=== PATIENT | male | born 1950 | race Caucasian/White ===

== ENCOUNTER 2019-07-03 11:41 | Emergency (ER) | payer MEDICARE ==
[~2019-07-03] VITALS: Ht 182.9 cm; Wt 54.6 kg
[2019-07-03] MEDS ORDERED: VITAMIN B-625 MG PO (13:57)
[2019-07-03] MEDS ORDERED: AMANTADINE100 M1 PO (13:57)
[2019-07-03] MEDS ORDERED: COMTAN200 MG PO (13:58)
[2019-07-03] MEDS ORDERED: SINEMET 25-1001 EACH PO (13:58)
[2019-07-03] MEDS ORDERED: CIPRO500 MG PO (14:15)
--- OUTSIDE RECORDS SUMMARY | 2019-07-03 15:20 | XMS ---
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 Curt VISIT COUNT (12 MO.) 1 George Owens [address] [place] [address] TOTAL 2 NOTE: Visits indicate total known visits. ED/UCC VISIT TRACKING (12 MO.) 07/03/2019 11:42 [place] TYPE: Emergency COMPLAINT: - BLOOD IN URINE,CONFUSION 06/16/2019 14:53 [place] TYPE: Emergency DIAGNOSES: - Weakness - Hypermagnesemia - Acute cystitis with hematuria - Acute kidney failure, unspecified - can't walk - Weakness INPATIENT VISIT TRACKING (12 MO.) 06/16/2019 14:53 George [place] TYPE: Internal Medicine DIAGNOSES: - Acute kidney failure, unspecified - Weakness - Acute cystitis with hematuria - Hypermagnesemia [email or web address]
== END 2019-07-03 15:18 | disposition home or self-care (01) ==
LOC: ED 11:41
DX: N39.0 Urinary tract infection, site not specified (principal); Z88.2 Allergy status to sulfonamides; Z88.1 Allergy status to other antibiotic agents; Z79.899 Other long term (current) drug therapy
CPT/HCPCS: 71045; 80053; 81001; 85025; 87088; 96361; 96365; 99284-25; J0696; J7030

== ENCOUNTER 2019-08-18 13:16 | Observation (INO) | payer MEDICARE ==
[~2019-08-18] VITALS: Ht 182.9 cm; Wt 50.9 kg
--- OUTSIDE RECORDS SUMMARY | ~2019-08-18 | XMS | Encounter Summary ---
Demographics + + + | Address | [address] | | | [place] [address] | + + + | Home Phone | | + + + | Preferred Language | Unknown | + + + | Marital Status | | + + + | Christianity Affiliation | Unknown | + + + | Race | Unknown | + + + | Ethnic Group | Unknown | + + + Author + + + | Author | [facility] | | | and [place] | + + + | Organization | [facility] | | | and [place] | + + + | Address | Unknown | + + + | Phone | Unavailable | + + + Support + + +---------+ + | Name | Relationship | Address | Phone | + + +---------+ + | Blanquita Jose | ECON | Unknown | | + + +---------+ + Care Team Providers + +------+ + | Care Auto Haulaway Driver Name | Role | Phone | + +------+ + | Екатерина Christianson NP | PCP | | + +------+ + Reason for Visit + + + | Reason | Comments | + + + | Pain Management | | + + + Encounter Details +--------+ + + + + | Date | Type | Department | Care Team | Description | +--------+ + + + + | 01/06/ | Telephone | [facility] | Mac Bond MD | Pain Management | | 2019 | | [facility] | [address] | | | | | CLINIC [address] | [place] | | | | | [address] [place], | [address] | | | | | [place] [address] | | | | | | [phone] | | | +--------+ + + + + Social History + +-------+ +--------+ + | Tobacco Use | Types | Packs/Day | Years | Date | | | | | Used | | + +-------+ +--------+ + | Former Smoker | | | | Quit: 07/09/2015 | + +-------+ +--------+ + + +---+---+---+ | Smokeless Tobacco: | | | | | Never Used | | | | + +---+---+---+ + + +---------+ + | Alcohol Use | Drinks/Week | oz/Week | Comments | + + +---------+ + | Yes | 1 Cans of beer | 1.0 | ocassionally | + + +---------+ + + + + | Sex Assigned at | Date Recorded | | | | + + + | Not on file | | + + + + + + + | Job Start Date | Occupation | Industry | + + + + | Not on file | Not on file | Not on file | + + + + + + + + | Travel History | Travel Start | Travel End | + + + + + + | No recent travel history available. | + + documented as of this encounter Plan of Treatment +--------+---------+ + + + | Date | Type | Specialty | Care Team | Description | +--------+---------+ + + + | 01/20/ | Office | Neurology | Mary, | | | 2020 | Visit | | BRYCE [address] [place], | | | | | | [place] [address] | | | | | | [phone] | | | | | | | | +--------+---------+ + + + documented as of this encounter Visit Diagnoses Not on filedocumented in this encounter"
--- OUTSIDE RECORDS SUMMARY | ~2019-08-18 | XMS | Encounter Summary ---
Demographics + + + | Address | [address] | | | [place] [address] | + + + | Home Phone | | + + + | Preferred Language | Unknown | + + + | Marital Status | | + + + | Pentecostal Affiliation | Unknown | + + + | Race | Unknown | + + + | Ethnic Group | Unknown | + + + Author + + + | Author | [facility] | | | and [place] | + + + | Organization | [facility] | | | and [place] | + + + | Address | Unknown | + + + | Phone | Unavailable | + + + Support + + +---------+ + | Name | Relationship | Address | Phone | + + +---------+ + | Blanquita Patel ECON | Unknown | | + + +---------+ + Care Team Providers + +------+ + | Care Telephone Technician Name | Role | Phone | + +------+ + | Екатерина Christianson NP | PCP | | + +------+ + Encounter Details +--------+ + + + + | Date | Type | Department | Care Team | Description | +--------+ + + + + | 12/15/ | Orders Only | [facility] | Mac Bond MD | Chronic low back | | 2019 | | HOSPITAL [facility] | [address] | pain without | | | | CLINIC [address] | [place], [place] | sciatica, | | | | [address] [place], | [address] | unspecified back | | | | [place] [address] | | pain laterality | | | | [phone] | | (Primary Dx); | | | | | | Encounter for | | | | | | therapeutic | | | | | | procedure | +--------+ + + + + Social [...] | | | | | | [place] [address] | | | | | | [phone] | | | | | | | | +--------+---------+ + + + documented as of this encounter Results CBC with Differential (12/26/2018 10:32 AM PDT) + +---------+ + + + | Component | Value | Ref Range | Performed | Pathologist | | | | | At | Signature | + +---------+ + + + | WBC | 7.9 | 4.6 - 10.5 K/uL | [facility] | | [facility] | | + +---------+ + + + | RBC | 4.56 | 4.36 - 5.83 | [facility] | | | | | M/uL | [facility] | | + +---------+ + + + | Hemoglobin | 14.3 | 13.1 - 17.4 | [facility] | | | | | g/dL | [facility] | | + +---------+ + + + | Hematocrit | 43.2 | 39.0 - 51.9 % | [facility] | | + +---------+ + + + | MCV | 94.7 | 82.0 - 96.0 fL | [facility] | | + +---------+ + + + | MCH | 31.4 | 27.7 - 32.3 pg | [facility] | [facility] | | + +---------+ + + + | MCHC | 33.1 | 32.0 - 36.9 | [facility] | | | | | g/dL | [facility] | | + +---------+ + + + | RDW-CV | 13.2 | 0.0 - 17.0 % | [facility] | | | | [facility] | | + +---------+ + + + | Platelet | 312 | 150 - 450 K/uL | [facility] | | | Count | | | [facility] | [facility] | | + +---------+ + + + | MPV | 8.7 (L) | 9.4 - 12.4 fL | [facility] | | | [facility] | | + +---------+ + + + | % | 68.1 | 42.0 - 76.0 % | [facility] | | | Neutrophils | | | [facility] | | + +---------+ + + + | % | 20.1 | 20.0 - 40.0 % | [facility] | | | Lymphocytes | | | [facility] | | + +---------+ + + + | % Monocytes | 6.1 | 3.0 - 13.0 % | [facility] | | | | [facility] | | + +---------+ + + + | % | 4.4 | 0.0 - 7.0 % | [facility] | | | Eosinophils | | | [facility] | | + +---------+ + + + | % Basophils | 1.0 | 0.0 - 2.0 % | [facility] | | | | [facility] | | + +---------+ + + + | % Immature | 0.3 | 0.0 - 0.5 % | [facility] | | | Granulocyte | | | [facility] | | | | | | [facility] | | + +---------+ + + + | Absolute | 5.41 | 2.80 - 7.70 | [facility] | | | Neutrophils | | K/uL | [facility] | | + +---------+ + + + | Absolute | 1.59 | 1.20 - 3.30 | [facility] | | | Lymphocytes | | K/uL | [facility] | | + +---------+ + + + | Absolute | 0.48 | 0.00 - 0.80 | [facility] | | | Monocytes | | K/uL | [facility] | [facility] | | + +---------+ + + + | Absolute | 0.35 | 0.00 - 0.70 | [facility] | | | Eosinophils | | K/uL | [facility] | | + +---------+ + + + | Absolute | 0.08 | 0.00 - 0.20 | [facility] | | | Basophils | | K/uL | [facility] | | [facility] | | + +---------+ + + + | Absolute | 0.02 | 0.00 - 0.15 | [facility] | | | Immature | | K/uL | [facility] | | | Granulocyte | | | [facility] | | | s | | | [facility]AT[facility] | | + +---------+ + + + | % nRBC | 0 | <=0 per 100 | [facility] | | | | | WBCs | [facility] | [facility] | | + +---------+ + + + | Absolute | 0.00 | 0.00 - 0.01 | [facility] | | | nRBC | | K/uL | [facility] | | [facility] | | + +---------+ + + + + + | Specimen | + + | Blood | + + + + + + + | Performing | Address | City/State/Zipcode | Phone Number | | Organization | | | | + + + + + | [facility] | [address] | [place] [address] | [phone] | | [facility] | | | | + + + + + documented in this encounter Visit Diagnoses + + | Diagnosis | + + | Chronic low back pain without sciatica, unspecified back pain laterality - Primary | + + | Encounter for therapeutic procedure | + + documented in this encounter"
--- OUTSIDE RECORDS SUMMARY | ~2019-08-18 | XMS | Encounter Summary ---
Demographics + + + | Address | [address] | | | [place] [address] | + + + | Home Phone | | + + + | Preferred Language | Unknown | + + + | Marital Status | | + + + | Church Affiliation | Unknown | + + + | Race | Unknown | + + + | Ethnic Group | Unknown | + + + Author + + + | Author | [facility] | | | and [place] | + + + | Organization | [facility] | | | and [...] Team Providers + +------+ + | Care Structured Cabling Technician Name | Role | Phone | + +------+ + | Екатерина Christianson NP | PCP | | + +------+ + Reason for Visit +--------+ + | Reason | Comments | +--------+ + | Triage | frequent falls | +--------+ + Encounter Details +--------+ + + + + | Date | Type | Department | Care Team | Description | +--------+ + + + + | 06/16/ | Telephone | [facility] | Ally Douglass RN | Triage (frequent | | 2019 | | HOSPITAL [facility] | | falls) | | | | CLINIC [address] | | | | | | [address] [place], | | | | | | [place] [address] | | | | | | [phone] | | | +--------+ + + + + Social History + +-------+ +--------+ + | Tobacco Use | Types | Packs/Day | Years | Date | | | | | Used | | + +-------+ +--------+ + | Current Every Day | | 0.25 | | Quit: 07/09/2015 | | Smoker | | | | | + +-------+ +--------+ + + +---+---+---+ | Smokeless Tobacco: | | | | | Never Used | | | | + +---+---+---+ + + +---------+ + | Alcohol Use | Drinks/Week | oz/Week | Comments | + + +---------+ + | Not Currently | 1 Cans of beer | 1.0 | | + + +---------+ + + + [...] | | | | | | [address] [facility] [place], | | | | | | [place] [address] | | | | | | [phone] | | | | | | | | +--------+---------+ + + + documented as of this encounter Visit Diagnoses Not on filedocumented in this encounter"
--- OUTSIDE RECORDS SUMMARY | ~2019-08-18 | XMS | Encounter Summary ---
Demographics + + + | Address | [address] | | | [place] [address] | + + + | Home Phone | | + + + | Preferred Language | Unknown | + + + | Marital Status | | + + + | Baptism Affiliation | Unknown | + + + | Race | Unknown | + + + | Ethnic Group | Unknown | + + + Author + + + | Author | [facility] | | | and [place] | + + + | Organization | [facility] | | | [...] Team Providers + +------+ + | Care Skin Tanner Name | Role | Phone | + +------+ + | Екатерина Christianson NP | PCP | | + +------+ + Reason for Visit +--------+ + | Reason | Comments | +--------+ + | Other | | +--------+ + Encounter Details +--------+ + + + + | Date | Type | Department | Care Team | Description | +--------+ + + + + | 10/03/ | Telephone | [facility] | Mac Bond MD | Other | | 2019 | | HOSPITAL [facility] | [address] | | | | | CLINIC [address] | [place] | | | | | [address] [place], | [address] | | | | | [place] [address] | | | | | | [phone] | | | +--------+ + + + [...] | | | | | | [place] [address] | | | | | | [phone] | | | | | | | | +--------+---------+ + + + documented as of this encounter Visit Diagnoses Not on filedocumented in this encounter"
--- OUTSIDE RECORDS SUMMARY | ~2019-08-18 | XMS | Encounter Summary ---
Demographics + + + | Address | [address] | | | [place] [address] | + + + | Home Phone | | + + + | Preferred Language | Unknown | + + + | Marital Status | | + + + | Anabaptism Affiliation | Unknown | + + + | Race | Unknown | + + + | Ethnic Group | Unknown | + + + Author + + + | Author | [facility] | | | and [place] | + + + | Organization | [facility] | | | [...] Team Providers + +------+ + | Care It Architecture Analyst Name | Role | Phone | + +------+ + | Екатерина Christianson NP | PCP | | + +------+ + Reason for Visit + + + | Reason | Comments | + + + | Weakness | | + + + Encounter Details +--------+ + + + + | Date | Type | Department | Care Team | Description | +--------+ + + + + | 06/16/ | Hospital | [facility] | Yary Travis | Generalized weakness | | 2019 - | Encounter | [facility] | Oscar, DO [address] | (Primary Dx); Acute | | | | [address] [place] | [address] [place] | renal failure, | | 06/19/ | | [place], [place] | [place] [address] | unspecified acute | | 2018 | | [address] | [phone] | renal failure type | | | | [phone] | | ([facility]); | | | | | Fidel Muir, | Hypermagnesemia; | | | | | [address] | Acute cystitis with | | | | | [place] [address] | hematuria | | | | | [phone] | | | | | | | | | | | | Gina Main, | | | | | | [address] [place] | | | | | | [place] [address] | | | | | | [phone] | | | | | | | | +--------+ + + + [...] + + documented as of this encounter Last Filed Vital Signs + + + + + | Vital Sign | Reading | Time Taken | Comments | + + + + + | Blood Pressure | 101/50 | 06/19/2019 11:19 AM | | | | | PDT | | + + + + + | Pulse | 79 | 06/19/2019 11:19 AM | | | | | PDT | | + + + + + | Temperature | 36.4 C (97.5 F) | 06/19/2019 8:46 AM | | | | | PDT | | + + + + + | Respiratory Rate | 20 | 06/19/2019 11:19 AM | | | | | PDT | | + + + + + | Oxygen Saturation | 100% | 06/19/2019 11:19 AM | | | | | PDT | | + + + + + | Inhaled Oxygen | - | - | | | Concentration | | | | + + + + + | Weight | 59.9 kg (132 lb 0.9 | 06/19/2019 5:00 AM | | | | oz) | PDT | | + + + + + | Height | 182.9 cm (6') | 06/16/2019 7:53 PM | | | | | PDT | | + + + + + | Body Mass Index | 17.91 | 06/16/2019 7:53 PM | | | | | PDT | | + + + + + documented in this encounter Functional Status + + + + | Functional Status | Response | Date of Assessment | + + + + | Are you deaf or do you have serious | No | 06/19/2019 | | difficulty hearing? | | | + + + + | Are you blind or do you have serious | No | 06/19/2019 | | difficulty seeing, even when wearing | | | | glasses? | | | + + + + | Do you have serious difficulty walking or | Yes | 06/19/2019 | | climbing stairs? (5 years old or older) | | | + + + + | Do you have difficulty dressing or bathing? | Yes | 06/19/2019 | | (5 years old or older) | | | + + + + | Because of a physical, mental, or emotional | Yes | 06/19/2019 | | condition, do you have difficulty doing | | | | errands alone such as visiting a doctor's | | | | office or shopping? [15 years old or | | | | older)] | | | + + + + + + + + | Cognitive Status | Response | Date of Assessment | + + + + | Because of a physical, mental, or emotional | Yes | 06/19/2019 | | condition, do you have serious difficulty | | | | concentrating, remembering, or making | | | | decisions? (5 years old or older) | | | + + + + documented as of this encounter Discharge Summaries Fidel Muir MD - 06/19/2019 12:57 PM PDT MEDICAL HOSPITALIST DISCHARGE SUMMARY Pt. Name/Age/: Nitesh Haynes 68 y.o. 1950 Date of Admission: 06/16/2019 Date of Discharge: 06/19/2019 PCP: Екатерина Christianson Admitting Diagnosis: Acute renal failure UTI Discharge Diagnosis: Principal Problem: UTI (urinary tract infection) Active Problems: Parkinson disease Chronic bilateral low back pain without sciatica Heart murmur Resolved Problems: * No resolved hospital problems. 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 Indications: Sepsis of Unknown Etiology, UTI - Lower aka: OMNICEF Unchanged Medications Details amantadine 100 MG Tabs Take 1 tablet by mouth 4 times daily. aka: SYMMETREL carbidopa-levodopa 25-100 mg per tablet Take 1 tab PO at 0800, 1000, 1200, 1400, 1600, 1800, 2000 and 2300. Max of 8 tabs per day . aka: SINEMET entacapone 200 mg tablet Take 1 tablet by mouth 4 times daily. aka: COMTAN vitamin B-6 25 MG tablet Discontinued Medications sulfamethoxazole-trimethoprim 800-160 mg per tablet aka: BACTRIM DS Clinical Resume: This is a 68yo male with a hx of parkinsons who presented to the ER with incresing weakness . He had recently been treated for a UTI with bactrim. In the ER he was noted to be in acu te renal failure with a Cr of 3.61. There was no previous Cr found. His UA was consistent wi th a UTI. CX's grew mixed radha. He was switched to cefdinir. His Cr improved with hydrat ion. He was continue on his parkinsons meds and slowly improved. He has some baseline weakn ess requiring SNF. He is transferring in stable condition to [facility] this afternoon. Incidentally-an ECHO was performed however not resulted at the time of d/c attempts were ma de to get this read prior to d/c and were unsuccessful. This was order by the admitting souleymane melendrez for a murmur. This should be followed up by his PCP. He has no clinical evidence of heart failure or valvular abnl's requiring additional therapies. Physical Examination: General: A&ox3, nad HEENT: At/nc Cardiovascular: Rrr, -mrg Respiratory: Clear throughout Abdomen: s/abs Significant tests and procedures during admission: Xr Chest Ap Portable Result Date: 06/16/2019 EXAMINATION: XR CHEST AP PORTABLE HISTORY: WEAKNESS COMPARISON STUDY: None. FINDINGS: No lo bar consolidation or effusion identified. Heart size normal. An electronic device is prese nt with the body implanted at the upper left thorax precluding evaluation of underlying lung parenchyma. The leads extend cephalad toward head. No acute bone finding. Vague approxima te 8 mm opacity at the left lower lung zone. Skin folds are present at the right thorax.. 1. No acute finding. 2. Finding at the left lower lung zone which may relate to nipple shad ow, or nodule. Recommend repeat chest radiograph with nipple markers in place. Dictated by: Nato Turner Disposition: retirement facility Follow-Up Plans: [address] [place] [id number] Electronically signed by: Fidel Muir MD 06/19/2019 12:[address] [facility] Time spent discharging this patient: 30 minutes documented in this encounter Discharge Instructions AttachmentsThe following attachments cannot be sent through Care Everywhere.Kidney Injury, Acute, Discharge Instructions for (Czech)documented in this encounter Medications at Time of Discharge + + + +---------+ + + | Medication | Sig | Dispensed | Refills | Start | End Date | | | | | | Date | | + + + +---------+ + + | amantadine | Take 1 tablet by | 120 | 11 | 03/11/20 | | | (SYMMETREL) 100 MG | mouth 4 times daily. | tablet | | 19 | | | TABSIndications: | | | | | | | Parkinson disease | | | | | | | ([facility]) | | | | | | + + + +---------+ + + | carbidopa-levodopa | Take 1 tab PO at | 720 | 11 | 03/11/20 | | | (SINEMET) 25-100 mg | 0800, 1000, 1200, | tablet | | 19 | | | per | 1400, 1600, 1800, | | | | | | tabletIndications: | 2000 and 2300. Max | | | | | | Parkinson disease | of 8 tabs per day. | | | | | | (HCC) | | | | | | + + + +---------+ + + | entacapone | Take 1 tablet by | 120 | 11 | 03/11/20 | | | (COMTAN) 200 mg | mouth 4 times daily. | tablet | | 19 | | | tabletIndications: | | | | | | | Parkinson disease | | | | | | | (HCC) | | | | | | + + + +---------+ + + | Pyridoxine HCl | | | 0 | 03/26/20 | | | (VITAMIN B-6) 25 MG | | | | 18 | | | tablet | | | | | | + + + +---------+ + + | cefdinir (OMNICEF) | Take 1 capsule by | 10 | 0 | 06/19/20 | | | 300 mg | mouth 2 times daily | capsule | | 19 | 9 | | capsuleIndications: | for 5 days. | | | | | | SEPSIS OF UNKNOWN | Indications: Sepsis | | | | | | ETIOLOGY, UTI - | of Unknown Etiology, | | | | | | LOWER | UTI - Lower | | | | | + + + +---------+ + + documented as of this encounter Progress Notes Gumaro Hernández, PharmCullen - 06/19/2019 1:40 PM PDTFormatting of this note might be sameera t from the original. PHARMACY SERVICES: DISCHARGE MEDICATION TEACHING Nitesh Haynes is a 68 y.o. male admitted on 06/19/19 for ANEUDY and UTI and was discharge d on 06/19/19. Discharge Medications New Medications Details cefdinir 300 mg capsule Take 1 capsule by mouth 2 times daily for 5 days. Indications: Sepsis of Unknown Etiology, UTI - Lower aka: OMNICEF Unchanged Medications Details amantadine 100 MG Tabs Notes to patient: parkinsons Take 1 tablet by mouth 4 times daily. aka: SYMMETREL carbidopa-levodopa 25-100 mg per tablet Notes to patient: parkinsons Take 1 tab PO at 0800, 1000, 1200, 1400, 1600, 1800, 2000 and 2300. Max of 8 tabs per day . aka: SINEMET entacapone 200 mg tablet Notes to patient: parkinsons Take 1 tablet by mouth 4 times daily. aka: COMTAN vitamin B-6 25 MG tablet Notes to patient: supplement Discontinued Medications sulfamethoxazole-trimethoprim 800-160 mg per tablet aka: BACTRIM DS Discharge medications reviewed for renal function. Signed medication list provided for disc harge to half-way facility. Electronically signed by: Gumaro Hernández, Mary 06/19/2019 13:40 hilo, Adele Romero RN - 06/18/2019 1:08 PM PDTAmbulated with pt from chair to bed. 2 person assistance with walker. Pt is not able to take strong coordinated step. His left foot drags and is in the way of his right foot so his right foot steps on his left foot. He can not walk without assistance, and a walker. Electr onically signed by Adele Lao RN at 06/18/2019 1:10 PM Fidel Pugh MD - 05/27 12:07 PM PDT MEDICAL HOSPITALIST TEAM PROGRESS NOTE Name:Nitesh Haynes Hospital Day # 2 Reason for admission and continued stay: Nitesh Haynes is a 68 y.o. male hospitalized for UTI (urinary tract infection) Assessment and Plan: Active Hospital Problems Diagnosis UTI (urinary tract infection) Heart murmur Chronic bilateral low back pain without sciatica Parkinson disease Resolved Hospital Problems No resolved problems to display. UTI - cx's NGTD, consider sterile pyuria - ceftriaxone 1g daily until, if negative tomorrow d/c abx. Acute renal failure - bl Cr from 2018 was wnl - suspect bactrim affected his ability to secrete Cr. - IVF increased to 100cc/hr and monitor - currently down from 3.61>1.95 parkinsons - continue home meds and pharmacy to dose based on CrCl Anemia - check Fe levels, anemia of chronic disease - check B12 levels, wnl - guiac stool, - monitor, sample not sent yet Dispo - pt will need inpatient rehab Code - spoke with pt who said he wants DNR/limited, placed POLST in the chart Heparin for DVT prophylaxis Subjective/ROS: No concerns this morning Objective: Most recent vital signs: BP 95/48 | Pulse 68 | Temp 36.1 C (97 F) | Resp 24 | Ht 1.829 m (6') | Wt 58 kg (1 27 lb 13.9 oz) | SpO2 93% | BMI 17.34 kg/m Vital sign ranges for last 24hrs: Input and output for last 24hrs: Temp: [36.1 C (97 F)-37.3 C (99.2 F)] 36.1 C (97 F) Pulse: [68-84] 68 Resp: [13-24] 24 BP: (95-115)/(46-89) 95/48 SpO2 Av.7 % Min: 93 % Max: 100 % 06/16 1901 - 06/18 0700 In: 6914 [P.O.:3940; I.V.:2874] Out: 4125 [Urine:4125] Physical Examination: General: Nad, alert HEENT: At/nc Cardiovascular: Rrr, -mrg, s1s2 Respiratory: Without crackles rales or wheezes Abdomen: S/nt/nd/abs Extremities: -cce Neurological: Grossly intact Psychiatric: Bright affect Last 8 glucose values: Recent Labs Lab 06/18/1952206/17/19 0510 06/16/19 1520 GLU 104 103 119* Labs/Studies: Recent Labs Lab 06/18/1952206/17/19 0510 06/16/19 1520 WBC 10.0 10.7* 10.6* HGB 8.8* 8.7* 9.6* HCT 27.1* 27.1* 29.0* PLT 289 339 337 Recent Labs Lab 06/18/1952206/17/19 0510 06/16/19 1520 NA 148* 146* 147* K 4.6 4.8 4.8 CL 114* 117* 112* CO2 21* 19* 21* BUN 53* 65* 77* CREA 1.95* 2.92* 3.61* GLU 104 103 119* MG -- 2.4 2.7* CALCIUM 8.9 8.8 9.2 BILITOT -- -- 0.4 AST -- -- 74* ALT -- -- 23 ALKPHOS -- -- 158* ALBUMIN -- -- 3.2 Pertinent micro results: ua NGTD Xr Chest Ap Portable Result Date: 06/16/2019 EXAMINATION: XR CHEST AP PORTABLE HISTORY: WEAKNESS COMPARISON STUDY: None. FINDINGS: No lo bar consolidation or effusion identified. Heart size normal. An electronic device is prese nt with the body implanted at the upper left thorax precluding evaluation of underlying lung parenchyma. The leads extend cephalad toward head. No acute bone finding. Vague approxima te 8 mm opacity at the left lower lung zone. Skin folds are present at the right thorax.. 1. No acute finding. 2. Finding at the left lower lung zone which may relate to nipple shad ow, or nodule. Recommend repeat chest radiograph with nipple markers in place. Dictated by: Nato Turner I have personally reviewed the above laboratory results and/or imaging. Medications reviewed: Fidel Muir MD, MD 06/18/2019 Total time spent today: > 15 minutes Greater than 50% of total time spent on counseling and coordination of care. Portions of this chart may have been created with voice recognition software. Occasional wo rd or "sound-alike" substitutions may have occurred due to the inherent limitation of voice recognition software. Read the chart carefully and recognize, using context, where these sub stitutions have occurred. Carolann Valerio PharmD - 06/17/2019 11:50 AM PDTPHARMACY SERVICES: ADMISSION MEDICATION REVIEW Nitesh Haynes is a 68 y.o. male admitted on 06/16/19. Patient is not a reliable historian. Location of Patient when reviewed: [x] ICU Patient s prior to admit medication and over the counter (OTC) medications/herbal supplem ents list obtained from: [x] Verbal interview [x] Patient able to recall SOME Name, strength, and directions [x] Pharmacy list names: [facility] ([place] Spoke with patient that could recall some of his medications. Removed gabapentin from vickie ents medication list as patient has not received any since a 90 day fill was mailed in November 2018. Medication review performed and electronically signed by Carolann Diane PharmD 9 11:50 Fidel Pugh MD - 06/17/2019 11:07 AM PDT . MEDICAL HOSPITALIST TEAM PROGRESS NOTE Name:Nitesh Haynes Hospital Day # 1 Reason for admission and continued stay: Nitesh Haynes is a 68 y.o. male hospitalized for UTI (urinary tract infection) Assessment and Plan: Active Hospital Problems Diagnosis UTI (urinary tract infection) Heart murmur Chronic bilateral low back pain without sciatica Parkinson disease Resolved Hospital Problems No resolved problems to display. UTI - ceftriaxone 1g daily until cx's result Acute renal failure - bl Cr from 2018 was wnl - suspect bactrim affected his ability to secrete Cr. - IVF increased to 100cc/hr and monitor parkinsons - continue home meds and pharmacy to dose based on CrCl Anemia - check Fe levels - check B12 levels - guiac stool - monitor Code - spoke with pt who said he wants DNR/limited, placed POLST in the chart Heparin for DVT prophylaxis Subjective/ROS: Feels weak Reports dysuria Denies fevers or chills. Objective: Most recent vital signs: BP 96/54 | Pulse 83 | Temp 36.6 C (97.8 F) (Oral) | Resp 18 | Ht 1.829 m (6') | Wt 56.3 kg (124 lb 1.9 oz) | SpO2 99% | BMI 16.83 kg/m Vital sign ranges for last 24hrs: Input and output for last 24hrs: Temp: [36.6 C (97.8 F)-37.1 C (98.8 F)] 36.6 C (97.8 F) Pulse: [69-86] 83 Resp: [10-20] 18 BP: (96-132)/(54-90) 96/54 SpO2 Av.6 % Min: 93 % Max: 100 % 06/15 1901 - 06/17 0700 In: 2731 [P.O.:900; I.V.:731] Out: 725 [Urine:725] Physical Examination: General: Nad, alert HEENT: At/nc Cardiovascular: Rrr, -mrg, s1s2 Respiratory: Without crackles rales or wheezes Abdomen: S/nt/nd/abs Extremities: -cce Neurological: Grossly intact Psychiatric: Bright affect Last 8 glucose values: Recent Labs Lab 06/17/19 0510 06/16/19 1520 GLU 103 119* Labs/Studies: Recent Labs Lab 06/17/19 0510 06/16/19 1520 WBC 10.7* 10.6* HGB 8.7* 9.6* HCT 27.1* 29.0* PLT 339 337 Recent Labs Lab 06/17/19 0510 06/16/19 1520 NA 146* 147* K 4.8 4.8 CL 117* 112* CO2 19* 21* BUN 65* 77* CREA 2.92* 3.61* GLU 103 119* MG 2.4 2.7* CALCIUM 8.8 9.2 BILITOT -- 0.4 AST -- 74* ALT -- 23 ALKPHOS -- 158* ALBUMIN -- 3.2 Pertinent micro results: ua pending Xr Chest Ap Portable Result Date: 06/16/2019 EXAMINATION: XR CHEST AP PORTABLE HISTORY: WEAKNESS COMPARISON STUDY: None. FINDINGS: No lo bar consolidation or effusion identified. Heart size normal. An electronic device is prese nt with the body implanted at the upper left thorax precluding evaluation of underlying lung parenchyma. The leads extend cephalad toward head. No acute bone finding. Vague approxima te 8 mm opacity at the left lower lung zone. Skin folds are present at the right thorax.. 1. No acute finding. 2. Finding at the left lower lung zone which may relate to nipple shad ow, or nodule. Recommend repeat chest radiograph with nipple markers in place. Dictated by: Nato Turner I have personally reviewed the above laboratory results and/or imaging. Medications reviewed: Fidel Muir MD, MD 06/17/2019 Total time spent today: > 15 minutes Greater than 50% of total time spent on counseling and coordination of care. Portions of this chart may have been created with voice recognition software. Occasional wo rd or "sound-alike" substitutions may have occurred due to the inherent limitation of voice recognition software. Read the chart carefully and recognize, using context, where these sub stitutions have occurred. documented in this encounter Plan of Treatment +--------+---------+ + + + | Date | Type | Specialty | Care Team | Description | +--------+---------+ + + + | 01/20/ | Office | Neurology | Mary, | | | 2019 | Visit | | [facility] [address] | | | | | | [address] [facility], | | | | | | [place] [address] | | | | | | [phone] | | | | | | | | +--------+---------+ + + + + + +--------+ + + | Name | Type | Priori | Associated Diagnoses | Date/Time | | | | ty | | | + + +--------+ + + | ECHO Complete | Echocardiog | Routin | | 06/17/2019 9:51 AM | | | sebastián | e | | PDT | + + +--------+ + + + + +--------+ + + | Name | Type | Priori | Associated Diagnoses | Order Schedule | | | | ty | | | + + +--------+ + + | ECHO Complete | Echocardiog | Routin | | One time imaging One | | | sebastián | e | | time imaging for 1 | | | | | | Occurrences starting | | | | | | 06/16/2019 until | | | | | | 06/16/2019 | + + +--------+ + + documented as of this encounter Procedures + +--------+ + + + | Procedure Name | Priori | Date/Time | Associated Diagnosis | Comments | | | ty | | | | + +--------+ + + + | ECG - EXTERNAL SCAN | | 06/23/2019 | | Results for this | | | | 12:00 AM | | procedure are in the | | | | PDT | | results section. | + +--------+ + + + | CBC WITH | Routin | 06/19/2019 | | Results for this | | DIFFERENTIAL | e | 5:32 AM | | procedure are in the | | | | PDT | | results section. | + +--------+ + + + | BASIC METABOLIC | Routin | 06/19/2019 | | Results for this | | PANEL | e | 5:32 AM | | procedure are in the | | | | PDT | | results section. | + +--------+ + + + | CBC WITH | Routin | 06/18/2019 | | Results for this | | DIFFERENTIAL | e | 5:23 AM | | procedure are in the | | | | PDT | | results section. | + +--------+ + + + | BASIC METABOLIC | Routin | 06/18/2019 | | Results for this | | PANEL | e | 5:23 AM | | procedure are in the | | | | PDT | | results section. | + +--------+ + + + | IRON AND IRON | Routin | 06/17/2019 | | Results for this | | BINDING CAPACITY | e | 11:25 AM | | procedure are in the | | | | PDT | | results section. | + +--------+ + + + | VITAMIN B-12 | Routin | 06/17/2019 | | Results for this | | | e | 11:25 AM | | procedure are in the | | | | PDT | | results section. | + +--------+ + + + | CBC NO DIFFERENTIAL | Routin | 06/17/2019 | | Results for this | | | e | 5:10 AM | | procedure are in the | | | | PDT | | results section. | + +--------+ + + + | MAGNESIUM | Routin | 06/17/2019 | | Results for this | | | e | 5:10 AM | | procedure are in the | | | | PDT | | results section. | + +--------+ + + + | BASIC METABOLIC | Routin | 06/17/2019 | | Results for this | | PANEL | e | 5:10 AM | | procedure are in the | | | | PDT | | results section. | + +--------+ + + + | TROPONIN I | Routin | 06/17/2019 | | Results for this | | | e | 3:00 AM | | procedure are in the | | | | PDT | | results section. | + +--------+ + + + | ECG - EXTERNAL SCAN | | 06/17/2019 | | Results for this | | | | 12:00 AM | | procedure are in the | | | | PDT | | results section. | + +--------+ + + + | TROPONIN I | Routin | 06/16/2019 | | Results for this | | | e | 9:00 PM | | procedure are in the | | | | PDT | | results section. | + +--------+ + + + | SODIUM, URINE, | STAT | 06/16/2019 | | Results for this | | RANDOM | | 4:38 PM | | procedure are in the | | | | PDT | | results section. | + +--------+ + + + | CREATININE, URINE, | Routin | 06/16/2019 | | Results for this | | RANDOM | e | 4:38 PM | | procedure are in the | | | | PDT | | results section. | + +--------+ + + + | URINALYSIS WITH | STAT | 06/16/2019 | | Results for this | | MICROSCOPIC WITH | | 4:19 PM | | procedure are in the | | CULTURE IF INDICATED | | PDT | | results section. | + +--------+ + + + | CULTURE, URINE | Routin | 06/16/2019 | | Results for this | | | e | 4:19 PM | | procedure are in the | | | | PDT | | results section. | + +--------+ + + + | XR CHEST AP PORTABLE | STAT | 06/16/2019 | | Results for this | | | | 3:43 PM | | procedure are in the | | | | PDT | | results section. | + +--------+ + + + | ECG 12 LEAD | STAT | 06/16/2019 | | Results for this | | | | 3:22 PM | | procedure are in the | | | | PDT | | results section. | + +--------+ + + + | TSH, REFLEX FREE T4 | STAT | 06/16/2019 | | Results for this | | | | 3:20 PM | | procedure are in the | | | | PDT | | results section. | + +--------+ + + + | TROPONIN I | STAT | 06/16/2019 | | Results for this | | | | 3:20 PM | | procedure are in the | | | | PDT | | results section. | + +--------+ + + + | CBC WITH | STAT | 06/16/2019 | | Results for this | | DIFFERENTIAL | | 3:20 PM | | procedure are in the | | | | PDT | | results section. | + +--------+ + + + | T4, FREE | Routin | 06/16/2019 | | Results for this | | | e | 3:20 PM | | procedure are in the | | | | PDT | | results section. | + +--------+ + + + | B TYPE NATRIURETIC | STAT | 06/16/2019 | | Results for this | | PEPTIDE | | 3:20 PM | | procedure are in the | | | | PDT | | results section. | + +--------+ + + + | MAGNESIUM | STAT | 06/16/2019 | | Results for this | | | | 3:20 PM | | procedure are in the | | | | PDT | | results section. | + +--------+ + + + | LACTIC ACID | STAT | 06/16/2019 | | Results for this | | | | 3:20 PM | | procedure are in the | | | | PDT | | results section. | + +--------+ + + + | COMPREHENSIVE | STAT | 06/16/2019 | | Results for this | | METABOLIC PANEL | | 3:20 PM | | procedure are in the | | | | PDT | | results section. | + +--------+ + + + documented in this encounter Results ECG - EXTERNAL SCAN (06/23/2019 12:00 AM PDT) + + + | Narrative | Performed At | + + + | Ordered by an | | | unspecified provider. | | + + + CBC with Differential (06/19/2019 5:32 AM PDT) + + + + + + | Component | Value | Ref Range | Performed | Pathologist | | | | | At | Signature | + + + + + + | WBC | 9.4 | 4.6 - 10.5 K/uL | [facility] | | | | | [facility] | | + + + + + + | RBC | 2.62 (L) | 4.36 - 5.83 | [facility] | | | | | M/uL | [facility] | [facility] | | + + + + + + | Hemoglobin | 8.4 (L) | 13.1 - 17.4 | [facility] | | | | | g/dL | [facility] | | + + + + + + | Hematocrit | 26.0 (L) | 39.0 - 51.9 % | [facility] | | | | | | [facility] | | + + + + + + | MCV | 99.2 (H) | 82.0 - 96.0 fL | [facility] | | | | | [facility] | | + + + + + + | MCH | 32.1 | 27.7 - 32.3 pg | [facility] | | | | | | [facility] | | + + + + + + | MCHC | 32.3 | 32.0 - 36.9 | [facility] | | | | | g/dL | [facility] | | + + + + + + | RDW-CV | 13.7 | 0.0 - 17.0 % | [facility] | | | | | | [facility] | | + + + + + + | Platelet | 276 | 150 - 450 K/uL | [facility] | | | Count | | | [facility] | | + + + + + + | MPV | 9.4 | 9.4 - 12.4 fL | [facility] | | | | | | [facility] | | + + + + + + | % | 75.0 | 42.0 - 76.0 % | [facility] | | | Neutrophils | | | [facility] | | | [facility] | | + + + + + + | % | 13.0 (L) | 20.0 - 40.0 % | [facility] | | | Lymphocytes | | | [facility] | | [facility] | | + + + + + + | % Monocytes | 7.5 | 3.0 - 13.0 % | [facility] | | | | | | [facility] | | + + + + + + | % | 3.6 | 0.0 - 7.0 % | [facility] | | | Eosinophils | | | [facility] | | [facility] | | + + + + + + | % Basophils | 0.7 | 0.0 - 2.0 % | [facility] | | | | | | [facility] | | + + + + + + | % Immature | 0.2 | 0.0 - 0.5 % | [facility] | | | Granulocyte | | | [facility] | | | | | | [facility] | | + + + + + + | Absolute | 7.04 | 2.80 - 7.70 | [facility] | | | Neutrophils | | K/uL | [facility] | | | [facility] | | + + + + + + | Absolute | 1.22 | 1.20 - 3.30 | [facility] | | | Lymphocytes | | K/uL | [facility] | | | [facility] | | + + + + + + | Absolute | 0.70 | 0.00 - 0.80 | [facility] | | | Monocytes | | K/uL | [facility] | | | | [facility] | | + + + + + + | Absolute | 0.34 | 0.00 - 0.70 | [facility] | | | Eosinophils | | K/uL | [facility] | | | | [facility] | | + + + + + + | Absolute | 0.07 | 0.00 - 0.20 | [facility] | | | Basophils | | K/uL | [facility] | | | | | [facility] | | + + + + + + | Absolute | 0.02 | 0.00 - 0.15 | [facility] | | | Immature | | K/uL | [facility] | | | Granulocyte | | [facility] | | | s | | | [facility]AT[facility] | | + + + + + + | % nRBC | 0 | <=0 per 100 | [facility] | | | | | WBCs | [facility] | | | | | | [facility] | | + + + + + + | Absolute | 0.00 | 0.00 - 0.01 | [facility] | | | nRBC | | K/uL | [facility] | [facility] | | [facility] | | + + + + + + + + | Specimen | + + | Blood | + + + + + + + | Performing | Address | City/State/Zipcode | Phone Number | | Organization | | | | + + + + + | [facility] | [address] | [place] [address] | [phone] | | [facility] | | | | + + + + + Basic Metabolic Panel (06/19/2019 5:32 AM PDT) + + + + + + | Component | Value | Ref Range | Performed | Pathologist | | | | | At | Signature | + + + + + + | Na | 143 | 132 - 143 | [facility] | | | | | mmol/L | [facility] | | | [facility] | | + + + + + + | K | 4.4 | 3.3 - 4.9 | [facility] | | | | | mmol/L | [facility] | | [facility] | | + + + + + + | Cl | 111 (H) | 95 - 108 mmol/L | [facility] | | | | | | [facility] | | + + + + + + | CO2 | 22 (L) | 23 - 34 mmol/L | [facility] | | | | | | [facility] | | + + + + + + | Anion Gap | 10 | 7 - 16 mmol/L | [facility] | | | | | | [facility] | | + + + + + + | Glucose | 168 (H) | 70 - 110 mg/dL | [facility] | | | | | | [facility] | | + + + + + + | BUN | 43 (H) | 5 - 26 mg/dL | [facility] | | | | | | [facility] | | + + + + + + | Creatinine | 1.60 (H) | 0.70 - 1.40 | [facility] | | | | | mg/dL | [facility] | [facility] | | [facility] | | + + + + + + | eGFR if not | 43 (L) | >=60 | [facility] | | | | | mL/min/1.73m2 | [facility] | [facility] | | | | | | [facility] | | + + + + + + | Calcium | 8.6 | 8.3 - 10.0 | [facility] | | | | | mg/dL | [facility] | | | [facility] | | + + + + + + | BUN/Creatin | 26.9 (H) | 7.0 - 24.0 | [facility] | | | ine Ratio | | | [facility] | | | | [facility] | | + + + + + + + + | Specimen | + + | Blood | + + + + + + + | Performing | Address | City/State/Zipcode | Phone Number | | Organization | | | | + + + + + | [facility] | [address] | [place] [address] | [phone] | | [facility] | | | | + + + + + CBC with Differential (06/18/2019 5:23 AM PDT) + + + + + + | Component | Value | Ref Range | Performed | Pathologist | | | | | At | Signature | + + + + + + | WBC | 10.0 | 4.6 - 10.5 K/uL | [facility] | | | | | | [facility] | | + + + + + + | RBC | 2.75 (L) | 4.36 - 5.83 | [facility] | | | | | M/uL | [facility] | | [facility] | | + + + + + + | Hemoglobin | 8.8 (L) | 13.1 - 17.4 | [facility] | | | | | g/dL | [facility] | | [facility] | | + + + + + + | Hematocrit | 27.1 (L) | 39.0 - 51.9 % | [facility] | | | | | | [facility] | | + + + + + + | MCV | 98.5 (H) | 82.0 - 96.0 fL | [facility] | | | | | | [facility] | | + + + + + + | MCH | 32.0 | 27.7 - 32.3 pg | [facility] | | | | | [facility] | | + + + + + + | MCHC | 32.5 | 32.0 - 36.9 | [facility] | | | | | g/dL | [facility] | | + + + + + + | RDW-CV | 13.7 | 0.0 - 17.0 % | [facility] | | | | | | [facility] | [facility] | | + + + + + + | Platelet | 289 | 150 - 450 K/uL | [facility] | | | Count | | | [facility] | | + + + + + + | MPV | 9.0 (L) | 9.4 - 12.4 fL | [facility] | | | | | | [facility] | | | [facility] | | + + + + + + | % | 73.1 | 42.0 - 76.0 % | [facility] | | | Neutrophils | | | [facility] | | | | | [facility] | | + + + + + + | % | 15.3 (L) | 20.0 - 40.0 % | [facility] | | | Lymphocytes | | | [facility] | | | | | [facility] | | + + + + + + | % Monocytes | 8.0 | 3.0 - 13.0 % | [facility] | | | | | | [facility] | | | | | | [facility] | | + + + + + + | % | 2.5 | 0.0 - 7.0 % | [facility] | | | Eosinophils | | | [facility] | | | | | [facility] | | + + + + + + | % Basophils | 0.7 | 0.0 - 2.0 % | [facility] | | | | | | [facility] | | | | | | [facility] | | + + + + + + | % Immature | 0.4 | 0.0 - 0.5 % | [facility] | | | Granulocyte | | | [facility] | | | [facility] | | | [facility] | | | | | | [facility] | | + + + + + + | Absolute | 7.29 | 2.80 - 7.70 | [facility] | | | Neutrophils | | K/uL | [facility] | | | | | | [facility] | | + + + + + + | Absolute | 1.53 | 1.20 - 3.30 | [facility] | | | Lymphocytes | | K/uL | [facility] | | | | | [facility] | | + + + + + + | Absolute | 0.80 | 0.00 - 0.80 | [facility] | | | Monocytes | | K/uL | [facility] | | | | | [facility] | | + + + + + + | Absolute | 0.25 | 0.00 - 0.70 | [facility] | | | Eosinophils | | K/uL | [facility] | | | | | [facility] | | + + + + + + | Absolute | 0.07 | 0.00 - 0.20 | [facility] | | | Basophils | | K/uL | [facility] | | | | | | [facility] | | + + + + + + | Absolute | 0.04 | 0.00 - 0.15 | [facility] | | | Immature | | K/uL | [facility] | | | Granulocyte | | [facility] | | | s | | | LAB[facility]ATORY | | + + + + + + | % nRBC | 0 | <=0 per 100 | [facility] | | | | | WBCs | [facility] | | | | | | [facility] | | + + + + + + | Absolute | 0.00 | 0.00 - 0.01 | [facility] | | | nRBC | | K/uL | [facility] | | | | [facility] | | + + + + + + + + | Specimen | + + | Blood | + + + + + + + | Performing | Address | City/State/Zipcode | Phone Number | | Organization | | | | + + + + + | [facility] | [address] | [place] [address] | [phone] | | [facility] | | | | + + + + + Basic Metabolic Panel (06/18/2019 5:23 AM PDT) + + + + + + | Component | Value | Ref Range | Performed | Pathologist | | | | | At | Signature | + + + + + + | Na | 148 (H) | 132 - 143 | [facility] | | | | | mmol/L | [facility] | | | [facility] | | + + + + + + | K | 4.6 | 3.3 - 4.9 | [facility] | | | | | mmol/L | [facility] | | [facility] | | + + + + + + | Cl | 114 (H) | 95 - 108 mmol/L | [facility] | | | | | | [facility] | | [facility] | | + + + + + + | CO2 | 21 (L) | 23 - 34 mmol/L | [facility] | | | | | | [facility] | | [facility] | | + + + + + + | Anion Gap | 13 | 7 - 16 mmol/L | [facility] | | | | | [facility] | | [facility] | | + + + + + + | Glucose | 104 | 70 - 110 mg/dL | [facility] | | | | | | [facility] | [facility] | | [facility] | | + + + + + + | BUN | 53 (H) | 5 - 26 mg/dL | [facility] | | | | | [facility] | | [facility] | | + + + + + + | Creatinine | 1.95 (H) | 0.70 - 1.40 | [facility] | | | | | mg/dL | [facility] | [facility] | | | | [facility] | | + + + + + + | eGFR if not | 34 (L) | >=60 | [facility] | | | | | mL/min/1.73m2 | [facility] | | [facility] | | | | | | [facility] | | + + + + + + | Calcium | 8.9 | 8.3 - 10.0 | [facility] | | | | | mg/dL | [facility] | | | | | [facility] | | + + + + + + | BUN/Creatin | 27.2 (H) | 7.0 - 24.0 | [facility] | | | ine Ratio | | | [facility] | | | | | | [facility] | | + + + + + + + + | Specimen | + + | Blood | + + + + + | Narrative | Performed At | + + + | Candie chapman | [facility] | | | [facility] | | | [facility] | + + + + + + + + | Performing | Address | City/State/Zipcode | Phone Number | | Organization | | | | + + + + + | [facility] | [address] | [place] [address] | [phone] | | [facility] | | | | + + + + + Vitamin B-12 (06/17/2019 11:25 AM PDT) + +-------+ + + + | Component | Value | Ref Range | Performed | Pathologist | | | | | At | Signature | + +-------+ + + + | VITAMIN | 480 | 211 - 911 pg/mL | [facility] | | | B-12 | | | [facility] | | | | [facility] | | | | | | [facility] | | + +-------+ + + + + + | Specimen | + + | Blood | + + + + + + + | Performing | Address | City/State/Zipcode | Phone Number | | Organization | | | | + + + + + | [facility] | [address] | [place] [address] | [phone] | | [facility] | | | | + + + + + Iron and Iron Binding Capacity (06/17/2019 11:25 AM PDT) + +---------+ + + + | Component | Value | Ref Range | Performed | Pathologist | | | | | At | Signature | + +---------+ + + + | Iron | 46 (L) | 65 - 175 ug/dL | [facility] | | | | | | [facility] | | | | | | [facility] | | + +---------+ + + + | TIBC | 184 (L) | 250 - 450 ug/dL | [facility] | | | | | [facility] | | | | | | [facility] | | + +---------+ + + + | Iron | 25 | 20 - 50 % | [facility] | | | Saturation | | | [facility] | | | [...] + + + + + | [facility] | [address] | [place] [address] | [phone] | | [facility] | | | | + + + + + Magnesium (06/17/2019 5:10 AM PDT) + +-------+ + + + | Component | Value | Ref Range | Performed | Pathologist | | | | | At | Signature | + +-------+ + + + | Magnesium | 2.4 | 1.8 - 2.4 mg/dL | [facility] | | | | | | [facility] | [facility] | | | | | | [facility] | | + +-------+ + + + + + | Specimen | + + | Blood | + + + + + + + | Performing | Address | City/State/Zipcode | Phone Number | | Organization | | | | + + + + + | [facility] | [address] | [place] [address] | [phone] | | [facility] | | | | + + + + + CBC no Differential (06/17/2019 5:10 AM PDT) + + + + + + | Component | Value | Ref Range | Performed | Pathologist | | | | | At | Signature | + + + + + + | WBC | 10.7 (H) | 4.6 - 10.5 K/uL | [facility] | | | | | | [facility] | | | | | [facility] | | + + + + + + | RBC | 2.73 (L) | 4.36 - 5.83 | [facility] | | | | | M/uL | [facility] | | | | | | [facility] | | + + + + + + | Hemoglobin | 8.7 (L) | 13.1 - 17.4 | [facility] | | | | | g/dL | [facility] | | | | | [facility] | | + + + + + + | Hematocrit | 27.1 (L) | 39.0 - 51.9 % | [facility] | | | | | | [facility] | | | | | | [facility] | | + + + + + + | MCV | 99.3 (H) | 82.0 - 96.0 fL | [facility] | | | | | | [facility] | | | | | | [facility] | | + + + + + + | MCH | 31.9 | 27.7 - 32.3 pg | [facility] | | | | | | [facility] | | | | | | [facility] | | + + + + + + | MCHC | 32.1 | 32.0 - 36.9 | [facility] | | | | | g/dL | [facility] | | | | | | [facility] | | + + + + + + | RDW-CV | 14.0 | 0.0 - 17.0 % | [facility] | | | | | | [facility] | | | | | | [facility] | | + + + + + + | Platelet | 339 | 150 - 450 K/uL | [facility] | | | Count | | | [facility] | | | | | | [facility] | | + + + + + + | MPV | 9.5 | 9.4 - 12.4 fL | [facility] | | | | | | [facility] | | | | | | [facility] | | + + + + + + + + | Specimen | + + | Blood | + + + + + + + | Performing | Address | City/State/Zipcode | Phone Number | | Organization | | | | + + + + + | [facility] | [address] | [place] [address] | [phone] | | [facility] | | | | + + + + + Basic Metabolic Panel (06/17/2019 5:10 AM PDT) + + + + + + | Component | Value | Ref Range | Performed | Pathologist | | | | | At | Signature | + + + + + + | Na | 146 (H) | 132 - 143 | [facility] | | | | | mmol/L | [facility] | | | | | | [facility] | | + + + + + + | K | 4.8 | 3.3 - 4.9 | [facility] | | | | | mmol/L | [facility] | | | | | | [facility] | | + + + + + + | Cl | 117 (H) | 95 - 108 mmol/L | [facility] | | | | | [facility] | | | | | | [facility] | | + + + + + + | CO2 | 19 (L) | 23 - 34 mmol/L | [facility] | | | | | [facility] | | | | | | [facility] | | + + + + + + | Anion Gap | 10 | 7 - 16 mmol/L | [facility] | | | | | [facility] | | | | | | [facility] | | + + + + + + | Glucose | 103 | 70 - 110 mg/dL | [facility] | | | | | | [facility] | | | | | | [facility] | | + + + + + + | BUN | 65 (H) | 5 - 26 mg/dL | [facility] | | | | | | [facility] | | | | | | [facility] | | + + + + + + | Creatinine | 2.92 (H) | 0.70 - 1.40 | [facility] | | | | | mg/dL | [facility] | [facility] | | | | | | [facility] | | + + + + + + | eGFR if not | 22 (L) | >=60 | [facility] | | | | | mL/min/1.73m2 | [facility] | | [facility] | | | | | | [facility] | | + + + + + + | Calcium | 8.8 | 8.3 - 10.0 | [facility] | | | | | mg/dL | [facility] | | | | | | [facility] | | + + + + + + | BUN/Creatin | 22.3 | 7.0 - 24.0 | [facility] | | | ine Ratio | | | [facility] | [facility] | | | | | | [facility] | | + + + + + + + + | Specimen | + + | Blood | + + + + + + + | Performing | Address | City/State/Zipcode | Phone Number | | Organization | | | | + + + + + | [facility] | [address] | [place] [address] | [phone] | | [facility] | | | | + + + + + Troponin I (06/17/2019 3:00 AM PDT) + +-------+ + + + | Component | Value | Ref Range | Performed | Pathologist | | | | | At | Signature | + +-------+ + + + | Troponin I | <0.02 | 0.02 - 0.10 | [facility] | | | | | ng/mL ng/mL | [facility] | | | | | | [facility] | | + +-------+ + + + + + | Specimen | + + | Blood | + + + + + | Narrative | Performed At | + + + | In patients with acute coronary syndromes such as unstable angina or | [facility] | | non-Q wave myocardial infarction, cardiac troponin I levels provide | [facility] | | useful prognostic information and aid in early detection of such | [facility] | | patients with an increased risk of . The Risk Stratification | | | cutpoint for the Troponin I method is 0.1 ng/mL. The diagnostic | | | cutoff point for the diagnosis of CO is 0.8 ng/mL for the Troponin I | | | method. | | + + + + + + + + | Performing | Address | City/State/Zipcode | Phone Number | | Organization | | | | + + + + + | [facility] | [address] | [place] [address] | [phone] | | [facility] | | | | + + + + + ECG - EXTERNAL SCAN (06/17/2019 12:00 AM PDT) + + + | Narrative | Performed At | + + + | Ordered by an | | | unspecified provider. | | + + + Troponin I (06/16/2019 9:00 PM PDT) + +-------+ + + + | Component | Value | Ref Range | Performed | Pathologist | | | | | At | Signature | + +-------+ + + + | Troponin I | <0.02 | 0.02 - 0.10 | [facility] | | | | | ng/mL ng/mL | [facility] | [facility] | | | | | | [facility] | | + +-------+ + + + + + | Specimen | + + | Blood | + + + + + | Narrative | Performed At | + + + | In patients with acute coronary syndromes such as unstable angina or | [facility] | | non-Q wave myocardial infarction, cardiac troponin I levels provide | [facility] | | useful prognostic information and aid in early detection of such | [facility] | | patients with an increased risk of . The Risk Stratification | | | cutpoint for the Troponin I method is 0.1 ng/mL. The diagnostic | | | cutoff point for the diagnosis of CO is 0.8 ng/mL for the Troponin I | | | method. | | + + + + + + + + | Performing | Address | City/State/Zipcode | Phone Number | | Organization | | | | + + + + + | [facility] | [address] | [place] [address] | [phone] | | [facility] | | | | + + + + + Creatinine, Urine, Random (06/16/2019 4:38 PM PDT) + +-------+ + + + | Component | Value | Ref Range | Performed | Pathologist | | | | | At | Signature | + +-------+ + + + | Creatinine, | 64 | 20 - 370 mg/dL | [facility] | | | Urine, | | | [facility] | | | Random | | | [facility] | | | | | | [facility] | | + +-------+ + + + + + | Specimen | + + | Urine - Urine | | specimen obtained by | | clean catch | | procedure (specimen) | + + + + + + + | Performing | Address | City/State/Zipcode | Phone Number | | Organization | | | | + + + + + | [facility] | [address] | [place] [address] | [phone] | | [facility] | | | | + + + + + Sodium, Urine, Random (06/16/2019 4:38 PM PDT) + + + + + + | Component | Value | Ref Range | Performed | Pathologist | | | | | At | Signature | + + + + + + | Sodium, | 35Comment: Reference | mmol/L | [facility] | | | Urine | ranges have not been | | [facility] | | | Random | established on this type | | [facility]OS[facility]ITAL | | | | of fluid or specimen. | | LAB[facility] | | + + + + + + + + | Specimen | + + | Urine - Urine | | specimen obtained by | | clean catch | | procedure (specimen) | + + + + + + + | Performing | Address | City/State/Zipcode | Phone Number | | Organization | | | | + + + + + | [facility] | [address] | [place] [address] | [phone] | | [facility] | | | | + + + + + Culture, Urine (06/16/2019 4:19 PM PDT) + + + + + + | Component | Value | Ref Range | Performed | Pathologist | | | | | At | Signature | + + + + + + | Culture | <10,000 CFU/ml | | [facility] | | | | Corynebacterium | | [facility] | | | | urealyticum (Group | | [facility]ITAL | | | | D-2)Comment: No | | LABORATORY | | | | sensitivities performed. | | | | + + + + + + | Culture | 20,000 - 30,000 CFU/ml | | [facility] | | | | Mixed radha (multiple | | [facility] | | | | morphologies | | [facility]ITAL | | | | present)Comment: | | LABORATORY | | | | Suggests contamination | | | | | | with urogenital or skin | | | | | | radha. | | | | + + + + + + + + | Specimen | + + | Urine - Urine | | specimen obtained by | | clean catch | | procedure (specimen) | + + + + + | Narrative | Performed At | + + + | Current [facility] clinical laboratory antibiogram data can be found on the | [facility] | | [facility] intranet at | HOSPITAL | | [email or web address] or on | LABORATORY | | the [facility] website at [email or web address] | | + + + + + + + + | Performing | Address | City/State/Zipcode | Phone Number | | Organization | | | | + + + + + | [facility] | [address] | [place] [address] | [phone] | | H[facility]PITAL [facility] | | | | + + + + + Urinalysis with Microscopic with Culture if Indicated (06/16/2019 4:19 PM PDT) + + + + + + | Component | Value | Ref Range | Performed | Pathologist | | | | | At | Signature | + + + + + + | Color | Yellow | Pale Yellow, | [facility] | | | | | Yellow | [facility] | | | | | | [facility] | | | | | | LABORATORY | | + + + + + + | Clarity | Cloudy (A) | Clear | [facility] | | | | [facility] | [facility] | | | | | | [facility]ATORY | | + + + + + + | pH, Urine | 8.0 (H) | 5.0 - 7.0 | [facility] | | | | [facility] | [facility] | | | | | | [facility]ATORY | | + + + + + + | Specific | 1.010 | 1.003 - 1.030 | [facility] | | | [place] | | | [facility] | | | | | | [facility]ATORY | | + + + + + + | Protein, | 30 mg/dL (A) | Negative | [facility] | | | Urine | | | [facility] | [facility] | | [facility] | | | | | | LABORATORY | | + + + + + + | Blood, | 250 ruy/uL (A) | Negative | [facility] | | | Urine | | | [facility] | | | | | | LABORATORY | | + + + + + + | Glucose, | Normal | Normal | [facility] | | | Urine | | | [facility] | [facility] | [facility] | | | | | | LABORATORY | | + + + + + + | Ketones, | Negative | Negative | [facility] | | | Urine | | | [facility] | | | | | | LABORATORY | | + + + + + + | Bilirubin, | Negative | Negative | [facility] | | | Urine | | | [facility] | | | | | | LABORATORY | | + + + + + + | Nitrite, | Negative | Negative | [facility] | | | Urine | | | [facility] | [facility] | | | | | | LABORATORY | | + + + + + + | Leukocyte | 500 yamileth/uL (A) | Negative | [facility] | | | Esterase, | | | [facility] | | | Urine | | | [facility] | | | | | | LABORATORY | | + + + + + + | Urobilinoge | Normal | 0-1.0 mg/dL | [facility] | | | n, Urine | | | [facility] | | | | | [facility] | | | | | | LABORATORY | | + + + + + + | WBC UA | TNTC (A) | <=5 /HPF | [facility] | | | | [facility] | | [facility] | | | | | | [facility]ATORY | | + + + + + + | RBC UA | 20 - 50 (A) | <=5 /HPF | [facility] | | | [facility] | | [facility] | | | | | | [facility]ATORY | | + + + + + + | SQUAMOUS | Few (A) | None Seen /LPF | [facility] | | [facility] | | | [facility] | | | | | | LAB[facility]ATORY | | + + + + + + | RENAL | Few (A) | None Seen /HPF | [facility] | [facility] | [facility] | | | [facility] | | | | | | LAB[facility]ATORY | | + + + + + + | BACTERIA UA | Few (A) | None Seen /HPF | [facility] | | | [facility] | [facility] | | | | | | [facility]ATORY | | + + + + + + | URINE | Urine Culture Set Up | | [facility] | | | COMMENT | | | [facility] | | | | [facility] | | | | | | LAB[facility]ATORY | | + + + + + + + + | Specimen | + + | Urine - Urine | | specimen obtained by | | clean catch | | procedure (specimen) | + + + + + + + | Performing | Address | City/State/Zipcode | Phone Number | | Organization | | | | + + + + + | [facility] | [address] | [place] [address] | [phone] | | [facility] | | | | + + + + + XR Chest AP Portable (06/16/2019 3:43 PM PDT) + + | Specimen | + + | | + + + + + | Impressions | Performed At | + + + | 1. No acute finding. 2. Finding at the left lower lung zone which | [facility] | | may relate to nipple shadow, or nodule. Recommend repeat chest | | | radiograph with nipple markers in place. Dictated by: Nato Turner | | | PM | | + + + + + + | Narrative | Performed At | + + + | EXAMINATION: XR CHEST AP PORTABLE HISTORY: WEAKNESS | [facility] | | COMPARISON STUDY: None. FINDINGS: No lobar consolidation or | | | effusion identified. Heart size normal. An electronic device is | | | present with the body implanted at the upper left thorax precluding | | | evaluation of underlying lung parenchyma. The leads extend cephalad | | | toward head. No acute bone finding. Vague approximate 8 mm | | | opacity at the left lower lung zone. Skin folds are present at the | | | right thorax.. | | + + + + + | Procedure Note | + + | Louis, Rad Results In - 06/16/2019 4:01 PM PDT EXAMINATION:XR CHEST AP | | PORTABLEHISTORY:WEAKNESSCOMPARISON STUDY:None.FINDINGS:No lobar consolidation or | | effusion identified. Heart size normal. An electronic device is present with the body | | implanted at the upper left thorax precluding evaluation of underlying lung parenchyma. | | The leads extend cephalad toward head. No acute bone finding.Vague approximate 8 mm | | opacity at the left lower lung zone. Skin folds are present at the right | | thorax..IMPRESSION: 1. No acute finding.2. Finding at the left lower lung zone which may | | relate to nipple shadow, or nodule. Recommend repeat chest radiograph with nipple | | markers in place.Dictated by: Nato TurnerElectronically Signed by: Nato Turner on | | 06/16/2019 3:58 PM | |No lobar consolidation or effusion identified. Heart size normal. An electronic device is present with the body implanted at the upper left thorax precluding evaluation of underlyin g lung parenchyma. The leads extend cephalad toward head. No acute | |bone finding. | | | |Vague approximate 8 mm opacity at the left lower lung zone. Skin folds are present at the right thorax.. | | | |IMPRESSION: | |1. No acute finding. | |2. Finding at the left lower lung zone which may relate to nipple shadow, or nodule. Recom mend repeat chest radiograph with nipple markers in place. | | | | | |Dictated by: Nato Turner | | | | | + + + +---------+ + + | Performing | Address | City/State/Zipcode | Phone Number | | Organization | | | | + +---------+ + + | [facility] | | | | + +---------+ + + ECG 12 lead (06/16/2019 3:22 PM PDT) + + | Specimen | + + | | + + + + + | Narrative | Performed At | + + + | HEART RATE: 71 | [facility] | | bpmP-R Interval: 160 msPAxis: 74 degQRS Interval: 126 msQT Interval: | [facility] | | 438 msQTC Interval: 476 msQRS [place]: -3 degT Wave [place]: 54 deg- | | | ABNORMAL ECG -Sinus rhythmNonspecific intraventricular conduction | | | delayMinimal ST elevation, anterior leadsNo previous ECG available for | | | comparison | | |QRS [place]: -3 deg | | |T Wave [place]: 54 deg | | |- ABNORMAL ECG - | | |Sinus rhythm | | |Nonspecific intraventricular conduction delay | | |Minimal ST elevation, anterior leads | | |No previous ECG available for comparison | | + + + + +---------+ + + | Performing | Address | City/State/Zipcode | Phone Number | | Organization | | | | + +---------+ + + | [facility] | | | | + +---------+ + + T4, Free (06/16/2019 3:20 PM PDT) + +-------+ + + + | Component | Value | Ref Range | Performed | Pathologist | | | | | At | Signature | + +-------+ + + + | FT4 | 0.8 | 0.8 - 1.5 ng/dL | [facility] | | | | | [facility] | | | | | | [facility] | | + +-------+ + + + + + | Specimen | + + | Blood | + + + + + + + | Performing | Address | City/State/Zipcode | Phone Number | | Organization | | | | + + + + + | [facility] | [address] | [place] [address] | [phone] | | [facility] | | | | + + + + + B Type Natriuretic Peptide (06/16/2019 3:20 PM PDT) + + + + + + | Component | Value | Ref Range | Performed | Pathologist | | | | | At | Signature | + + + + + + | NT-proBNP | 2,056 (H) | 0 - 125 pg/mL | [facility] | [facility] | | | | | | [facility] | | + + + + + + + + | Specimen | + + | Blood | + + + + + + + | Performing | Address | City/State/Zipcode | Phone Number | | Organization | | | | + + + + + | [facility] | [address] | [place] [address] | [phone] | | [facility] | | | | + + + + + TSH, Reflex Free T4 (06/16/2019 3:20 PM PDT) + + + + + + | Component | Value | Ref Range | Performed | Pathologist | | | | | At | Signature | + + + + + + | TSH | 4.31 (H) | 0.36 - 3.74 | [facility] | | | | | uIU/mL | [facility] | [facility] | | | | | | [facility] | | + + + + + + + + | Specimen | + + | Blood | + + + + + + + | Performing | Address | City/State/Zipcode | Phone Number | | Organization | | | | + + + + + | [facility] | [address] | [place] | [phone] | | [facility] | | | | + + + + + Lactic Acid (06/16/2019 3:20 PM PDT) + +-------+ + + + | Component | Value | Ref Range | Performed | Pathologist | | | | | At | Signature | + +-------+ + + + | Lactate | 1.9 | 0.4 - 2.1 | [facility] | | | | | mmol/L | [facility] | [facility] | | | | | | [facility] | | + +-------+ + + + + + | Specimen | + + | Blood | + + + + + + + | Performing | Address | City/State/Zipcode | Phone Number | | Organization | | | | + + + + + | [facility] | [address] | [place] [address] | [phone] | | [facility] | | | | + + + + + Magnesium (06/16/2019 3:20 PM PDT) + +---------+ + + + | Component | Value | Ref Range | Performed | Pathologist | | | | | At | Signature | + +---------+ + + + | Magnesium | 2.7 (H) | 1.8 - 2.4 mg/dL | [facility] | | | | | [...] + + + + + | [facility] | [address] | [place] [address] | [phone] | | [facility] | | | | + + + + + Troponin I (06/16/2019 3:20 PM PDT) + +-------+ + + + | Component | Value | Ref Range | Performed | Pathologist | | | | | At | Signature | + +-------+ + + + | Troponin I | <0.02 | 0.02 - 0.10 | [facility] | | | | | ng/mL ng/mL | [facility] | | | | | | [facility] | | + +-------+ + + + + + | Specimen | + + | Blood | + + + + + | Narrative | Performed At | + + + | In patients with acute coronary syndromes such as unstable angina or | [facility] | | non-Q wave myocardial infarction, cardiac troponin I levels provide | HOSPITAL | | useful prognostic information and aid in early detection of such | LAB[facility]AT[facility] | | patients with an increased risk of . The Risk Stratification | | | cutpoint for the Troponin I method is 0.1 ng/mL. The diagnostic | | | cutoff point for the diagnosis of CO is 0.8 ng/mL for the Troponin I | | | method. | | + + + + + + + + | Performing | Address | City/State/Zipcode | Phone Number | | Organization | | | | + + + + + | [facility] | [address] | [place] [address] | [phone] | | [facility] | | | | + + + + + Comprehensive Metabolic Panel (06/16/2019 3:20 PM PDT) + + + + + + | Component | Value | Ref Range | Performed | Pathologist | | | | | At | Signature | + + + + + + | Na | 147 (H) | 132 - 143 | [facility] | | | | | mmol/L | [facility] | [facility] | | | | | | [facility] | | + + + + + + | K | 4.8 | 3.3 - 4.9 | [facility] | | | | | mmol/L | [facility] | [facility] | | | | | | [facility] | | + + + + + + | Cl | 112 (H) | 95 - 108 mmol/L | [facility] | [facility] | [facility] | | | | | [facility] | | + + + + + + | CO2 | 21 (L) | 23 - 34 mmol/L | [facility] | | | | | | [facility] | | + + + + + + | Anion Gap | 14 | 7 - 16 mmol/L | [facility] | [facility] | [facility] | | | | | | [facility] | | + + + + + + | Glucose | 119 (H) | 70 - 110 mg/dL | [facility] | | | | [facility] | | | | | | [facility] | | + + + + + + | BUN | 77 (H) | 5 - 26 mg/dL | [facility] | | | [facility] | | | | | | [facility] | | + + + + + + | Creatinine | 3.61 (H) | 0.70 - 1.40 | [facility] | | | | | mg/dL | [facility] | | | | | | [facility] | | + + + + + + | eGFR if not | 17 (L)Comment: | >=60 | [facility] | | | | GLOMERULAR FILTRATION | mL/min/1.73m2 | [facility] | | | [facility] | RATE,ESTIMATED | | [facility] | | | | mL/min/1.29d8Vuhe than | | LABORATORY | | | | 60 Chronic kidney | | | | | | disease,if found over a | | | | | | 3-month period.Less than | | | | | | 15 Kidney failureFor | | | | | | | | | | | | Americans,multiply the | | | | | | calculated GFR by 1.21. | | | | | | | | | | + + + + + + | Calcium | 9.2 | 8.3 - 10.0 | [facility] | | | | | mg/dL | [facility] | | | | | | [facility] | | + + + + + + | Albumin | 3.2 | 3.0 - 4.5 g/dL | [facility] | | | | | [facility] | | | | | | [facility] | | + + + + + + | Bilirubin | 0.4 | 0.0 - 1.2 mg/dL | [facility] | | | Total | | | [facility] | | | | | | [facility] | | + + + + + + | Total | 7.7 | 6.6 - 8.5 g/dL | [facility] | | | Protein | | | [facility] | | | | | | [facility] | | + + + + + + | AST | 74 (H) | 0 - 38 U/L | [facility] | | | | | [facility] | | | | | [facility] | | + + + + + + | ALT | 23 | 16 - 63 U/L | [facility] | | | [facility] | [facility] | | [facility] | | + + + + + + | Alkaline | 158 (H) | 46 - 116 U/L | [facility] | | | Phosphatase | | | [facility] | | | | | | [facility] | | + + + + + + | Globulin | 4.5 | 2.4 - 4.5 g/dL | [facility] | | | | | [facility] | | | | | | [facility] | | + + + + + + | Albumin/Susanna | 0.7 (L) | 0.8 - 2.0 | [facility] | | | bulin Ratio | | | [facility] | | | | | [facility] | | + + + + + + | BUN/Creatin | 21.3 | 7.0 - 24.0 | [facility] | | | ine Ratio | | | [facility] | | | | | | [facility] | | + + + + + + + + | Specimen | + + | Blood | + + + + + + + | Performing | Address | City/State/Zipcode | Phone Number | | Organization | | | | + + + + + | [facility] | [address] | [place] [address] | [phone] | | [facility] | | | | + + + + + CBC with Differential (06/16/2019 3:20 PM PDT) + + + + + + | Component | Value | Ref Range | Performed | Pathologist | | | | | At | Signature | + + + + + + | WBC | 10.6 (H) | 4.6 - 10.5 K/uL | [facility] | | | | | [facility] | | + + + + + + | RBC | 2.94 (L) | 4.36 - 5.83 | [facility] | | | | | M/uL | [facility] | | | [facility] | | + + + + + + | Hemoglobin | 9.6 (L) | 13.1 - 17.4 | [facility] | | | | | g/dL | [facility] | | | [facility] | | + + + + + + | Hematocrit | 29.0 (L) | 39.0 - 51.9 % | [facility] | | | | | [facility] | [facility] | | + + + + + + | MCV | 98.6 (H) | 82.0 - 96.0 fL | [facility] | | | | | [facility] | | + + + + + + | MCH | 32.7 (H) | 27.7 - 32.3 pg | [facility] | | | [facility] | | [facility] | | + + + + + + | MCHC | 33.1 | 32.0 - 36.9 | [facility] | | | | | g/dL | [facility] | [facility] | | + + + + + + | RDW-CV | 13.9 | 0.0 - 17.0 % | [facility] | | | | | [facility] | | | | [facility] | | + + + + + + | Platelet | 337 | 150 - 450 K/uL | [facility] | | | Count | | | [facility] | | [facility] | | [facility] | | + + + + + + | MPV | 8.5 (L) | 9.4 - 12.4 fL | [facility] | | | | | [facility] | | | | | [facility] | | + + + + + + | % | 80.3 (H) | 42.0 - 76.0 % | [facility] | | | Neutrophils | | | [facility] | | | | | | [facility] | | + + + + + + | % | 10.7 (L) | 20.0 - 40.0 % | [facility] | | | Lymphocytes | | | [facility] | | | | | | [facility] | | + + + + + + | % Monocytes | 7.8 | 3.0 - 13.0 % | [facility] | | | | | [facility] | | | | | | [facility] | | + + + + + + | % | 0.3 | 0.0 - 7.0 % | [facility] | | | Eosinophils | | | [facility] | | | | | | [facility] | | + + + + + + | % Basophils | 0.5 | 0.0 - 2.0 % | [facility] | | | | | [facility] | | | | | | [facility] | | + + + + + + | % Immature | 0.4 | 0.0 - 0.5 % | [facility] | | | Granulocyte | | | [facility] | | | [facility] | | | [facility] | | | | | | [facility] | | + + + + + + | Absolute | 8.51 (H) | 2.80 - 7.70 | [facility] | | | Neutrophils | | K/uL | [facility] | | | | | [facility] | | + + + + + + | Absolute | 1.13 (L) | 1.20 - 3.30 | [facility] | | | Lymphocytes | | K/uL | [facility] | | | | | [facility] | | + + + + + + | Absolute | 0.82 (H) | 0.00 - 0.80 | [facility] | | | Monocytes | | K/uL | [facility] | | | | | [facility] | | + + + + + + | Absolute | 0.03 | 0.00 - 0.70 | [facility] | | | Eosinophils | | K/uL | [facility] | | | | | [facility] | | + + + + + + | Absolute | 0.05 | 0.00 - 0.20 | [facility] | | | Basophils | | K/uL | [facility] | | | | | | [facility] | | + + + + + + | Absolute | 0.04 | 0.00 - 0.15 | [facility] | | | Immature | | K/uL | [facility] | | | Granulocyte | | | [facility] | | | s | | | LAB[facility]ATORY | | + + + + + + | % nRBC | 0 | <=0 per 100 | [facility] | | | | | WBCs | [facility] | [facility] | | | [facility] | | + + + + + + | Absolute | 0.00 | 0.00 - 0.01 | [facility] | | | nRBC | | K/uL | [facility] | | | | | [facility] | | + + + + + + + + | Specimen | + + | Blood | + + + + + + + | Performing | Address | City/State/Zipcode | Phone Number | | Organization | | | | + + + + + | [facility] | [address] | [place] [address] | [phone] | | [facility] | | | | + + + + + documented in this encounter Visit Diagnoses + + | Diagnosis | + + | UTI (urinary tract infection) - Primary Urinary tract infection, site not specified | + + | Generalized weakness Other malaise and fatigue | + + | Acute renal failure, unspecified acute renal failure type (HCC) | + + | Hypermagnesemia Disorders of magnesium metabolism | + + | Acute cystitis with hematuria Acute cystitis | + + | Chronic bilateral low back pain without sciatica | + + | Parkinson disease (HCC) Paralysis agitans | + + | Heart murmur Undiagnosed cardiac murmurs | + + documented in this encounter Administered Medications + +--------+ +--------+------+------+ | Medication Order | MAR | Action | Dose | Rate | Site | | | Action | Date | | | | + +--------+ +--------+------+------+ | amantadine (SYMMETREL) capsule | Given | 06/16/20 | 100 mg | | | | 100 mg 100 mg, Oral, 3 TIMES | | 19 10:50 | | | | | DAILY, First dose on Sat06/16/19 | | PM PDT | | | | | at 2100, May use patient's own | | | | | | | med if available and verified by | | | | | | | pharmacy, Indications: | | | | | | | Parkinsonism | | | | | | + +--------+ +--------+------+------+ +---+---+ | | | +---+---+ + +-------+ +--------+---+---+ | amantadine (SYMMETREL) capsule | Given | 06/19/20 | 100 mg | | | | 100 mg 100 mg, Oral, EVERY OTHER | | 19 10:35 | | | | | DAY, First dose (after last | | AM PDT | | | | | modification) on Sat06/18/19 at | | | | | | | 0900, May use patient's own med | | | | | | | if available and verified by | | | | | | | pharmacy, pharmacy to renally | | | | | | | adjust, Indications: Parkinsonism | | | | | | + +-------+ +--------+---+---+ +---+---+ | | | +---+---+ + +-------+ + +---+---+ | carbidopa-levodopa (SINEMET) | Given | 06/19/20 | 1 tablet | | | | 25-100 mg per tablet 1 tablet 1 | | 19 12:36 | | | | | tablet, Oral, 4 TIMES DAILY, | | PM PDT | | | | | First dose on Sat06/16/19 at | | | | | | | 2100 | | | | | | + +-------+ + +---+---+ +-------+ + +---+---+ | Given | 06/19/20 | 1 tablet | | | | | 19 8:52 | | | | | | AM PDT | | | | +-------+ + +---+---+ | Given | 06/18/20 | 1 tablet | | | | | 19 8:29 | | | | | | PM PDT | | | | +-------+ + +---+---+ + +---+ | | | + +---+ | carbidopa-levodopa (SINEMET) | | | 25-100 mg per tablet Starting | | | 06/16/19 at 2202, For 1 dose, | | | FRANK MORA: olliet | | | override, | | + +---+ | | | + +---+ + +-------+ +--------+---+---+ | cefdinir (OMNICEF) capsule 300 | Given | 06/19/20 | 300 mg | | | | mg 300 mg, Oral, 2 TIMES DAILY, | | 19 9:18 | | | | | First dose on Sat06/19/19 at | | AM PDT | | | | | 0915, Indications: SEPSIS OF | | | | | | | UNKNOWN ETIOLOGY, UTI - LOWER | | | | | | + +-------+ +--------+---+---+ +---+---+ | | | +---+---+ + +---------+ +-----+-------+---+ | cefepime (MAXIPIME) 2 g in | New Bag | 06/16/20 | 2 g | 100 | | | sodium chloride 0.9% 50 mL IVPB | | 19 10:52 | | mL/hr | | | 2 g, Intravenous, Administer over | | PM PDT | | | | | 30 Minutes, EVERY 12 HOURS (2 | | | | | | | times per day), First dose on Sat | | | | | | | 06/16/19 at 2100, Activate | | | | | | | system and mix before use., | | | | | | | Indications: UTI - LOWER | | | | | | + +---------+ +-----+-------+---+ +---+---+ | | | +---+---+ + +---------+ +-----+-------+---+ | cefTRIAXone (ROCEPHIN) 1 g in | New Bag | 06/16/20 | 1 g | 100 | | | sodium chloride 0.9% 50 mL IVPB | | 19 5:21 | | mL/hr | | | 1 g, Intravenous, Administer over | | PM PDT | | | | | 30 Minutes, ONCE, Sat06/16/19 | | | | | | | at 1745, For 1 dose, Activate | | | | | | | system and mix before use., | | | | | | | Indications: UTI - LOWER | | | | | | + +---------+ +-----+-------+---+ +---+---+ | | | +---+---+ + +---------+ +-----+-------+---+ | cefTRIAXone in dextrose | New Bag | 06/18/20 | 1 g | 100 | | | (ROCEPHIN) IVPB 1 g 1 g, | | 19 5:33 | | mL/hr | | | Intravenous, Administer over 30 | | PM PDT | | | | | Minutes, EVERY 24 HOURS (Daily), | | | | | | | First dose (after last reorder) | | | | | | | on Sat06/17/19 at 1800, | | | | | | | Indications: UTI - LOWER | | | | | | + +---------+ +-----+-------+---+ +---------+ +-----+-------+---+ | New Bag | 06/17/20 | 1 g | 100 | | | | 19 5:30 | | mL/hr | | | | PM PDT | | | | +---------+ +-----+-------+---+ +---+---+ | | | +---+---+ + +-------+ +--------+---+---+ | entacapone (COMTAN) tablet 200 | Given | 06/19/20 | 200 mg | | | | mg 200 mg, Oral, 4 TIMES DAILY, | | 19 12:36 | | | | | First dose on Sat06/17/19 at | | PM PDT | | | | | 1300, Pharmacy to dose which | | | | | | | medication? FERDINAND Evans for pt to | | | | | | | take his own meds | | | | | | + +-------+ +--------+---+---+ +-------+ +--------+---+---+ | Given | 06/19/20 | 200 mg | | | | | 19 8:53 | | | | | | AM PDT | | | | +-------+ +--------+---+---+ | Given | 06/18/20 | 200 mg | | | | | 19 8:30 | | | | | | PM PDT | | | | +-------+ +--------+---+---+ +---+---+ | | | +---+---+ + +-------+ +--------+---+ + | heparin 5,000 units/mL | Given | 06/19/20 | 5,000 | | Abdomen- | | injection 5,000 Units 5,000 | | 19 8:52 | Units | | LLQ | | Units, Subcutaneous, EVERY 12 | | AM PDT | | | | | HOURS (2 times per day), First | | | | | | | dose on Sat06/16/19 at 2100 | | | | | | + +-------+ +--------+---+ + +-------+ +--------+---+ + | Given | 06/18/20 | 5,000 | | Abdomen- | | | 19 8:29 | Units | | LLQ | | | PM PDT | | | | +-------+ +--------+---+ + | Given | 06/18/20 | 5,000 | | Abdomen- | | | 19 8:52 | Units | | RUQ | | | AM PDT | | | | +-------+ +--------+---+ + +---+---+ | | | +---+---+ + +---------+ +---+-------+---+ | sodium chloride 0.45% (1/2 NS) | New Bag | 06/19/20 | | 100 | | | infusion at 100 mL/hr, | | 19 11:44 | | mL/hr | | | Intravenous, CONTINUOUS, Starting | | AM PDT | | | | | 06/16/19 at 2015 | | | | | | + +---------+ +---+-------+---+ +---------+ +---------+-------+---+ | New Bag | 06/19/20 | 975 mLs | 100 | | | | 19 1:27 | | mL/hr | | | | AM PDT | | | | +---------+ +---------+-------+---+ | New Bag | 06/18/20 | 1,000 | 100 | | | | 19 5:48 | mLs | mL/hr | | | | AM PDT | | | | +---------+ +---------+-------+---+ +---+---+ | | | +---+---+ + +---------+ +--------+-------+---+ | sodium chloride 0.9% (NS) bolus | New Bag | 06/16/20 | 1,000 | 1000 | | | 1,000 mL 1,000 mL, Intravenous, | | 19 4:41 | mLs | mL/hr | | | Administer over 1 Hours, ONCE, | | PM PDT | | | | | 06/16/19 at 1645, For 1 dose | | | | | | + +---------+ +--------+-------+---+ +---+---+ | | | +---+---+ documented in this encounter
--- OUTSIDE RECORDS SUMMARY | ~2019-08-18 | XMS | Encounter Summary ---
Demographics + + + | Address | [address] | | | [place] [address] | + + + | Home Phone | | + + + | Preferred Language | Unknown | + + + | Marital Status | | + + + | Hoahaoism Affiliation | Unknown | + + + | Race | Unknown | + + + | Ethnic Group | Unknown | + + + Author + + + | Author | [facility] | | | and [place] | + + + | Organization | [facility] | | | [...] Team Providers + +------+ + | Care Embedded Systems Developer Name | Role | Phone | + +------+ + | Екатерина Christianson NP | PCP | | + +------+ + Reason for Visit + + + | Reason | Comments | + + + | Results, Imaging | | + + + Encounter Details +--------+ + + + + | Date | Type | Department | Care Team | Description | +--------+ + + + + | 11/05/ | Telephone | [facility] | Mac Bond MD | Results, Imaging | | 2019 | | [facility] | [address] | | | | | CLIN[address] | [place] | | | | | [address] [place], | [address] | | | | | [place] [address] | | | | | | [phone] | | | +--------+ + + + [...] | | | | | | [place] [address] | | | | | | [phone] | | | | | | | | +--------+---------+ + + + documented as of this encounter Visit Diagnoses Not on filedocumented in this encounter"
--- OUTSIDE RECORDS SUMMARY | ~2019-08-18 | XMS | Encounter Summary ---
Demographics + + + | Address | [address] | | | [place] [address] | + + + | Home Phone | | + + + | Preferred Language | Unknown | + + + | Marital Status | | + + + | Yarsani Affiliation | Unknown | + + + | Race | Unknown | + + + | Ethnic Group | Unknown | + + + Author + + + | Author | [facility] | | | and [place] | + + + | Organization | [facility] | | | [...] Team Providers + +------+ + | Care Network Announcer Name | Role | Phone | + +------+ + | Екатерина Christianson NP | PCP | | + +------+ + Reason for Visit +--------+ + | Reason | Comments | +--------+ + | Other | | +--------+ + Encounter Details +--------+ + + + + | Date | Type | Department | Care Team | Description | +--------+ + + + + | 08/06/ | Telephone | [facility] | Mac Bond MD | Other | | 2018 | | [facility] | [address] | | | | | [facility] [address] | [place] | | | | | [address] [place], | [address] | | | | | [place] [address] | | | | | | [phone] | | | +--------+ + + + [...] | | | | | | [place] [address] | | | | | | [phone] | | | | | | | | +--------+---------+ + + + documented as of this encounter Visit Diagnoses Not on filedocumented in this encounter"
--- OUTSIDE RECORDS SUMMARY | ~2019-08-18 | XMS | Encounter Summary ---
Demographics + + + | Address | [address] | | | [place] [address] | + + + | Home Phone | | + + + | Preferred Language | Unknown | + + + | Marital Status | Single | + + + | Anglican Affiliation | Unknown | + + + | Race | White | + + + | Ethnic Group | Not or | + + + Author + + + | Author | [facility] | + + + | Organization | [facility] | + + + | Address | Unknown | + + + | Phone | Unavailable | + + + Support + + +---------+ + | Name | Relationship | Address | Phone | + + +---------+ + | Gloria Haynes | ECON | Unknown | | + + +---------+ + Care Team Providers + +------+ + | Care Russian Language Professor Name | Role | Phone | + +------+ + | Jory Segovia MD | PCP | | + +------+ + Reason for Referral Diagnostic Testing (Routine) +--------+--------+ + + + [...] | | | | disease | on [place] | [facility] | | | | | (HCC) | [facility] | Rd | | | | | Procedures | CENTER | Mailcode: | | | | | MRI BRAIN WO | [address] | | | | | CONTRAST | [facility] | [place] | | | | | | [address] | Research | | | | | | [facility] | | | | | | [place] [address] | [place], [place] | | | | | | Phone: | [address] | | | | | | [phone] | Phone: | | | | | | Fax: | [phone] | | | | | | [phone] | Fax: | | | | | | | [phone] | +--------+--------+ + + + + Encounter Details +--------+ + + + + | Date | Type | Department | Care Team | Description | +--------+ + + + + | 09/12/ | Outside | Diagnostic Imaging | Veterans, | | | 2010 | Referral | Services at [facility] | Administration | | | | Order | [address] | [facility] | | | | | Jazlyn Rene Mailcode: | [facility] [address] | | | | | [address] [place] | [facility] | | | | | Research Center | [place], [place] | | | | | [place], [place] | [id number] | | | | | [address] | | | | | | [phone] | | | +--------+ + + + [...] | PST | + +---------+--------+ + + + +---------+--------+ + + | Name | Type | Priori | Associated Diagnoses | Order Schedule | | | | ty | | | + +---------+--------+ + + | MRI BRAIN WO | Imaging | Routin | Parkinson disease | Expected: | | CONTRAST | | e | ([facility]) | 09/12/2010, Expires: | | | | | | 10/13/2011 | + +---------+--------+ + + documented as of this encounter Visit Diagnoses + + | Diagnosis | + + | Parkinson disease ([facility]) - Primary Paralysis agitans | + + documented in this encounter"
--- OUTSIDE RECORDS SUMMARY | ~2019-08-18 | XMS | Encounter Summary ---
Demographics + + + | Address | [address] | | | [place] [address] | + + + | Home Phone | | + + + | Preferred Language | Unknown | + + + | Marital Status | | + + + | Restoration Affiliation | Unknown | + + + | Race | Unknown | + + + | Ethnic Group | Unknown | + + + Author + + + | Author | [facility] | | | and [place] | + + + | Organization | [facility] | | | [...] Team Providers + +------+ + | Care Payroll And Benefits Specialist Name | Role | Phone | + +------+ + | Екатерина Christianson NP | PCP | | + +------+ + Reason for Visit +--------+ + | Reason | Comments | +--------+ + | Other | parkinsons | +--------+ + Encounter Details +--------+ + + + + | Date | Type | Department | Care Team | Description | +--------+ + + + + | 05/04/ | Telephone | [facility] | Mac Bond MD | Other (parkinsons) | | 2019 | | HOSPITAL NEUROLOGY | [address] | | | | | CLIN[address] | [place], [place] | | | | | [address] [place], | [address] | | | | | [place] [address] | | | | | | [phone] | | | +--------+ + + + [...] | | | | | | [place] [address] | | | | | | [phone] | | | | | | | | +--------+---------+ + + + documented as of this encounter Visit Diagnoses Not on filedocumented in this encounter"
--- OUTSIDE RECORDS SUMMARY | ~2019-08-18 | XMS | Encounter Summary ---
Demographics + + + | Address | [address] | | | [place] [address] | + + + | Home Phone | | + + + | Preferred Language | Unknown | + + + | Marital Status | | + + + | Quaker Affiliation | Unknown | + + + | Race | Unknown | + + + | Ethnic Group | Unknown | + + + Author + + + | Author | [facility] | | | and [place] | + + + | Organization | [facility] | | [...] Team Providers + +------+ + | Care Tar Distributor Operator Name | Role | Phone | + +------+ + | Екатерина Christianson NP | PCP | | + +------+ + Reason for Visit +--------+ + | Reason | Comments | +--------+ + | Pain | | +--------+ + Encounter Details +--------+ + + + + | Date | Type | Department | Care Team | Description | +--------+ + + + + | 08/08/ | Telephone [facility] | Mac Bond MD | Pain | | 2018 | | HOSPITAL NEUROLOGY | [address] | | | | | CLINIC [address] | [place], [place] | | | | | [address] [place], | [address] | | | | | [place] [address] | | | | | | [phone] | | | +--------+ + + + [...] | | | | | | [place] [address] | | | | | | [phone] | | | | | | | | +--------+---------+ + + + documented as of this encounter Visit Diagnoses Not on filedocumented in this encounter"
--- OUTSIDE RECORDS SUMMARY | ~2019-08-18 | XMS | Encounter Summary ---
Demographics + + + | Address | [address] | | | [place] [address] | + + + | Home Phone | | + + + | Preferred Language | Unknown | + + + | Marital Status | | + + + | Christianity Affiliation | Unknown | + + + | Race | Unknown | + + + | Ethnic Group | Unknown | + + + Author + + + | Author | [facility] | | | and [place] | + + + | Organization | [facility] | | | [...] Team Providers + +------+ + | Care Police Superintendent Name | Role | Phone | + [...] [address] | | | | | [place] [address] | | | | | | [phone] | | | +--------+ + + + [...] | | | | | | [place] [address] | | | | | | [phone] | | | | | | | | +--------+---------+ + + + documented as of this encounter Visit Diagnoses Not on filedocumented in this encounter"
--- OUTSIDE RECORDS SUMMARY | ~2019-08-18 | XMS | Encounter Summary ---
Demographics + + + | Address | [address] | | | [place] [address] | + + + | Home Phone | | + + + | Preferred Language | Unknown | + + + | Marital Status | | + + + | Protestant Affiliation | Unknown | + + + | Race | Unknown | + + + | Ethnic Group | Unknown | + + + Author + + + | Author | [facility] | | | and [place] | + + + | Organization | [facility] | | | and [...] Team Providers + +------+ + | Care Road Maker Name | Role | Phone | + +------+ + | Екатерина Christianson NP | PCP | | + +------+ + Reason for Visit + + + | Reason | Comments | + + + | Appointment | Confirm appointment for home visit with CH[facility] and to get directions | + + + Encounter Details +--------+ + + + + | Date | Type | Department | Care Team | Description | +--------+ + + + + | 12/08/ | Telephone | [facility] | Dulce Berkowitz | Appointment (Confirm | | 2019 | | [facility] | D, [facility] | appointment for | | | | CLINIC [address] | [place] | home visit with GIANNA | | | | [address] [place] [place], | [place] [address] | and to get | | | | [place] [address] | [phone] | directions) | | | | [phone] | | | +--------+ + + + [...] | | | | | | [place] [address] | | | | | | [phone] | | | | | | | | +--------+---------+ + + + documented as of this encounter Visit Diagnoses Not on filedocumented in this encounter"
--- OUTSIDE RECORDS SUMMARY | ~2019-08-18 | XMS | Encounter Summary ---
Demographics + + + | Address | [address] | | | [place] [address] | + + + | Home Phone | | + + + | Preferred Language | Unknown | + + + | Marital Status | | + + + | Lutheran Affiliation | Unknown | + + + | Race | Unknown | + + + | Ethnic Group | Unknown | + + + Author + + + | Author | [facility] | | | and [place] | + + + | Organization | [facility] | | | and [...] Team Providers + +------+ + | Care Magazine Publisher Name | Role | Phone | + +------+ + | Екатерина Christianson NP | PCP | | + +------+ + Reason for Visit + + + | Reason | Comments | + + + | Provide Resources | [facility] helping to establish with new PCP. | + + + Encounter Details +--------+ + + + + | Date | Type | Department | Care Team | Description | +--------+ + + + + | 04/29/ | Telephone | [facility] | Alin Garcia, | Provide Resources | | 2019 | | [facility] | W | ([facility] helping to | | | | [facility] [address] | | establish with new | | | | [facility], | | PCP. ) | | | | [place] [address] | | | | | | [phone] | | | +--------+ + + + [...] | | | | | | [place] [address] | | | | | | [phone] | | | | | | | | +--------+---------+ + + + documented as of this encounter Visit Diagnoses Not on filedocumented in this encounter"
--- OUTSIDE RECORDS SUMMARY | ~2019-08-18 | XMS | Encounter Summary ---
Demographics + + + | Address | [address] | | | [place] [address] | + + + | Home Phone | | + + + | Preferred Language | Unknown | + + + | Marital Status | | + + + | Islam Affiliation | Unknown | + + + | Race | Unknown | + + + | Ethnic Group | Unknown | + + + Author + + + | Author | [facility] | | | and [place] | + + + | Organization | [facility] | | [...] Team Providers + +------+ + | Care Core Fitter Name | Role | Phone | + +------+ + | Екатерина Christianson NP | PCP | | + +------+ + Encounter Details +--------+ + + + + | Date | Type | Department | Care Team | Description | +--------+ + + + + | 07/09/ | [facility] | Mac Bond MD | Neck pain, bilateral | | 2018 | Encounter | HOSPITAL XRAY [address] | [address] | | | | | [address] | [place], [place] | | | | | [place], [place] | [address] | | | | | [address] | | | | | | [phone] | | | +--------+ + + + [...] + + documented as of this encounter Medications at Time of Discharge [...] +---------+ + + | amantadine | Take 100 mg by mouth | | 0 | | | | (SYMMETREL) 100 MG | 2 times daily. | | | | 9 | | TABS | | | | | | + + + +---------+ + + | carbidopa-levodopa | Take 1 tablet by | | 0 | | | | (SINEMET) 25-100 mg | mouth 3 times daily. | | | | 9 | | per tablet | | | | | | + + + +---------+ + + | clonazePAM | Take 1 tablet by | 60 | 0 | 07/09/20 | | | (KLONOPIN) 1 mg | mouth 2 times daily | tablet | | 18 | 8 | | tablet | for 30 days. one tab | | | | | | | at bedtime and can | | | | | | | increase to 2 tabs | | | | | | | as needed | | | | | + + + +---------+ + + | entacapone | Take 200 mg by mouth | | 0 | | | | (COMTAN) 200 mg | 3 times daily. | | | | 9 | | tablet | | | | [...] | | | | | | [facility] [facility], | | | | | | [place] [address] | | | | | | [phone] | | | | | | | | +--------+---------+ + + + documented as of this encounter Procedures + +--------+ + + + | Procedure Name | Priori | Date/Time | Associated Diagnosis | Comments | | | ty | | | | + +--------+ + + + | XR CERVICAL SPINE 4 | Routin | 07/09/2018 | Neck pain, | Results for this | | OR 5 VWS | e | 3:20 PM | bilateral | procedure are in the | | | | PST | | results section. | + +--------+ + + + documented in this encounter Results XR Cervical Spine 4 or 5 Vws (07/09/2018 3:20 PM PST) + + | Specimen | + + | | + + + + + | Impressions | Performed At | + + + | IMPRESSION: Extensive degenerative changes of the cervical spine as | [facility] | | discussed above. Bilateral foraminal narrowing. Dictated by: | | | Manuelito Gabriel Electronically Signed by: Manuelito Gabriel on | | | 07/09/2018 4:57 PM | | + + + + + + | Narrative | Performed At | + + + | EXAMINATION: XR CERVICAL SPINE 4 OR 5 VWS HISTORY: persistent | [facility] | | neck pain COMPARISON STUDY: None FINDINGS: Cervical | | | vertebral bodies demonstrate mild retrolisthesis of C3 on C4. Normal | | | cervical lordosis. Disc heights are decreased from C3 through C7 End | | | plate degenerative change is noted at C3 through C7 Multilevel facet | | | and uncovertebral hypertrophy No prevertebral soft tissue swelling. | | | No acute fracture or subluxation. The dens and lateral masses are | | | unremarkable. Right C3-4 and C6-7 foraminal narrowing. Left C4-5 and | | | C5-6 foraminal narrowing. | | + + + + + | Procedure Note | + + | Louis, Rad Results In - 07/09/2018 5:00 PM PST EXAMINATION:XR CERVICAL SPINE 4 OR 5 | | VWSHISTORY:persistent neck painCOMPARISON STUDY:NoneFINDINGS:Cervical vertebral bodies | | demonstrate mild retrolisthesis of C3 on C4.Normal cervical lordosis.Disc heights are | | decreased from C3 through C7End plate degenerative change is noted at C3 through | | P5Tchecghgdm facet and uncovertebral hypertrophyNo prevertebral soft tissue swelling.No | | acute fracture or subluxation.The dens and lateral masses are unremarkable.Right C3-4 | | and C6-7 foraminal narrowing.Left C4-5 and C5-6 foraminal narrowing.IMPRESSION: | | IMPRESSION:Extensive degenerative changes of the cervical spine as discussed above. | | Bilateral foraminal narrowing.Dictated by: Manuelito Kirbyectronically Signed by: | | Manuelito Gabriel on 07/09/2018 4:57 PM | |Cervical vertebral bodies demonstrate mild retrolisthesis of C3 on C4. | |Normal cervical lordosis. | |Disc heights are decreased from C3 through C7 | |End plate degenerative change is noted at C3 through C7 | |Multilevel facet and uncovertebral hypertrophy | |No prevertebral soft tissue swelling. | |No acute fracture or subluxation. | |The dens and lateral masses are unremarkable. | |Right C3-4 and C6-7 foraminal narrowing. | |Left C4-5 and C5-6 foraminal narrowing. | | | |IMPRESSION: | |IMPRESSION: | |Extensive degenerative changes of the cervical spine as discussed above. Bilateral foramin al narrowing. | | | |Dictated by: Manuelito Gabriel | | | | | + + + +---------+ + + | Performing | Address | City[facility] | Phone Number | | Organization | | | | + +---------+ + + | [facility] | | | | + +---------+ + + documented in this encounter Visit Diagnoses + + | Diagnosis | + + | Neck pain, bilateral Cervicalgia | + + documented in this encounter"
--- OUTSIDE RECORDS SUMMARY | ~2019-08-18 | XMS | Encounter Summary ---
Demographics + + + | Address | [address] | | | [place] [address] | + + + | Home Phone | | + + + | Preferred Language | Unknown | + + + | Marital Status | | + + + | Hindu Affiliation | Unknown | + + + | Race | Unknown | + + + | Ethnic Group | Unknown | + + + Author + + + | Author | [facility] | | | and [place] | + + + | Organization | [facility] | | | [...] Team Providers + +------+ + | Care Sheet Metal Duct Installer Name | Role | Phone | + [...] | | | | [place], [place] | [address] | | | | | [address] | | | | | | [phone] | | | +--------+ + + + [...] | | | | | | [address] [facility], | | | | | | [place] [address] | | | | | | [phone] | | | | | | | [...] is noted at C3 through | | P4Etrtawpjxe facet and uncovertebral hypertrophyNo prevertebral soft tissue [...] + + | Performing | Address | City/State[facility] | Phone Number | | Organization | | | | + +---------+ + + | [facility] | | | | + +---------+ + + documented in this encounter Visit Diagnoses + + | Diagnosis | + + | Neck pain, bilateral Cervicalgia | + + documented in this encounter"
--- OUTSIDE RECORDS SUMMARY | ~2019-08-18 | XMS | Encounter Summary ---
Demographics + + + | Address | [address] | | | [place] [address] | + + + | Home Phone | | + + + | Preferred Language | Unknown | + + + | Marital Status | | + + + | Christianity Affiliation | Unknown | + + + | Race | Unknown | + + + | Ethnic Group | Unknown | + + + Author + + + | Author | [facility] | | | and [place] | + + + | Organization | [facility] | | | [...] Team Providers + +------+ + | Care Acoustical Engineer Name | Role | Phone | [...] | +--------+ + + + + | 08/14/ | Telephone | [facility] | Mary, | Pain | | 2018 | | HOSPITAL NEUROLOGY | [facility], CLINICAL EDUCATION CONSULTANT [address] | | | | | CL[address] | [address] [facility], | | | | | [address] [place] [place], | [place] [address] | | | | | [place] [address] | [phone] | | | | | [phone] | | | +--------+ + + + [...] | | | | | | [place] [address] | | | | | | [phone] | | | | | | | | +--------+---------+ + + + documented as of this encounter Visit Diagnoses + + | Diagnosis | + + | Chronic bilateral low back pain without sciatica - Primary | + + documented in this encounter"
--- OUTSIDE RECORDS SUMMARY | ~2019-08-18 | XMS | Clinical Summary ---
Demographics + + + | Address | [address] | | | [place] [address] | + + + | Home Phone | | + + + | Preferred Language | Unknown | + + + | Marital Status | Single | + + + | Roman Catholic Affiliation | Unknown | + + + | Race | White | + + + | Ethnic Group | Not or | + + + Author + + + | Author | [facility] REVENUE LOCATIONS | + + + | Organization | NON REVENUE LOCATIONS | + + + | Address | Unknown | + + + | Phone | Unavailable | + + + Support + + +---------+ + | Name | Relationship | Address | Phone | + + +---------+ + | Gloria Haynes | ECON | Unknown | | + + +---------+ + Care Team Providers + +------+ + | Care Consulting Analyst Name | Role | Phone | + +------+ + | Jory Segovia MD | PCP | | + +------+ + Source Comments RESHMA is fully live on both [facility] and [facility] Allergies Not on File Medications Not on file Active Problems Not on file Social History + +-------+ +--------+------+ | Tobacco [...] recent travel history available. | + + Last Filed Vital Signs Not on file Plan of Treatment + + + + + | Health Maintenance | Due Date | Last Done | Comments | + + + + + | Hepatitis C | | | | | screening | 0 | | | + + + + + | Diphtheria,Tetanus,P | | | | | ertussis vaccination | 1 | | | | (1 - Tdap) | | | | + + + + + | Zoster (Shingles) | | | | | vaccination (1 of 2) | 0 | | | + + + + + | Pneumococcal | | | | | vaccination (1 of 2 | 5 | | | | - PCV13) | | | | + + + + + | Influenza (Flu) | | | | | vaccination (#1) | 9 | | | + + + + + Results Not on filefrom Last 3 Months Insurance + +--------+ +--------+ + +--------+ | Payer | Benefi | Subscriber | Effect | Phone | Address | Type | | | t Plan | ID | ashley | | | | | | / | | Dates | | | | | | Group | | | | | | + +--------+ +--------+ + +--------+ | PROVIDENCE PREF | PROVID | xxxxxxxxx | Effect | | | PPO | | | ENCE | | ashley | | | | | | PREF | | for | | | | | | | | all | | | | | | | | dates | | | | + +--------+ +--------+ + +--------+ | [employer] [place] | [phone] | Effect | [phone] | [address] | Agency | | ADMINISTRATION | COMMUN | | ashley | [phone] | | | | [place] | | for | | [place], | | | | [place] | | all | | [place] [address] | | | | RCE | | dates | | | | + +--------+ +--------+ + +--------+ + +--------+ +--------+ + + | Guarantor Name | Accoun | Relation to | Date | Phone | Billing Address | | | t Type | Patient | of | | | | | | | | | | + +--------+ +--------+ + + | Nitesh Haynes | Person | Self [birth year] | [address] | | | al/Fam | | 1951 | [phone] | [place], [place] | | | graciela | | | 6 (Home) | [address] | + +--------+ +--------+ + + | [id number] | Indust | Self | [birth year] | | [id number] [address] | | | rial | | 1876 | [phone] | [facility] . | | | | | | 2 (Home) | [address] [place], [place] | | | | | | | [address] | + +--------+ +--------+ + + | Nitesh Haynes | [place] | Self | [birth year] | | [address] | | | [place] | | 1951 | [phone] | [place], [place] | | | red | | | 6 ([place]) | [address] | + +--------+ +--------+ + +"
--- OUTSIDE RECORDS SUMMARY | ~2019-08-18 | XMS | Encounter Summary ---
Demographics + + + | Address | [address] | | | [place] [address] | + + + | Home Phone | | + + + | Preferred Language | Unknown | + + + | Marital Status | Single | + + + | Moravian Affiliation | Unknown | + + + | Race | White | + + + | Ethnic Group | Not or | + + + Author + + + | Author | [facility] | + + + | Organization | [facility] | + + + | Address | Unknown | + + + | Phone | Unavailable | + + + Support + + +---------+ + | Name | Relationship | Address | Phone | + + +---------+ + | Gloria Haynes | ECON | Unknown | | + + +---------+ + Care Team Providers + +------+ + | Care Rougher Operator Name | Role | Phone | + +------+ + | Jory Segovia MD | PCP | | + +------+ + Encounter Details +--------+ + + + + | Date | Type | Department | Care Team | Description | +--------+ + + + + | 01/01/ | Ancillary | Registration [id number] | | | | 2006 | Reg[address] | [address] | | | | | [address] | [address] Mailcode: [id number] | | | | | | [place], [place] | | | | | | [address] | | | | | | [phone] | | | +--------+ + + + [...] as of this encounter Plan of Treatment Not on filedocumented as of this encounter Visit Diagnoses Not on filedocumented in this encounter"
--- OUTSIDE RECORDS SUMMARY | ~2019-08-18 | XMS | Encounter Summary ---
Demographics + + + | Address | [address] | | | [place] [address] | + + + | Home Phone | | + + + | Preferred Language | Unknown | + + + | Marital Status | | + + + | Pentecostalism Affiliation | Unknown | + + + | Race | Unknown | + + + | Ethnic Group | Unknown | + + + Author + + + | Author | [facility] | | | and [place] | + + + | Organization | [facility] | | [...] Team Providers + +------+ + | Care Mobile Sales Consultant Name | Role | Phone | + +------+ + | Екатерина Christianson NP | PCP | | + +------+ + Reason for Visit + + + | Reason | Comments | + + + | Paperwork | DMV paper work | + + + Encounter Details +--------+ + + + + | Date | Type | Department | Care Team | Description | +--------+ + + + + | 11/06/ | Telephone | [facility] | Mary, | Paperwork (DMV paper | | 2019 | | HOSPITAL NEUROLOGY | [facility], ASSIGNMENT EDITOR [address] | work ) | | | | CLIN[address] | [address] [facility] [place], | | | | | [address] [place] [place], | [place] [address] | | | | | [place] [address] | [phone] | | | | | [phone] | | | +--------+ + + + [...] | | | | | | [place] [address] | | | | | | [phone] | | | | | | | | +--------+---------+ + + + documented as of this encounter Visit Diagnoses Not on filedocumented in this encounter"
--- OUTSIDE RECORDS SUMMARY | ~2019-08-18 | XMS | Encounter Summary ---
Demographics + + + | Address | [address] | | | [place] [address] | + + + | Home Phone | | + + + | Preferred Language | Unknown | + + + | Marital Status | | + + + | Adventist Affiliation | Unknown | + + + [...] Team Providers + +------+ + | Care Buttonhole Maker Hand Name | Role | Phone | + [...] Provide Resources | | 2019 | | [facility] | D, [address] | (W assistance with | | | | CLINIC [address] | [place] | resources) | | | | [address], | [place] [address] | | | | | [place] [address] | [phone] | | | | | [phone] | | | +--------+ + + + [...] | | | | | | [place] [address] | | | | | | [phone] | | | | | | | | +--------+---------+ + + + documented as of this encounter Visit Diagnoses Not on filedocumented in this encounter"
--- OUTSIDE RECORDS SUMMARY | ~2019-08-18 | XMS | Encounter Summary ---
Demographics + + + | Address | [address] | | | [place] [address] | + + + | Home Phone | | + + + | Preferred Language | Unknown | + + + | Marital Status | | + + + | Hindu Affiliation | Unknown | + + + | Race | Unknown | + + + | Ethnic Group | Unknown | + + + Author + + + | Author | [facility] | | | and [place] | + + + | Organization | [facility] | | [...] Team Providers + +------+ + | Care Salesperson Household Appliances Name | Role | Phone | + [...] [id number] | | | | | [place] [address] | | | | | | [phone] | | | +--------+ + + + [...] | | | | | | [place] [address] | | | | | | [phone] | | | | | | | | +--------+---------+ + + + documented as of this encounter Visit Diagnoses Not on filedocumented in this encounter"
--- OUTSIDE RECORDS SUMMARY | ~2019-08-18 | XMS | Encounter Summary ---
Demographics + + + | Address | [address] | | | [place] [address] | + + + | Home Phone | | + + + | Preferred Language | Unknown | + + + | Marital Status | Single | + + + | Buddhist Affiliation | Unknown | + + + | Race | White | + + + | Ethnic Group | Not or | + + + Author + + + | Author | [facility] | + + + | Organization | [facility] | + + + | Address | Unknown | + + + | Phone | Unavailable | + + + Support + + +---------+ + | Name | Relationship | Address | Phone | + + +---------+ + | Gloria Haynes | ECON | Unknown | | + + +---------+ + Care Team Providers + +------+ + | Care Precision Machine Operator Name | Role | Phone | + +------+ + | Jory Segovia MD | PCP | | + +------+ + Encounter Details +--------+ + + + + | Date | Type | Department | Care Team | Description | +--------+ + + + + | 10/22/ | Telephone | Neurology at | Annie Heard, | | | 2017 | | [facility] & | | | | | | [address] | | | | | | Lemuel Maciel Mailcode: | | | | | | [facility] | | | | | | [facility] and Healing, | | | | | | | | | | | | [place], [place] | | | | | | [address] | | | | | | [phone] | | | +--------+ + + + [...]
--- OUTSIDE RECORDS SUMMARY | ~2019-08-18 | XMS | Encounter Summary ---
Demographics + + + | Address | [address] | | | [place] [address] | + + + | Home Phone | | + + + | Preferred Language | Unknown | + + + | Marital Status | | + + + | Yazdanism Affiliation | Unknown | + + + | Race | Unknown | + + + | Ethnic Group | Unknown | + + + Author + + + | Author | [facility] | | | and [place] | + + + | Organization | [facility] | | [...] Team Providers + +------+ + | Care Wire Spring Relay Adjuster Name | Role | Phone | + +------+ + | Екатерина Christianson NP | PCP | | + +------+ + Reason for Visit Evaluate & Treat (Routine) + + + + + + + | Status | Reason | Specialty | Diagnoses / | Referred By | Referred To | | | | | Procedures | Contact | Contact | + + + + + + + | Authorized | Specialty | Primary Care | Diagnoses | Mary, | Woo, | | | Services | | Parkinson | [facility], | Dulce Berman, | | | Required | | disease | [address] | | | | | (HCC) Neck | [address] | | | | | pain, | [place], [place] | [place] | | | | | bilateral | [address] | [place], [place] | | | | | Chronic | Phone: | [phone] Phone: | | | | | bilateral | [phone] | [phone] | | | | | low back | Fax: | Fax: | | | | | pain with | [phone] | [phone] | | | | | right-sided | | | | | | | sciatica | | | | | | | Frequent | | | | | | | falls | | | + + + + + + + Encounter Details +--------+ + + + + | Date | Type | Department | Care Team | Description | +--------+ + + + + | 03/09/ | Off-Site | [facility] | Mary, | Parkinson disease | | 2019 | Visit | HOSPITAL NEUROLOGY | [facility], [address] | ([facility]) (Primary Dx); | | | | CLINIC [address] | [address] [place], | Chronic bilateral | | | | [address], | [place] [address] | low back pain | | | | [place] [address] | [phone] | without sciatica; | | | | [phone] | | Gait disorder; Neck | | | | | Dulce Berkowitz | pain, bilateral | | | | | D, [address] | | | | | | [address] | | | | | | [place] [address] | | | | | | [phone] | | | | | | | [...] documented as of this encounter Progress Notes Dulce Berkowitz CHW - 03/09/2019 1:30 PM [facility] Health Worker Note Type of Visit: Home Visit" Start Time: 1330 Stop Time: 1400 Number of Units Approved: 8 Number of Units Used To Date: 3 Associated Diagnosis: Parkinson disease, Chronic bilateral low back pain without sciatica, Gait disorder, Neck pain Pathways: Medical Home, Medication Assessment and Collator Operator" Chart Notes/ Visit Details: During the follow up home visit Nitesh shared with me that his had a heart attack and in January. He is now alone in the home and is worried about being able to take care of his needs. He has family and friends that have been helping him and will call to check on him. He reports that his Parkinson tremors are getting worse. He recently went to [place] to h ave his neruological stimulator looked at. He was told that the battery life is down to abo ut to half its life and maybe not working as well as it can. He is unsure of what the provi ziyad is going to do about it. Nitesh is interested in seeing if he qualifies for an in home care provider to help with th ings regarding his care. I spoke to [facility] in [place] about what he might qualify for and there cu rrently is no funding for resources for in home care providers. I will reach out to the [facility] to see if they have a program he might qualify for. Nitesh is concerned about the winter and being able to get enough wood to heat his home. I was able to educate him on the [employer] program here in [facility] that gathers wood and give a cord a year to those who need it and will be researching programs that are similar in [facility]. Nitesh has asked to establish with a new PCP, preferable one in [place] at [facility]. I will call the offices there and see who is accepting new patients and share the information with Awilda aragon. GIANNA Croft CHW documented in thi s encounter Plan of Treatment +--------+---------+ + + + | Date | Type | Specialty | Care Team | Description | +--------+---------+ + + + | 01/20/ | Office | Neurology | Mary, | | | 2019 | Visit | | [address] | | | | | | [address] [place], | | | | | | [place] [address] | | | | | | [phone] | | | | | | | | +--------+---------+ + + + documented as of this encounter Visit Diagnoses + + | Diagnosis | + + | Parkinson disease (HCC) - Primary Paralysis agitans | + + | Chronic bilateral low back pain without sciatica | + + | Gait disorder Abnormality of gait | + + | Neck pain, bilateral Cervicalgia | + + documented in this encounter
--- OUTSIDE RECORDS SUMMARY | ~2019-08-18 | XMS | Encounter Summary ---
Demographics + + + | Address | [address] | | | [place] [address] | + + + | Home Phone | | + + + | Preferred Language | Unknown | + + + | Marital Status | | + + + | Congregational Affiliation | Unknown | + + + | Race | Unknown | + + + | Ethnic Group | Unknown | + + + Author + + + | Author | [facility] | | | and [place] | + + + | Organization | [facility] | | | and [...] Team Providers + +------+ + | Care Circuit Manager Name | Role | Phone | [...] Appointment (Confirm | | 2019 | | [facility] | [address], [address] | appointment for | | | | CLINIC [address] | [place] [address] | home visit with GIANNA | | | | [address], | [place] [address] | and to get | | | | [place] [address] | [phone] | directions) | | | | [phone] | | | +--------+ + + + [...] | | | | | | [place] [address] | | | | | | [phone] | | | | | | | | +--------+---------+ + + + documented as of this encounter Visit Diagnoses Not on filedocumented in this encounter"
--- OUTSIDE RECORDS SUMMARY | ~2019-08-18 | XMS | Encounter Summary ---
Demographics + + + | Address | [address] | | | [place] [address] | + + + | Home Phone | | + + + | Preferred Language | Unknown | + + + | Marital Status | | + + + | Christianity Affiliation | Unknown | + + + | Race | Unknown | + + + | Ethnic Group | Unknown | + + + Author + + + | Author | [facility] | | | and [place] | + + + | Organization | [facility] | | | [...] Providers + +------+ + | Care Auto Body Repairman Name | Role | Phone | + +------+ + | Екатерина Christianson NP | PCP | | + +------+ + Reason for Visit + + + | Reason | Comments | + + + | Appointment | CHW providing information about medical appointment | + + + Encounter Details +--------+ + + + + | Date | Type | Department | Care Team | Description | +--------+ + + + + | 04/30/ | Telephone | [place] [facility] | Alin Garcia L, | Appointment ([facility] | | 2019 | | [facility] | [facility] | providing | | | | MEDICAL CLINIC [address] | | information about | | | | [facility], | | medical appointment) | | | | [place] [address] | | | | | | [phone] | | | +--------+ + + + [...] | | | | | | [place] [address] | | | | | | [phone] | | | | | | | | +--------+---------+ + + + documented as of this encounter Visit Diagnoses Not on filedocumented in this encounter"
--- OUTSIDE RECORDS SUMMARY | ~2019-08-18 | XMS | Encounter Summary ---
Demographics + + + | Address | [address] | | | [place] [address] | + + + | Home Phone | | + + + | Preferred Language | Unknown | + + + | Marital Status | Single | + + + | Mormonism Affiliation | Unknown | + + + | Race | White | + + + | Ethnic Group | Not or | + + + Author + + + | Author | [facility] | + + + | Organization | [facility] | + + + | Address | Unknown | + + + | Phone | Unavailable | + + + Support + + +---------+ + | Name | Relationship | Address | Phone | + + +---------+ + | Gloria Haynes | ECON | Unknown | | + + +---------+ + Care Team Providers + +------+ + | Care Stylist Apprentice Name | Role | Phone | + +------+ + | Jory Segovia MD | PCP | | + +------+ + Encounter Details +--------+ + + + + | Date | Type | Department | Care Team | Description | +--------+ + + + + | 08/10/ | Document-Sc | Neurosurgery at | Ayush Moe MD | | | 2014 | anned | [facility] [address] | [address] | | | | | Janell Mailcode: [address] | [place], [place] | | | | | [facility] | [address] | | | | | and Healing, | [phone] | | | | | | | | | | | Floor [place], [place] | | | | | | [address] | | | | | | [phone] | | | +--------+ + + + [...]
--- OUTSIDE RECORDS SUMMARY | ~2019-08-18 | XMS | Encounter Summary ---
Demographics + + + | Address | [address] | | | [place] [address] | + + + | Home Phone | | + + + | Preferred Language | Unknown | + + + | Marital Status | | + + + | Yazdanism Affiliation | Unknown | + + + | Race | Unknown | + + + | Ethnic Group | Unknown | + + + Author + + + | Author | [facility] | | | and [place] | + + + | Organization | [facility] | | | and [...] + +------+ + | Care Auto Body Repair Technician Name | Role | Phone | [...] [facility] | Alin Garcia L, | Appointment ([facility] | | 2019 | | [facility] | [facility] | providing | | | | MEDICAL CLINIC [address] | | information about | | | | [facility], | | medical appointment) | | | | [place] [address] | | | | | | [phone] | | | +--------+ + + + [...] | | | | | | [place] [address] | | | | | | [phone] | | | | | | | | +--------+---------+ + + + documented as of this encounter Visit Diagnoses Not on filedocumented in this encounter"
--- OUTSIDE RECORDS SUMMARY | ~2019-08-18 | XMS | Encounter Summary ---
Demographics + + + | Address | [address] | | | [place] [address] | + + + | Home Phone [...] Team Providers + +------+ + | Care Professor Of Industrial Technology Name | Role | Phone | + +------+ + | Екатерина Christianson NP | PCP | | + +------+ + Reason for Referral Self-referral (Routine) + + + + + + + | Status | Reason | Specialty | Diagnoses / | Referred By | Referred To | | | | | Procedures | Contact | Contact | + + + + + + + | Pending | Specialty | Physical | Diagnoses | Bond, | SNF | | Review | Services | Therapy | Parkinson | Mac Phillips, | AVTAR | | | Required | | disease | [address] | | | | | ([facility]) | [address], | | | | | | | [address] | [place], [place] | | | | | | [place], [place] | [address] | | | | | | [address] | Phone: | | | | | | Phone: | [phone] | | | | | | [phone] | Fax: | | | | | | Fax: | [phone] | | | | | | [phone] | | + + + + + + + Evaluate & Treat (Routine) + + + + + + + | Status | Reason | Specialty | Diagnoses / | Referred By | Referred To | | | | | Procedures | Contact | Contact | + + + + + + + | Pending | Specialty | Neurology | Diagnoses | Bond, | Bettie, | | Review | Services | | S/P deep | Mac Phillips, | MD Opal | | | Required | | brain | MD [address] | | | | | stimulator | [address] | | | | | placement | [address] | | | | | | [place] | [place] | | | | | | [address] | [address] | | | | | | Phone: | Phone: | | | | | | [phone] | [phone] | | | | | | Fax: | Fax: | | | | | | [phone] | [phone] | + + + + + + + Reason for Visit + + + | Reason | Comments | + + + | Follow-up | parkinsons | + + + Encounter Details +--------+---------+ + + + | Date | Type | Department | Care Team | Description | +--------+---------+ + + + | 07/28/ | Office | [place] [facility] | Mac Bond MD | S/P deep brain | | 2019 | Visit | [facility] | [address] | stimulator placement | | | | CLINIC [address] | [place], [place] | (Primary Dx); | | | | [address] [place], | [address] | Parkinson disease | | | | [place] [address] | | ([facility]); Gait disorder | | | | [phone] | | | +--------+---------+ + + + Social History + +-------+ +--------+ + | Tobacco Use | Types | Packs/Day | Years | Date | | | | | Used | | + +-------+ +--------+ + | Former Smoker | | 0.25 | | Quit: 07/09/2015 | + +-------+ [...] + + + | Blood Pressure | 110/60 | 07/28/2019 3:09 PM | | | | | PST | | + + + + + | Pulse | 78 | 07/28/2019 3:09 PM | | | | | PST | | + + + + + | Temperature | - | - | | + + + + + | Respiratory Rate | 20 | 07/28/2019 3:09 PM | | | | | PST | | + + + + + | Oxygen Saturation | - | - | | + + + + + | Inhaled Oxygen | - | - | | | Concentration | | | | + + + + + | Weight | 56.7 kg (125 lb) | 07/28/2019 3:09 PM | | | | | PST | | + + + + + | Height | 182.9 cm (6') | 07/28/2019 3:09 PM | | | | | PST | | + + + + + | Body Mass Index | 16.95 | 07/28/2019 3:09 PM | | | | | PST | | + + + + + [...] + + documented as of this encounter Patient Instructions Patient Instructions Mac Bond MD - 07/28/2019 3:00 PM PSTFormatting of this note mi ght be different from the original. Patient Instructions [facility] Dr. 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 magazines, perform word find exercises such as cross word puzz le, and scrabble, other puzzle games like SudHD Fantasy Footballu, Mahjong. Play computer/mobile applications such as VIPerks and MIND GAMES Continue Sinemet and Comtan and Amantadine Advised exercise daily Discussed with pipe fitter supervisor Mateusz Any Questions please call ELIAS Canaels or Dr. Bond at [facility] Understanding Parkinson Disease Parkinson disease is a condition that affects control over your movements. It s caused by a lack of dopamine,a chemical that helps the nerve cells in your brain communicate with e ach other. When dopamine is missing from certain areas of the brain, the messages that tell your body how to move are lost or distorted. This can lead to symptoms such as shaking, stif fness, and slow movement. There s no cure for Parkinson disease. But proper treatment can help ease symptoms and allow you to live a full, active life. Changes in the brain Dopamine is produced in a small area of the brain called the substantia nigra. For reasons that aren t yet clear, the nerve cells in this region that make dopamine begin to . Thi s means less dopamine is available to help control your movements. When healthy, the substan tia nigra makes enough dopamine to help control your body s movements. Symptoms of Parkinson disease Parkinson symptoms often appear gradually. Some may take years to develop. Others you may n ot have at all. Below are the most common: Shaking (resting tremor). This can affect the hands, arms, and legs. Most often, the sha rolando is worse on one side of the body. It usually lessens when the arm or leg (limb) is used . Slow movement (bradykinesia). This can affect the whole body. People may walk with short , shuffling steps. They can also feel frozen and unable to move. Stiffness (rigidity). This occurs when muscles don t relax. It can cause muscle aches and stooped posture. Other symptoms. This includes balance problems, small handwriting, soft voice volume, co nstipation, reduced or flat facial expression, and sleep problems. Memory loss or othe r problems with thinking may also occur later in the progression of the disease. How is Parkinson diagnosed? There is no single test for Parkinson disease. The diagnosis is based on your symptoms, [facility] history, and a physical exam. You mayalso have tests to help rule out other problems. These may include blood tests to look for diseases that cause similar symptoms. They can als o include brain-imaging tests, such as an MRI of the brain Parkinsonism is the name for a group of brain conditions that all have symptoms similar to Parkinson disease. However, the causes of these symptoms are different. In some cases, Parki nson-type symptoms may result from strokes or head injury. They can also be caused by medici sade or other diseases that affect the brain. In general, these conditions can t be treated as well using the medicines that help people with Parkinson disease. Date Last Reviewed: 09/26/201719995041-6073 [employer]. [address] [place] [address]. All righ ts reserved. This information is not intended as a substitute for professional medical care. Always follow your healthcare professional's instructions. Parkinson Disease: Managing Day to Day As Parkinson disease progresses, you may need to make some changes in your daily routine. F or best results, plan activities for times you ll feel your best. Leave plenty of time to complete tasks. And take breaks when you need them. If more help is needed, your healthcare provider may refer you to an occupational therapist. This is a professional who can help you practice tasks of daily living. Dressing To make dressing easier: Sit down to dress. This helps prevent falls. Choose clothes that are easy to put on and take off. Elastic waistbands and clothes that close in the front are good choices. Add paper clips to zipper pulls. This makes them easier to grasp. Choose shoes that are easy to wear. Wear shoes with hook and loopstraps. Women should not wearhigh heels. Bathing and grooming Loss of muscle control can make bathing and grooming a challenge. Try these tips: Install safety items in the bathroom, such as grab bars, nonslip bathmats, and raised to ilet seats. Sit down to brush your teeth, shave, or dry your hair. This helps reduce the risk of fal ls. Use liquid soap with a pump. Bar soap can be hard to hold. Wear an absorbent robe to dry off if using towels is hard. Eating and drinking Try these tips at mealtime: Choose foods that are easy to prepare and eat. Fresh fruits and vegetables make great sn acks. Try large-handled forks, spoons, and knives if it s hard to roving frame tender utensils. Spill-proof cups can help with drinking. Tell your healthcare provider if you have any problems swallowing. Take small bites and small sips to prevent breathing food into your lungs. Constipation Constipation is a very common problem. The tips below can help: Drink plenty of water. Eat foods that are high in fiber, such as fruits, vegetables, and whole grains. A fiber supplement can also help. Get regular exercise. Talk with your healthcare provider about laxativesor stool softeners. Communicating Over time, your voice may grow softer and less distinct. Your handwriting is also likely to become small and cramped. These tips can help you cope: Breathe deeply before starting your sentences. Focus on speaking slowly and loudly.If needed, your healthcare provider may refer you to a speech therapist. Add a voice amplifier to your phone. This helps you be heard. Try typing instead of writing. If this is a problem, consider using voice-activated soft mcwilliams for computers. Use foam family living educator on pens and pencils. These can make them easier to hold. Sleeping Manypeople with Parkinson have trouble sleeping. They may also move in their sleep and st rike their partners. Tell your healthcare provider if you re having sleep problems or recu rrent nightmares. Medicinecan often help you sleep better. Check with your healthcare prov ider before using zcom-xol-tayuwiq medicines to help you sleep. Getting out of bed You may feel very stiff and slow in the morning. It often helps to take medicinesbefore y ou get out of bed. Ask your healthcare provider if you can use dissolvable pills or chew pil ls with water. This can help medicinework faster. Above all, remember to be patient and ta ke your time. Having sex Having Parkinson doesn t mean you can t have a good sex life. Plan sex for the times of day when you ll feel your best. Talk with your partner about your feelings. Your healthca re provider can also find ways to help if you re having problems with sexual function. Ifyou haveany of the following, call your healthcare provider: Your symptoms suddenly get worse. You have severe constipation. You have trouble sleeping. You have problems chewing or swallowing. You often freeze (are unable to move your feet) or begin having falls. Date Last Reviewed: 10/24/2017 [employer]. [address] [place] [address]. All righ ts reserved. This information is not intended as a substitute for professional medical care. Always follow your healthcare professional's instructions. Parkinson Disease: Understanding Your Medicines Medicines are erwin to treating Parkinson disease. You may be prescribed 1 or more medicines. Be sure you know the names of your medicines and when and how to take them. Ask your health care provider what side effects you might expect. Also ask if you should not eat certain karlee ds or drink alcohol. Types of medicines* Examples How they help Levodopa combined with carbidopa Carbidopa-levadopa Levodopa replaces missing dopamine. Car bidopa helps levodopa enter the brain with fewer side effects. Dopamine agonists Pramipexole, bromocriptine, ropinirole, rotigotine Imitate the way dopami ne works in the brain. MAO-B inhibitors Selegiline, rasagiline Help dopamine work longer. COMT inhibitors Entacapone, combination of carbidopa, levodopa, and entacapone Taken with l evodopa. Help dopamine enter the brain and work longer. NMDA antagonists Amantadine Reduce involuntary movements and tremors. Anticholinergics Trihexyphenidyl, benztropine Reduce tremor. *This chart is not a complete list of Parkinson medicines. It does not include all side eff ects or adverse reactions. It does not include all interactions or precautions for these med icines. Only a healthcare provider can recommend or prescribe these medicines. The list of medicines does not include medicines that may treat other symptoms of Parkinson disease such as depression, psychosis, urinary symptoms, and others. Date Last Reviewed: 09/26/2017 [employer]. [address] [place] [address]. All righ ts reserved. This information is not intended as a substitute for professional medical care. Always follow your healthcare professional's instructions. General Neck and Back Pain Both neck and back pain are usually caused by injury to the muscles or ligaments of the spi ne. Sometimes the disks that separate each bone of the spine may cause pain by pressing on a nearby nerve. Back and neck pain may appear after a sudden twisting or bending force (such as in a car accident), or sometimes after a simple awkward movement. In either case, muscle spasm is often present and adds to the pain. Acute neck and back pain usually gets better in 1 to 2 weeks. Pain related to disk disease, arthritis in the spinal joints or spinal stenosis (narrowing of the spinal canal) can becom e chronic and last for months or years. Back and neck pain are common problems. Most people feel better in 1 or 2 weeks, and most o f the rest in 1 to 2 months. Most people can remain active. People have anddescribe pain differently. Pain can be sharp, stabbing, shooting, aching, cramping, or burning Movement, standing, bending, lifting, sitting, or walking may worsen the pain Pain can be localized to one spot or area, or it can be more generalized Pain can spread or radiate upwards, downwards, to the front, or go down your arms Muscle spasm may occur. Most of the time mechanical problems with the muscles or spine cause the pain. it is usuall y caused by an injury, whether known or not, to the muscles or ligaments. While illnesses ca n cause back pain, it is usually not caused by a serious illness. Pain is usually related to physical activity, whether sports, exercise, work, or normal activity. Sometimes it can occ ur without an identifiable cause. This can happen simply by stretching or moving wrong, with out noting pain at the time. Other causes include: Overexertion, lifting, pushing, pulling incorrectly or too aggressively. Sudden twisting, bending or stretching from an accident (car or fall), or accidental mov ement. Poor posture Poor conditioning, lack of regular exercise Spinal disc disease or arthritis Stress , or illness like appendicitis, bladder or kidney infection, pelvic infections Home care Forneck pain:Use a comfortable pillow that supports the head and keeps the spine in a neutral position. The position of the head should not be tilted forward or backward. When in bed, try to find a position of comfort. A firm mattress is best. Try lying flat on your back with pillows under your knees. You can also try lying on your side with your kn ees bent up towards your chest and a pillow between your knees. At first, do not try to stretch out the sore spots. If there is a strain, it is not like the good soreness you get after exercising without an injury. In this case, stretching may make it worse. Don't sit for long periods, as inlong car rides orother travel. This puts more stres s on the lower back than standing or walking. During the first 24 to 72 hours after an injury, apply an ice pack to the painful area f or 20 minutes and then remove it for 20 minutes over a period of 60 to 90 minutes or several times a day. You can alternate ice and heat therapies. Talk with your healthcare provider about the b est treatment for your back or neck pain. As a safety precaution, do not use a heating pad a t bedtime. Sleeping with a heating pad can lead to skin mahmood or tissue damage. Therapeutic massage can help relax the back and neck muscles without stretching them. Be aware of safe lifting methods and do not lift anything over 15 pounds until all the p ain is gone. Medicines Talk to your healthcare provider before using medicine, especially if you have other medica l problems or are taking other medicines. You may use afog-vwp-mapuluo medicine to control pain, unless another pain medicine was prescribed. If you have chronic conditions like diabetes, liver or kidney disease, stomach u lcers, gastrointestinal bleeding, or are taking blood thinner medicines. Be careful if you are given pain medicines, narcotics, or medicine for muscle spasm. The y can cause drowsiness, and can affect your coordination, reflexes, and judgment. Do not dri ve or operate heavy machinery. Follow-up care Follow up with your healthcare provider, or as advised. Physical therapy or further tests m ay be needed. If X-rays were taken, you will be notified of any new findings that may affect your care. Call 911 Call 911 if any of the following occur: Trouble breathing Confusion Very drowsy or trouble awakening Fainting or loss of consciousness Rapid or very slow heart rate Loss of bowel or bladder control When to seek medical advice Call your healthcare provider right away if any of these occur: Pain becomes worse or spreads into your arms or legs Weakness, numbness or pain in one or both arms or legs Numbness in the groin area Difficulty walking Fever of 100.4F (38C) or higher, or as directed by your healthcare provider Date Last Reviewed: 02/24/201619999019-2352 [employer]. [address] [place] [address]. All righ ts reserved. This information is not intended as a substitute for professional medical care. Always follow your healthcare professional's instructions. Relieving Back Pain Back pain is a common problem. You can strain back muscles by lifting too much weight or ju st by moving the wrong way. Back strain can be uncomfortable, even painful. And it can take weeks or monthsto improve. To help yourself feel better and prevent future back strains, t ry these tips. Important: Don't give aspirin to children or teens without first discussing it with your [facility]'s healthcare provider. Ice Ice reduces muscle pain and swelling. It helps most during the first 24 to 48 hours after a n injury. Wrap an ice pack or a bag of frozen peas in a thin towel. Never put ice directly on your skin. Place the ice where your back hurts the most. Don t ice for more than 20 minutes at a time. You can use ice several times a day. Medicines Kbvs-drx-tnwkars pain relieversincludeacetaminophen and anti-inflammatory medicines, wh ich includes aspirin, naproxen,or ibuprofen. They can help ease discomfort. Some also redu ce swelling. Tell your healthcare provider about any medicines you are already taking. Take medicines only as directed. Manipulation and massage Having manipulation by an osteopathic doctor or chiropractor may be helpful. Getting a mass age also may help. Heat After the first 48 hours, heat can relax sore muscles and improve blood flow. Try a warm bath or shower. Or use a heating pad set on low. To prevent a burn, keep a cl oth between you and the heating pad. Don t use a heating pad for more than 15 minutes at a time. Never sleep on a heating p ad. Date Last Reviewed: 01/24/201819993627-1858 [employer]. [address] [place] [address]. All righ ts reserved. This information is not intended as a substitute for professional medical care. Always follow your healthcare professional's instructions. documented in this encounter Progress Notes Mac Bond MD - 07/28/2019 3:00 PM PST Patient: Nitesh Haynes Medical Record: [id number] Date of Services: 07/28/2019 Referring Doctor: Екатерина Christianson NP Chief Complaint: Parkinson's disease History of Present Illness: Mr. Haynes was a 68-year-old right-handed male, seen for neurologic evaluation, treated for Parkinson's disease, presently receiving combination of Sinemet, Comtan, and amantadine, sta ble with significant gait dysfunction. Patient requires assistance fibrillation will order PT/OT for gait training. He had a previous DBS place in 2013 and has had no evaluation [facility] e that time. The DBS was performed in [facility]. Patient will be [facility] to [facility] for fur ther evaluation and opinion. In addition history of chronic low back pain though stable this time with previous lumbar spine surgeries. Presently, patient has tolerable symptoms and gave other treatment options in event that he symptoms recur such as acupuncture treatments, massage therapy, relaxation therapy, ofkg-wbz-aeamiud creams and patches, and cortisone shots. Review of Systems: Denies headache, earache, nasal catarrh, diplopia, blurring of vision, d ysphagia, odynophagia, sore throat, neck masses, hearing loss, chest pain, palpitations, patricia rtness of breath, cough, hemoptysis, abdominal pain, diarrhea, constipation, bowel or bladde r dysfunction, hematuria, dysuria, lymphadenopathies, echhymoses, rashes,and homicidal or pimentel icidal ideations. Current Outpatient Medications Medication Sig Dispense Refill acetaminophen (TYLENOL) 325 mg tablet Take 650 mg by mouth every 4 hours as needed for Pain. amantadine (SYMMETREL) 100 MG TABS Take 1 tablet by mouth 4 times daily. 120 tablet 11 bisacodyl (DULCOLAX) [address] 10 mg rectally Daily. carbidopa-levodopa (SINEMET) 25-100 mg per tablet Take 1 tab PO at 0800, 1000, 1200, 14 00, 1600, 1800, 2000 and 2300. Max of 8 tabs per day. 720 tablet 11 entacapone (COMTAN) 200 mg tablet Take 1 tablet by mouth 4 times daily. 120 tablet 11 Pyridoxine HCl (VITAMIN B-6) 25 MG tablet 0 No current facility-administered medications for this visit. Allergies Allergen Reactions Bactrim [Sulfamethoxazole-Trimethoprim] Other (See Comments) Renal failure Neurological Examination: Vitals: 07/28/19 1509 BP: 110/60 Pulse: 78 Resp: 20 PainSc: 0 - No pain MENTAL STATUS: The patient is awake, alert, and oriented to time, place, and person. [facility] is fluent. Memory, attention, comprehension, and general fund of knowledge are intact. CRANIAL NERVES: Funduscopy revealed distinct disc margins. There are no exudates or hemor rhages noted. Pupils are 3-4 mm, equal and reactive to light and accommodation. Extraocular muscle movements are intact. There are no visual field cuts. There is no nystagmus. There is no facial asymmetry. Facial sensation is intact. Palate elevates symmetrically. Streng th in the trapezius and sternocleidomastoid muscles is normal. Tongue is midline on protrusi on. MOTOR EXAMINATION: Strength is 5/5 throughout. Tone is normal. SENSORY EXAMINATION: Intact to light touch, pin prick, vibration, and proprioception. The re is no extinction on double simultaneous stimulation. DEEP TENDON REFLEXES: 2+ and symmetric. PLANTAR RESPONSES: Downgoing bilaterally GAIT: moldy stance, requires assistance for ablation, unable to tandem gait, Romberg was n egative CEREBELLAR EXAMINATION: tremors with hands a stretch, 5-7 Hz, minimal cogwheel rigidity, mynor kinetic MISCELLANEOUS EXAM: Well Kept, well nourished, Atraumatic, no evidence of frontal or maxil linda sinus tenderness, no neck masses,mild tenderness in the paraspinal lumbosacral spine wi th increased pain upon flexion and extension at 5-10, abdomen is soft and nontender, extre mities equally palpable pulses Clinical Impression: Parkinson's disease S/P Deep brain stimulator , 2014 Gait disorder Hx 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 Hx Lumbar spine surgeries Plan: Please schedule next follow up appt with Billy in 4-5 months for Parkinson's disease S/P Deep brain stimulator , 2014 Gait disorder Hx 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 magazines, perform word find exercises such as cross word puzz le, and scrabble, other puzzle games like SudHD Fantasy Footballu, Mahjong. Play computer/mobile applications such as VIPerks and Armor5 GAMES Continue Sinemet and Comtan and Amantadine Advised exercise daily Discussed with pipe fitter supervisor Mateusz Any Questions please call ELIAS Canales or Dr. Bond at [facility] Mac Bond MD07/28/20194:01 PM Electronically signed NOTE: Part of this report was transcribed using voice recognition software. Every effort was made to ensure accuracy. However, inadvertent computerize painter ski edge errors may be present documented in this enc ounter Plan of Treatment +--------+---------+ + + + | Date | Type | Specialty | Care Team | Description | +--------+---------+ + + + | 01/20/ | Office | Neurology | Mary, | | | 2019 | Visit | | [address] [place], | | | | | | [place] [address] | | | | | | [phone] | | | | | | | | +--------+---------+ + + + + + +--------+ + + | Name | Type | Priori | Associated Diagnoses | Order Schedule | | | | ty | | | + + +--------+ + + | Neurology, External | Outpatient | Routin | S/P deep brain | Ordered: 07/28/2019 | | - AMB Referral | Referral | e | stimulator placement | | + + +--------+ + + | Ambulatory referral | Outpatient | Routin | Parkinson disease | Expected: | | to Physical Therapy | Referral | e | ([facility]) | 08/04/2019, Expires: | | | | | | 09/28/2019 | + + +--------+ + + documented as of this encounter Visit Diagnoses + + | Diagnosis | + + | S/P deep brain stimulator placement - Primary | + + | Parkinson disease (HCC) Paralysis agitans | + + | Gait disorder Abnormality of gait | + + documented in this encounter"
--- OUTSIDE RECORDS SUMMARY | ~2019-08-18 | XMS | Encounter Summary ---
Demographics + + + | Address | [address] | | | [place] [address] | + + + | Home Phone | | + + + | Preferred Language | Unknown | + + + | Marital Status | Single | + + + | Scientology Affiliation | Unknown | + + + | Race | White | + + + | Ethnic Group | Not or | + + + Author + + + | Author | [facility] | + + + | Organization | [facility] | + + + | Address | Unknown | + + + | Phone | Unavailable | + + + Support + + +---------+ + | Name | Relationship | Address | Phone | + + +---------+ + | Gloria Haynes | ECON | Unknown | | + + +---------+ + Care Team Providers + +------+ + | Care Lamination Operator Name | Role | Phone | + +------+ + PCP | Unavailable | + +------+ + Encounter Details +--------+ + + + + | Date | Type | Department | Care Team | Description | +--------+ + + + + | 11/16/ | Telephone | Neurology Movement | Jory Segovia MD | | | 2008 | | Disorders Clinic | [address] | | | | | [address] | [facility] | | | | | Loop Mailcode: [address] | [place], [place] | | | | | Outpatient Clinic | [address] | | | | | Building [place], | [phone] | | | | | [place] [address] | | | | | | [phone] | | | +--------+ + + + [...]
--- OUTSIDE RECORDS SUMMARY | ~2019-08-18 | XMS | Encounter Summary ---
Demographics + + + | Address | [address] | | | [place] [address] | + + + | Home Phone | | + + + | Preferred Language | Unknown | + + + | Marital Status | Single | + + + | Temple Affiliation | Unknown | + + + | Race | White | + + + | Ethnic Group | Not or | + + + Author + + + | Author | [facility] | + + + | Organization | [facility] | + + + | Address | Unknown | + + + | Phone | Unavailable | + + + Support + + +---------+ + | Name | Relationship | Address | Phone | + + +---------+ + | Gloria Haynes | ECON | Unknown | | + + +---------+ + Care Team Providers + +------+ + | Care Cnc Mill Set Up Operator Name | Role | Phone | + +------+ + | Jory Segovia MD | PCP | | + +------+ + Encounter Details +--------+ + + + + | Date | Type | Department | Care Team | Description | +--------+ + + + + | 08/10/ | Document-Sc | Neurosurgery at | Ayush Moe MD | | | 2014 | anned | [facility] [address] | [address] | | | | | Janell Mailcode: [address] | [place], [place] | | | | | [facility] | [address] | | | | | and Healing, | [phone] | | | | | | | | | | | Floor [place], [place] | | | | | | [address] | | | | | | [phone] | | | +--------+ + + + [...]
--- OUTSIDE RECORDS SUMMARY | ~2019-08-18 | XMS | Encounter Summary ---
Demographics + + + | Address | [address] | | | [place] [address] | + + + | Home Phone | | + + + | Preferred Language | Unknown | + + + | Marital Status | Single | + + + | Taoism Affiliation | Unknown | + + + | Race | White | + + + | Ethnic Group | Not or | + + + Author + + + | Author | [facility] | + + + | Organization | [facility] | + + + | Address | Unknown | + + + | Phone | Unavailable | + + + Support + + +---------+ + | Name | Relationship | Address | Phone | + + +---------+ + | Gloria Haynes | ECON | Unknown | | + + +---------+ + Care Team Providers + +------+ + | Care Practice Lead Name | Role | Phone | + [...] | | | | disease | on [place] | [facility] | | | | | (HCC) | [facility] | Rd | | | | | Procedures | CENTER | Mailcode: | | | | | MRI BRAIN WO | [address] | | | | | CONTRAST | [facility] | [place] | | | | | [address] | Research | | | | | | [facility] | | | | | | [place] [address] | [place], [place] | | | | | | Phone: | [address] | | | | | | [phone] | Phone: | | | | | | Fax: | [phone] | | | | | | [phone] | Fax: | | | | | | | [phone] | +--------+--------+ + + + + Encounter Details +--------+ + + + + | Date | Type | Department | Care Team | Description | +--------+ + + + + | 09/12/ | Outside | Diagnostic Imaging | Veterans, | | | 2010 | Referral | Services at [facility] | Administration | | | | Order | [address] | [facility] | | | | | Jazlyn Rene Mailcode: | [place] [address] | | | | | [address] | [facility] | | | | | Research Center | [place], [place] | | | | | [place], [place] | [id number] | | | | | [address] | | | | | | [phone] | | | +--------+ + + + [...] | | CONTRAST | | e | ([facility]) | 09/12/2010, Expires: | | | | | | 10/13/2011 | + +---------+--------+ + + documented as of this encounter Visit Diagnoses + + | Diagnosis | + + | Parkinson disease ([facility]) - Primary Paralysis agitans | + + documented in this encounter"
--- OUTSIDE RECORDS SUMMARY | ~2019-08-18 | XMS | Encounter Summary ---
Demographics + + + | Address | [address] | | | [place] [address] | + + + | Home Phone | | + + + | Preferred Language | Unknown | + + + | Marital Status | Single | + + + | Mu-Ism Affiliation | Unknown | + + + [...] Team Providers + +------+ + | Care Video Effects Editor Name | Role | Phone | + [...] | | | [address] | [facility] | | | | | Loop Mailcode: [address] | [place], [place] | | | | | Outpatient Clinic | [address] | | | | | Building [place], | [phone] | | | | | [place] [address] | | | | | | [phone] | | | +--------+ + + + [...]
--- OUTSIDE RECORDS SUMMARY | ~2019-08-18 | XMS | Encounter Summary ---
Demographics + + + | Address | [address] | | | [place] [address] | + + + | Home Phone | | + + + | Preferred Language | Unknown | + + + | Marital Status | | + + + | Cheondoism Affiliation | Unknown | + + + | Race | Unknown | + + + | Ethnic Group | Unknown | + + + Author + + + | Author | [facility] | | | and [place] | + + + | Organization | [facility] | | | [...] Team Providers + +------+ + | Care Crusher Assembler Name | Role | Phone | + [...] 08/14/ | Telephone | [facility] | Mac Bond MD | Pain Management | | 2018 | | HOSPITAL NEUROLOGY | [address] | | | | | CLINIC [address] | [place] | | | | | [address] [place], | [address] | | | | | [place] [address] | | | | | | [phone] | | | +--------+ + + + [...] | | | | | | [place] [address] | | | | | | [phone] | | | | | | | | +--------+---------+ + + + documented as of this encounter Visit Diagnoses Not on filedocumented in this encounter"
--- OUTSIDE RECORDS SUMMARY | ~2019-08-18 | XMS | Encounter Summary ---
Demographics + + + | Address | [address] | | | [place] [address] | + + + | Home Phone | | + + + | Preferred Language | Unknown | + + + | Marital Status | | + + + | Zoroastrianism Affiliation | Unknown | + + + [...] Team Providers + +------+ + | Care Border Patrol Agent Name | Role | Phone | + +------+ + | Екатерина Christianson NP | PCP | | + +------+ + Reason for Referral Evaluate & Treat (Routine) + + + [...] | | Required | | disease | [address] | [address] | | | | | (HCC) Neck | [address] | [address] | | | | | pain, | [place], [place] | [address] | | | | | bilateral | [address] | [place], [place] | | | | | Chronic | Phone: | [phone] Phone: | | | | | bilateral | [phone] | [phone] | | | | | low back | Fax: | Fax: | | | | | pain with | [phone] | [phone] | | | | | right-sided | | | | | | | sciatica | | | | | | | Frequent | | | | | | | falls | | | + + + + + + + Self-referral (Routine) +--------+ + + + + + | Status | Reason | Specialty | Diagnoses / | Referred By | Referred To | | | | | Procedures | Contact | Contact | +--------+ + + + + + | Closed | Specialty | Physical | Diagnoses | Mary | [facility]ACE | | | Services | Therapy | Parkinson | Carlose, | ERIK | | | Required | | disease | [address] | PHYSICAL | | | | | (HCC) | [address] | [address] | | | | | Frequent | [place], [place] | [address] | | | | | falls | [address] | [address] | | | | | | Phone: | [facility] [place] | | | | | | [phone] | [address] | | | | | | Fax: | Phone: | | | | | | [phone] | [phone] | | | | | | | Fax: | | | | | | | [phone] | +--------+ + + + + + Reason for Visit + + + | Reason | Comments | + + + | Parkinson's Disease | | + + + Evaluate & Treat (Routine) +--------+ + + + + + | Status | Reason | Specialty | Diagnoses / | Referred By | Referred To | | | | | Procedures | Contact | Contact | +--------+ + + + + + | Closed | Specialty | Neurology | Diagnoses | Christianson, | Varun, | | | Services | | Restless | Tory | Mac Phillips MD | | | Required | | legs | NOAH Castillo | [address] | | | | | syndrome | [address] | | | | | Procedures | [place] | [facility] | | | | | Evaluate & | [address] | [address] Phone: | | | | | Treat | [place], [place] | [phone] | | | | | | [address] | Fax: | | | | | | Phone: | [phone] | | | | | | [phone] | | +--------+ + + + + + Encounter Details +--------+---------+ + + + | Date | Type | Department | Care Team | Description | +--------+---------+ + + + | 11/26/ | Office | [place] [facility] | Mary, | Chronic bilateral | | 2019 | Visit | [facility] | [facility], [address] | low back pain with | | | | CLINIC [address] [place], | right-sided sciatica | | | | [place], | [place] [address] | (Primary Dx); | | | | [place] [address] | [phone] | Parkinson disease | | | | [phone] | | ([facility]LY [facility]); Neck pain, | | | | | | bilateral; Frequent | | | | | | falls; Chronic | | | | | | bilateral low back | | | | | | pain without | | | | | | sciatica | +--------+---------+ + + + Social History [...] + + + | Blood Pressure | 110/76 | 11/26/2018 3:00 PM | | | | | PDT | | + + + + + | Pulse | 84 | 11/26/2018 3:00 PM | | | | | PDT | | + + + + + | Temperature | - | - | | + + + + + | Respiratory Rate | 18 | 11/26/2018 3:00 PM | | | | | PDT | | + + + + + | Oxygen Saturation | 97% | 11/26/2018 3:00 PM | | | | | PDT | | + + + + + | Inhaled Oxygen | - | - | | | Concentration | | | | + + + + + | Weight | 70.8 kg (156 lb) | 11/26/2018 3:00 PM | | | | | PDT | | + + + + + | Height | 180.3 cm (5' 11") | 11/26/2018 3:00 PM | | | | | PDT | | + + + + + | Body Mass Index | 21.76 | 11/26/2018 3:00 PM | | | | | PDT | | + + + + + documented in this encounter Patient Instructions Patient Instructions Sinai Hernandez FNP - 11/26/2018 3:15 PM PDTFormatting of this no te might be different from the original. Possible Causes of Low Back or Leg Pain BIG: The symptoms in your back or leg may be due to pressure on a nerve. This pressure may be caused by a damaged disk or by abnormal bone growth. Either way, you may feel pain, burni ng, tingling, or numbness. If you have pressure on a nerve that connects to the sciatic nerv e, pain may shoot down your leg. Pressure from the disk Constant wear and tear can weaken a disk over time and cause back pain. The disk can then b e damaged by a sudden movement or injury. If its soft center starts to bulge, the disk may p ress on a nerve. Or the outside of the disk may tear, and the soft center may squeeze throug h and pinch a nerve. Pressure from bone As a disk wears out, the vertebrae right above and below the disk start to touch. This can put pressure on a nerve. Often, abnormal bone (called bone spurs) grows where the vertebrae rub against each other. This can cause the foramen or the spinal canal to narrow (called gini nosis) and press against a nerve. Date Last Reviewed: 10/24/201719991257-9810 [employer]. [address] [place] [address], [place] [address]. All righ ts reserved. This information is not intended as a substitute for professional medical care. Always follow your healthcare professional's instructions. Back Pain (Acute or Chronic) Back pain is one of the most common problems. The good news is that most people feel better in 1 to 2 weeks, and most of the rest in 1 to 2 months. Most people can remain active. People who have paindescribe it differently noteveryone is the same. The pain can be sharp, stabbing, shooting, aching, cramping or burning. Movement, standing, bending, lifting, sitting, or walking may worsen pain. It can be localized to one spot or area, or it can be more generalized. It can spread or radiate upwards, to the front, or go down your arms or legs (sciatica). It can cause muscle spasm. Most of the time, mechanical problems with the musclesor spine cause the pain. Mechanical problemsare usually caused by an injury to the muscles or ligaments. While illness can ca use back pain, it is usually not caused by a serious illness. Mechanical problems include: Physical activity such as sports, exercise, work, or normal activity Overexertion, lifting, pushing, pulling incorrectly or too aggressively Sudden twisting, bending, or stretching from an accident, or accidental movement Poor posture Stretching or moving wrong, without noticing pain at the time Poor coordination, lack of regular exercise (check with your doctor about this) Spinal disc disease or arthritis Stress Pain can also be related to , or illness like appendicitis, bladder or kidney infe ctions, pelvic infections, and many other things. Acute back pain usually gets better in1 to 2 weeks. Back pain related to disk disease, ar thritis in the spinal joints or spinal stenosis (narrowing of the spinal canal) can become c hronic and last for months or years. Unless you had a physical injury (for example, a car accident or fall) X-rays are usually n ot needed for the initial evaluation of back pain. If pain continues and does not respond to medical treatment, X-rays and other tests may be needed. Home care Try these home care recommendations: When in bed, tryto find a position of comfort. A firm mattress is best. Try lying flat on your back with pillows under your knees. You can also try lying on your side with your k nees bent up towards your chest and a pillow between your knees. At first, do not try to stretch out the sore spots. If there is a strain, it is not like the good soreness you get after exercising without an injury. In this case, stretching may make it worse. Don't sit for long periods, as in a long car ride or during othertravel. This puts mor e stress on the lower back than standing or walking. During the first 24 to 72 hours after an acute injury or flare up of chronic back pain, apply an ice pack to the painful area for 20 minutes and then remove it for 20 minutes. Do t his over a period of 60 to 90 minutes or several times a day. This will reduce swelling and pain. Wrap the ice pack in a thin towel or plastic to protect your skin. You can start with ice, then switch to heat. Heat (hot shower, hot bath, or heating pad) reduces pain and works well for muscle spasms. Heat can be applied to the painful area for 20 minutes then remove it for 20 minutes. Do this over a period of 60 to 90 minutes or sever al times a day. Do not sleep on a heating pad. It can lead to skin mahmood or tissue damage. You can alternate ice and heat therapy. Talk with your doctor aboutthe best treatment for your back pain. Therapeutic massage can help relax the back muscles without stretching them. Be aware of safe lifting methods and do not lift anything without stretching first. Medicines Talk to your doctor before using medicine, especially if you have other medical problems or are taking other medicines. You may use fwxl-qtu-gvvctdd medicine as directed on the bottle to control pain, unless another pain medicine was prescribed. If you have chronic conditions like diabetes, liver or kidney disease, stomach ulcers, or gastrointestinal bleeding, or are taking blood thinners, talk to your doctor before taking any medicine. Be careful if you are given a prescription medicines, narcotics, or medicine for muscle spasms. They can cause drowsiness, affect your coordination, reflexes, and judgement. Do not drive or operate heavy machinery. Follow-up care Follow up with your healthcare provider, or as advised. A radiologist will review any X-rays that were taken. Your provide will notify you of any n ew findings that may affect your care. Call 911 Call 911 if any of the following occur: Trouble breathing Confusion Very drowsy or trouble awakening Fainting or loss of consciousness Rapid or very slow heart rate Loss of bowel or bladder control When to seek medical advice Call your healthcare provider right away if any of these occur: Pain becomes worse or spreads to your legs Weakness or numbness in one or both legs Numbness in the groin or genital area Date Last Reviewed: 02/24/201619996288-5168 [employer]. [address] [place] [address]. All righ ts reserved. This information is not intended as a substitute for professional medical care. Always follow your healthcare professional's instructions. Getting Around with Parkinson Disease Parkinson disease affects muscle control and coordination. This often makes your movements slower and less automatic. You may take small, shuffling steps and tend to lean forward. You may also feel frozen and unable to move at times, as if your feet feel stuck to the f minh. The tips below can help with common movements. If needed, your healthcare provider may also advise using a cane or walker. Remove any throw rugs or clutter to reduce your risk of falls. Getting out of bed Turn onto your side with your knees bent. Move your feet off the edge of the bed, using your arms to help you sit up. Sit at the edge of the bed with your feet on the floor and knees apart. Push down with your hands and rock forward to stand up. Stay standing for at least 1 minute before trying to take your first step. If you feel d carrie or lightheaded, sit back down on the bed. Walking and turning Raise your legs from the knee and take high, long steps. Let your heel fall first with e ach step. Swing your arms as if you re marching. Imagine that you re stepping over a series of lines on the floor. This can be especial ly helpful if you feel frozen. To turn, walk in a [place] instead of trying to stop and turn in place. Getting up and sitting down To get up, scoot your hips to the edge of the chair. Keep your feet flat on the floor wi th knees apart. Put your hands on the armrests. Rock forward and push down on the armrests to stand. It may help to rock back and forth to build momentum. To sit down, back up to the chair as close as you can. Lean forward and bend your knees. Use the armrests to lower yourself onto the chair. Date Last Reviewed: 10/24/201719990707-[address] [employer] [place] [address]. All righ ts reserved. This information is not intended as a substitute for professional medical care. Always follow your healthcare professional's instructions. Common Symptoms of Parkinson Disease You have Parkinson disease. This disease is caused by a loss of a chemical in your brain ne eded to help control movement and balance. For reasons that are not clear,cells that make this brain chemical stop working. This causes symptoms. This sheet tells you more about symp toms of Parkinson disease. How symptoms may affect you Parkinson disease symptoms vary for each person. You may have many severe symptoms. Or you may have only a few mild ones. Your symptoms may involve only one side of your body. Or they may involve both sides of your body. Also, your symptoms may change management administrator time. And you may have different symptoms at different stages. Your symptoms may also get worse as your diseas e progresses. Symptoms that affect movement and balance These can include: Tremor (shaking). This is a very common symptom. Most often, a hand or arm shakes on one or both sides of the body. Tremor may also affect other areas of the body, such as a leg, a foot, or the chin. Shaking may lessen when the affected part is used. It may worsen when at rest. Rigidity. This refers to having stiff or tight muscles. This happens because the muscles don t get the signal to relax. Rigidity may cause musclepain and cramping. It may also cause a stooped posture. Problems with balance. This can affect how well you stand and move. This can also increa se your risk of falls. Other symptoms Other symptoms of Parkinson disease include speaking too softly and in a monotone, writing that gets shaky and smaller across the page, and trouble swallowing. They also include const ipation, oily skin, and changes in blood pressure. Memory loss and other problems with think ing can occur later in the disease progression. Bradykinesia or slow movement can also o ccur. This can cause problems with actions such as getting out of chairs and beds. Walking m ay be limited to short, shuffling steps. You may feel "frozen," or unable to move. Blinking, facial expressions, swinging of your arms when walking, and other "unconscious movements" a re also slowed down. Some people may have problems with their urination and others may also feel depressed. Date Last Reviewed: 09/26/201719990148-3997 [employer]. [address] [place] [address]. All righ ts reserved. This information is not intended as a substitute for professional medical care. Always follow your healthcare professional's instructions. Parkinson Disease: Home Safety Removing throw rugs can help prevent trips and falls. As Parkinson disease progresses, home safety will be an increasing concern. This page inclu morales tips that can help make your daily life safer and easier. Your doctor may also recommend a therapist to advise you on the best ways to set up your home. Setting up living spaces Get help from family and friends to make these changes: Keep walkways open and free of clutter. Move phone and electrical cords out of the way. Remove throw rugs to prevent trips. Get a cordless or speakerphone. Program numbers for family and emergency services. Make sure rooms are well lit. Install nightlights along walkways. If freezing at doorways is a problem, consider placing lines of tape on the floor between rooms. Stepping over the tape may prompt you to keep moving. Setting up the bathroom Use the tips below to make changes to your bathroom. Medicare or insurance may help cover t he costs of some of these items, depending on your particular needs and plan. Have grab bars put in the shower or tub for support getting in and out. Install a hand-held showerhead for easier bathing. Raise the height of the toilet with a commode chair or elevated toilet seat. Use a rubber-backed bath mat to help prevent slips and falls. Buy a shower seat to make bathing safer and less tiring. Preventing falls Parkinson symptoms make falls more likely. Safety improvements around the house can help. B ut if you start having frequent falls, talk to your doctor. He or she may recommend physical therapy. This helps you learn the safest ways to move around. If needed, your therapist may also teach you how to use a cane or walker. Consider buying a life line so that if you do f all while you are alone, you'll have a way to get help. Date Last Reviewed: 11/24/201719993445-[address] [employer] [place] [address], [place] [address]. All righ ts reserved. This information is not intended as a substitute for professional medical care. Always follow your healthcare professional's instructions. documented in this encounter Progress Notes S[facility] Hernandez FNP - 11/26/2018 3:15 PM PDT Patient: Nitesh Haynes Medical Record: [id number] Date of Services: 11/26/2018 Referring Doctor: Екатерина Christianson NP Chief Complaint: Parkinson's disease, chronic low back pain History of Present Illness: The patient presents to the Neurology Clinic today for follow u p accompanied by his , Gloria. The patient has a history of Parkinson's disease for approximately 19 years. He had a DBS surgery at [facility] in 2008 with revision in 2010. The patient is currently taking Sinemet 25/1 00 mg tablets, 2 tablets 4 times per day, Comtan 200 mg 4 times daily and amantadine 100 mg 4 times daily. The patient reports that his symptoms and balance have worsened significantl y since his las visit. His mobility has also worsened and he is falling frequently. He did try physical therapy previously and does feel that it helped his gait and balance. He has a follow up scheduled with his neurology team at [facility] later this month. The patient has a history of chronic low back pain. The patient reports that his symptoms have slowly worsened over the past 10 years. He has had 2 previous lumbar spine surgeries, the last one [place] [address] Mcmullen in [place], [place]. The patient has tried treatment wi th epidural steroid injections and trigger point injections. He has not achieved relief of his pain. The patient did have a CT of his lumbar spine done in October 2018 which showed mul tilevel degenerative changes of the spine with L4-5 and L5-S1 foraminal narrowing. Encounter Problem List Chronic bilateral low back pain with right-sided sciatica (Primary) - Zonisamide; Take 1 tab PO QHS x 1 week. If tolerated, increase dose to 2 tabs (50mg) PO QHS x 1 week. If tolerated, increas dose to 2 tabs (50mg) PO BID. Dispense: 112 capsul e; Refill: 0 - AMB Referral to [facility] Community Health Worker Parkinson disease (HCC) - Carbidopa-Levodopa; Take 1 tab PO at 0800, 1000, 1200, 1400, 1600, 1800, 2000 and 230 0. Max of 8 tabs per day. Dispense: 720 tablet; Refill: 3 - Entacapone; Take 1 tablet by mouth 5 times daily for 14 days. Dispense: 70 tablet; R efill: 0 - Ambulatory referral to Physical Therapy - AMB Referral to [facility] Community Health Worker Neck pain, bilateral Overview: 07/09/18 XR Cervical: Extensive degenerative changes of the cervical spine.Bilateral f oraminal narrowing. Orders: - AMB Referral to [facility] Community Health Worker Frequent falls - Ambulatory referral to Physical Therapy - AMB Referral to [facility] Community Health Worker Chronic bilateral low back pain without sciatica Overview: 08/13/18: Lumbar TPI 11/05/18: CT Lumbar Spine: Multilevel degenerative change of the spine with L4-5 and L5-S 1 foraminal narrowing. Past Surgical History: Procedure Laterality Date back surgeries DEEP BRAIN STIMULATOR PLACEMENT 2013 HAND SURGERY KNEE SURGERY No Known Allergies Current Medications: amantadine carbidopa-levodopa entacapone zonisamide Review of Symptoms: CONSTITUTIONAL: No weight loss, fever, chills, weakness or fatigue. HEENT: Eyes: No visual loss, blurred vision, double vision or yellow sclerae. Ears, Nose, Throat: No hearing loss, sneezing, congestion, runny nose or sore throat. SKIN: No rash or itching. CARDIOVASCULAR: No chest pain, chest pressure or chest discomfort. No palpitations or edema . RESPIRATORY: No shortness of breath, cough or sputum. GASTROINTESTINAL: No anorexia, nausea, vomiting or diarrhea. No abdominal pain or blood. GENITOURINARY: No burning on urination. NEUROLOGICAL: No headache, dizziness, syncope, paralysis, numbness or tingling in the extre mities. No change in bowel or bladder control. + parkinson's disease, shuffling gait, bradyk inesia, dyskinesias, tremors. MUSCULOSKELETAL: No muscle, joint pain or stiffness. + low back pain PSYCHIATRIC: No depression or anxiety. Neurological Examination: Vitals: 11/26/18 1500 BP: 110/76 Pulse: 84 Resp: 18 PainSc: 0 - No pain Mental status: The patient is alert, attentive, and oriented. Speech is clear and fluent with good repetit ion, comprehension, and naming. The patient is able to recall 2/3 objects after 1 minute and after 5 minutes. Cranial nerves: CN II: Visual stein are full to confrontation. Fundoscopic exam is normal with sharp discs and no vascular changes. Pupils are 4 mm and briskly reactive to light with accomodation. CN III, IV, : Gaze in conjugate. No blurred or double vision. No visual field cuts. EOM intact. CN V: Facial sensation is intact. CN VII: Face is symmetric with normal eye closure and smile. CN VII: Hearing is normal to rubbing fingers CN IX, X: Palate elevates symmetrically. Phonation is normal. CN XI: Head turning and shoulder shrug are intact CN XII: Tongue is midline with normal movements and no atrophy. Motor: There is no pronator drift of out-stretched arms. Muscle bulk and tone are normal. Strength is 5/5 bilaterally. Reflexes: Reflexes are 1+ and symmetric at the biceps, triceps, knees, and ankles. Sensory: Light touch, pinprick, position sense, and vibration sense are intact in fingers and toes. Coordination: Rapid alternating movements and fine finger movements are intact. There is no dysmetria on twadyo-co-jhzp and lcjv-fcph-uibf. Romberg is absent. + Tremors noted with hands outstretche d, right side greater than left side, 5 7 hertz, with mild cogwheel rigidity and bradykine fatemhe. The patient does also exhibit symptoms of dyskinesias which are worse on the right zhao e. Gait/Stance: Narrow based stance, unable to tandem gait, shuffling noted. Patient also swings his right foot outward with ambulation. Clinical Impression: ICD-10-CM ICD-9-CM 1. Chronic bilateral low back pain with right-sided sciatica M54.41 724.2 zonisamide (ZONEG RAN) 25 mg capsule G89.29 724.3 * Efrain Bermudez [facility] Community Health Worker 338.29 2. Parkinson disease (HCC) G20 332.0 amantadine (SYMMETREL) 100 MG TABS carbidopa-levodopa (SINEMET) 25-100 mg per tablet entacapone (COMTAN) 200 mg tablet [facility] Physical Therapy, External - AMB Referral * Efrain Bermudez [facility] Community Health Worker DISCONTINUED: entacapone (COMTAN) 200 mg tablet 3. Neck pain, bilateral M54.2 723.1 * Efrain Bermudez [facility] Community Health Worker 4. Frequent falls R29.6 V15.88 [facility] Therapy, External - AMB Referral * Efrain Bermudez [facility] Community Health Worker Plan: Parkinson's disease: We discussed that long-term use of Sinemet at high doses can actually worsen dyskinesias. The patient will attempt to drug holiday over the next 2 weeks and slo wly reintroduce his Sinemet up to 8 tablets per day in divided doses. He will take his medi cation at 8 AM, 10 AM, 12 noon, 2 PM, 4 PM, 6 PM and 8 PM with a dose overnight if needed. He will slowly increase his medications up to this dose. If his symptoms improve following the drug holiday as is possible that the higher dose of Sinemet has actually caused his dysk inesias and his dose will be reduced to 6 tablets per day. He should also continue taking C omtan. Plan to increase this dose to 5 times per day after his drug holiday. He will also continue taking amantadine 100 mg 4 times daily. The patient will return to physical and oc cupational therapy to help with gait training and frequent falls. I have also advised him t o use a cane for ambulation to help prevent his falls. CHW consulted to help patient with r esources and equipment due to his significantly impaired mobility and chronic pain. The pat ient will require adaptive equipment to help him be and a recliner with a lift to help him w ith standing. The patient has difficulty with going from a sitting to standing position due to his severe chronic pain and his impaired mobility from his Parkinson's disease. Chronic pain: The patient has significant symptoms of pain and radiculopathy in his low esther k, worse on the right side. The patient will occasionally take gabapentin for his symptoms but reports that the medication only make him sleep and does not help with his pain. Plan t o begin a trial of zonisamide and a 25 mg by mouth daily at bedtime with slow dose escalatio n to help with radicular symptoms and neuropathic pain. The patient has failed trigger poin t injections and epidural steroid injections in the past. He will also begin physical thera py again to help with his chronic pain symptoms. Follow-up with me in February 2019 and next available with Dr. Bond. BRYCE Summers Electronically signed This note was transcribed using voice recognition software. There may be speech recognitio n errors which escaped detection during review. documented in thi s encounter Plan of Treatment +--------+---------+ + + + | Date | Type | Specialty | Care Team | Description | +--------+---------+ + + + | 01/20/ | Office | Neurology | Mary, | | | 2019 | Visit | | [address] | | | | | | [address] [place], | | | | | | [place] [address] | | | | | | [phone] | | | | | | | | +--------+---------+ + + + + + +--------+ + + | Name | Type | Priori | Associated Diagnoses | Order Schedule | | | | ty | | | + + +--------+ + + | Horace Espinal | Outpatient | Routin | Parkinson disease | Ordered: 11/26/2018 | | Physical Therapy, | Referral | e | ([facility]LY [facility]) Frequent | | | External - AMB | | | falls | | | Referral | | | | | + + +--------+ + + | * [facility] | Outpatient | Routin | Parkinson disease | Ordered: 11/26/2018 | | [facility] | Referral | e | ([facility]) Neck pain, | | | Worker | | | bilateral Chronic | | | | | | bilateral low back | | | | | | pain with | | | | | | right-sided sciatica | | | | | | Frequent falls | | + + +--------+ + + documented as of this encounter Visit Diagnoses + + | Diagnosis | + + | Chronic bilateral low back pain with right-sided sciatica - Primary | + + | Parkinson disease (HCC) Paralysis agitans | + + | Neck pain, bilateral Cervicalgia | + + | Frequent falls Personal history of fall | + + | Chronic bilateral low back pain without sciatica | + + documented in this encounter
--- OUTSIDE RECORDS SUMMARY | ~2019-08-18 | XMS | Encounter Summary ---
Demographics + + + | Address | [address] | | | [place] [address] | + + + | Home Phone | | + + + | Preferred Language | Unknown | + + + | Marital Status | | + + + | Adventism Affiliation | Unknown | + + + | Race | Unknown | + + + | Ethnic Group | Unknown | + + + Author + + + | Author | [facility] | | | and [place] | + + + | Organization | [facility] | | | and [...] Team Providers + +------+ + | Care Data Analytics Chief Scientist Name | Role | Phone | + [...] | Pain | | 2019 | | [facility] | [facility] | | | | | CLINIC [address] | | | | | | [address] [place], | | | | | | [place] [address] | | | | | | [phone] | | | +--------+--------+ + + + [...] | | | | | | [place] [address] | | | | | | [phone] | | | | | | | | +--------+---------+ + + + documented as of this encounter Visit Diagnoses + + | Diagnosis | + + | Chronic low back pain without sciatica, unspecified back pain laterality - Primary | + + documented in this encounter"
--- OUTSIDE RECORDS SUMMARY | ~2019-08-18 | XMS | Encounter Summary ---
Demographics + + + | Address | [address] | | | [place] [address] | + + + | Home Phone | | + + + | Preferred Language | Unknown | + + + | Marital Status | | + + + | Anabaptist Affiliation | Unknown | + + + | Race | Unknown | + + + | Ethnic Group | Unknown | + + + Author + + + | Author | [facility] | | | and [place] | + + + | Organization | [facility] | | | [...] Team Providers + +------+ + | Care Building Appraiser Name | Role | Phone | + +------+ + | Екатерина Christianson NP | PCP | | + +------+ + Reason for Visit + + + | Reason | Comments | + + + | Procedure | Lumbar TPI | + + + Evaluate & Treat [...] | | | syndrome | [address] | | | | | Procedures | [place] | [facility] | | | | | Evaluate & | [address] | [address] Phone: | | | | | Treat | [place], [place] | [phone] | | | | | | [address] | Fax: | | | | | | Phone: | [phone] | | | | | | [phone] | | +--------+ + + + + + Encounter Details +--------+ + + + + | Date | Type | Department | Care Team | Description | +--------+ + + + + | 04/07/ | Procedure | [facility] | Mary, | Chronic bilateral | | 2019 | visit | HOSPITAL NEUROLOGY | [facility] | low back pain | | | | CLINIC [address] | [address] [place], | without sciatica | | | | [address] [place], | [place] [address] | (Primary Dx); Right | | | | [place] [address] | [phone] | hip pain; Fall, | | | | [phone] | | initial encounter | +--------+ + + + + Social [...] + + + | Blood Pressure | 110/68 | 04/07/2019 10:20 AM | | | | | PDT | | + + + + + | Pulse | 89 | 04/07/2019 10:20 AM | | | | | PDT | | + + + + + | Temperature | - | - | | + + + + + | Respiratory Rate | 18 | 04/07/2019 10:20 AM | | | | | PDT | | + + + + + | Oxygen Saturation | 99% | 04/07/2019 10:20 AM | | | | | PDT | | + + + + + | Inhaled Oxygen | - | - | | | Concentration | | | | + + + + + | Weight | 66.7 kg (147 lb) | 04/07/2019 10:20 AM | | | | | PDT | | + + + + + | Height | 180.3 cm (5' 11") | 04/07/2019 10:20 AM | | | | | PDT | | + + + + + | Body Mass Index | 20.5 | 04/07/2019 10:20 AM | | | | | PDT | | + + + + + documented in this encounter Patient Instructions Patient Instructions [facility] Hernandez FNP - 04/07/2019 10:30 AM PDTApply warm compresses to the injection sites for 20 minutes on and 20 minutes off for 2 hours starting a couple o f hours after the procedure. You may repeat it again the next day. You can apply moist hea t to your aching areas as needed thereafter. No lifting, pushing, pulling objects greater than 5 pounds (about the size of a 1/2 gallon of milk) for the first week after the procedure. Showers only please, no bathing or soaking the injection sites in water for the first week. If you experience increased dizziness, drowsiness, chest pain or palpitations, immediately call your Neurologist's office, go to the Emergency Room or call 911. Please contact our clinic within 48 hours if you experience persistent pain. If you have a ny concerns or questions after the trigger point injection: Thank you! documented in this encounter Plan of Treatment +--------+---------+ + + + | Date | Type | Specialty | Care Team | Description | +--------+---------+ + + + | 01/20/ | Office | Neurology | Mary, | | | 2019 | Visit | | [address] | | | | | | [address] [facility], | | | | | | [place] [address] | | | | | | [phone] | | | | | | | | +--------+---------+ + + + + +---------+--------+ + + | Name | Type | Priori | Associated Diagnoses | Order Schedule | | | | ty | | | + +---------+--------+ + + | XR Hip Right 2-3 | Imaging | Routin | Right hip pain | Expected: | | Views | | e | Fall, initial | 04/07/2019, Expires: | | | | | encounter | 04/07/2020 | + +---------+--------+ + + documented as of this encounter Procedures + +--------+ + + + | Procedure Name | Priori | Date/Time | Associated Diagnosis | Comments | | | ty | | | | + +--------+ + + + | GA INJECT TRIGGER | Routin | 04/07/2019 | Strain of muscle, | Results for this | | POINT, 1 OR 2 | e | 10:30 AM | fascia and tendon of | procedure are in the | | MUSCLE(S) | | PDT | lower back, sequela | results section. | | | | | Chronic bilateral | | | | | | low back pain | | | | | | without sciatica | | + +--------+ + + + documented in this encounter Visit Diagnoses + + | Diagnosis | + + | Chronic bilateral low back pain without sciatica - Primary | + + | Right hip pain Pain in joint, pelvic region and thigh | + + | Fall, initial encounter | + + documented in this encounter Administered Medications + +--------+ +--------+------+ + | Medication Order | MAR | Action | Dose | Rate | Site | | | Action | Date | | | | + +--------+ +--------+------+ + | bupivacaine (MARCAINE) 0.5% | Given | 04/07/20 | 10 mLs | | Other | | injection 10 mL 10 mL, Other, | | 19 10:44 | | | (Comment | | ONCE, 04/07/19 at 1045, For 1 | | AM PDT | | | ) | | dose, IM, | | | | | | + +--------+ +--------+------+ + +---+---+ | | | +---+---+ + +-------+ +--------+---+ + | lidocaine 1% injection 20 mL | Given | 04/07/20 | 20 mLs | | Other | | 20 mL, Intramuscular, ONCE, Tue | | 19 10:44 | | | (Comment | | 04/07/19 at 1045, For 1 dose | | AM PDT | | | ) | + +-------+ +--------+---+ + +---+---+ | | | +---+---+ + +-------+ +--------+---+ + | methylPREDNISolone acetate | Given | 04/07/20 | 400 mg | | Other | | (DEPO-MEDROL) 40 mg/mL injection | | 19 10:44 | | | (Comment | | 400 mg 400 mg, Intramuscular, | | AM PDT | | | ) | | ONCE, Yudith 04/07/19 at 1045, For 1 | | | | | | | dose, Not for IV use., | | | | | | + +-------+ +--------+---+ + +---+---+ | | | +---+---+ documented in this encounter
--- OUTSIDE RECORDS SUMMARY | ~2019-08-18 | XMS | Encounter Summary ---
Demographics + + + | Address | [address] | | | [place] [address] | + + + | Home Phone | | + + + | Preferred Language | Unknown | + + + | Marital Status | | + + + | Jew Affiliation | Unknown | + + + [...] Team Providers + +------+ + | Care Certified Real Estate Appraiser Name | Role | Phone | [...] | | | | | Procedures | [address] | [facility] | | | | | Evaluate & | [address] | [address] Phone: | | | | | Treat | [place], [place] | [phone] | | | | | | [address] | Fax: | | | | | | Phone: | [phone] | | | | | | [phone] | | +--------+ + + + + + Encounter Details +--------+ + + + + | Date | Type | Department | Care Team | Description | +--------+ + + + + | 04/07/ | Procedure | [facility] | Mary, | Chronic bilateral | | 2019 | visit | HOSPITAL NEUROLOGY | [facility], [address] | low back pain | | | | CLINIC [address] | [address] [place], | without sciatica | | | | [place] | [place] [address] | (Primary Dx); Right | | | | [place] [address] | [phone] | hip pain; Fall, | | | | [phone] | | initial encounter | +--------+ + [...] | | | | | | [address] [facility], | | | | | | [place] [address] | | | | | | [phone] | | | | | | | [...] | + +--------+ + + + | NM INJECT TRIGGER | Routin | 04/07/2019 | [...]
--- OUTSIDE RECORDS SUMMARY | ~2019-08-18 | XMS | Encounter Summary ---
Demographics + + + | Address | [address] | | | [place] [address] | + + + | Home Phone [...] Team Providers + +------+ + | Care Electronic Game Developer Name | Role | Phone | [...] + + + + | 07/14/ | Telephone | [facility] | Mac Bond MD | Results, Imaging | | 2018 | | HOSPITAL NEUROLOGY | [address] | | | | | CLINIC [address] | [place] | | | | | [address] [place], | [address] | | | | | [place] [address] | | | | | | [phone] | | | +--------+ + + + [...] | | | | | | [place] [address] | | | | | | [phone] | | | | | | | | +--------+---------+ + + + documented as of this encounter Visit Diagnoses Not on filedocumented in this encounter"
--- OUTSIDE RECORDS SUMMARY | ~2019-08-18 | XMS | Encounter Summary ---
Demographics + + + | Address | [address] | | | [place] [address] | + + + | Home Phone | | + + + | Preferred Language | Unknown | + + + | Marital Status | | + + + | Muslim Affiliation | Unknown | + + + | Race | Unknown | + + + | Ethnic Group | Unknown | + + + Author + + + | Author | [facility] | | | and [place] | + + + | Organization | [facility] | [...] Team Providers + +------+ + | Care Manager Application Development Name | Role | Phone | + +------+ + | Екатерина Christianson NP | PCP | | + +------+ + Encounter Details +--------+ + + + + | Date | Type | Department | Care Team | Description | +--------+ + + + + | 01/05/ | Hospital | [facility] | Mac Bond MD | | | 2019 | Encounter | HOSPITAL XRAY [address] | [address] | | | | | [place] | [place], [place] | | | | | [place], [place] | [address] | | | | | [address] | | | | | | [phone] | Laxmi Draper Wgr | | +--------+ + + + + [...] amantadine | Take 1 tablet by | | 0 | 11/27/19 | | | (SYMMETREL) 100 MG | mouth 4 times daily. | | | 19 | 9 | | TABSIndications: | | | | | | | Parkinson disease | | | | | | | ([facility]) | | | | | | + + + +---------+ + + | carbidopa-levodopa | Take 1 tab PO at | 720 | 3 | 11/27/19 | | | (SINEMET) 25-100 mg | 0800, 1000, 1200, | tablet | | 19 | 9 | | per | 1400, 1600, 1800, | | | | | | tabletIndications: | 2000 and 2300. Max | | | | | | Parkinson disease | of 8 tabs per day. | | | | | | (HCC) | | | | | | + + + +---------+ + + | entacapone | Take 1 tablet by | 70 | 0 | 11/27/19 | | | (COMTAN) 200 mg | mouth 5 times daily | tablet | | 19 | 9 | | tabletIndications: | for 14 days. | | | | | | Parkinson disease | | | | | | | ([facility]) | | | | | | + + + +---------+ + + | traMADol (ULTRAM) | Take 1 tablet by | 12 | 0 | 12/24/19 | | | 50 mg | mouth every 8 hours | tablet | | 19 | 9 | | tabletIndications: | as needed for Pain. | | | | | | Chronic low back | | | | | | | pain without | | | | | | | sciatica, | | | | | | | unspecified back | | | | | | | pain laterality | | | | | | + + + +---------+ + + | zonisamide | Take 1 tab PO QHS x | 112 | 0 | 11/27/19 | | | (ZONEGRAN) 25 mg | 1 week. If | capsule | | 19 | 9 | | capsuleIndications: | tolerated, increase | | | | | | Chronic bilateral | dose to 2 tabs | | | | | | low back pain with | (50mg) PO QHS x 1 | | | | | | right-sided sciatica | week. If tolerated, | | | | | | | increas dose to 2 | | | | | | | tabs (50mg) PO BID. | | | | | + + [...] | | | | | | [address] [facility], | | | | | | [place] [address] | | | | | | [phone] | | | | | | | | +--------+---------+ + + + documented as of this encounter Procedures + +--------+ + + + | Procedure Name | Priori | Date/Time | Associated Diagnosis | Comments | | | ty | | | | + +--------+ + + + | FL EPIDURAL STEROID | Routin | 01/05/2019 | Chronic low back | Results for this | | INJECTION LUMBAR | e | 1:42 PM | pain without | procedure are in the | | TRANSFORAMINAL | | PDT | sciatica, | results section. | | | | | unspecified back | | | | | | pain laterality | | | | | | Osteoarthritis of | | | | | | spine with | | | | | | radiculopathy, | | | | | | lumbar region | | + +--------+ + + + documented in this encounter Visit Diagnoses Not on filedocumented in this encounter Administered Medications + +--------+ +-------+------+------+ | Medication Order | MAR | Action | Dose | Rate | Site | | | Action | Date | | | | + +--------+ +-------+------+------+ | bupivacaine (PF) (MARCAINE) | Given | 01/06/20 | 5 mLs | | | | 0.25% injection 5 mL 5 mL, | | 19 2:00 | | | | | EPIDURAL, ONCE, 01/05/19 at | | PM PDT | | | | | 1400, For 1 dose | | | | | | + +--------+ +-------+------+------+ +---+---+ | | | +---+---+ + +-------+ +--------+---+---+ | iopamidol (ISOVUE-200) 200 | Given | 01/06/20 | 10 mLs | | | | mg/mL injection 10 mL 10 mL, | | 19 2:00 | | | | | Joint Space, ONCE, 01/05/19 at | | PM PDT | | | | | 1400, For 1 dose | | | | | | + +-------+ +--------+---+---+ +---+---+ | | | +---+---+ + +-------+ +--------+---+ + | lidocaine (PF) 1% injection 20 | Given | 01/06/20 | 10 mLs | | Other | | mL 20 mL, Intradermal, ONCE, Mon | | 19 2:00 | | | (Comment | | 01/05/19 at 1400, For 1 dose | | PM PDT | | | ) | + +-------+ +--------+---+ + +---+---+ | | | +---+---+ + +-------+ +-------+---+---+ | methylPREDNISolone acetate | Given | 01/06/20 | 80 mg | | | | (DEPO-MEDROL) 40 mg/mL injection | | 19 2:00 | | | | | 80 mg 80 mg, Intra-articular, | | PM PDT | | | | | ONCE, 01/05/19 at 1400, For 1 | | | | | | | dose, Not for IV use., | | | | | | + +-------+ +-------+---+---+ +---+---+ | | | +---+---+ documented in this encounter"
--- OUTSIDE RECORDS SUMMARY | ~2019-08-18 | XMS | Encounter Summary ---
Demographics + + + | Address | [address] | | | [place] [address] | + + + | Home Phone | | + + + | Preferred Language | Unknown | + + + | Marital Status | | + + + | Moravian Affiliation [...] Team Providers + +------+ + | Care Acting Instructor Name | Role | Phone | + [...] | | | [address] [place] [place], | [address] | unspecified back | | | | [place] [address] | | pain laterality | | | | [phone] | | (Primary Dx); | | | [...] | | | | | | [facility] | | | | | | [place] [address] | | | | | | [phone] | | | | | | | [...]
--- OUTSIDE RECORDS SUMMARY | ~2019-08-18 | XMS | Encounter Summary ---
Demographics + + + | Address | [address] | | | [place] [address] | + + + | Home Phone [...] Team Providers + +------+ + | Care Gallery Or Museum Attendant Name | Role | Phone | + +------+ + | Екатерина Christianson NP | PCP | | + +------+ + Encounter Details +--------+ + + + + | Date | Type | Department | Care Team | Description | +--------+ + + + + | 12/26/ | [facility] | Mac Bond MD | Chronic low back | | 2019 | Encounter | HOSPITAL XRAY 900 | [address] | pain without | | | | [place] | [place], [place] | sciatica, | | | | [place], [place] | [address] | unspecified back | | | | [address] | | pain laterality; | | | | [phone] | Radiologist, Cc Wgr | Osteoarthritis of | | | | [...] | | | | | | [address] [place], | | | | | | [place] [address] | | | | | | [phone] | | | | | | | [...] + + documented in this encounter Results FL POP Lumbar Transforaminal (01/05/2019 1:42 PM PDT) + + | Specimen | + + | | + + + + + | Impressions | Performed At | + + + | IMPRESSION: Successful fluoroscopically guided bilateral L4 | [facility] | | transforaminal epidural steroid injection.. Dictated by: Manuelito Gabriel | | | 2:31 PM | [...] | INJECTION LUMBAR TRANSFORAMINALHISTORY:persistent low back painCOMPARISON STUDY:October | | 2017FLUOROSCOPY TIME:Time:2 minutes 28 secondsNumber of images:12PROCEDURE:The | [...] pain without sciatica, unspecified back pain laterality | + + | Osteoarthritis of spine with radiculopathy, lumbar region | + + documented in this encounter"
--- OUTSIDE RECORDS SUMMARY | ~2019-08-18 | XMS | Encounter Summary ---
Demographics + + + | Address | [address] | | | [place] [address] | + + + | Home Phone | | + + + | Preferred Language | Unknown | + + + | Marital Status | Single | + + + | Advent Affiliation | Unknown | + + + | Race | White | + + + | Ethnic Group | Not or | + + + Author + + + | Author | [facility] | + + + | Organization | [facility] | + + + | Address | Unknown | + + + | Phone | Unavailable | + + + Support + + +---------+ + | Name | Relationship | Address | Phone | + + +---------+ + | Gloria Haynes | ECON | Unknown | | + + +---------+ + Care Team Providers + +------+ + | Care Plastic Surgery Nurse Name | Role | Phone | + [...] | | | | disease | on [place] | [facility] | | | | | (HCC) | [facility] | Rd | | | | | Procedures | CENTER | Mailcode: | | | | | MRI BRAIN WO | [address] | | | | | CONTRAST | [facility] | [facility] | | | | | | [address] | Research | | | | | | [facility] | | | | | | [place] [address] | [place], [place] | | | | | | Phone: | [address] | | | | | | [phone] | Phone: | | | | | | Fax: | [phone] | | | | | | [phone] | Fax: | | | | | | | [phone] | +--------+--------+ + + + + Encounter Details +--------+ + + + + | Date | Type | Department | Care Team | Description | +--------+ + + + + | 09/12/ | Outside | Diagnostic Imaging | Veterans, | | | 2010 | Referral | Services at [facility] | Administration | | | | Order | [address] | [facility] | | | | | Jazlyn Rene Mailcode: | [place] [address] [facility] | | | | | [address] | [facility] | | | | | Research Center | [place], [place] | | | | | [place], [place] | [id number] | | | | | [address] | | | | | | [phone] | | | +--------+ + + + [...] | | CONTRAST | | e | ([facility]) | 09/12/2010, Expires: | | | | | | 10/13/2011 | + +---------+--------+ + + documented as of this encounter Visit Diagnoses + + | Diagnosis | + + | Parkinson disease ([facility]) - Primary Paralysis agitans | + + documented in this encounter"
--- OUTSIDE RECORDS SUMMARY | ~2019-08-18 | XMS | Encounter Summary ---
Demographics + + + | Address | [address] | | | [place] [address] | + + + | Home Phone | | + + + | Preferred Language | Unknown | + + + | Marital Status | | + + + | Presybeterian Affiliation | Unknown | + + + | Race | Unknown | + + + | Ethnic Group | Unknown | + + + Author + + + | Author | [facility] | | | and [place] | + + + | Organization | [facility] | | [...] Providers + +------+ + | Care Certified Marine Mechanic Name | Role | Phone | + +------+ + | Екатерина Christianson NP | PCP | | + +------+ + Reason for Referral Diagnostic/Screening (Routine) +--------+--------+ + + + + | Status | Reason | Specialty | Diagnoses / | Referred By | Referred To | | | | | Procedures | Contact | Contact | +--------+--------+ + + + + | Closed | | Radiology | Diagnoses | Bond, | [address] | | | | | Chronic low | Mac Phillips, | [address] | | | | | back pain | [address] | [place], | | | | | without | [address], | [place] [address] | | | | | sciatica, | [place] | Phone: | | | | | unspecified | [place], [place] | [phone] | | | | | back pain | [address] | Fax: | | | | | laterality | Phone: | [phone] | | | | | Procedures | [phone] | | | | | | CT Lumbar | Fax: | | | | | | Spine wo | [phone] | | | | | | Contrast | | | +--------+--------+ + + + + Encounter Details +--------+ + + + + | Date | Type | Department | Care Team | Description | +--------+ + + + + | 10/03/ | Orders Only | [facility] | Mac Bond MD | Chronic low back | | 2019 | | HOSPITAL [facility] | [address], [place] | pain without | | | | CLINIC [address] | [place], [place] | sciatica, | | | | [address], | [address] | unspecified back | | | | [place] [address] | | pain laterality | | | | [phone] | | (Primary Dx) | +--------+ + [...] | | | | | | [facility] | | | | | | [place] [address] | | | | | | [phone] | | | | | | | | +--------+---------+ + + + documented as of this encounter Results CT Lumbar Spine wo Contrast (11/05/2018 10:33 AM PDT) + + | Specimen | + + | | + + + + + | Impressions | Performed At | + + + | IMPRESSION: Multilevel degenerative change of the spine with L4-5 | [facility] | | and L5-S1 foraminal narrowing. Correlation with dermatomal | | | distribution of symptoms is recommended. L3-4 fusion as above Query | | | constipation Atherosclerosis Dictated by: Manuelito Gabriel | | | | | + + + + + + | Narrative | Performed At | + + + | EXAMINATION: CT LUMBAR SPINE WO CONTRAST HISTORY: Persistent | [facility] | | low back pain with previous lumbar spine surgery COMPARISON STUDY: | | | July 09, 2018 TECHNIQUE: 3.75 mm axial slices were acquired | | | through the lumbar spine without contrast. Axial coronal and | | | sagittal reformations were performed. DOSE REPORT: CTDIvol: 13.6 | | | - 18.6 mGy. DLP: 800 mGy-cm. Automated exposure control was utilized. | | | FINDINGS: Vertebral body alignment demonstrates lower lumbar apex | | | left scoliosis. There is the L3-4 fusion with pedicle screws rods | | | and and intervertebral disc space device. No evidence of hardware | | | failure. Age-appropriate bone mineral density. Marked disc height | | | loss endplate sclerosis at L4-5. Disc height loss endplate productive | | | change is present L2-3 and to a lesser degree L5-S1. No acute | | | fracture. Central stenosis is not present. Foraminal narrowing | | | bilaterally at L4-5. Left L5-S1 foraminal narrowing Paraspinous | | | soft tissues are unremarkable. Prominent vascular calcifications. | | | SI joints are unremarkable. Large volume of fecal matter is present | | | within the colon. | | + + + + + | Procedure Note | + + | Louis, Rad Results In - 11/05/2018 12:30 PM PDT EXAMINATION:CT LUMBAR SPINE WO | | CONTRASTHISTORY:Persistent low back pain with previous lumbar spine surgeryCOMPARISON | | STUDY:July 09, 2018TECHNIQUE:3.75 mm axial slices were acquired through the lumbar | | spine without contrast. Axial coronal and sagittal reformations were performed.DOSE | | REPORT:CTDIvol: 13.6 - 18.6 mGy. DLP: 800 mGy-cm. Automated exposure control was | | utilized.FINDINGS:Vertebral body alignment demonstrates lower lumbar apex left | | scoliosis.There is the L3-4 fusion with pedicle screws rods and and intervertebral disc | | space device. No evidence of hardware failure.Age-appropriate bone mineral | | density.Marked disc height loss endplate sclerosis at L4-5.Disc height loss endplate | | productive change is present L2-3 and to a lesser degree L5-S1.No acute fracture.Central | | stenosis is not present.Foraminal narrowing bilaterally at L4-5. Left L5-S1 foraminal | | narrowingParaspinous soft tissues are unremarkable. Prominent vascular | | calcifications.SI joints are unremarkable.Large volume of fecal matter is present within | | the colon.IMPRESSION: IMPRESSION:Multilevel degenerative change of the spine with L4-5 | | and L5-S1 foraminal narrowing. Correlation with dermatomal distribution of symptoms is | | recommended.L3-4 fusion as aboveQuery constipationAtherosclerosisDictated by: Manuelito | | Geetaam | |There is the L3-4 fusion with pedicle screws rods and and intervertebral disc space device. No evidence of hardware failure. | |Age-appropriate bone mineral density. | |Marked disc height loss endplate sclerosis at L4-5. | |Disc height loss endplate productive change is present L2-3 and to a lesser degree L5-S1. | |No acute fracture. | |Central stenosis is not present. | |Foraminal narrowing bilaterally at L4-5. Left L5-S1 foraminal narrowing | |Paraspinous soft tissues are unremarkable. Prominent vascular calcifications. | |SI joints are unremarkable. | |Large volume of fecal matter is present within the colon. | | | |IMPRESSION: | |IMPRESSION: | |Multilevel degenerative change of the spine with L4-5 and L5-S1 foraminal narrowing. Corre lation with dermatomal distribution of symptoms is recommended. | |L3-4 fusion as above | |Query constipation | |Atherosclerosis | | | |Dictated by: Manuelito Gabriel [...]
--- OUTSIDE RECORDS SUMMARY | ~2019-08-18 | XMS | Encounter Summary ---
Demographics + + + | Address | [address] | | | [place] [address] | + + + | Home Phone | | + + + | Preferred Language | Unknown | + + + | Marital Status | | + + + | Rastafarian Affiliation | Unknown | + + + | Race | Unknown | + + + | Ethnic Group | Unknown | + + + Author + + + | Author | [facility] | | | and [place] | + + + | Organization | [facility] | | [...] Team Providers + +------+ + | Care Pearl Glue Drier Name | Role | Phone | + [...] + + | Pending | Specialty | Occupational | Diagnoses | Mary, | | | Review | Services | Therapy | Parkinson | [facility], | | | | Required | | disease | DATABASE OPERATOR [address] | | | | | | ([facility]) | [address] | | | | | | | [place], [place] | | | | | | | [address] | | | | | | | Phone: | | | | | | | [phone] | | | | | | | Fax: | | | | | | | [phone] | | + + + + + [...] | Services | Therapy | Parkinson | [facility]inai | VALLEY | | | Required | | disease | DATABASE OPERATOR [address] | PHYSICAL | | | | | ([facility]) | [address] | THERAPY [address] | | | | | Frequent | [place], [place] | [place] | | | | | falls | [address] | [address] | | | | | | Phone: | [facility], [place] | | | | | | [phone] | [address] | | | | | | Fax: | Phone: | | | | | | [phone] | [phone] | | | | | | | Fax: | | | | | | | [phone] | +--------+ + + + + + [...] | Neurology | Diagnoses | Christianson, | Bond, | | | Services | | Restless | Tory | Mac Phillips MD | | | Required | | legs | Jonathan, GUARD DRIVER | [address] | | | | | syndrome | [address] | [place] | | | | | Procedures | [place] | [place], [place] | | | | | Evaluate & | [address] | [address] Phone: | | | | | Treat | [facility], [place] | [phone] | | | | | | [address] | Fax: | | | | | | Phone: | [phone] | | | | | | [phone] | | +--------+ + + + + + Encounter Details +--------+---------+ + + + | Date | Type | Department | Care Team | Description | +--------+---------+ + + + | 03/11/ | Office | [facility] | Mary, | Parkinson disease | | 2019 | Visit | HOSPITAL NEUROLOGY | Sinai, DATABASE OPERATOR [address] | ([facility]) (Primary Dx); | | | | CLINIC [address] | [address] [facility], | Frequent falls; | | | | [address], | [place] [address] | Chronic bilateral | | | | [place] [address] | [phone] | low back pain | | | | [phone] | | without sciatica; | | | | | | Strain of muscle, | | | | | | fascia and tendon of | | | | | | lower back, sequela | | | | | | | [...] + + + | Blood Pressure | 125/65 | 03/11/2019 2:25 PM | | | | | PDT | | + + + + + | Pulse | 78 | 03/11/2019 2:25 PM | | | | | PDT | | + + + + + | Temperature | - | - | | + + + + + | Respiratory Rate | 18 | 03/11/2019 2:25 PM | | | | | PDT | | + + + + + | Oxygen Saturation | 96% | 03/11/2019 2:25 PM | | | | | PDT | | + + + + + | Inhaled Oxygen | - | - | | | Concentration | | | | + + + + + | Weight | 62.2 kg (137 lb 3.2 | 03/11/2019 2:25 PM | | | | oz) | PDT | | + + + + + | Height | 180.3 cm (5' 11") | 03/11/2019 2:25 PM | | | | | PDT | | + + + + + | Body Mass Index | 19.14 | 03/11/2019 2:25 PM | | | | | PDT | | + + + + + documented in this encounter Patient Instructions Patient Instructions [facility] Hernandez FNP - 03/11/2019 2:30 PM PDTFormatting of this no te might be different from the original. Back Pain (Acute or Chronic) Back pain [...] are taking other medicines. You may use rohm-cfa-ipcsncm medicine as directed on the bottle to [...] groin or genital area Date Last Reviewed: 02/24/201619999904-8034 [employer] [place] [address], [place] [address]. All [facility] ts reserved. This information is not intended [...] and knives if it s hard to ice cream van vendor utensils. Spill-proof cups can help with drinking. [...] voice-activated soft mcwilliams for computers. Use foam child support officer on pens and pencils. These can make them easier to hold. Sleeping Manypeople with Parkinson have trouble sleeping. They may also move in their sleep and st rike their partners. Tell your healthcare provider if you re having sleep problems or recu rrent nightmares. Medicinecan often help you sleep better. Check with your healthcare prov ider before using qepv-vqd-hrzqfgo medicines to help you sleep. Getting out [...] or begin having falls. Date Last Reviewed: 10/24/201719997684-5936 [employer]. [address] [place] [address]. All righ ts reserved. This information is [...] your body. Also, your symptoms may change control specialist time. And you may have different symptoms [...] may also feel depressed. Date Last Reviewed: 09/26/201719995648-9399 [employer]. [address] [place] [address], [place] [address]. All righ ts reserved. This information is [...] frozen. To turn, walk in a half little traverse instead of trying to stop and turn [...] yourself onto the chair. Date Last Reviewed: 10/24/201719991751-7717 [employer]. [address] [place] [address]. All righ ts reserved. This information is [...] way to get help. Date Last Reviewed: 11/24/201719994894-6413 [employer]. [address] [place] [address], [place] [address]. All righ ts reserved. This information is not intended as a substitute for professional medical care. Always follow your healthcare professional's instructions. Parkinson Disease: Planning for the Future It may take many years for the symptoms of Parkinson disease to become severe. But it s i mportant to plan now for the changes that will come. Triplett areas to focus on include budgeting for medical, household, and long-term care expenses. You should also talk with your family about the kinds of care you want in the future. Discuss legal and financial issues Financial and legal planning is always a good idea. But it s even more vital now. What ki nds of care are covered by your insurance? Who will handle finances if you re no longer ab le to make decisions? These issues can often be complex. So you may wish to seek advice from professionals. These include financial planners, insurance agents, social workers, and esta te-planning attorneys. Advance directives and living nix These documents spell out the kinds of medical treatment you do or don t want in the future. Keep a copy of these papers with your medical records. Also make sure your family kn ows about your wishes. Durable power of assistant county attorney This document transfers financial and legal power to a family member or other person who ca n make decisions in your best interest. It can become effective right away, or only under co nditions you specify. Dementia is a possibility People with Parkinson disease have an increased risk of developing dementia. This is a cond ition that makes it harder to remember, reason, and communicate. It also requires a much gre ater level of care. So get started on long-term legal and financial planning as soon as poss ible. Settling important issues now can help you and your loved ones feel more secure about the future. Date Last Reviewed: 11/24/201719990196-0461 [employer]. [address] [place] [address], [place] [address]. All righ ts reserved. This information is not intended as a substitute for professional medical care. Always follow your healthcare professional's instructions. documented in this encounter Progress Notes [facility] Hernandez FNP - 03/11/2019 2:30 PM PDT Patient: Nitesh Haynes Medical Record: [id number] Date of Services: 03/11/2019 Referring Doctor: Екатерина Christianson NP Chief Complaint: Parkinson's disease, chronic low back pain History of Present Illness: The patient presents to the Neurology Clinic today for follow u p. The patient has a history of Parkinson's disease for approximately 19-20 years. He had a D BS surgery at [facility] in 2008 with revision in 2010. The patient is currently taking Sinemet 2 5/100 mg tablets, 2 tablets 4 times per day, Comtan 200 mg 4 times daily and amantadine 100 mg 4 times daily. The patient reports that his symptoms and balance have continued to worse n since his las visit. He did do a drug holiday successfully with some benefit, but reports that he has returned to his previous doses already. His mobility has also worsened and he is falling frequently. He has been using a cane, but continues to fall. He has a walker at home but does not use it consistently. He did try physical therapy previously and does fee l that it helped his gait and balance. He did follow up with Neurology/Neurosurgery at [facility]. He reports that his DBS is functioning well. No changes were needed. The patient has a history of chronic low back pain. The patient reports that his symptoms have slowly worsened over the past 10 years. He has had 2 previous lumbar spine surgeries, the last one [place] [address] Mcmullen in [place], [place]. The patient has tried treatment wi th epidural steroid injections and trigger point injections. He has not achieved relief of his pain. The patient did have a CT of his lumbar spine done in October 2018 which showed mul tilevel degenerative changes of the spine with L4-5 and L5-S1 foraminal narrowing. Encounter Problem List Parkinson disease (HCC) (Primary) - Ambulatory referral to Physical Therapy - Ambulatory referral to Occupational Therapy - Entacapone; Take 1 tablet by mouth 4 times daily. Dispense: 120 tablet; Refill: 11 - Carbidopa-Levodopa; Take 1 tab PO at 0800, 1000, 1200, 1400, 1600, 1800, 2000 and 230 0. Max of 8 tabs per day. Dispense: 720 tablet; Refill: 11 - Amantadine HCl; Take 1 tablet by mouth 4 times daily. Dispense: 120 tablet; Refill: 11 Frequent falls - Ambulatory referral to Physical Therapy Chronic bilateral low back pain without sciatica Overview: 08/13/18: Lumbar TPI 11/05/18: CT Lumbar Spine: Multilevel degenerative change of the spine with L4-5 and L5-S 1 foraminal narrowing. Orders: - Trigger Point Injection Procedure Strain of muscle, fascia and tendon of lower back, sequela - Trigger Point Injection Procedure Past Surgical History: Procedure Laterality Date back surgeries DEEP BRAIN STIMULATOR PLACEMENT 2013 HAND SURGERY KNEE SURGERY No Known Allergies Current Medications: amantadine carbidopa-levodopa entacapone vitamin B-6 Review of Symptoms: CONSTITUTIONAL: No weight loss, [...] parkinson's disease, shuffling gait, bradyk inesia, dyskinesias, tremors, frequent falls. MUSCULOSKELETAL: No muscle, joint pain or stiffness. + low back pain PSYCHIATRIC: No depression or anxiety. Neurological Examination: Vitals: 03/11/19 1425 BP: 125/65 Pulse: 78 Resp: 18 PainSc: 0 - No pain Mental status: The patient is alert, attentive, and oriented. Speech is clear and fluent with good repetit ion, comprehension, and naming. Cranial nerves: CN II: Visual stein are [...] are intact. There is no dysmetria on ehemas-jv-orvo and ciyn-vvxi-uyeg. Romberg is absent. + Tremors noted with hands outstretche d, right side greater than left side, 5 7 hertz, with mild cogwheel rigidity and bradykine fatemeh. The patient does also exhibit symptoms of dyskinesias which are worse on the right zhao e. Gait/Stance: Narrow based stance, unable to tandem gait, shuffling noted. Patient also swings his right foot outward with ambulation. +ambulates with a cane. Clinical Impression: ICD-10-CM ICD-9-CM 1. Parkinson disease (HCC) G20 332.0 [facility] Physical Therapy, External - AMB Refer [facility] Occupational Therapy, External - AMB Referral entacapone (COMTAN) 200 mg tablet carbidopa-levodopa (SINEMET) 25-100 mg per tablet amantadine (SYMMETREL) 100 MG TABS DISCONTINUED: entacapone (COMTAN) 200 mg tablet DISCONTINUED: carbidopa-levodopa (SINEMET) 25-100 mg per tablet 2. Frequent falls R29.6 V15.88 [facility] Physical Therapy, External - [facility] Referral 3. Chronic bilateral low back pain without sciatica M54.5 724.2 Trigger Point Injection Pro cedure G89.29 338.29 4. Strain of muscle, fascia and tendon of lower back, sequela S39.012S 846.9 Trigger Point Injection Procedure Plan: Parkinson's disease: We discussed that long-term use of Sinemet at high doses can actually worsen dyskinesias. The patient will continue to take his current dose of sinemet 25/100 m g tabs, 2 tabs 4 times daily. He should also continue taking Comtan 4 times per day. He will also continue taking amantadine 100 mg 4 times daily. The patient will return to physi demetrio and occupational therapy to help with gait training and frequent falls. Referral to [facility] Therapy placed today. I have also advised him to use his walker at all times for ambulation to help prevent his falls. [facility] also has continued to follow to help patient with resources and equipment due to his significantly impaired mobility and chronic pain. The p atient will require adaptive equipment to help him be and a recliner with a lift to help him with standing. The patient has difficulty with going from a sitting to standing position d ue to his severe chronic pain and his impaired mobility from his Parkinson's disease. Chronic pain: The patient has significant symptoms of pain and radiculopathy in his low esther k, worse on the right side. He will also begin physical therapy again to help with his chron ic pain symptoms. He will also have a trigger point injection to help improve mobility and decrease pain. Follow-up as previously scheduled with Dr. Bond. BRYCE Summers Electronically signed [...] | | | | | | [address] [facility], | | | | | | [place] [address] | | | | | | [phone] | | | | | | | | +--------+---------+ + + + + + +--------+ + + | Name | Type | Priori | Associated Diagnoses | Order Schedule | | | | ty | | | + + +--------+ + + | Horace Espinal | Outpatient | Routin | Parkinson disease | Ordered: 03/11/2019 | | Physical Therapy, | Referral | e | ([facility]) Frequent | | | External - AMB | | | falls | | | Referral | | | | | + + +--------+ + + | Occupational | Outpatient | Routin | Parkinson disease | Ordered: 03/11/2019 | | Therapy, External - | Referral | e | ([facility]) | | | AMB Referral | | | | | + + +--------+ + + documented as of this encounter Results Trigger Point Injection Procedure (04/07/2019 10:30 AM PDT) + + + | Narrative | Performed At | + + + | BRYCE Summers 04/07/2019 11:05 [facility] L[facility]BAR | | | TRIGGER POINT INJECTION Date: 04/07/2019 Referred by: Екатерина | | | Jonathan Christianson NP Patient: Nitesh Haynes : 1950 | | | History of Present Illness: Nitesh Haynes is a 68 y.o. | | | year old male seen for neurologic evaluation and management with | | | signifigant hisory of chronic, persistent low back pain. The last | | | trigger point injection for this patient was 08/13/2018 with | | | significant relief for about 3-4 months and is here for another | | | trigger point injection today. Procedure: Nitesh Haynes | | | received a trigger point injection at posterior superior iliac spine | | | bilaterally at L4-L5 and L5-S1. The patient initially | | | received LIDOCAINE 1% and thereafter a combination of DEPO-MEDROL | | | and MARCAINE, total DEPO-MEDROL 10 mL, 40 mg/mL were injected and | | | did not experience any palpitations, diaphoresis, chest pain, or | | | shortness or breath after this procedure. Recommendation: The | | | patient was advised to place a warm compress in the injected areas | | | 20 minutes on, 20 minutes off 2 hours after the injection and to | | | repeat the same warm compresses in the afternoon and evening. In | | | addition, it is medically necessary for this patient to receive | | | another trigger point injection in about 4-5 months in the event | | | that symptoms recur to improve their quality of life such as | | | activities of daily living. The patient has been given medical | | | education for other options for neck, thoracic and lumbosacral spine | | | such as acupuncture treatments, massage therapy, lwqm-oiv-xstdjpp | | | heat patches, relaxation therapy, water therapy and Cortisone shots. | | | The patient will call with any increased signs or symptoms. The | | | patient has been instructed to contact me for any increase in signs | | | and symptoms. Thank you for allowing me to participate in the care | | | of this patient, I recommend follow up 3-4 months. [facility] | | | BRYCE Hernandez | | + + + documented in this encounter Visit Diagnoses + + | Diagnosis | + + | Parkinson disease (HCC) - Primary Paralysis agitans | + + | Frequent falls Personal history of fall | + + | Chronic bilateral low back pain without sciatica | + + | Strain of muscle, fascia and tendon of lower back, sequela | + + documented in this encounter
--- OUTSIDE RECORDS SUMMARY | ~2019-08-18 | XMS | Encounter Summary ---
Demographics + + + | Address | [address] | | | [place] [address] | + + + | Home Phone | | + + + | Preferred Language | Unknown | + + + | Marital Status | | + + + | Orthodox Affiliation | Unknown | + + + | Race | Unknown | + + + | Ethnic Group | Unknown | + + + Author + + + | Author | [facility] | | | and [place] | + + + | Organization | [facility] | | [...] Team Providers + +------+ + | Care Fiber Optic Assembly Worker Name | Role | Phone | [...] [address] | | | | | [place] [address] | | | | | | [phone] | | | +--------+ + + + [...] | | | | | | [address] [facility], | | | | | | [place] [address] | | | | | | [phone] | | | | | | | | +--------+---------+ + + + documented as of this encounter Visit Diagnoses Not on filedocumented in this encounter"
--- OUTSIDE RECORDS SUMMARY | ~2019-08-18 | XMS | Encounter Summary ---
Demographics + + + | Address | [address] | | | [place] [address] | + + + | Home Phone | | + + + | Preferred Language | Unknown | + + + | Marital Status | | + + + | Protestant Affiliation | Unknown | + + + | Race | Unknown | + + + | Ethnic Group | Unknown | + + + Author + + + | Author | [facility] | | | and [place] | + + + | Organization | [facility] | | | [...] Team Providers + +------+ + | Care Tin Plater Name | Role | Phone | + +------+ + | Екатерина Christianson NP | PCP | | + +------+ + Reason for Referral Self-referral (Routine) +--------+ + + + + + | Status | Reason | Specialty | Diagnoses / | Referred By | Referred To | | | | | Procedures | Contact | Contact | +--------+ + + + + + | Closed | Specialty | Physical | Diagnoses | Bond, | HORACE | | | Services | Therapy | Parkinson | Mac R, | VALLEY | | | Required | | disease | MD [address] | PHYSICAL | | | | | (HCC) Gait | [address] , | TH[address]APY [address] | | | | | disorder | [address] | | | | | | Chronic | [place], [place] | B VU | | | | | bilateral | [address] | [place], [place] | | | | | low back | Phone: | [address] | | | | | pain without | [phone] | Phone: | | | | | sciatica | Fax: | [phone] | | | | | Neck pain, | [phone] | Fax: | | | | | bilateral | | [phone] | +--------+ + + + + + Reason for Visit + + + | Reason | Comments | + + + | Establish Care | RLS | + + + Evaluate & Treat (Routine) +--------+ + + + + + | Status | Reason | Specialty | Diagnoses / | Referred By | Referred To | | | | | Procedures | Contact | Contact | +--------+ + + + + + | Closed | Specialty | Neurology | Diagnoses | Meghan, | Varun, | | | Services | | Restless | Tory | Mac Phillips MD | | | Required | | legs | Jonathan, 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 | [address] | | | | | syndrome | [address] | | | | | Procedures | [place] | [place], [place] | | | | | Evaluate & | Edgard Vu | [address] Phone: | | | | | Treat | [place], [place] | [phone] | | | | | | [address] | Fax: | | | | | | Phone: | [phone] | | | | | | [phone] | | +--------+ + + + + + Encounter Details +--------+---------+ + + + | Date | Type | Department | Care Team | Description | +--------+---------+ + + + | 07/09/ | Office | [facility] | Mac Bond MD | Parkinson disease | | 2018 | Visit | HOSPITAL [facility] | [address] | ([facility]); Gait | | | | CLINIC [address] | [place], [place] | disorder; Chronic | | | | [address] [place], | [address] | bilateral low back | | | | [place] [address] | | pain without | | | | [phone] | | sciatica; Neck pain, | | | | | | bilateral | +--------+---------+ + + + Social History [...] + + + | Blood Pressure | 132/80 | 07/09/2018 1:24 PM | | | | | PST | | + + + + + | Pulse | 93 | 07/09/2018 1:24 PM | | | | | PST | | + + + + + | Temperature | - | - | | + + + + + | Respiratory Rate | 20 | 07/09/2018 1:24 PM | | | | | PST | | + + + + + | Oxygen Saturation | 97% | 07/09/2018 1:24 PM | | | | | PST | | + + + + + | Inhaled Oxygen | - | - | | | Concentration | | | | + + + + + | Weight | 72.6 kg (160 lb) | 07/09/2018 1:24 PM | | | | | PST | | + + + + + | Height | 180.3 cm (5' 11") | 07/09/2018 1:24 PM | | | | | PST | | + + + + + | Body Mass Index | 22.32 | 07/09/2018 1:24 PM | | | | | PST | | + + + + + documented in this encounter Patient Instructions Patient Instructions Mac Bond MD - 07/09/2018 1:30 PM PSTFormatting of this note mi ght be different from the original. Patient Instructions [facility] Neurology Clinic Dr. 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 magazines, perform word find exercises such as cross word puzz le, and scrabble, other puzzle games like SudNeighborhoodsu, [employer]ng. Play computer/mobile applications such as Game[employer] and M[employer] GAMES Vit E and Vit B complexes (1, 6, and 12) Toradol 60 mg IM for intractable neck an d low back pain, pain scale 6-7/10 Any Questions please call ELIAS Canales or Dr. Bond at [facility] Neurology Clinic General Neck and Back Pain Both neck [...] are taking other medicines. You may use cejn-vgj-oqhftoa medicine to control pain, unless another pain [...] by your healthcare provider Date Last Reviewed: 02/24/201619991869-3421 [employer]. [address] [place] [address]. All righ ts reserved. This information is [...] future back strains, t ry these tips. Important Note: Do not give aspirin to children or teens without first discussing it with y our healthcare provider. ?Ice Ice reduces muscle pain and swelling. It helps most during the first 24 to 48 hours after a n injury. Wrap an ice pack or a bag of frozen peas in a thin towel. (Never place ice directly on y our skin.) Place the ice where your back hurts the most. Don t ice for more than 20 minutes at a time. You can use ice several times a day. ?Medicines Eczu-fpi-bzhqscj pain relievers can includeacetaminophen and anti-inflammatory medicines, which includes aspirin or ibuprofen. They can help ease discomfort. Some also reduce swelli ng. Tell your healthcare provider about any medicines you are already taking. Take medicines only as directed. ?Heat After the first 48 hours, heat can [...] a heating p ad. Date Last Reviewed: 04/26/201519992822-[address] [employer] [place], [place] [id number]. All righ ts reserved. This information is [...] and knives if it s hard to pizza delivery utensils. Spill-proof cups can help with drinking. [...] voice-activated soft mcwilliams for computers. Use foam emu farmer on pens and pencils. These can make them easier to hold. Sleeping Manypeople with Parkinson have trouble sleeping. They may also move in their sleep and st rike their partners. Tell your healthcare provider if you re having sleep problems or recu rrent nightmares. Medicinecan often help you sleep better. Check with your healthcare prov ider before using lrrs-zpp-zqbrjer medicines to help you sleep. Getting out [...] you re having problems with sexual function. When to call your healthcare provider Ifyou haveany of the following, call your healthcare provider: Your symptoms suddenly get worse. You have severe constipation. You have trouble sleeping. You have problems chewing or swallowing. You often freeze (are unable to move your feet) or begin having falls. Date Last Reviewed: 10/24/201719998185-9202 [employer]. [address] [place] [address], [place] [address]. All righ ts reserved. This information is not intended as a substitute for professional medical care. Always follow your healthcare professional's instructions. Understanding Parkinson Disease Parkinson disease is a [...] The diagnosis is based on your symptoms, [facility] history, and a physical exam. You mayalso have tests to help rule out other problems. These may include blood tests to look for diseases that cause similar symptoms. They can als o include brain-imaging tests, such as an MRI of the brain Parkinson disease or Parkinsonism? Parkinsonism is the name for a group [...] people with Parkinson disease. Date Last Reviewed: 09/26/2017 [employer]. [address] [place] [address]. All righ ts reserved. This information is not intended as a substitute for professional medical care. Always follow your healthcare professional's instructions. Surgery for Parkinson Disease If surgery is an option for you, your doctor and other members of your healthcare team can explain its risks and benefits. Parkinson s disease is a condition that affects control over movement. Treatment often in volves taking medicines. If symptoms are severe and medicines don t help, surgery may be a dvised. Surgery is not a cure. But it may help relieve some of the symptoms of the disease. It works mainly on tremors and rigidity. Types of surgery for Parkinson disease There aredifferent kinds of surgery: Deep brain stimulation (DBS). An electrode is implanted in the brain. The electrode is c onnected to a controller that is put under the skin of the chest. When needed, the controlle r sends pulses through the electrode. The pulsesinterrupt brain signals that cause certain symptoms. Lesioning.This includespallidotomyandthalamotomy.The goal is to block the path ways of messages that can lead to symptoms. During the surgery, a very small lesion is made in one area of the brain. Small brain lesions can be done with small tools or focused high e nergy radiation (radiosurgery). Pallidotomy may help lessen tremors, stiffness, and slowness of movement. Lesioning is not often used. MRI-guided focused ultrasound. Future options Many procedures for Parkinson disease have been researched. Some show promise, but more res earch is needed. Your doctor can answer questions on other procedures you may have heard abo az. One experimental new surgery is restorative surgery. During this surgery, new brain tiss ue, gene therapy, or stem cells are transplanted into the brain. There, the new tissue takes over the function of damaged cells. Date Last Reviewed: 10/24/2017 [employer]. [address] [place] [address]. All righ ts reserved. This information is not intended as a substitute for professional medical care. Always follow your healthcare professional's instructions. Treating Parkinson s Disease: An Overview Treatment for Parkinson s disease has greatly improved over the years. Today, there are m any treatments that can ease symptoms and improve your quality of life. These include medici sade that help you control your movements. Staying active is also important. And if medicines aren t helping, surgery may be an option. Medicine Medicines are the most important treatment for Parkinson s disease. Most types replace mi ssing dopamine, or imitate the way dopamine works in the brain. This helps you have better c ontrol over your movements. If needed, your doctor may also prescribe medicine for constipat ion, sleep problems, and other symptoms. Activity and exercise Staying active is another vital part of treatment. Regular exercise helps keep your muscles strong and loose. It s also crucial for overall health. If you re already active, stick with your routine as much as you can. If you re not active, now s the time to start. As k your doctor which activities are best for you. It also helps to do activities that engage your mind. These include hobbies, crafts, reading, and socializing with friends. Surgery Surgery is not a cure. But it may be an option for people whose symptoms are no longer well controlled by medicine: Deep brain stimulation is the most common type of surgery. A thin wire is implanted in t he part of the brain that controls movement. Electrical pulses are then sent through the wir e. This can help disrupt brain activity that causes symptoms. Lesioning (pallidotomy and thalamotomy) destroys a small amount of tissue in a specific part of the brain. This can help you have better control over your movements by blocking act ivity in the brain that causes symptoms. But, deep brain stimulation is the type of surgery preferred in most situations. Date Last Reviewed: 07/04/201519996844-7185 [employer]. [address] [place] [address]. All righ ts reserved. This information is not intended as a substitute for professional medical care. Always follow your healthcare professional's instructions. documented in this encounter Progress Notes Ally Douglass RN - 07/09/2018 1:30 PM PSTPt stayed allotted time, handout given. /ELIAS Pearson lly Douglass RN - 07/09/2018 1:30 PM PSTToradol injection given 60 mg IM, no adverse reactions noted, per p t has had medication before. Electronically signed by: Ally Douglass RN 07/09/2018 14:27 documented in this encounter Plan of Treatment [...] | | | | | | [place] [address] | | | | | | [phone] | | | | | | | | +--------+---------+ + + + + + +--------+ + + | Name | Type | Priori | Associated Diagnoses | Order Schedule | | | | ty | | | + + +--------+ + + | Horace Espinal | Outpatient | Routin | Parkinson disease | Ordered: 07/09/2018 | | Physical Therapy, | Referral | e | ([facility]) Gait disorder | | | External - AMB | | | Chronic bilateral | | | Referral | | | low back pain | | | | | | without sciatica | | | | | | Neck pain, bilateral | | + + +--------+ + + documented as of this encounter Results Trigger Point Injection Procedure (08/13/2018 11:15 AM PST) + + + | Narrative | Performed At | + + + | BRYCE Summers 08/13/2018 11:46 [facility] | | | TRIGGER POINT INJECTION Date: 08/13/2018 Referred by: Екатерина | | | Jonathan Christianson NP Patient: Nitesh Haynes : 1950 | | | History of Present Illness: Nitesh Haynes is a 67 y.o. | | | year old male seen for neurologic evaluation and management with | | | signifigant hisory of chronic, persistent low back pain. This is | | | the patient's first trigger point injection. Procedure: Nitesh | | | Johnny Haynes received a trigger point injection at paraspinal level | | | and posterior superior iliac spine bilaterally at L3-L4 and | | | L5-S1. The patient initially received LIDOCAINE 1% and thereafter | | | a combination of DEPO-MEDROL and MARCAINE, total DEPO-MEDROL 10 mL, | | | 40 mg/mL were injected and did not experience any palpitations, | | | diaphoresis, chest pain, or shortness or breath after this | | | procedure. Recommendation: The patient was advised to place a | | | warm compress in the injected areas 20 minutes on, 20 minutes off 2 | | | hours after the injection and to repeat the same warm compresses in | | | the afternoon and evening. In addition, it is medically necessary | | | for this patient to receive another trigger point injection in about | | | 4-5 months in the event that symptoms recur to improve their | | | quality of life such as activities of daily living. The patient has | | | been given medical education for other options for neck, thoracic | | | and lumbosacral spine such as acupuncture treatments, massage | | | therapy, cisq-ece-qaotugq heat patches, relaxation therapy, water | | | therapy and Cortisone shots. The patient will call with any | | | increased signs or symptoms. The patient has been instructed to | | | contact me for any increase in signs and symptoms. Thank you for | | | allowing me to participate in the care of this patient, I recommend | | | follow up with me as previously scheduled in November 2018. | | | BRYCE Summers | | + + + XR Lumbar Spine 4 + Vw (07/09/2018 3:20 PM PST) + + | Specimen | + + | | + + + + + | Impressions | Performed At | + + + | IMPRESSION: Uncomplicated appearance of the L3-4 surgical fusion. | [facility] | | Scoliosis. Multilevel degenerative change of the spine. | | | Atherosclerosis. Dictated by: Manuelito Gabriel Electronically | | | Signed by: Manuelito Gabriel on 07/09/2018 5:06 PM | | + + + + + + | Narrative | Performed At | + + + | EXAMINATION: XR LUMBAR SPINE 4 + VW HISTORY: persistent low | [facility] | | back pain COMPARISON STUDY: None FINDINGS: 5 ueu-pnt-dmtjkgc | | | lumbar vertebral bodies. Arden left lower lumbar scoliosis. There is | | | postsurgical change of L3-4 fusion with pedicle screws rods and | | | intervertebral disc space device. No fracture or focal bone lesion is | | | present. Marked height loss is noted at L2-3 L4-5. Mild height | | | loss at L5-S1. Endplate productive changes noted from L2 through S1. | | | L4-5 and L5-S1 facet hypertrophy. Aortic atherosclerosis. | | + + + + + | Procedure Note | + + | Louis, Rad Results In - 07/09/2018 5:10 PM PST EXAMINATION:XR LUMBAR SPINE 4 + | | VWHISTORY:persistent low back painCOMPARISON STUDY:NoneFINDINGS:5 oaj-erm-inatzvo lumbar | | vertebral bodies.Arden left lower lumbar scoliosis.There is postsurgical change of L3-4 | | fusion with pedicle screws rods and intervertebral disc space device.No fracture or | | focal bone lesion is present.Marked height loss is noted at L2-3 L4-5. Mild height loss | | at L5-S1.Endplate productive changes noted from L2 through S1.L4-5 and L5-S1 facet | | hypertrophy.Aortic atherosclerosis.IMPRESSION: IMPRESSION:Uncomplicated appearance of | | the L3-4 surgical fusion.Scoliosis.Multilevel degenerative change of the | | spine.Atherosclerosis.Dictated by: Manuelito Kirbyectronically Signed by: Manuelito | Amanda Gabriel on 07/09/2018 5:06 PM | |5 hkq-ash-jwhtjyd lumbar vertebral bodies. | |Arden left lower lumbar scoliosis. | |There is postsurgical change of L3-4 fusion with pedicle screws rods and intervertebral dis c space device. | |No fracture or focal bone lesion is present. | |Marked height loss is noted at L2-3 L4-5. Mild height loss at L5-S1. | |Endplate productive changes noted from L2 through S1. | |L4-5 and L5-S1 facet hypertrophy. | |Aortic atherosclerosis. | | | |IMPRESSION: | |IMPRESSION: | |Uncomplicated appearance of the L3-4 surgical fusion. | |Scoliosis. | |Multilevel degenerative change of the spine. | |Atherosclerosis. | | | |Dictated by: Manuelito Gabriel | | | | | + + + +---------+ + + | Performing | Address | City/State/Zipcode | Phone Number | | Organization | | | | + +---------+ + + | [facility] | | | | + +---------+ + + XR Cervical Spine 4 or 5 Vws [...] is noted at C3 through | | K3Bjucjxbqno facet and uncovertebral hypertrophyNo prevertebral soft tissue [...] Abnormality of gait | + + | Chronic bilateral low back pain without sciatica | + + | Neck pain, bilateral Cervicalgia | + + documented in this encounter Administered Medications + +--------+ +-------+------+ + | Medication Order | MAR | Action | Dose | Rate | Site | | | Action | Date | | | | + +--------+ +-------+------+ + | ketorolac (TORADOL) injection | Given | 07/09/20 | 60 mg | | Ventrogl | | 60 mg 60 mg, Intramuscular, | | 18 2:27 | | | uteal-Le | | ONCE, 07/09/18 at 1430, For 1 | | PM PST | | | ft | | dose | | | | | | + +--------+ +-------+------+ + +---+---+ | | | +---+---+ documented in this encounter
--- OUTSIDE RECORDS SUMMARY | ~2019-08-18 | XMS | Clinical Summary ---
Demographics + + + | Address | [address] | | | [place] [address] | + + + | Home Phone [...] Team Providers + +------+ + | Care Mail Handlers Supervisor Name | Role | Phone | + [...] disease | | | | | | ([facility]); Gait disorder | +--------+ + + + + | 06/22/ | Telephone | Neurology | Ally Douglass RN | Appointment Question | | 2018 | | | | [...] type | | | | | | ([facility]); | | | | | | Hypermagnesemia; | | | | | | Acute cystitis with | | | | | | hematuria | +--------+ + + + + | 06/16/ | Telephone | Neurology | Ally Douglass RN | Triage (frequent | | 2018 | | | | falls) | +--------+ + + + + | 06/15/ | Telephone | Neurology | Mac Bond MD | Patient Concerns | | 2018 | | | | [...] | | | | | | [place] [address] | | | | | | [phone] | | | | | | | [...] most recent of 2 results within the t maame period is included. + + + | [...] + + | [facility] | [address] | [place] [address] | [phone] | | [facility] | | | [...] | mL/min/1.73m2 | [facility] | | | [...] + + | [facility] | [address] | [place] [address] | [phone] | | HOSPITAL [facility] | | | [...] + + | [facility] | [address] | [place] [address] | [phone] | | H[facility] | | | [...] + + | [facility] | [address] | [place] [address] | [phone] | | H[facility]PITAL [facility] | | | [...] + + | [facility] | [address] | [place] [address] | [phone] | | H[facility]PITAL [facility] | | | [...] + + | [facility] | [address] | [place] [address] | [phone] | | H[facility]PITAL [facility] | | | | + + + + + Troponin I (06/17/2019 3:00 AM PDT)Only the most recent of 3 results within the time stefano woodson is included. + +-------+ + + + [...] | cutoff point for the diagnosis of MO is 0.8 ng/mL for the Troponin I | | | method. | | + + + + + + + + | Performing | Address | City/State/Zipcode | Phone Number | | Organization | | | | + + + + + | [facility] | [address] | [place] [address] | [phone] | | [facility] | | | [...] + + | [facility] | [address] | [place] [address] | [phone] | | H[facility]PITAL [facility] | | | [...] + + | [facility] | [address] | [place] [address] | [phone] | | HOSPITAL [facility] | | | [...] - 1.030 | [facility] | | | [place] | | | [facility] | | | [...] + + | [facility] | [address] | [place] [address] | [phone] | | HOSPITAL [facility] | | | [...] At | + + + | Current [facility] clinical laboratory antibiogram data can be found on the | [facility] | | [facility] intranet at | HOSPITAL | | [email or web address] or on | LABORATORY | | the [facility] website at [email or web address] | | + + + + + + + + | Performing | Address | City/State/Zipcode | Phone Number | | Organization | | | | + + + + + | [facility] | [address] | [place] [address] | [phone] | | HOSPITAL [facility] | | | [...] | | 438 msQTC Interval: 476 msQRS [place]: -3 degT Wave [place]: 54 deg- | | | ABNORMAL ECG -Sinus rhythmNonspecific intraventricular conduction | | | delayMinimal ST elevation, anterior leadsNo previous ECG available for | | | comparison | | |QRS [place]: -3 deg | | |T Wave [place]: 54 deg | | |- ABNORMAL ECG [...] + + | [facility] | [address] | [place] [address] | [phone] | | HOSPITAL [facility] | | | [...] + + | [facility] | [address] | [place] [address] | [phone] | | HOSPITAL [facility] | | | [...] + + | [facility] | [address] | [place] [address] | [phone] | | HOSPITAL [facility] | | | [...] + + | [facility] | [address] | [place] [address] | [phone] | | HOSPITAL [facility] | | | [...] | mL/min/1.73m2 | [facility] | | | [facility]IMATED | | [facility] | | | | mL/min/1.52p0Gzdj than | | LABORATORY | | | [...] + + | [facility] | [address] | [place] [address] | [phone] | | HOSPITAL [facility] | | | [...] +--------+ +---------+--------+ | MEDICARE | MEDICA | [id number] | 04/26/20 | [phone] | | Medica | | | RE | | 09-Pre | 5 | | re | | | PART A | | sent | | | | | | AND B | | | | | | + +--------+ +--------+ +---------+--------+ | [employer] | [place] | [id number] | 12/26/19 | | | Indemn | [...] Person | Self | [birth year] | [address] | | | al/Fam | | 1951 | [phone] | [address] [place], [place] | | | graciela | | | 8 (Home) | [address] | + +--------+ +--------+ + + Advance Directives + + + + + | Type | Date Recorded | Patient | Explanation | | | | Seed Potato Arranger | | + + + + + | Power of | | | | | Well Blower | | | | + + + [...]
--- OUTSIDE RECORDS SUMMARY | ~2019-08-18 | XMS | Encounter Summary ---
Demographics + + + | Address | [address] | | | [place] [address] | + + + | Home Phone [...] Team Providers + +------+ + | Care Manufacturing Plant Technician Name | Role | Phone | [...] | | Required | | disease | [employer] [address] | [address] | | | | | (HCC) Neck | [address] | [address] | | | | | pain, | [place], [place] | [place] [address] [place] | | | | | bilateral | [id number] | [place], [place] | | | | | Chronic | Phone: | [address] Phone: | | | | | bilateral | [phone] | [phone] | | | | | low back | Fax: | Fax: | | | | | pain with | [phone] | [phone] | | | | | right-sided | [...] + + + + | 12/08/ | Off-Site | [place] [facility] | Mary, | Parkinson disease | | 2019 | Visit | HOSPITAL NEUROLOGY | [facility], [address] | ([facility]) (Primary Dx); | | | | CLIN[address] | [address] [place], | Chronic bilateral | | | | DR [address], | [place] [address] | low back pain | | | | [place] [address] | [phone] | without sciatica; | | | | [phone] | | Gait disorder; Neck | | | | | Dulce Berkowitz | pain, bilateral | | | | | D, [address] | | | | | | [address] | | | | | | [place] [address] | | | | | | [phone] | | | | | | | [...] encounter Progress Notes Dulce Berkowitz CHW - 12/08/2018 1:30 PM PDTNeurology Clinic Community Health Worker Note Type of Visit: : " Initial Intake Start Time: 1330 Stop Time: 1430 Number of Units Approved: 8 Number of Units Used To Date: 2 Associated Diagnosis: Parkinson disease, chronic bilateral low back pain, Gait disorder, Ne ck pain, bilateral Pathways: Medication Assessment and Senior Credit Officer" Chart Notes/ Visit Details: An Initial Interview form and Medication Interview were filled out during the home visit with Gerardo and his Gloria. Gerardo said that he has been living with Parkinson's for about 20 years and is finding it diff icult to manage the symptoms the older he gets. He reported that he is not sleeping very mu ch during the night due to the tremors in his body. He will sleep for about 2 hours then be awake for an hour and sleep for 2 hours until he just wakes up. He is taking naps in the d ay as well. He recently started on a new medication to help with the sleeping and will be r eporting to his Neurologist the outcome of the new medication. Gerardo has an appointment in [place] soon to look at the stimulator that was placed in his br ain to control the tremors. He feels that the effectiveness has lessened. He is hoping the re is a newer version of the stimulator and will be able to have that placed. He is still somewhat active and plays pool once a week with his family and enjoys it a lot. He is wanting to look into a few accommodations for his home, specifically removing the ba thtub in the master bath and replacing it with a larger walk in shower. He struggles with u sing the small shower that is in the home. CHW will look into resources for physical accomm odations. When Gerardo mentioned looking into having a home care worker come to the home to assist him wi th his needs it upset his . She does not want to have someone taking care of Gerardo as she feels she is able to. CHW was able to reassure them that information would be provided and if/when they chose to move forward with looking into assistance they could. Gerardo requested that CHW look into having Gloria become a paid caregiver for him. CHW will verify if there is an eligibility and criteria for spousal caregiving. Gerardo struggles with getting out of his recliner and to get up from laying down. Gloria will often have to help him and is struggling with being able to. Gerardo has a 10 year old nephew that spends time at their house and helps with assisting him with getting up. Gerardo would lik e to see if there is a way to have his insurance pay for a motorized lifting chair and bed. CHW will speak with [employer] to see if insurances will cover those items with a prescription f rom a provider. CHW will follow up with Gerardo and Gloria as resources are discovered. Follow up home visit set for March 09, 2019 @ 4153. GIANNA Croft documented in thi s encounter Plan of Treatment +--------+---------+ + + + | Date | Type | Specialty | Care Team | Description | +--------+---------+ + + + | 01/20/ | Office | Neurology | Mary, | | | 2020 | Visit | | [address] | | | | | | 4TH [facility], | | | | | | [place] [address] | | | | | | [phone] | | | | | | | [...]
--- OUTSIDE RECORDS SUMMARY | ~2019-08-18 | XMS | Encounter Summary ---
Demographics + + + | Address | [address] | | | [place] [address] | + + + | Home Phone | | + + + | Preferred Language | Unknown | + + + | Marital Status | | + + + | Religion Affiliation | Unknown | + + + | Race | Unknown | + + + | Ethnic Group | Unknown | + + + Author + + + | Author | [facility] | | | and [place] | + + + | Organization | [facility] | | [...] Team Providers + +------+ + | Care Fish Roe Processor Name | Role | Phone | + [...] [address] | | | | | [place] [address] | | | | | | [phone] | | | +--------+ + + + [...] | | | | | | [place] [address] | | | | | | [phone] | | | | | | | | +--------+---------+ + + + documented as of this encounter Visit Diagnoses Not on filedocumented in this encounter"
--- OUTSIDE RECORDS SUMMARY | ~2019-08-18 | XMS | Encounter Summary ---
Demographics + + + | Address | [address] | | | [place] [address] | + + + | Home Phone [...] Team Providers + +------+ + | Care Deoiling Machine Operator Name | Role | Phone [...] Appointment (Confirm | | 2019 | | [facility] NEUROLOGY | D, [address] | appointment for | | | | CLINIC [address] | [address] | home visit with GIANNA | | | | DR [address], | [place] [address] | and to get | | | | [place] [address] | [phone] | directions) | | | | [phone] | | | +--------+ + + + [...] | | | | | | [place] [address] | | | | | | [phone] | | | | | | | | +--------+---------+ + + + documented as of this encounter Visit Diagnoses Not on filedocumented in this encounter"
--- OUTSIDE RECORDS SUMMARY | ~2019-08-18 | XMS | Encounter Summary ---
Demographics + + + | Address | [address] | | | [place] [address] | + + + | Home Phone | | + + + | Preferred Language | Unknown | + + + | Marital Status | | + + + | Faith Affiliation | Unknown | + + + [...] Team Providers + +------+ + | Care Silviculture Professor Name | Role | Phone | [...] BER[facility]Z | Alin Garcia L, | Appointment ([facility] | | 2019 | | [facility] | [facility] | providing | | | | MEDICAL CLINIC [address] | | information about | | | | 4TH [facility], | | medical appointment) | | | | [place] [address] | | | | | | [phone] | | | +--------+ + + + [...] | | | | | | [place] [address] | | | | | | [phone] | | | | | | | | +--------+---------+ + + + documented as of this encounter Visit Diagnoses Not on filedocumented in this encounter"
--- OUTSIDE RECORDS SUMMARY | ~2019-08-18 | XMS | Encounter Summary ---
Demographics + + + | Address | [address] | | | [place] [address] | + + + | Home Phone | | + + + | Preferred Language | Unknown | + + + | Marital Status | | + + + | Christian Affiliation | Unknown | + + + | Race | Unknown | + + + | Ethnic Group | Unknown | + + + Author + + + | Author | [facility] | | | and [place] | + + + | Organization | [facility] | | | [...] Team Providers + +------+ + | Care Solution Developer Name | Role | Phone | [...] | without | [address], | [place] [address] | | | | | sciatica, | [address] [place] | Phone: | | | | | unspecified | [place], [place] | [phone] | | | | | back pain | [address] | Fax: | | | | | laterality | Phone: | [phone] | | | | | Procedures | [phone] | | | | | | CT Lumbar | Fax: | | | | | | Spine wo | [phone] | | | | | | Contrast [...] unspecified back | | | | [place] [address] | | pain laterality | | | | [phone] | | (Primary Dx) | +--------+ + [...] | | | [facility], | | | | | | [place] [address] | | | | | | [phone] | | | | | | | [...]
--- OUTSIDE RECORDS SUMMARY | ~2019-08-18 | XMS | Encounter Summary ---
Demographics + + + | Address | [address] | | | [place] [address] | + + + | Home Phone | | + + + | Preferred Language | Unknown | + + + | Marital Status | | + + + | Sabianist Affiliation | Unknown | + + + [...] Team Providers + +------+ + | Care Field Sales Agent Name | Role | Phone | [...] | | | | | Procedures | [place] | [facility] | | | | | Evaluate & | [address] | [address] Phone: | | | | | Treat | [place], [place] | [phone] | | | | | | [address] | Fax: | | | | | | Phone: | [phone] | | | | | | [phone] | | +--------+ + + + + + Encounter Details +--------+ + + + + | Date | Type | Department | Care Team | Description | +--------+ + + + + | 04/07/ | Procedure | [place] [facility] | Mary, | Chronic bilateral | | 2019 | visit | HOSPITAL NEUROLOGY | [facility], [facility] [address] | low back pain | | | | CLIN[address] | [address] [place], | without sciatica | | | | [place] | [place] [address] | (Primary Dx); Right | | | | [place] [address] | [phone] | hip pain; Fall, | | | | [phone] | | initial encounter | +--------+ + [...] | | | | | | 4TH [facility], | | | | | | [place] [address] | | | | | | [phone] | | | | | | | [...] | + +--------+ + + + | [place] INJECT TRIGGER | Routin | 04/07/2019 | [...]
--- OUTSIDE RECORDS SUMMARY | ~2019-08-18 | XMS | Encounter Summary ---
Demographics + + + | Address | [address] | | | [place] [address] | + + + | Home Phone [...] Team Providers + +------+ + | Care Pie Topper Name | Role | Phone | + [...] [address] | | | | | [place] [address] | | | | | | [phone] | | | +--------+ + + + [...] | | | | | | [place] [address] | | | | | | [phone] | | | | | | | | +--------+---------+ + + + documented as of this encounter Visit Diagnoses Not on filedocumented in this encounter"
--- OUTSIDE RECORDS SUMMARY | ~2019-08-18 | XMS | Encounter Summary ---
Demographics + + + | Address | [address] | | | [place] [address] | + + + | Home Phone [...] Team Providers + +------+ + | Care Bulb Filler Name | Role | Phone | + [...] | | | DR [address], | [address] | unspecified back | | | | [place] [address] | | pain laterality | | | | [phone] | | (Primary Dx); | | | [...] | | | | [address] [facility], | | | | | | [place] [address] | | | | | | [phone] | | | | | | | [...]
--- OUTSIDE RECORDS SUMMARY | ~2019-08-18 | XMS | Encounter Summary ---
Demographics + + + | Address | [address] | | | [place] [address] | + + + | Home Phone | | + + + | Preferred Language | Unknown | + + + | Marital Status | | + + + | Islam Affiliation | Unknown | + + + | Race | Unknown | + + + | Ethnic Group | Unknown | + + + Author + + + | Author | [facility] | | | and [place] | + + + | Organization | [facility] | | | and [...] Team Providers + +------+ + | Care Cost Recorder Name | Role | Phone | + [...] [address] | | | | | ([facility]) | [address], | | | | | | | [address] | [place], [place] | | | | | | [place], [place] | [address] | | | | | | [address] | Phone: | | | | | | Phone: | [phone] | | | | | | [phone] | Fax: | | | | | | Fax: | [phone] | | | | | | [phone] | | + + + + + [...] [place] | | | | | | [address] | [address] | | | | | | Phone: | Phone: | | | | | | [phone] | [phone] | | | | | | Fax: | Fax: | | | | | | [phone] | [phone] | + + + + + + [...] Parkinson disease | | | | [place] [address] | | ([facility]); Gait disorder | | | | [phone] | | | +--------+---------+ + + + [...] be different from the original. Patient Instructions [facility] Neurology Clinic Dr. Mac Bond, Neurologist Date:07/28/2019 [...] le, and scrabble, other puzzle games like SudCommunication Specialist Limitedu, Mahjong. Play computer/mobile applications such as [employer] and MIND GAMES Continue Sinemet and Comtan and Amantadine Advised exercise daily Discussed with wire rope sling maker Mateusz Any Questions please call ELIAS Canales or Dr. Bond at [facility] Neurology Clinic Understanding Parkinson Disease Parkinson disease [...] The diagnosis is based on your symptoms, [facility] history, and a physical exam. You [...] people with Parkinson disease. Date Last Reviewed: 09/26/201719995210-7449 The [employer]. [address] [place] [address]. All righ ts reserved. This information is [...] and knives if it s hard to casualty claim adjuster utensils. Spill-proof cups can help with drinking. [...] voice-activated soft mcwilliams for computers. Use foam senior teller on pens and pencils. These can make them easier to hold. Sleeping Manypeople with Parkinson have trouble sleeping. They may also move in their sleep and st rike their partners. Tell your healthcare provider if you re having sleep problems or recu rrent nightmares. Medicinecan often help you sleep better. Check with your healthcare prov ider before using fqng-dma-pirziju medicines to help you sleep. Getting out [...] having falls. Date Last Reviewed: 10/24/2017 The [employer]. [address] [place] [address]. All righ ts reserved. This information is [...] and others. Date Last Reviewed: 09/26/2017 The [employer]. [address] [place] [address]. All righ ts reserved. This information is [...] are taking other medicines. You may use iekv-vlf-sjomnkc medicine to control pain, unless another pain [...] by your healthcare provider Date Last Reviewed: 02/24/201619993617-0770 The [employer]. [address] [place] [address]. All righ ts reserved. This information is [...] without first discussing it with your [facility]'s healthcare provider. Ice Ice reduces muscle pain [...] use ice several times a day. Medicines Kegs-fet-ikaghwr pain relieversincludeacetaminophen and anti-inflammatory medicines, wh ich [...] a heating p ad. Date Last Reviewed: 01/24/201819993728-3549 The [employer]. [address] [place] [address]. All righ ts reserved. This information is not intended as a substitute for professional medical care. Always follow your healthcare professional's instructions. documented in this encounter Progress Notes Mac Bond MD - 07/28/2019 3:00 PM PST Patient: Nitesh Haynes Medical Record: [id number] Date of Services: 07/28/2019 Referring Doctor: Екатерина [...] in 2013 and has had no evaluation [facility] e that time. The DBS was performed in [facility]. Patient will be referred to [facility] for fur ther evaluation and opinion. In addition history of chronic low back pain though stable this time with previous lumbar spine surgeries. Presently, patient has tolerable symptoms and gave other treatment options in event that he symptoms recur such as acupuncture treatments, massage therapy, relaxation therapy, cqsg-xef-haefssf creams and patches, and cortisone shots. Review [...] and oriented to time, place, and person. [facility] is fluent. Memory, attention, comprehension, and general [...] le, and scrabble, other puzzle games like SudCommunication Specialist Limitedu, Mahjong. Play computer/mobile applications such as [employer] and [employer] GAMES Continue Sinemet and Comtan and Amantadine Advised exercise daily Discussed with wire rope sling maker Mateusz Any Questions please call ELIAS Canales or Dr. Bond at [facility] Neurology Clinic Mac Bond MD07/28/20194:01 PM Electronically signed NOTE: Part of this report was transcribed using voice recognition software. Every effort was made to ensure accuracy. However, inadvertent computerize wall and floor tiler errors may be present documented in this enc ounter Plan of Treatment +--------+---------+ + + + | Date | Type | Specialty | Care Team | Description | +--------+---------+ + + + | 01/20/ | Office | Neurology | Mary, | | | 2019 | Visit | | [address] | | | | | | [address] [place], | | | | | | [place] [address] | | | | | | [phone] | | | | | | | [...] Physical Therapy | Referral | e | ([facility]) | 08/04/2019, Expires: | | | | [...]
--- OUTSIDE RECORDS SUMMARY | ~2019-08-18 | XMS | Encounter Summary ---
Demographics + + + | Address | [address] | | | [place] [address] | + + + | Home Phone | | + + + | Preferred Language | Unknown | + + + | Marital Status | | + + + | Yazidism Affiliation | Unknown | + + + | Race | Unknown | + + + | Ethnic Group | Unknown | + + + Author + + + | Author | [facility] | | | and [place] | + + + | Organization | [facility] | | | and [...] Team Providers + +------+ + | Care Computer Applications Instructor Name | Role | Phone | [...] [address] | | | | | ([facility]) | [address], | | | | | | | [address] | [place], [place] | | | | | | [place], [place] | [address] | | | | | | [address] | Phone: | | | | | | Phone: | [phone] | | | | | | [phone] | Fax: | | | | | | Fax: | [phone] | | | | | | [phone] | | + + + + + [...] [place] | | | | | | [place] | [place]EN [place] | | | | | | [address] | [address] | | | | | | Phone: | Phone: | | | | | | [phone] | [phone] | | | | | | Fax: | Fax: | | | | | | [phone] | [phone] | + + + + + + + Reason for Visit + + + | Reason | Comments | + + + | Follow-up | parkinsons | + + + Evaluate & Treat (Routine) + +--------+ + + + + | Status | Reason | Specialty | Diagnoses / | Referred By | Referred To | | | | | Procedures | Contact | Contact | + +--------+ + + + + | Authorized | | Neurology | Diagnoses | [place] | Var[place], | | | | | Parkinson's | [facility] | Mac Phillips MD | | | | | disease | [facility]ENTER [address] | [address] | | | | | (HCC) | [facility] | [address] | | | | | Repeated | [facility] | [place], [place] | | | | | [facility] | [address] | [address] Phone: | | | | | back pain | [place], | [phone] | | | | | | [place] | Fax: | | | | | | [address] | [phone] | | | | | | Phone: | | | | | | | [phone] | | | | | | | Fax: | | | | | | | [phone] | | + +--------+ + + + + Encounter Details +--------+---------+ [...] | | | CLINIC [address] | [place] | (Primary Dx); | | | | DR [address], | [address] | Parkinson disease | | | | [place] [address] | | ([facility]); Gait disorder | | | | [phone] | | | +--------+---------+ + + + [...] be different from the original. Patient Instructions [facility] Neurology Clinic Dr. Mac Bond, Neurologist Date:07/28/2019 [...] such as cross word puzz le, and scrPlaySayble, other puzzle games like [employer], Duda. Play computer/mobile applications such as [employer]CCY and MIND GAMES Continue Sinemet and Comtan and Amantadine Advised exercise daily Discussed with pathology collector Mateusz Any Questions please call ELIAS Canales or Dr. Bond at [facility] Neurology Clinic Understanding Parkinson Disease Parkinson disease [...] The diagnosis is based on your symptoms, [facility] history, and a physical exam. You [...] people with Parkinson disease. Date Last Reviewed: 09/26/201719999943-8700 The [employer]. [address] [place] [address], [place] [address]. All righ ts reserved. This information is [...] and knives if it s hard to data typist utensils. Spill-proof cups can help with drinking. [...] voice-activated soft mcwilliams for computers. Use foam parole officer on pens and pencils. These can make them easier to hold. Sleeping Manypeople with Parkinson have trouble sleeping. They may also move in their sleep and st rike their partners. Tell your healthcare provider if you re having sleep problems or recu rrent nightmares. Medicinecan often help you sleep better. Check with your healthcare prov ider before using cayp-cwy-mkmkrsy medicines to help you sleep. Getting out [...] having falls. Date Last Reviewed: 10/24/2017 The [employer]. [address] [place] [address]. All righ ts reserved. This information is [...] and others. Date Last Reviewed: 09/26/2017 The [employer]. [address] [place] [address]. All righ ts reserved. This information is [...] are taking other medicines. You may use nhvt-rgn-vjbbsjv medicine to control pain, unless another pain [...] by your healthcare provider Date Last Reviewed: 02/24/201619991645-3002 The [employer]. [address] [place] [address], [place] [address]. All righ ts reserved. This information is [...] discussing it with your [facility]'s healthcare provider. Ice Ice reduces muscle pain [...] use ice several times a day. Medicines Zdgv-mbu-hkvvdli pain relieversincludeacetaminophen and anti-inflammatory medicines, wh ich [...] a heating p ad. Date Last Reviewed: 01/24/201819999638-6952 [employer]. [address] [place] [address]. All righ ts reserved. This information is not intended as a substitute for professional medical care. Always follow your healthcare professional's instructions. documented in this encounter Progress Notes Mac Bond MD - 07/28/2019 3:00 PM PST Patient: Nitesh Haynes Medical Record: [id number] Date of Services: 07/28/2019 Referring Doctor: Екатерина [...] in 2013 and has had no evaluation [facility] e that time. The DBS was performed in [facility]. Patient will be referred to [facility] for fur ther evaluation and opinion. In addition history of chronic low back pain though stable this time with previous lumbar spine surgeries. Presently, patient has tolerable symptoms and gave other treatment options in event that he symptoms recur such as acupuncture treatments, massage therapy, relaxation therapy, aezx-bao-nevpkvs creams and patches, and cortisone shots. Review [...] oriented to time, place, and person. [facility] is fluent. Memory, attention, comprehension, [...] le, and scrabble, other puzzle games like SudMonsoon Commerceu, Aradigmng. Play computer/mobile applications such as RECCY and MIND GAMES Continue Sinemet and Comtan and Amantadine Advised exercise daily Discussed with pathology collector Mateusz Any Questions please call ELIAS Canales or Dr. Bond at [facility] Neurology Clinic Mac Bond MD07/28/20194:01 PM Electronically signed NOTE: Part of this report was transcribed using voice recognition software. Every effort was made to ensure accuracy. However, inadvertent computerize claims correspondence clerk errors may be present documented in this [...] | | | | | | [place] [address] | | | | | | [phone] | | | | | | | [...] Physical Therapy | Referral | e | ([facility]) | 08/04/2019, Expires: | | | [...]
--- OUTSIDE RECORDS SUMMARY | ~2019-08-18 | XMS | Encounter Summary ---
Demographics + + + | Address | [address] | | | [place] [address] | + + + | Home Phone | | + + + | Preferred Language | Unknown | + + + | Marital Status | | + + + | Tenriism Affiliation | Unknown | + + + | Race | Unknown | + + + | Ethnic Group | Unknown | + + + Author + + + | Author | [facility] | | | and [place] | + + + | Organization | [facility] | | | and [...] Team Providers + +------+ + | Care Gate Mortiser Operator Name | Role | Phone | [...] [address] | | | | | [place] [address] | | | | | | [phone] | | | +--------+ + + + [...] | | | | | | [place] [address] | | | | | | [phone] | | | | | | | | +--------+---------+ + + + documented as of this encounter Visit Diagnoses Not on filedocumented in this encounter"
--- OUTSIDE RECORDS SUMMARY | ~2019-08-18 | XMS | Encounter Summary ---
Demographics + + + | Address | [address] | | | [place] [address] | + + + | Home Phone | | + + + | Preferred Language | Unknown | + + + | Marital Status | | + + + | Yazidism Affiliation | Unknown | + + + | Race | Unknown | + + + | Ethnic Group | Unknown | + + + Author + + + | Author | [facility] | | | and [place] | + + + | Organization | [facility] | | | and [...] Team Providers + +------+ + | Care Gear Milling Machine Set Up Operator Name | Role | [...] [id number] | | | | | [place] [address] | | | | | | [phone] | | | +--------+ + + + [...] | | | | | | [place] [address] | | | | | | [phone] | | | | | | | | +--------+---------+ + + + documented as of this encounter Visit Diagnoses Not on filedocumented in this encounter"
--- OUTSIDE RECORDS SUMMARY | ~2019-08-18 | XMS | Encounter Summary ---
Demographics + + + | Address | [address] | | | [place] [address] | + + + | Home Phone | | + + + | Preferred Language | Unknown | + + + | Marital Status | | + + + | Buddhist Affiliation | Unknown | + + + | Race | Unknown | + + + | Ethnic Group | Unknown | + + + Author + + + | Author | [facility] | | | and [place] | + + + | Organization | [facility] | | [...] Providers + +------+ + | Care Computer Numeric Control Setter Name | Role | Phone | + [...] | | Required | | disease | AGRICULTURAL EQUIPMENT SALES MANAGER [address] | [address] | | | | | (HCC) Neck | [address] | [address] | | | | | pain, | [place], [place] | [address] | | | | | bilateral | [address] | [place], [place] | | | | | Chronic | Phone: | [address] Phone: | | | | | bilateral | [phone] | [phone] | | | | | low back | Fax: | Fax: | | | | | pain with | [phone] | [phone] | | | | | right-sided | [...] | | Required | | disease | AGRICULTURAL EQUIPMENT SALES MANAGER [address] | PHYSICAL | | | | | (HCC) | [address] | [address] | | | | | Frequent | [place], [place] | [address] | | | | | falls | [address] | [address] | | | | | | Phone: | [facility], [place] | | | | | | [phone] | [address] | | | | | | Fax: | Phone: | | | | | | [phone] | [phone] | | | | | | | Fax: | | | | | | | [phone] | +--------+ + + + + + [...] | | | | | Procedures | [place] | [facility] | | | | | Evaluate & | [address] | [address] Phone: | | | | | Treat | [place], [place] | [phone] | | | | | | [address] | Fax: | | | | | | Phone: | [phone] | | | | | | [phone] | | +--------+ + + + + + Encounter Details +--------+---------+ + + + | Date | Type | Department | Care Team | Description | +--------+---------+ + + + | 11/26/ | Office | [place] [facility] | Mary, | Chronic bilateral | | 2019 | Visit | HOSPITAL NEUROLOGY | Sinai, AGRICULTURAL EQUIPMENT SALES MANAGER [address] | low back pain with | | | | CL[address] | [address] [place], | right-sided sciatica | | | | [address] [place], | [place] [address] | (Primary Dx); | | | | [place] [address] | [phone] | Parkinson disease | | | | [phone] | | ([facility]); Neck pain, | | | | | [...] press against a nerve. Date Last Reviewed: 10/24/201719992220-0728 [employer]. [address] [place] [address], [place] [address]. All righ ts reserved. This information is [...] are taking other medicines. You may use blxy-fgg-tphrhdy medicine as directed on the bottle to [...] groin or genital area Date Last Reviewed: 02/24/201619997251-6185 [employer]. [address] [place] [address]. All righ ts reserved. This information is [...] frozen. To turn, walk in a half [place] instead of trying to stop and turn [...] yourself onto the chair. Date Last Reviewed: 10/24/201719994440-0722 [employer] [place] [address]. All righ ts reserved. This information is [...] of your body. Also, your symptoms may exchange underwriting consultant time. And you may have different symptoms [...] may also feel depressed. Date Last Reviewed: 09/26/201719990861-6534 [employer]. [address] [place] [address]. All righ ts reserved. This information is [...] way to get help. Date Last Reviewed: 11/24/201719997638-1659 [employer]. [address] [place] [address], [place] [address]. All righ ts reserved. This information is not intended as a substitute for professional medical care. Always follow your healthcare professional's instructions. documented in this encounter Progress Notes Sinai Hernandez FNP - 11/26/2018 3:15 PM PDT Patient: Nitesh Haynes Medical Record: [id number] Date of Services: 11/26/2018 Referring Doctor: Екатерина Christianson NP Chief Complaint: Parkinson's disease, chronic low back pain History of Present Illness: The patient presents to the Neurology Clinic today for follow u p accompanied by his , Gloria. The patient has a history of Parkinson's disease for approximately 19 years. He had a DBS surgery at [facility] in 2008 with revision in 2010. The [...] scheduled with his neurology team at [facility] later this month. The patient has a history of chronic low back pain. The patient reports that his symptoms have slowly worsened over the past 10 years. He has had 2 previous lumbar spine surgeries, the last one in [address] Mcmullen in [place], [place]. The patient has tried treatment wi [...] e; Refill: 0 - AMB Referral to [facility] Community Health Worker Parkinson disease (HCC) - Carbidopa-Levodopa; Take 1 tab PO at 0800, 1000, 1200, 1400, 1600, 1800, 2000 and 230 0. Max of 8 tabs per day. Dispense: 720 tablet; Refill: 3 - Entacapone; Take 1 tablet by mouth 5 times daily for 14 days. Dispense: 70 tablet; R efill: 0 - Ambulatory referral to Physical Therapy - AMB Referral to [facility] Community Health Worker Neck pain, bilateral Overview: 07/09/18 XR Cervical: Extensive degenerative changes of the cervical spine.Bilateral f oraminal narrowing. Orders: - AMB Referral to [facility] Community Health Worker Frequent falls - Ambulatory referral to Physical Therapy - AMB Referral to [facility] Community Health Worker Chronic bilateral low back [...] are intact. There is no dysmetria on qaixao-zl-ibjw and ioyw-myfy-awua. Romberg is absent. + Tremors noted with [...] mg capsule G89.29 724.3 * Efrain Bermudez [facility] Community Health Worker 338.29 2. Parkinson disease (HCC) G20 332.0 amantadine (SYMMETREL) 100 MG TABS carbidopa-levodopa (SINEMET) 25-100 mg per tablet entacapone (COMTAN) 200 mg tablet [facility] Physical Therapy, External - AMB Referral * Efrain Bermudez [facility] Community Health Worker DISCONTINUED: entacapone (COMTAN) 200 mg tablet 3. Neck pain, bilateral M54.2 723.1 * Efrain Bermudez [facility] Community Health Worker 4. Frequent falls R29.6 V15.88 [facility] Therapy, External - AMB Referral * Efrain Bermudez [facility] Community Health Worker Plan: Parkinson's disease: We [...] | | | | | | [address] [place], | | | | | | [place] [address] | | | | | | [phone] | | | | | | | [...] Therapy, | Referral | e | ([facility]) Frequent | | | External - AMB | | | falls | | | Referral | | | | | + + +--------+ + + | * Efrain Bermudez CC | Outpatient | Routin | Parkinson disease | Ordered: 11/26/2018 | | [facility] | Referral | e | ([facility]) Neck pain, | | | Worker | [...]
--- OUTSIDE RECORDS SUMMARY | ~2019-08-18 | XMS | Encounter Summary ---
Demographics + + + | Address | [address] | | | [place] [address] | + + + | Home Phone | | + + + | Preferred Language | Unknown | + + + | Marital Status | | + + + | Denominational Affiliation | Unknown | + + + [...] Team Providers + +------+ + | Care Line Painting Machine Operator Name | Role | Phone [...] | DR [address], | [address] | unspecified back | | | | [place] [address] | | pain laterality | | | | [phone] | | (Primary Dx) | +--------+ + [...] | | | | | | [place] [address] | | | | | | [phone] | | | | | | | [...]
--- OUTSIDE RECORDS SUMMARY | ~2019-08-18 | XMS | Encounter Summary ---
Demographics + + + | Address | [address] | | | [place] [address] | + + + | Home Phone | | + + + | Preferred Language | Unknown | + + + | Marital Status | | + + + | Sikh Affiliation | Unknown | + + + [...] Team Providers + +------+ + | Care Fraud Prevention Analyst Name | Role | Phone | [...] [address] | | | | | [place] [address] | | | | | | [phone] | | | +--------+ + + + [...] | | | | | | [place] [address] | | | | | | [phone] | | | | | | | | +--------+---------+ + + + documented as of this encounter Visit Diagnoses Not on filedocumented in this encounter"
--- OUTSIDE RECORDS SUMMARY | ~2019-08-18 | XMS | Encounter Summary ---
Demographics + + + | Address | [address] | | | [place] [address] | + + + | Home Phone | | + + + | Preferred Language | Unknown | + + + | Marital Status | | + + + | Caodaism Affiliation | Unknown | + + + | Race | Unknown | + + + | Ethnic Group | Unknown | + + + Author + + + | Author | [facility] | | | and [place] | + + + | Organization | [facility] | | [...] Team Providers + +------+ + | Care Natural Resources Faculty Member Name | Role | Phone | + [...] [id number] | | | | | [place] [address] | | | | | | [phone] | | | +--------+ + + + [...] | | | | | | [place] [address] | | | | | | [phone] | | | | | | | | +--------+---------+ + + + documented as of this encounter Visit Diagnoses Not on filedocumented in this encounter"
--- OUTSIDE RECORDS SUMMARY | ~2019-08-18 | XMS | Encounter Summary ---
Demographics + + + | Address | [address] | | | [place] [address] | + + + | Home Phone | | + + + | Preferred Language | Unknown | + + + | Marital Status | | + + + | Buddhist Affiliation | Unknown | + + + | Race | Unknown | + + + | Ethnic Group | Unknown | + + + Author + + + | Author | [facility] | | | and [place] | + + + | Organization | [facility] | | | [...] Team Providers + +------+ + | Care Occupational Therapy Professor Name | Role | Phone | [...] Provide Resources | | 2019 | | [facility] | [address], [address] | (W assistance with | | | | CLIN[address] | [address] | resources) | | | | DR [address], | [place] [address] | | | | | [place] [address] | [phone] | | | | | [phone] | | | +--------+ + + + [...] | | | | | | [place] [address] | | | | | | [phone] | | | | | | | | +--------+---------+ + + + documented as of this encounter Visit Diagnoses Not on filedocumented in this encounter"
--- OUTSIDE RECORDS SUMMARY | ~2019-08-18 | XMS | Encounter Summary ---
Demographics + + + | Address | [address] | | | [place] [address] | + + + | Home Phone | | + + + | Preferred Language | Unknown | + + + | Marital Status | | + + + | Tenriism Affiliation | Unknown | + + + | Race | Unknown | + + + | Ethnic Group | Unknown | + + + Author + + + | Author | [facility] | | | and [place] | + + + | Organization | [facility] | | [...] Team Providers + +------+ + | Care Fashion Consultant Name | Role | Phone | + +------+ + | Екатерина Christianson NP | PCP | | + +------+ + Reason for Visit + + + | Reason | Comments | + + + | Back Pain | Trigger point-lower back | + + + Encounter Details +--------+ + + + + | Date | Type | Department | Care Team | Description | +--------+ + + + + | 08/13/ | Procedure | [facility] [facility] | Mary, | Chronic bilateral | | 2018 | visit | HOSPITAL NEUROLOGY | Sinai, DIESEL TRUCK MECHANIC [address] | low back pain | | | | [address] | [address] [place], | without sciatica | | | | [place] | [place] [address] | (Primary Dx) | | | | [place] [address] | [phone] | | | | | [phone] | | | +--------+ + + + [...] + + + | Blood Pressure | 118/68 | 08/13/2018 10:50 AM | | | | | PST | | + + + + + | Pulse | 79 | 08/13/2018 10:50 AM | | | | | PST | | + + + + + | Temperature | - | - | | + + + + + | Respiratory Rate | 20 | 08/13/2018 10:50 AM | | | | | PST | | + + + + + | Oxygen Saturation | 97% | 08/13/2018 10:50 AM | | | | | PST | | + + + + + | Inhaled Oxygen | - | - | | | Concentration | | | | + + + + + | Weight | 72 kg (158 lb 11.7 | 08/13/2018 10:50 AM | | | | oz) | PST | | + + + + + | Height | 180.3 cm (5' 11") | 08/13/2018 10:50 AM | | | | | PST | | + + + + + | Body Mass Index | 22.14 | 08/13/2018 10:50 AM | | | | | PST | | + + + + + documented in this encounter Patient Instructions Patient Instructions Sinai Hernandez FNP - 08/13/2018 11:15 AM PSTApply warm compresses to the injection sites for 20 minutes on and 20 minutes off for 2 hours starting a couple o f hours after the procedure. You may repeat it again the next day. You can apply moist hea t to your aching areas as needed thereafter. No lifting, pushing, pulling objects greater than 5 pounds (about the size of a full gallon of milk) for the first week [...] | | | | | | [address] [facility], | | | | | | [place] [address] | | | | | | [phone] | | | | | | | | +--------+---------+ + + + documented as of this encounter Procedures + +--------+ + + + | Procedure Name | Priori | Date/Time | Associated Diagnosis | Comments | | | ty | | | | + +--------+ + + + | [place] INJECT TRIGGER | Routin | 08/13/2018 | Chronic bilateral | Results for this | | POINT, 1 OR 2 | e | 11:15 AM | low back pain | procedure are in the | | MUSCLE(S) | | PST | without sciatica | results section. | + +--------+ + + + documented in this encounter Visit Diagnoses + + | Diagnosis | + + | Chronic bilateral low back pain without sciatica - Primary | + + documented in this encounter Administered Medications + +--------+ +--------+------+ + | Medication Order | MAR | Action | Dose | Rate | Site | | | Action | Date | | | | + +--------+ +--------+------+ + | bupivacaine (MARCAINE) 0.5% | Given | 08/13/20 | 10 mLs | | Other | | injection 10 mL 10 mL, Other, | | 18 11:45 | | | (Comment | | ONCE, 08/13/18 at 1145, For 1 | | AM PST | | | ) | | dose | | | | | | + +--------+ +--------+------+ + +---+---+ | | | +---+---+ + +-------+ +--------+---+ + | lidocaine (PF) 1% injection 20 | Given | 08/13/20 | 20 mLs | | Other | | mL 20 mL, Intramuscular, ONCE, | | 18 11:45 | | | (Comment | | 08/13/18 at 1145, For 1 dose | | AM PST | | | ) | + +-------+ +--------+---+ + +---+---+ | | | +---+---+ + +-------+ +--------+---+ + | methylPREDNISolone acetate | Given | 08/13/20 | 400 mg | | Other | | (DEPO-MEDROL) 40 mg/mL injection | | 18 11:45 | | | (Comment | | 400 mg 400 mg, Intramuscular, | | AM PST | | | ) | | ONCE, Sat08/13/18 at 1145, For 1 | | | | | | | dose, Not for IV use., | | | | | | + +-------+ +--------+---+ + +---+---+ | | | +---+---+ documented in this encounter
--- OUTSIDE RECORDS SUMMARY | ~2019-08-18 | XMS | Encounter Summary ---
Demographics + + + | Address | [address] | | | [place] [address] | + + + | Home Phone [...] Team Providers + +------+ + | Care Scaling Machine Operator Name | Role | Phone [...] | | Required | | disease | DELIVERER OUTSIDE [address] | [address] | | | | | (HCC) Neck | [address] | [address] | | | | | pain, | [place], [place] | [address] | | | | | bilateral | [address] | [place], [place] | | | | | Chronic | Phone: | [address] Phone: | | | | | bilateral | [phone] | [phone] | | | | | low back | Fax: | Fax: | | | | | pain with | [phone] | [phone] | | | | | right-sided | [...] | | Required | | disease | DELIVERER OUTSIDE [address] | PHYSICAL | | | | | (HCC) | [address] | [address] | | | | | Frequent | [place], [place] | [address] | | | | | falls | [address] | [address] | | | | | | Phone: | [facility] [place], [place] | | | | | | [phone] | [address] | | | | | | Fax: | Phone: | | | | | | [phone] | [phone] | | | | | | | Fax: | | | | | | | [phone] | +--------+ + + + + + [...] | | | | | Procedures | [place] | [facility] | | | | | Evaluate & | [address] | [address] Phone: | | | | | Treat | [place], [place] | [phone] | | | | | | [address] | Fax: | | | | | | Phone: | [phone] | | | | | | [phone] | | +--------+ + + + + + Encounter Details +--------+---------+ + + + | Date | Type | Department | Care Team | Description | +--------+---------+ + + + | 11/26/ | Office | [place] [facility] | Mary, | Chronic bilateral | | 2019 | Visit | HOSPITAL NEUROLOGY | Sinai, DELIVERER OUTSIDE [address] | low back pain with | | | | CLIN[address] | [address] [place], | right-sided sciatica | | | | [address] [place], | [place] [address] | (Primary Dx); | | | | [place] [address] | [phone] | Parkinson disease | | | | [phone] | | ([facility]); Neck pain, | | | | | [...] press against a nerve. Date Last Reviewed: 10/24/201719992930-0775 [employer]. [address] [place] [address], [place] [address]. All righ ts reserved. This information is [...] are taking other medicines. You may use kwcr-ugq-irjiptn medicine as directed on the bottle to [...] groin or genital area Date Last Reviewed: 02/24/201619996472-6835 [employer]. [address] [place] [address]. All righ ts reserved. This information is [...] frozen. To turn, walk in a half minto instead of trying to stop and turn [...] yourself onto the chair. Date Last Reviewed: 10/24/201719992775-8397 [employer] [place] [address]. All righ ts reserved. This information is [...] of your body. Also, your symptoms may guide changer time. And you may have different [...] may also feel depressed. Date Last Reviewed: 09/26/201719990892-8668 [employer]. [address] [place] [address]. All righ ts reserved. This information is [...] way to get help. Date Last Reviewed: 11/24/201719991379-4101 [employer]. [address] [place] [address], [place] [address]. All righ ts reserved. This information is not intended as a substitute for professional medical care. Always follow your healthcare professional's instructions. documented in this encounter Progress Notes Sinai Hrenandez FNP - 11/26/2018 3:15 PM PDT Patient: Nitesh Haynes Medical Record: [id number] Date of Services: 11/26/2018 Referring Doctor: Екатерина Christianson NP Chief Complaint: Parkinson's disease, chronic low back pain History of Present Illness: The patient presents to the Neurology Clinic today for follow u p accompanied by his , Gloria. The patient has a history of Parkinson's disease for approximately 19 years. He had a DBS surgery at [facility] in 2008 with revision in 2010. The [...] his neurology team at [facility] later this month. The patient has a history of chronic low back pain. The patient reports that his symptoms have slowly worsened over the past 10 years. He has had 2 previous lumbar spine surgeries, the last one [place] [address] Mcmullen in [place], [place]. The patient has tried treatment wi [...] e; Refill: 0 - AMB Referral to [facility] Community Health Worker Parkinson disease (HCC) [...] to Physical Therapy - AMB Referral to [facility] Community Health Worker Neck pain, bilateral Overview: 07/09/18 XR Cervical: Extensive degenerative changes of the cervical spine.Bilateral f oraminal narrowing. Orders: - AMB Referral to [facility] Community Health Worker Frequent falls - Ambulatory referral to Physical Therapy - AMB Referral to [facility] Community Health Worker Chronic bilateral low [...] are intact. There is no dysmetria on nngyll-ae-mtck and gnpq-vywv-wrna. Romberg is absent. + Tremors noted with [...] mg capsule G89.29 724.3 * Efrain Bermudez [facility] Community Health Worker 338.29 2. Parkinson disease (HCC) G20 332.0 amantadine (SYMMETREL) 100 MG TABS carbidopa-levodopa (SINEMET) 25-100 mg per tablet entacapone (COMTAN) 200 mg tablet [facility] Physical Therapy, External - AMB Referral * Efrain Bermudez [facility] Community Health Worker DISCONTINUED: entacapone (COMTAN) 200 mg tablet 3. Neck pain, bilateral M54.2 723.1 * Efrain Bermudez [facility] Community Health Worker 4. Frequent falls R29.6 V15.88 [facility] Therapy, External - AMB Referral * Efrain Bermudez [facility] Community Health Worker Plan: Parkinson's disease: [...] | | | | | | [address] [place], | | | | | | [place] [address] | | | | | | [phone] | | | | | | | [...] Physical Therapy, | Referral | e | ([facility]) Frequent | | | External - AMB | | | falls | | | Referral | | | | | + + +--------+ + + | * Efrain Bermudez CC | Outpatient | Routin | Parkinson disease | Ordered: 11/26/2018 | | [facility] | Referral | e | ([facility]) Neck pain, | | | Worker | [...]
--- OUTSIDE RECORDS SUMMARY | ~2019-08-18 | XMS | Encounter Summary ---
Demographics + + + | Address | [address] | | | [place] [address] | + + + | Home Phone [...] Team Providers + +------+ + | Care Tower Operator Name | Role | Phone | [...] Provide Resources | | 2019 | | [facility] | W | (CHW helping to | | | | MEDICAL CLINIC [address] | | establish with new | | | | [address] [facility], | | PCP. ) | | | | [place] [address] | | | | | | [phone] | | | +--------+ + + + [...] | | | | | | [place] [address] | | | | | | [phone] | | | | | | | | +--------+---------+ + + + documented as of this encounter Visit Diagnoses Not on filedocumented in this encounter"
--- OUTSIDE RECORDS SUMMARY | ~2019-08-18 | XMS | Encounter Summary ---
Demographics + + + | Address | [address] | | | [place] [address] | + + + | Home Phone [...] + + + | Author | [facility] | + + + | Organization | [facility] | + + + | Address | Unknown | + + + | Phone | Unavailable | + + + Support + + +---------+ + | Name | Relationship | Address | Phone | + + +---------+ + | Gloria Haynes | ECON | Unknown | | + + +---------+ + Care Team Providers + +------+ + | Care Financial Institution Branch Manager Name | Role | Phone | [...] | 2014 | anned | [facility] [address] | [address] [place] | | | | | Janell Mailcode: [id number] | [place], [place] | | | | | [facility] | [address] | | | | | and Healing, | [phone] | | | | | | | | | | | Floor [place], [place] | | | | | | [address] | | | | | | [phone] | | | +--------+ + + + [...]
--- OUTSIDE RECORDS SUMMARY | ~2019-08-18 | XMS | Encounter Summary ---
Demographics + + + | Address | [address] | | | [place] [address] | + + + | Home Phone | | + + + | Preferred Language | Unknown | + + + | Marital Status | Single | + + + | Congregational Affiliation | Unknown | + + + | Race | White | + + + | Ethnic Group | Not or | + + + Author + + + | Author | [facility] | + + + | Organization | [facility] | + + + | Address | Unknown | + + + | Phone | Unavailable | + + + Support + + +---------+ + | Name | Relationship | Address | Phone | + + +---------+ + | Gloria Haynes | ECON | Unknown | | + + +---------+ + Care Team Providers + +------+ + | Care Floor Surfacer Name | Role | Phone | + +------+ + | Jory Segovia MD | PCP | | + +------+ + Encounter Details +--------+ + + + + | Date | Type | Department | Care Team | Description | +--------+ + + + + | 10/22/ | Telephone | Neurology at | Annie Heard, | | | 2017 | | [facility] & | | | | | | [address] | | | | | | Lemuel Maciel Mailcode: | | | | | | [facility] | | | | | | Health and Healing, | | | | | | | | | | | | [place], [place] | | | | | | [address] | | | | | | [phone] | | | +--------+ + + + [...]
--- OUTSIDE RECORDS SUMMARY | ~2019-08-18 | XMS | Encounter Summary ---
Demographics + + + | Address | [address] | | | [place] [address] | + + + | Home Phone | | + + + | Preferred Language | Unknown | + + + | Marital Status | | + + + | Yarsanism Affiliation | Unknown | + + + | Race | Unknown | + + + | Ethnic Group | Unknown | + + + Author + + + | Author | [facility] | | | and [place] | + + + | Organization | 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 [address] | [address] | | | | | (HCC) Neck | [address] | [address] | | | | | pain, | [place], [place] | [place] | | | | | bilateral | [address] | [place], [place] | | | | | Chronic | Phone: | [address] Phone: | | | | | bilateral | [phone] | [phone] | | | | | low back | Fax: | Fax: | | | | | pain with | [phone] | [phone] | | | | | right-sided | [...] | Visit | HOSPITAL NEUROLOGY | [facility], FILTER [address]ED [address]AC[address] | ([facility]) (Primary Dx); | | | | CLINIC [address] | [address] [place], | Chronic bilateral | | | | [place], | [place] [address] | low back pain | | | | [place] [address] | [phone] | without sciatica; | | | | [phone] | | Gait disorder; Neck | | | | | Dulce Berkowitz | pain, bilateral | | | | | D, [address] | | | | | | [address] | | | | | | [place] [address] | | | | | | [phone] | | | | | | | [...] ck pain, bilateral Pathways: Medication Assessment and Propulsion Generator Repairer" Chart Notes/ Visit Details: An Initial Interview [...] new medication. Gerardo has an appointment in [place] soon to look at the stimulator that [...] chair and bed. CHW will speak with [employer] to see if insurances will cover those items with a prescription f rom a provider. CHW will follow up with Gerardo and Gloria as resources are discovered. Follow up home visit set for March 09, 2019 @ 3273. GIANNA Croft documented in thi s encounter Plan of Treatment +--------+---------+ + + + | Date | Type | Specialty | Care Team | Description | +--------+---------+ + + + | 01/20/ | Office | Neurology | Mary, | | | 2020 | Visit | | [address] | | | | | | [address] [facility], | | | | | | [place] [address] | | | | | | [phone] | | | | | | | [...]
--- OUTSIDE RECORDS SUMMARY | ~2019-08-18 | XMS | Encounter Summary ---
Demographics + + + | Address | [address] | | | [place] [address] | + + + | Home Phone | | + + + | Preferred Language | Unknown | + + + | Marital Status | | + + + | Congregation Affiliation | Unknown | + + + | Race | Unknown | + + + | Ethnic Group | Unknown | + + + Author + + + | Author | [facility] | | | and [place] | + + + | Organization | [facility] | [...] Team Providers + +------+ + | Care Cardiac Specialist Name | Role | Phone | [...] [address] | | | | | [place] [address] | | | | | | [phone] | | | +--------+ + + + [...] | | | | | | [place] [address] | | | | | | [phone] | | | | | | | | +--------+---------+ + + + documented as of this encounter Visit Diagnoses Not on filedocumented in this encounter"
--- OUTSIDE RECORDS SUMMARY | ~2019-08-18 | XMS | Encounter Summary ---
Demographics + + + | Address | [address] | | | [place] [address] | + + + | Home Phone [...] Team Providers + +------+ + | Care Fabric Separator Operator Name | Role | Phone | [...] | visit | HOSPITAL NEUROLOGY | [facility], ASSOCIATE EDITOR [address] | low back pain | | | | CLIN[address] | [address] [place], | without sciatica | | | | [place], | [place] [address] | (Primary Dx) | | | | [place] [address] | [phone] | | | | | [phone] | | | +--------+ + + + [...] | | | | | | 4TH [facility], | | | | | | [place] [address] | | | | | | [phone] | | | | | | | | +--------+---------+ + + + documented as of this encounter Procedures + +--------+ + + + | Procedure Name | Priori | Date/Time | Associated Diagnosis | Comments | | | ty | | | | + +--------+ + + + | WI INJECT TRIGGER | Routin | 08/13/2018 | [...]
--- OUTSIDE RECORDS SUMMARY | ~2019-08-18 | XMS | Encounter Summary ---
Demographics + + + | Address | [address] | | | [place] [address] | + + + | Home Phone [...] Team Providers + +------+ + | Care Nurse Practitioner Name | Role | Phone | + +------+ + | Екатерина Christianson NP | PCP | | + +------+ + Encounter Details +--------+ + + + + | Date | Type | Department | Care Team | Description | +--------+ + + + + | 07/09/ | [facility] | Mac Bond MD | Chronic bilateral | | 2018 | Encounter | HOSPITAL XRAY 900 | [address] | low back pain | | | | [address] | [place], [place] | without sciatica | | | | [place], [place] | [address] | | | | | [address] | | | | | | [phone] | | | +--------+ + + + [...] | | | | | | [place] [address] | | | | | | [phone] | | | | | | | [...] back pain COMPARISON STUDY: None FINDINGS: 5 ruv-qtk-rxywqre | | | lumbar vertebral bodies. Dexter left lower lumbar scoliosis. There is | [...] | | VWHISTORY:persistent low back painCOMPARISON STUDY:NoneFINDINGS:5 lcl-oli-nrmoifd lumbar | | vertebral bodies.Dexter left lower lumbar scoliosis.There is postsurgical change [...] | spine.Atherosclerosis.Dictated by: Manuelito Connoram | |5 fyp-uac-qwcaggf lumbar vertebral bodies. | |Dexter left lower lumbar scoliosis. | |There is [...]
--- OUTSIDE RECORDS SUMMARY | ~2019-08-18 | XMS | Encounter Summary ---
Demographics + + + | Address | [address] | | | [place] [address] | + + + | Home Phone | | + + + | Preferred Language | Unknown | + + + | Marital Status | Single | + + + | Rastafari Affiliation | Unknown | + + + | Race | White | + + + | Ethnic Group | Not or | + + + Author + + + | Author | [facility] | + + + | Organization | [facility] | + + + | Address | Unknown | + + + | Phone | Unavailable | + + + Support + + +---------+ + | Name | Relationship | Address | Phone | + + +---------+ + | Gloria Haynes | ECON | Unknown | | + + +---------+ + Care Team Providers + +------+ + | Care Nut Packer Name | Role | Phone | + [...] | | | | disease | on [place] | [facility] | | | | | (HCC) | [facility] | Rd | | | | | Procedures | CENTER | Mailcode: | | | | | MRI BRAIN WO | [address] | | | | | CONTRAST | [facility] | [address] | | | | | | [address] | Research | | | | | | [facility] | | | | | | [place] [address] | [place], [place] | | | | | | Phone: | [address] | | | | | | [phone] | Phone: | | | | | | Fax: | [phone] | | | | | | [phone] | Fax: | | | | | | | [phone] | +--------+--------+ + + + + Encounter Details +--------+ + + + + | Date | Type | Department | Care Team | Description | +--------+ + + + + | 10/03/ | Hospital | Diagnostic Imaging | | | | 2010 | Encounter | Services at [facility] | | | | | | [address] | | | | | | Jazlyn Rene Mailcode: | | | | | | [address] | | | | | | [facility] | | | | | | [place], [place] | | | | | | [address] | | | | | | [phone] | | | +--------+ + + + [...]
--- OUTSIDE RECORDS SUMMARY | ~2019-08-18 | XMS | Clinical Summary ---
Demographics + + + | Address | [address] | | | [place] [address] | + + + | Home Phone | | + + + | Preferred Language | Unknown | + + + | Marital Status | | + + + | Yarsani Affiliation | Unknown | + + + | Race | Unknown | + + + | Ethnic Group | Unknown | + + + Author + + + | Author | [facility] | | | and [place] | + + + | Organization | [facility] | | | [...] Team Providers + +------+ + | Care Library Media Technician Name | Role | Phone | [...] disease | | | | | | ([facility]); Gait disorder | +--------+ + + + [...] type | | | | | | ([facility]); | | | | | | Hypermagnesemia; [...] | | | | | | [place] [address] | | | | | | [phone] | | | | | | | [...] + + | [place] [facility] | [address] | [place] [address] | [phone] | | HOSPITAL LABORATORY | | | [...] | mL/min/1.73m2 | [facility] | | | [place] | | | HOSPITAL | | | [...] + + | [facility] [facility] | [address] | [place] [address] | [phone] | | HOSPITAL LABORATORY | | | [...] + + | [facility] [facility] | [address] | [place] [address] | [phone] | | HOSPITAL LABORATORY | | | [...] + + | [facility] | [address] | [place] [address] | [phone] | | HOSPITAL LABORATORY | | | [...] + + | [facility] | [address] | [place] [address] | [phone] | | HOSPITAL LABORATORY | | | [...] + + | [facility] | [address] | [place] [address] | [phone] | | HOSPITAL LABORATORY | | | [...] | cutoff point for the diagnosis of NE is 0.8 ng/mL for the Troponin I | | | method. | | + + + + + + + + | Performing | Address | City/State/Zipcode | Phone Number | | Organization | | | | + + + + + | [facility] | [address] | [place] [address] | [phone] | | HOSPITAL LABORATORY | | | [...] + + | [facility] | [address] | [place] [address] | [phone] | | HOSPITAL LABORATORY | | | [...] + + | [facility] | [address] | [place] [address] | [phone] | | HOSPITAL LABORATORY | | | [...] - 1.030 | [place] | | | [place] | | | [facility] | | | [...] + + | [facility] | [address] | [place] [address] | [phone] | | HOSPITAL LABORATORY | | | [...] At | + + + | Current [facility] clinical laboratory antibiogram data can be found on the | [facility] | | [facility] intranet at | HOSPITAL | | [email or web address] or on | LABORATORY | | the [facility] website at [email or web address] | | + + + + + + + + | Performing | Address | City/State/Zipcode | Phone Number | | Organization | | | | + + + + + | [facility] | [address] | [place] [address] | [phone] | | HOSPITAL LABORATORY | | | [...] | | 438 msQTC Interval: 476 msQRS [place]: -3 degT Wave [place]: 54 deg- | | | ABNORMAL ECG -Sinus rhythmNonspecific intraventricular conduction | | | delayMinimal ST elevation, anterior leadsNo previous ECG available for | | | comparison | | |QRS [place]: -3 deg | | |T Wave [place]: 54 deg | | |- ABNORMAL ECG [...] + + | [facility] | [address] | [place] [address] | [phone] | | HOSPITAL LABORATORY | | | [...] + + | [facility] | [address] | [place] [address] | [phone] | | HOSPITAL LABORATORY | | | [...] + + | [facility] | [address] | [place] [address] | [phone] | | HOSPITAL LABORATORY | | | [...] + + | [facility] | [address] | [place] [address] | [phone] | | HOSPITAL LABORATORY | | | [...] | mL/min/1.73m2 | [facility] | | | [place] | RATE,ESTIMATED | | HOSPITAL | | | | mL/min/1.19t8Waeg than | | LABORATORY | | | [...] + + | [facility] | [address] | [place] [address] | [phone] | | HOSPITAL LABORATORY | | | [...] +--------+ +---------+--------+ | MEDICARE | MEDICA | [id number] | 04/26/20 | [phone] | | Medica | | | RE | | 09-Pre | 5 | | re | | | PART A | | sent | | | | | | AND B | | | | | | + +--------+ +--------+ +---------+--------+ | [employer] | [place] | [id number] | 12/26/19 | | | Indemn | [...] Person | Self | [birth year] | [address] | | | al/Fam | | 1951 | [phone] | [address] [place], [place] | | | graciela | | | 8 (Home) | [address] | + +--------+ +--------+ + + Advance Directives + + + + + | Type | Date Recorded | Patient | Explanation | | | | Tank Carpenter | | + + + + + | Power of | | | | | Supervisor Dog License Officer | | | | + + + [...]
--- OUTSIDE RECORDS SUMMARY | ~2019-08-18 | XMS | Encounter Summary ---
Demographics + + + | Address | [address] | | | [place] [address] | + + + | Home Phone [...] Team Providers + +------+ + | Care Industrial Sociologist Name | Role | Phone | + +------+ + | Екатерина Christianson NP | PCP | | + +------+ + Reason for Visit + + + | Reason | Comments | + + + | Appointment Question | | + + + Encounter Details +--------+ + + + + | Date | Type | Department | Care Team | Description | +--------+ + + + + | 06/22/ | Telephone | [facility] | Ally Douglass RN | Appointment Question | | 2019 | | [facility] NEUROLOGY | | | | | | CLINIC [address] | | | | | | [address] [place], | | | | | | [place] [address] | | | | | | [phone] | | | +--------+ + + + [...] | | | | | [address] [place], | | | | | | [place] [address] | | | | | | [phone] | | | | | | | | +--------+---------+ + + + documented as of this encounter Visit Diagnoses Not on filedocumented in this encounter"
--- OUTSIDE RECORDS SUMMARY | ~2019-08-18 | XMS | Encounter Summary ---
Demographics + + + | Address | [address] | | | [place] [address] | + + + | Home Phone | | + + + | Preferred Language | Unknown | + + + | Marital Status | Single | + + + | Confucianist Affiliation | Unknown | + + + | Race | White | + + + | Ethnic Group | Not or | + + + Author + + + | Author | [facility] | + + + | Organization | [facility] | + + + | Address | Unknown | + + + | Phone | Unavailable | + + + Support + + +---------+ + | Name | Relationship | Address | Phone | + + +---------+ + | Gloria Haynes | ECON | Unknown | | + + +---------+ + Care Team Providers + +------+ + | Care Director Of Teaching And Learning Name | Role | Phone | + +------+ + | Jory Segovia MD | PCP | | + +------+ + Encounter Details +--------+ + + + + | Date | Type | Department | Care Team | Description | +--------+ + + + + | 01/21/ | Ancillary | Registration [id number] | | | | 2006 | Registratio | [address] | | | | | n | [address] Mailcode: [id number] | | | | | | [place], [place] | | | | | | [address] | | | | | | [phone] | | | +--------+ + + + [...]
--- OUTSIDE RECORDS SUMMARY | ~2019-08-18 | XMS | Encounter Summary ---
Demographics + + + | Address | [address] | | | [place] [address] | + + + | Home Phone | | + + + | Preferred Language | Unknown | + + + | Marital Status | | + + + | Religion Affiliation | Unknown | + + + | Race | Unknown | + + + | Ethnic Group | Unknown | + + + Author + + + | Author | [facility] | | | and [place] | + + + | Organization | [facility] | | | and [...] Team Providers + +------+ + | Care Machine Specialist Name | Role | Phone | [...] [address] | | | | | [place] [address] | | | | | | [phone] | | | +--------+ + + + [...] | 01/20/ | Office | Neurology | Mray, | | | 2019 | Visit | | [address] | | | | | | [address] [place], | | | | | | [place] [address] | | | | | | [phone] | | | | | | | | +--------+---------+ + + + documented as of this encounter Visit Diagnoses Not on filedocumented in this encounter"
--- OUTSIDE RECORDS SUMMARY | ~2019-08-18 | XMS | Encounter Summary ---
Demographics + + + | Address | [address] | | | [place] [address] | + + + | Home Phone | | + + + | Preferred Language | Unknown | + + + | Marital Status | | + + + | Synagogue Affiliation | Unknown | + + + | Race | Unknown | + + + | Ethnic Group | Unknown | + + + Author + + + | Author | [facility] | | | and [place] | + + + | Organization | [facility] | | [...] Team Providers + +------+ + | Care Powertrain Design Engineer Name | Role | Phone | [...] [address] | | | | | [place] [address] | | | | | | [phone] | | | +--------+ + + + [...] | | | | | | [place] [address] | | | | | | [phone] | | | | | | | | +--------+---------+ + + + documented as of this encounter Visit Diagnoses Not on filedocumented in this encounter"
--- OUTSIDE RECORDS SUMMARY | ~2019-08-18 | XMS | Encounter Summary ---
Demographics + + + | Address | [address] | | | [place] [address] | + + + | Home Phone [...] Providers + +------+ + | Care Manager Java Name | Role | Phone | + [...] Appointment Question | | 2019 | | [facility] NEUROLOGY | | | | | | CLINIC [address] | | | | | | [address] [place], | | | | | | [place] [address] | | | | | | [phone] | | | +--------+ + + + [...] | | | | | [address] [place], | | | | | | [place] [address] | | | | | | [phone] | | | | | | | | +--------+---------+ + + + documented as of this encounter Visit Diagnoses Not on filedocumented in this encounter"
--- OUTSIDE RECORDS SUMMARY | ~2019-08-18 | XMS | Encounter Summary ---
Demographics + + + | Address | [address] | | | [place] [address] | + + + | Home Phone | | + + + | Preferred Language | Unknown | + + + | Marital Status | | + + + | Jewish Affiliation | Unknown | + + + | Race | Unknown | + + + | Ethnic Group | Unknown | + + + Author + + + | Author | [facility] | | | and [place] | + + + | Organization | [facility] | | [...] Team Providers + +------+ + | Care Sound Effects Person Name | Role | Phone | + [...] | DR [address] [place], | [address] | unspecified back | | | | [place] [address] | | pain laterality | | | | [phone] | | (Primary Dx) | +--------+ + [...] | | | | | | [place] [address] | | | | | | [phone] | | | | | | | [...]
--- OUTSIDE RECORDS SUMMARY | ~2019-08-18 | XMS | Encounter Summary ---
Demographics + + + | Address | [address] | | | [place] [address] | + + + | Home Phone | | + + + | Preferred Language | Unknown | + + + | Marital Status | | + + + | Gnosticism Affiliation | Unknown | + + + | Race | Unknown | + + + | Ethnic Group | Unknown | + + + Author + + + | Author | [facility] | | | and [place] | + + + | Organization | [facility] | | | and [...] Team Providers + +------+ + | Care Substitute Crossing Guard Name | Role | Phone | + [...] [address] | | | | | [place] [address] | | | | | | [phone] | | | +--------+ + + + [...] | | | | | | [place] [address] | | | | | | [phone] | | | | | | | | +--------+---------+ + + + documented as of this encounter Visit Diagnoses Not on filedocumented in this encounter"
--- OUTSIDE RECORDS SUMMARY | ~2019-08-18 | XMS | Encounter Summary ---
Demographics + + + | Address | [address] | | | [place] [address] | + + + | Home Phone | | + + + | Preferred Language | Unknown | + + + | Marital Status | | + + + | Gnosticist Affiliation | Unknown | + + + | Race | Unknown | + + + | Ethnic Group | Unknown | + + + Author + + + | Author | [facility] | | | and [place] | + + + | Organization | [facility] | | | [...] Team Providers + +------+ + | Care Writing Center Director Name | Role | Phone | [...] | | Required | | disease | CLOTHING EXAMINER [address] | [address] | | | | | (HCC) Neck | [address] | | | | | pain, | [place], [place] | [address] [place] | | | | | bilateral | [address] | [place], [place] | | | | | Chronic | Phone: | [address] Phone: | | | | | bilateral | [phone] | [phone] | | | | | low back | Fax: | Fax: | | | | | pain with | [phone] | [phone] | | | | | right-sided | [...] | Visit | HOSPITAL NEUROLOGY | [facility], CLOTHING EXAMIN[address] | ([facility]) (Primary Dx); | | | | CLINIC [address] | [address] [place], | Chronic bilateral | | | | [place], | [place] [address] | low back pain | | | | [place] [address] | [phone] | without sciatica; | | | | [phone] | | Gait disorder; Neck | | | | | Dulce Berkowitz | pain, bilateral | | | | | D, [address] | | | | | | [address] | | | | | | [place] [address] | | | | | | [phone] | | | | | | | [...] ck pain, bilateral Pathways: Medication Assessment and Concrete Pourer" Chart Notes/ Visit Details: An Initial Interview [...] new medication. Gerardo has an appointment in [place] soon to look at the stimulator that [...] chair and bed. CHW will speak with [employer] to see if insurances will cover those items with a prescription f rom a provider. CHW will follow up with Gerardo and Gloria as resources are discovered. Follow up home visit set for March 09, 2019 @ 4861. GIANNA Croft documented in thi s encounter [...] | | | | | | [place] [address] | | | | | | [phone] | | | | | | | [...]
--- OUTSIDE RECORDS SUMMARY | ~2019-08-18 | XMS | Encounter Summary ---
Demographics + + + | Address | [address] | | | [place] [address] | + + + | Home Phone [...] Team Providers + +------+ + | Care Economic Research Assistant Name | Role | Phone | + [...] [address] | | | | | [place] [address] | | | | | | [phone] | | | +--------+ + + + [...] | | | | | | [place] [address] | | | | | | [phone] | | | | | | | | +--------+---------+ + + + documented as of this encounter Visit Diagnoses Not on filedocumented in this encounter"
--- OUTSIDE RECORDS SUMMARY | ~2019-08-18 | XMS | Encounter Summary ---
Demographics + + + | Address | [address] | | | [place] [address] | + + + | Home Phone | | + + + | Preferred Language | Unknown | + + + | Marital Status | | + + + | Pentecostal Affiliation | Unknown | + + + | Race | Unknown | + + + | Ethnic Group | Unknown | + + + Author + + + | Author | [facility] | | | and [place] | + + + | Organization | [facility] | | | [...] Team Providers + +------+ + | Care Framing Specialist Name | Role | Phone | [...] with new | | | | [facility] [facility], | | PCP. ) | | | | [place] [address] | | | | | | [phone] | | | +--------+ + + + [...] | | | | | | [place] [address] | | | | | | [phone] | | | | | | | | +--------+---------+ + + + documented as of this encounter Visit Diagnoses Not on filedocumented in this encounter"
--- OUTSIDE RECORDS SUMMARY | ~2019-08-18 | XMS | Encounter Summary ---
Demographics + + + | Address | [address] | | | [place] [address] | + + + | Home Phone | | + + + | Preferred Language | Unknown | + + + | Marital Status | | + + + | Mandaen Affiliation | Unknown | + + + | Race | Unknown | + + + | Ethnic Group | Unknown | + + + Author + + + | Author | [facility] | | | and [place] | + + + | Organization | [facility] | [...] Team Providers + +------+ + | Care Ramp Boss Name | Role | Phone | + [...] | DR [address] [place], | [address] | unspecified back | | | | [place] [address] | | pain laterality | | | | [phone] | | (Primary Dx); | | | [...] | | | | | | [place] [address] | | | | | | [phone] | | | | | | | [...] + + | [facility] | [address] | [place] [address] | [phone] | | HOSPITAL LAB[facility]ATORY | | | | + + + + + documented in this encounter Visit Diagnoses + + | Diagnosis | + + | Chronic low back pain without sciatica, unspecified back pain laterality - Primary | + + | Encounter for therapeutic procedure | + + documented in this encounter"
--- OUTSIDE RECORDS SUMMARY | ~2019-08-18 | XMS | Encounter Summary ---
Demographics + + + | Address | [address] | | | [place] [address] | + + + | Home Phone [...] Team Providers + +------+ + | Care Client Program Manager Name | Role | Phone | [...] [id number] | | | | | [place] [address] | | | | | | [phone] | | | +--------+ + + + [...] | | | | | | [place] [address] | | | | | | [phone] | | | | | | | | +--------+---------+ + + + documented as of this encounter Visit Diagnoses Not on filedocumented in this encounter"
--- OUTSIDE RECORDS SUMMARY | ~2019-08-18 | XMS | Encounter Summary ---
Demographics + + + | Address | [address] | | | [place] [address] | + + + | Home Phone | | + + + | Preferred Language | Unknown | + + + | Marital Status | Single | + + + | Anabaptism Affiliation | Unknown | + + + | Race | White | + + + | Ethnic Group | Not or | + + + Author + + + | Author | [facility] | + + + | Organization | [facility] | + + + | Address | Unknown | + + + | Phone | Unavailable | + + + Support + + +---------+ + | Name | Relationship | Address | Phone | + + +---------+ + | Gloria Haynes | ECON | Unknown | | + + +---------+ + Care Team Providers + +------+ + | Care Associate Theatre Professor Name | Role | Phone | [...] [id number] | | | | | | [place], [place] | | | | | | [address] | | | | | | [phone] | | | +--------+ + + + [...]
--- OUTSIDE RECORDS SUMMARY | ~2019-08-18 | XMS | Encounter Summary ---
Demographics + + + | Address | [address] | | | [place] [address] | + + + | Home Phone [...] Team Providers + +------+ + | Care Right Of Way Man Name | Role | Phone | + [...] [id number] | | | | | [place] [address] | | | | | | [phone] | | | +--------+ + + + [...] | | | | | | [place] [address] | | | | | | [phone] | | | | | | | | +--------+---------+ + + + documented as of this encounter Visit Diagnoses Not on filedocumented in this encounter"
--- OUTSIDE RECORDS SUMMARY | ~2019-08-18 | XMS | Encounter Summary ---
Demographics + + + | Address | [address] | | | [place] [address] | + + + | Home Phone [...] Team Providers + +------+ + | Care Housekeeping Lead Name | Role | Phone | [...] | without | [address], | [place] [address] | | | | | sciatica, | [place] | Phone: | | | | | unspecified | [place], [place] | [phone] | | | | | back pain | [address] | Fax: | | | | | laterality | Phone: | [phone] | | | | | Procedures | [phone] | | | | | | CT Lumbar | Fax: | | | | | | Spine wo | [phone] | | | | | | Contrast [...] | without | [address], | [place] [address] | | | | | sciatica, | [place] | Phone: | | | | | unspecified | [place], [place] | [phone] | | | | | back pain | [address] | Fax: | | | | | laterality | Phone: | [phone] | | | | | Procedures | [phone] | | | | | | CT Lumbar | Fax: | | | | | | Spine wo | [phone] | | | | | | Contrast [...] | | | | [place], [place] | [address] | unspecified back | | | | [address] | | pain laterality | | | | [phone] | | | +--------+ + + + [...] | 2019 | Visit | | Sinai, CERTIFIED MEDICAL DOSIMETRIST [address] | | | | | [address] [place], | | | | | | [place] [address] | | | | | | [phone] | | | | | | | [...]
--- OUTSIDE RECORDS SUMMARY | ~2019-08-18 | XMS | Encounter Summary ---
Demographics + + + | Address | [address] | | | [place] [address] | + + + | Home Phone [...] Team Providers + +------+ + | Care Retail Parts Pro Name | Role | Phone | + [...] | | | DR [place] [place], | [address] | unspecified back | | | | [place] [address] | | pain laterality | | | | [phone] | | (Primary Dx); | | | [...] | | | | [facility], | | | | | | [place] [address] | | | | | | [phone] | | | | | | | [...]
--- OUTSIDE RECORDS SUMMARY | ~2019-08-18 | XMS | Clinical Summary ---
Demographics + + + | Address | [address] | | | [place] [address] | + + + | Home Phone | | + + + | Preferred Language | Unknown | + + + | Marital Status | | + + + | Buddhist Affiliation | Unknown | + + + | Race | Unknown | + + + | Ethnic Group | Unknown | + + + Author + + + | Author | [facility] | | | and [place] | + + + | Organization | [facility] | | [...] Team Providers + +------+ + | Care Engineering Drawings Checker Name | Role | Phone | + [...] disease | | | | | | ([facility]); Gait disorder | +--------+ + + [...] type | | | | | | ([facility]); | | | | | | [...] | | | | | | [place] [address] | | | | | | [phone] | | | | | | | [...] + + | [facility] | [address] | [place] [address] | [phone] | | HOSPITAL LAB[facility]ATORY | | | [...] | mL/min/1.73m2 | [facility] | | | [facility] | | [facility] | | | [...] + + | [facility] | [address] | [place] [address] | [phone] | | HOSPITAL LABORATORY | | | [...] + + | [facility] [facility] | [address] | [place] [address] | [phone] | | HOSPITAL LAB[facility]ATORY | | | [...] + + | [facility] | [address] | [place] [address] | [phone] | | HOSPITAL LAB[facility]ATORY | | | [...] + + | [facility] | [address] | [place] [address] | [phone] | | HOSPITAL LAB[facility]ORY | | | [...] + + | [facility] | [address] | [place] [address] | [phone] | | HOSPITAL LAB[facility]ORY | | | | + + + + + Troponin I (06/17/2019 3:00 AM PDT)Only the most recent of 3 results within the time stefaon woodson is included. + +-------+ + + [...] | cutoff point for the diagnosis of [place] is 0.8 ng/mL for the Troponin I | | | method. | | + + + + + + + + | Performing | Address | City/State/Zipcode | Phone Number | | Organization | | | | + + + + + | [facility] | [address] | [place] [address] | [phone] | | HOSPITAL LAB[facility]ATORY | | | [...] + + | [facility] | [address] | [place] [address] | [phone] | | HOSPITAL LAB[facility]ORY | | | [...] + + | [facility] [facility] | [address] | [place] [address] | [phone] | | HOSPITAL LAB[facility]ORY | | | [...] - 1.030 | [place] | | | Hoyt | | | [facility] | | | [...] + + | [facility] [facility] | [address] | [place] [address] | [phone] | | HOSPITAL LAB[facility]ATORY | | | [...] At | + + + | Current [facility] clinical laboratory antibiogram data can be found on the | [place] [facility] | | [facility] intranet at | HOSPITAL | | [email or web address] or on | LABORATORY | | the [facility] website at [email or web address] | | + + + + + + + + | Performing | Address | City/State/Zipcode | Phone Number | | Organization | | | | + + + + + | [facility] | [address] | [place] [address] | [phone] | | HOSPITAL LAB[facility]ATORY | | | [...] | | 438 msQTC Interval: 476 msQRS [place]: -3 degT Wave [place]: 54 deg- | | | ABNORMAL ECG -Sinus rhythmNonspecific intraventricular conduction | | | delayMinimal ST elevation, anterior leadsNo previous ECG available for | | | comparison | | |QRS [place]: -3 deg | | |T Wave [place]: 54 deg | | |- ABNORMAL ECG [...] + + | [facility] | [address] | [place] [address] | [phone] | | HOSPITAL LAB[facility]ORY | | | [...] + + | [facility] | [address] | [place] [address] | [phone] | | HOSPITAL LAB[facility]ORY | | | [...] + + | [facility] | [address] | [place] [address] | [phone] | | HOSPITAL LAB[facility]ORY | | | [...] + + | [facility] | [address] | [place] [address] | [phone] | | HOSPITAL LAB[facility]ATORY | | | [...] | mL/min/1.73m2 | [facility] | | | [facility] | RATE,ESTIMATED | | HOSPITAL | | | | mL/min/1.40b5Ilrn than | | LABORATORY | | | [...] + + | [facility] | [address] | [place] [address] | [phone] | | HOSPITAL LABORATORY | | | [...] +--------+ +---------+--------+ | MEDICARE | MEDICA | [id number] | 04/26/20 | [phone] | | Medica | | | RE | | 09-Pre | 5 | | re | | | PART A | | sent | | | | | | AND B | | | | | | + +--------+ +--------+ +---------+--------+ | [employer] | [place] | [id number] | 12/26/19 | | | Indemn | [...] Person | Self | [birth year] | [address] | | | al/Fam | | 1951 | [phone] | Rd [place], [place] | | | graciela | | | 8 (Home) | [address] | + +--------+ +--------+ + + Advance Directives + + + + + | Type | Date Recorded | Patient | Explanation | | | | Insulation Power Unit Tender | | + + + + + | Power of | | | | | Rubber Calender Helper | | | | + + + [...]
--- OUTSIDE RECORDS SUMMARY | ~2019-08-18 | XMS | Encounter Summary ---
Demographics + + + | Address | [address] | | | [place] [address] | + + + | Home Phone [...] Team Providers + +------+ + | Care Tread Builder Name | Role | Phone | + [...] [id number] | | | | | [place] [address] | | | | | | [phone] | | | +--------+ + + + [...] | | | | | | [place] [address] | | | | | | [phone] | | | | | | | | +--------+---------+ + + + documented as of this encounter Visit Diagnoses Not on filedocumented in this encounter"
--- OUTSIDE RECORDS SUMMARY | ~2019-08-18 | XMS | Encounter Summary ---
Demographics + + + | Address | [address] | | | [place] [address] | + + + | Home Phone [...] Providers + +------+ + | Care Senior Program Planner Name | Role | Phone | + [...] | | | | [place], [place] | [address] | | | | | [address] | | | | | | [phone] | | | +--------+ + + + [...] | | | | | | [address] [facility], | | | | | | [place] [address] | | | | | | [phone] | | | | | | | [...] is noted at C3 through | | V8Mdphkssjts facet and uncovertebral hypertrophyNo prevertebral soft tissue [...]
--- OUTSIDE RECORDS SUMMARY | ~2019-08-18 | XMS | Encounter Summary ---
Demographics + + + | Address | [address] | | | [place] [address] | + + + | Home Phone | | + + + | Preferred Language | Unknown | + + + | Marital Status | Single | + + + | Judaism Affiliation | Unknown | + + + | Race | White | + + + | Ethnic Group | Not or | + + + Author + + + | Author | [facility] | + + + | Organization | [facility] | + + + | Address | Unknown | + + + | Phone | Unavailable | + + + Support + + +---------+ + | Name | Relationship | Address | Phone | + + +---------+ + | Gloria Haynes | ECON | Unknown | | + + +---------+ + Care Team Providers + +------+ + | Care Clinical Secretary Name | Role | Phone | + +------+ + | Jory Segovia MD | PCP | | + +------+ + Encounter Details +--------+ + + + + | Date | Type | Department | Care Team | Description | +--------+ + + + + | 01/15/ | Ancillary | Registration [id number] | | | | 2006 | Registratio | [address] | | | | | n | [address] Mailcode: [id number] | | | | | | [place], [place] | | | | | | [address] | | | | | | [phone] | | | +--------+ + + + [...]
--- OUTSIDE RECORDS SUMMARY | ~2019-08-18 | XMS | Encounter Summary ---
Demographics + + + | Address | [address] | | | [place] [address] | + + + | Home Phone | | + + + | Preferred Language | Unknown | + + + | Marital Status | | + + + | Christianity Affiliation | Unknown | + + + | Race | Unknown | + + + | Ethnic Group | Unknown | + + + Author + + + | Author | [facility] | | | and [place] | + + + | Organization | [facility] | | [...] Team Providers + +------+ + | Care Label Cutter Name | Role | Phone | + [...] | without | [address], | [place] [address] | | | | | sciatica, | [place] A [place] | Phone: | | | | | unspecified | [place], [place] | [phone] | | | | | back pain | [address] | Fax: | | | | | laterality | Phone: | [phone] | | | | | Procedures | [phone] | | | | | | CT Lumbar | Fax: | | | | | | Spine wo | [phone] | | | | | | Contrast [...] | without | [address], | [place] [address] | | | | | sciatica, | [place] | Phone: | | | | | unspecified | [place], [place] | [phone] | | | | | back pain | [address] | Fax: | | | | | laterality | Phone: | [phone] | | | | | Procedures | [phone] | | | | | | CT Lumbar | Fax: | | | | | | Spine wo | [phone] | | | | | | Contrast [...] | | | | [place], [place] | [address] | unspecified back | | | | [address] | | pain laterality | | | | [phone] | | | +--------+ + + + [...] | 2019 | Visit | | Sinai, ANNUAL GIVING DIRECTOR [address] | | | [address] [place], | | | | | | [place] [address] | | | | | | [phone] | | | | | | | [...]
--- OUTSIDE RECORDS SUMMARY | ~2019-08-18 | XMS | Encounter Summary ---
Demographics + + + | Address | [address] | | | [place] [address] | + + + | Home Phone | | + + + | Preferred Language | Unknown | + + + | Marital Status | | + + + | Yarsanism Affiliation | Unknown | + + + | Race | Unknown | + + + | Ethnic Group | Unknown | + + + Author + + + | Author | [facility] | | | and [place] | + + + | Organization | [facility] | | | [...] Team Providers + +------+ + | Care Office Auditor Name | Role | Phone | + [...] | DR [address] [place], | [address] | unspecified back | | | | [place] [address] | | pain laterality | | | | [phone] | | (Primary Dx); | | | [...] | | | | | | [place] [address] | | | | | | [phone] | | | | | | | [...] + + | [facility] [facility] | [address] | [place] [address] | [phone] | | HOSPITAL LABORATORY | | | | + + + + + documented in this encounter Visit Diagnoses + + | Diagnosis | + + | Chronic low back pain without sciatica, unspecified back pain laterality - Primary | + + | Encounter for therapeutic procedure | + + documented in this encounter"
--- OUTSIDE RECORDS SUMMARY | ~2019-08-18 | XMS | Encounter Summary ---
Demographics + + + | Address | [address] | | | [place] [address] | + + + | Home Phone [...] Team Providers + +------+ + | Care Court Advocate Name | Role | Phone | + [...] | | | | disease | on [place] | [facility] | | | | | (HCC) | [address] | Rd | | | | | Procedures | CENTER | Mailcode: | | | | | MRI [place] WO | [address] | | | | | CONTRAST | [facility] | [place] | | | | | | [address] | Research | | | | | | [facility] | | | | | | [place] [address] | [place], [place] | | | | | | Phone: | [address] | | | | | | [phone] | Phone: | | | | | | Fax: | [phone] | | | | | | [phone] | Fax: | | | | | | | [phone] | +--------+--------+ + + + + Encounter Details +--------+ + + + + | Date | Type | Department | Care Team | Description | +--------+ + + + + | 10/03/ | Hospital | Diagnostic Imaging | | | | 2010 | Encounter | Services at [facility] | | | | | | [address] | | | | | | Jazlyn Rene Mailcode: | | | | | | [address] | | | | | | [facility] | | | | | | [place], [place] | | | | | | [address] | | | | | | [phone] | | | +--------+ + + + [...]
--- OUTSIDE RECORDS SUMMARY | ~2019-08-18 | XMS | Encounter Summary ---
Demographics + + + | Address | [address] | | | [place] [address] | + + + | Home Phone [...] | Author | [facility] | | | and [place] | + + + | Organization | [facility] | | [...] Team Providers + +------+ + | Care Real Estate Agency Principal Name | Role | Phone | + +------+ + | Екатерина Christianson NP | PCP | | + +------+ + Encounter Details +--------+ + + + + | Date | Type | Department | Care Team | Description | +--------+ + + + + | 07/09/ [facility] | Mac Bond MD | Chronic bilateral | | 2018 | Encounter | HOSPITAL XRAY [address] | [address] | low back pain | | | | [address] | [place], [place] | without sciatica | | | | [place], [place] | [address] | | | | | [address] | | | | | | [phone] | | | +--------+ + + + [...] | | | | | | [place] [address] | | | | | | [phone] | | | | | | | [...] back pain COMPARISON STUDY: None FINDINGS: 5 szr-qys-naepran | | | lumbar vertebral bodies. [place] left lower lumbar scoliosis. There is | [...] | | VWHISTORY:persistent low back painCOMPARISON STUDY:NoneFINDINGS:5 zjc-gtv-syvcrsx lumbar | | vertebral bodies.[place] left lower lumbar scoliosis.There is postsurgical change [...] | spine.Atherosclerosis.Dictated by: Manuelito Connoram | |5 jjr-kbg-tirdaco lumbar vertebral bodies. | |[place] left lower lumbar scoliosis. | |There is [...]
--- OUTSIDE RECORDS SUMMARY | ~2019-08-18 | XMS | Encounter Summary ---
Demographics + + + | Address | [address] | | | [place] [address] | + + + | Home Phone | | + + + | Preferred Language | Unknown | + + + | Marital Status | Single | + + + | Jehovah'S Witness Affiliation | Unknown | + + + | Race | White | + + + | Ethnic Group | Not or | + + + Author + + + | Author | [facility] | + + + | Organization | [facility] | + + + | Address | Unknown | + + + | Phone | Unavailable | + + + Support + + +---------+ + | Name | Relationship | Address | Phone | + + +---------+ + | Gloria Haynes | ECON | Unknown | | + + +---------+ + Care Team Providers + +------+ + | Care Pulverizer Feeder Name | Role | Phone | + +------+ + PCP | Unavailable | + +------+ + Encounter Details +--------+ + + + + | Date | Type | Department | Care Team | Description | +--------+ + + + + | 06/06/ | Results | Neurology at | Jory Segovia MD | | | 2006 | Only | [facility] & | [address] | | | | | Healing [address] | | | | | Lemuel Maciel Mailcode: | [place], [place] | | | | | [address] | [address] | | | | | Health and Healing, | [phone] | | | | | | | | | | | Floor [place], [place] | | | | | | [address] | | | | | | [phone] | | | +--------+ + + + [...] DEPARTMENT OF | [address] | [place] [address] | | | PATHOLOGY | [address] | | | + + + + + | [facility] DEPARTMENT OF | [address] | [place] [address] | | | PATHOLOGY | [address] [...] [facility] DEPARTMENT OF | [address] | [place] [address] | | | PATHOLOGY | [address] | | | + + + + + | [facility] | [address] | [place] [address] | | | PATHOLOGY | [address] [...] | + + + + + | [facility] DEPARTMENT OF | [address] | [place] [address] | | | PATHOLOGY | [address] | | | + + + + + | [facility] DEPARTMENT | [address] | [place] [address] | | | PATHOLOGY | [address] [...] + + + | [facility] | [address] | [place] [address] | | | PATHOLOGY | [address] | | | + + + + + | [facility] | [address] [place] [address] | [place] [address] | | | PATHOLOGY | [address] [...] DEPARTMENT OF | [address] | [place] [address] | | | PATHOLOGY | [address] | | | + + + + + | [facility] DEPARTMENT OF | [address] | [place] [address] | | | PATHOLOGY | [address] [...] + + + | [facility] | [address] | [place] [address] | | | PATHOLOGY | [address] | | | + + + + + | [facility] | [address] | [place] [address] | | | PATHOLOGY | [address] | | | + + + + + documented in this encounter Visit Diagnoses Not on filedocumented in this encounter"
--- OUTSIDE RECORDS SUMMARY | ~2019-08-18 | XMS | Encounter Summary ---
Demographics + + + | Address | [address] | | | [place] [address] | + + + | Home Phone | | + + + | Preferred Language | Unknown | + + + | Marital Status | | + + + | Hoahaoism Affiliation | Unknown | + + + | Race | Unknown | + + + | Ethnic Group | Unknown | + + + Author + + + | Author | [facility] | | | and [place] | + + + | Organization | [facility] | | [...] Team Providers + +------+ + | Care Shaping Machine Operator Name | Role | Phone [...] [address] | | | | | [place] [address] | | | | | | [phone] | | | +--------+ + + + [...] | | | | | | [place] [address] | | | | | | [phone] | | | | | | | | +--------+---------+ + + + documented as of this encounter Visit Diagnoses Not on filedocumented in this encounter"
--- OUTSIDE RECORDS SUMMARY | ~2019-08-18 | XMS | Encounter Summary ---
Demographics + + + | Address | [address] | | | [place] [address] | + + + | Home Phone [...] Team Providers + +------+ + | Care Movement Assembler Name | Role | Phone | [...] | without | [address], | [place] [address] | | | | | sciatica, | [place] | Phone: | | | | | unspecified | [place], [place] | [phone] | | | | | back pain | [address] | Fax: | | | | | laterality | Phone: | [phone] | | | | | Procedures | [phone] | | | | | | CT Lumbar | Fax: | | | | | | Spine wo | [phone] | | | | | | Contrast [...] | without | [address], | [place] [address] | | | | | sciatica, | [place] | Phone: | | | | | unspecified | [place], [place] | [phone] | | | | | back pain | [address] | Fax: | | | | | laterality | Phone: | [phone] | | | | | Procedures | [phone] | | | | | | CT Lumbar | Fax: | | | | | | Spine wo | [phone] | | | | | | Contrast [...] | | | | [place], [place] | [address] | unspecified back | | | | [address] | | pain laterality | | | | [phone] | | | +--------+ + + + [...] | 2019 | Visit | | Sinai, READING PROFESSOR [address] | | | [address] [place], | | | | | | [place] [address] | | | | | | [phone] | | | | | | | [...]
--- OUTSIDE RECORDS SUMMARY | ~2019-08-18 | XMS | Encounter Summary ---
Demographics + + + | Address | [address] | | | [place] [address] | + + + | Home Phone [...] Team Providers + +------+ + | Care Monotype Operator Name | Role | Phone | [...] | | | | | | [place] [address] | | | | | | [phone] | | | +--------+ + + + [...] | | | | | | [facility] [facility] [place], | | | | | | [place] [address] | | | | | | [phone] | | | | | | | | +--------+---------+ + + + documented as of this encounter Visit Diagnoses Not on filedocumented in this encounter"
--- OUTSIDE RECORDS SUMMARY | ~2019-08-18 | XMS | Encounter Summary ---
Demographics + + + | Address | [address] | | | [place] [address] | + + + | Home Phone | | + + + | Preferred Language | Unknown | + + + | Marital Status | | + + + | Druze Affiliation [...] Team Providers + +------+ + | Care Biazzi Nitrator Operator Name | Role | Phone | [...] | | | | [place], [place] | [address] | | | | | [address] | | | | | | [phone] | Laxmi Draper Wgr | | +--------+ [...] | | | | | | | ([facility]) | | | | | | [...] | | | | | | | ([facility]) | | | | | | [...] | | | | | | [address] [facility], | | | | | | [place] [address] | | | | | | [phone] | | | | | | | [...]
--- OUTSIDE RECORDS SUMMARY | ~2019-08-18 | XMS | Encounter Summary ---
Demographics + + + | Address | [address] | | | [place] [address] | + + + | Home Phone | | + + + | Preferred Language | Unknown | + + + | Marital Status | | + + + | Yarsani Affiliation | Unknown | + + + | Race | Unknown | + + + | Ethnic Group | Unknown | + + + Author + + + | Author | [facility] | | | and [place] | + + + | Organization | [facility] | | | [...] Providers + +------+ + | Care Library Manager Name | Role | Phone | [...] | | | | [place], [place] | [address] | | | | | [address] | | | | | | [phone] | Laxmi Draper Wgr | | +--------+ [...] | | | | | | | ([facility]) | | | | | | + [...] | | | | | | | ([facility]) | | | | | | + [...] | | | | | | [address]TH [facility], | | | | | | [place] [address] | | | | | | [phone] | | | | | | | [...]
--- OUTSIDE RECORDS SUMMARY | ~2019-08-18 | XMS | Encounter Summary ---
Demographics + + + | Address | [address] | | | [place] [address] | + + + | Home Phone [...] Team Providers + +------+ + | Care Student Services Advisor Name | Role | Phone | + [...] | | Required | | disease | RADIATION ENGINEER [address] | | | | | (HCC) Neck | [address] | | | | | pain, | [place], [place] | [place] | | | | | bilateral | [address] | [place], [place] | | | | | Chronic | Phone: | [address] Phone: | | | | | bilateral | [phone] | [phone] | | | | | low back | Fax: | Fax: | | | | | pain with | [phone] | [phone] | | | | | right-sided | [...] 03/09/ | Off-Site | [place] [facility] | M[place], | Parkinson disease | | 2019 | Visit | HOSPITAL NEUROLOGY | [facility], RADIATION ENGINEER [address] | ([facility]) (Primary Dx); | | | | CLINIC [address] | [address] [place], | Chronic bilateral | | | | [place], | [place] [address] | low back pain | | | | [place] [address] | [phone] | without sciatica; | | | | [phone] | | Gait disorder; Neck | | | | | Dulce Berkowitz | pain, bilateral | | | | | D, [address] | | | | | | [address] | | | | | | [place] [address] | | | | | | [phone] | | | | | | | [...] pain Pathways: Medical Home, Medication Assessment and Certified Residential Medication Aide" Chart Notes/ Visit Details: During the follow [...] are getting worse. He recently went to [place] to h ave his neruological stimulator looked [...] care. 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 Nitesh has asked to establish with a new PCP, preferable one in [place] at [facility]. I will call the offices there and [...] | | | | | [address] [place], | | | | | | [place] [address] | | | | | | [phone] | | | | | | | [...]
--- OUTSIDE RECORDS SUMMARY | ~2019-08-18 | XMS | Encounter Summary ---
Demographics + + + | Address | [address] | | | [place] [address] | + + + | Home Phone [...] Team Providers + +------+ + | Care Yacht Hand Name | Role | Phone | [...] | | [place], [place] | [place] [address] | unspecified acute | | 2018 | | [address] | [phone] | renal failure type | | | | [phone] | | ([facility]); | | | | | Fidel Muir, | Hypermagnesemia; | | | | | [address] | Acute cystitis with | | | | | [place] [address] | hematuria | | | | | [phone] | | | | | | | | | | | | Gina Main, | | | | | | [address] [place] | | | | | | [place] [address] | | | | | | [phone] | | | | | | | [...] He is transferring in stable condition to [facility] this afternoon. Incidentally-an ECHO was performed however [...] in place. Dictated by: Nato Turner Disposition: long term facility Follow-Up Plans: [address] [place] [id number] Electronically signed by: Fidel Muir MD 06/19/2019 12:57 CC [facility] Time spent discharging this patient: 30 minutes documented in this encounter Discharge Instructions AttachmentsThe following attachments cannot be sent through Care Everywhere.Kidney Injury, Acute, Discharge Instructions for (Divehi)documented in this encounter Medications at Time of [...] | | | | | | | ([facility]) | | | | | | [...] medication list provided for disc harge to retirement facility. Electronically signed by: Gumaro Hernández, Mary [...] strength, and directions [x] Pharmacy list names: [place], [facility] ([place]) Spoke with patient that could recall some [...] | 2019 | Visit | | [facility] [address] | | | | | | [facility]TH [facility], | | | | | | [place] [address] | | | | | | [phone] | | | | | | | [...] + + | [place] [facility] | [address] | [place] [address] | [phone] | | HOSPITAL LABORATORY | | | [...] | mL/min/1.73m2 | [facility] | | | [facility] | | [facility] | | | [...] + + | [place] [facility] | [address] | [place] [address] | [phone] | | HOSPITAL LABORATORY | | | [...] + + | [place] [facility] | [address] | [place] [address] | [phone] | | HOSPITAL LABORATORY | | | [...] | mL/min/1.73m2 | [facility] | | | [facility] | | | [facility] | | | [...] + + | [place] [facility] | [address] | [place] [address] | [phone] | | HOSPITAL LABORATORY | | | [...] + + | [place] [facility] | [address] | [place] [address] | [phone] | | HOSPITAL LABORATORY | | | [...] + + | [place] [facility] | [address] | [place] [address] | [phone] | | HOSPITAL LAB[facility]ATORY | | | [...] + + | [place] [facility] | [address] | [place] [address] | [phone] | | HOSPITAL LABORATORY | | | [...] + + | [place] [facility] | [address] | [place] [address] | [phone] | | HOSPITAL LAB[facility]ATORY | | | [...] | mL/min/1.73m2 | [facility] | | | [facility] | | | [facility] | | | [...] + + | [place] [facility] | [address] | [place] [address] | [phone] | | HOSPITAL LABORATORY | | | [...] | cutoff point for the diagnosis of AR is 0.8 ng/mL for the Troponin I | | | method. | | + + + + + + + + | Performing | Address | City/State/Zipcode | Phone Number | | Organization | | | | + + + + + | [place] [facility] | [address] | [place] [address] | [phone] | | HOSPITAL LABORATORY | | | [...] | cutoff point for the diagnosis of AR is 0.8 ng/mL for the Troponin I | | | method. | | + + + + + + + + | Performing | Address | City/State/Zipcode | Phone Number | | Organization | | | | + + + + + | [place] [facility] | [address] | [place] [address] | [phone] | | HOSPITAL LABORATORY | | | [...] + + | [place] [facility] | [address] | [place] [address] | [phone] | | HOSPITAL LAB[facility]ATORY | | | [...] + + | [place] [facility] | [address] | [place] [address] | [phone] | | HOSPITAL LABORATORY | | | [...] At | + + + | Current [facility] clinical laboratory antibiogram data can be found on the | [facility] [facility] | | [facility] intranet at | HOSPITAL | | [email or web address] or on | LABORATORY | | the [facility] website at [email or web address] | | + + + + + + + + | Performing | Address | City/State/Zipcode | Phone Number | | Organization | | | | + + + + + | [facility] [facility] | [address] | [place] [address] | [phone] | | HOSPITAL LABORATORY | | | [...] - 1.030 | [place] | | | [place] | | | [facility] | | | [...] + + | [facility] [facility] | [address] | [place] [address] | [phone] | | HOSPITAL LAB[facility]ATORY | | | [...] | | 438 msQTC Interval: 476 msQRS Furlong: -3 degT Wave Furlong: 54 deg- | | | ABNORMAL ECG -Sinus rhythmNonspecific intraventricular conduction | | | delayMinimal ST elevation, anterior leadsNo previous ECG available for | | | comparison | | |QRS Furlong: -3 deg | | |T Wave Furlong: 54 deg | | |- ABNORMAL ECG [...] + + | [place] [facility] | [address] | [place] [address] | [phone] | | HOSPITAL LAB[facility]ATORY | | | [...] + + | [place] [facility] | [address] | [place] [address] | [phone] | | HOSPITAL LAB[facility]ATORY | | | [...] + + | [place] [facility] | [address] | [place] | [phone] | | HOSPITAL LABORATORY | | | [...] + + | [place] [facility] | [address] | [place] [address] | [phone] | | HOSPITAL LABORATORY | | | [...] + + | [facility] [facility] | [address] | [place] [address] | [phone] | | HOSPITAL LABORATORY | | | [...] | cutoff point for the diagnosis of AR is 0.8 ng/mL for the Troponin I | | | method. | | + + + + + + + + | Performing | Address | City/State/Zipcode | Phone Number | | Organization | | | | + + + + + | [facility] [facility] | [address] | [place] [address] | [phone] | | HOSPITAL LABORATORY | | | [...] | mL/min/1.73m2 | [facility] | | | [facility] | RATE,ESTIMATED | | HOSPITAL | | | | mL/min/1.55p5Aqsc than | | LABORATORY | | | [...] + + | [place] [facility] | [address] | [place] [address] | [phone] | | HOSPITAL LABORATORY | | | [...] + + | [facility] [facility] | [address] | [place] [address] | [phone] | | HOSPITAL LABORATORY | | | [...]
--- OUTSIDE RECORDS SUMMARY | ~2019-08-18 | XMS | Encounter Summary ---
Demographics + + + | Address | [address] | | | [place] [address] | + + + | Home Phone | | + + + | Preferred Language | Unknown | + + + | Marital Status | Single | + + + | Spiritism Affiliation [...] Team Providers + +------+ + | Care Volunteer Manager Name | Role | Phone | + +------+ + PCP | Unavailable | + +------+ + Encounter Details +--------+ + + + + | Date | Type | Department | Care Team | Description | +--------+ + + + + | 06/06/ | Results | Neurology at | Jory Segovia MD | | | 2006 | Only | [facility] & | [address] | | | | | Healing [address] | | | | | Lemuel Maciel Mailcode: | [place], [place] | | | | | [address] | [address] | | | | | Health and Healing, | [phone] | | | | | | | | | | | Floor [place], [place] | | | | | | [address] | | | | | | [phone] | | | +--------+ + + + [...] | + + + + + | [facility] DEPARTMENT OF | [address] | [place] [address] | | | PATHOLOGY | [address] | | | + + + + + | [facility] DEPARTMENT OF | [address] | [place] [address] | | | PATHOLOGY | [address] [...] | + + + + + | [facility] DEPARTMENT OF | [address] [facility] | [place] [address] | | | PATHOLOGY | [address] | | | + + + + + | [facility] | [address] [facility] [address] | [place] [address] | | | PATHOLOGY | [address] [...] | + + + + + | [facility] DEPARTMENT OF | [address] | [place] [address] | | | PATHOLOGY | [address] | | | + + + + + | [facility] DEPARTMENT | [address] | [place] [address] | | | PATHOLOGY | [address] [...] | + + + + + | [facility] | [address] [facility] | [place] [address] | | | PATHOLOGY | [address] | | | + + + + + | [facility] | [address] [place] [address] | [place] [address] | | | PATHOLOGY | [address] [...] DEPARTMENT OF | [address] | [place] [address] | | | PATHOLOGY | [address] | | | + + + + + | [facility] DEPARTMENT OF | [address] | [place] [address] | | | PATHOLOGY | [address] [...] | + + + + + | [facility] | [address] | [place] [address] | | | PATHOLOGY | [address] | | | + + + + + | [facility] | [address] | [place] [address] | | | PATHOLOGY | [address] | | | + + + + + documented in this encounter Visit Diagnoses Not on filedocumented in this encounter"
--- OUTSIDE RECORDS SUMMARY | ~2019-08-18 | XMS | Encounter Summary ---
Demographics + + + | Address | [address] | | | [place] [address] | + + + | Home Phone | | + + + | Preferred Language | Unknown | + + + | Marital Status | | + + + | Episcopal Affiliation [...] Team Providers + +------+ + | Care Mechanical Spreader Operator Name | Role | Phone | [...] [id number] | | | | | [place] [address] | | | | | | [phone] | | | +--------+ + + + [...] | | | | | | [place] [address] | | | | | | [phone] | | | | | | | | +--------+---------+ + + + documented as of this encounter Visit Diagnoses Not on filedocumented in this encounter"
--- OUTSIDE RECORDS SUMMARY | ~2019-08-18 | XMS | Encounter Summary ---
Demographics + + + | Address | [address] | | | [place] [address] | + + + | Home Phone | | + + + | Preferred Language | Unknown | + + + | Marital Status | | + + + | Pentecostal Affiliation | Unknown | + + + | Race | Unknown | + + + | Ethnic Group | Unknown | + + + Author + + + | Author | [facility] | | | and [place] | + + + | Organization | [facility] | | [...] Team Providers + +------+ + | Care Blueprint Clerk Name | Role | Phone | [...] [id number] | | | | | [place] [address] | | | | | | [phone] | | | +--------+ + + + [...] | | | | | | [place] [address] | | | | | | [phone] | | | | | | | | +--------+---------+ + + + documented as of this encounter Visit Diagnoses Not on filedocumented in this encounter"
--- OUTSIDE RECORDS SUMMARY | ~2019-08-18 | XMS | Encounter Summary ---
Demographics + + + | Address | [address] | | | [place] [address] | + + + | Home Phone [...] Team Providers + +------+ + | Care Hplc Chemist Name | Role | Phone | + [...] [id number] | | | | | [place] [address] | | | | | | [phone] | | | +--------+ + + + [...] | | | | | | [place] [address] | | | | | | [phone] | | | | | | | | +--------+---------+ + + + documented as of this encounter Visit Diagnoses Not on filedocumented in this encounter"
--- OUTSIDE RECORDS SUMMARY | ~2019-08-18 | XMS | Encounter Summary ---
Demographics + + + | Address | [address] | | | [place] [address] | + + + | Home Phone | | + + + | Preferred Language | Unknown | + + + | Marital Status | | + + + | Sabianism Affiliation | Unknown | + + + | Race | Unknown | + + + | Ethnic Group | Unknown | + + + Author + + + | Author | [facility] | | | and [place] | + + + | Organization | [facility] | | | [...] Team Providers + +------+ + | Care Land Economist Name | Role | Phone | + [...] [id number] | | | | | [place] [address] | | | | | | [phone] | | | +--------+ + + + [...] | | | | | | [place] [address] | | | | | | [phone] | | | | | | | | +--------+---------+ + + + documented as of this encounter Visit Diagnoses Not on filedocumented in this encounter"
--- OUTSIDE RECORDS SUMMARY | ~2019-08-18 | XMS | Encounter Summary ---
Demographics + + + | Address | [address] | | | [place] [address] | + + + | Home Phone [...] Providers + +------+ + | Care Software Test Automation Engineer Name | Role | Phone | [...] Provide Resources | | 2019 | | [facility] | [facility] | | | | | MEDICAL CLINIC [address] | | | | | | [address]TH [facility], | | | | | | [place] [address] | | | | | | [phone] | | | +--------+ + + + [...] | | | | | | 4TH [facility] [place], | | | | | | [place] [address] | | | | | | [phone] | | | | | | | | +--------+---------+ + + + documented as of this encounter Visit Diagnoses Not on filedocumented in this encounter"
--- OUTSIDE RECORDS SUMMARY | ~2019-08-18 | XMS | Encounter Summary ---
Demographics + + + | Address | [address] | | | [place] [address] | + + + | Home Phone [...] Team Providers + +------+ + | Care Wool Washing Machine Operator Name | Role | Phone [...] | | | | | bilateral | [address] | [place], [place] | | | | | low back | Phone: | [address] | | | | | pain without | [phone] | Phone: | | | | | sciatica | Fax: | [phone] | | | | | Neck pain, | [phone] | Fax: | | | | | bilateral | | [phone] | +--------+ + + + + + [...] | Required | | legs | Jonathan, FEATHER STITCHER | [address] | | | | | syndrome | [address] | | | | | Procedures | [place] | [place], [place] | | | | | Evaluate & | Edgard Vu | [address] Phone: | | | | | Treat | [place], [place] | [phone] | | | | | | [address] | Fax: | | | | | | Phone: | [phone] | | | | | | [phone] | | +--------+ + + + + + Encounter Details +--------+---------+ + + + | Date | Type | Department | Care Team | Description | +--------+---------+ + + + | 07/09/ | Office | [place] [facility] | Mac Bond MD | Parkinson disease | | 2018 | Visit | HOSPITAL NEUROLOGY | [address] | ([facility]); Gait | | | | CLINIC [address] | [place], [place] | disorder; Chronic | | | | [address] [place], | [address] | bilateral low back | | | | [place] [address] | | pain without | | | | [phone] | | sciatica; Neck pain, | | [...] be different from the original. Patient Instructions [facility] Neurology Clinic Dr. Mac Bond, Neurologist Date:07/09/2018 [...] Vws XR Lumbar Spine 4 + Vw [facility] Physical Therapy, External - AMB Referral Treatment Option- massage, Acupuncture, Over the counter heat patches (icy hot, thermacare, salonpas) , over the counter creams (aspercream, bengay cream, emu oi l), Relaxation therapy, Water therapy, Cortisone shots, Toradol Injections Suggest reading newspapers. magazines, perform word find exercises such as cross word puzz le, and scrabble, other puzzle games like SudTigerstripeu, MahSmartjogng. Play computer/mobile applications such as WeeWorld and MIND GAMES Vit E and Vit B complexes (1, 6, and 12) Toradol 60 mg IM for intractable neck an d low back pain, pain scale 6-7/10 Any Questions please call ELIAS Canales or Dr. Bond at [facility] Neurology Clinic General Neck and Back Pain [...] are taking other medicines. You may use dkye-jnx-hmbszqg medicine to control pain, unless another pain [...] by your healthcare provider Date Last Reviewed: 02/24/201619999095-3663 [employer]. [address] [place] [address]. All righ ts reserved. This information is [...] use ice several times a day. ?Medicines Gaob-upq-arhoorh pain relievers can includeacetaminophen and anti-inflammatory medicines, [...] a heating p ad. Date Last Reviewed: 04/26/201519990243-[address] [employer] [place], [place] [address]. All righ ts reserved. This information is [...] and knives if it s hard to industrial seamstress utensils. Spill-proof cups can help with drinking. [...] voice-activated soft mcwilliams for computers. Use foam chief enterprise architect on pens and pencils. These can make them easier to hold. Sleeping Manypeople with Parkinson have trouble sleeping. They may also move in their sleep and st rike their partners. Tell your healthcare provider if you re having sleep problems or recu rrent nightmares. Medicinecan often help you sleep better. Check with your healthcare prov ider before using baal-jhl-cwxyzdo medicines to help you sleep. Getting out [...] or begin having falls. Date Last Reviewed: 10/24/201719999188-0681 [employer]. [address] [place] [address], [place] [address]. All righ ts reserved. This information is [...] The diagnosis is based on your symptoms, [facility] history, and a physical exam. You [...] Parkinson disease. Date Last Reviewed: 09/26/2017 [employer]. [address] [place] [address]. All righ ts reserved. This information is [...] other procedures you may have heard abo il. One experimental new surgery is restorative surgery. During this surgery, new brain tiss ue, gene therapy, or stem cells are transplanted into the brain. There, the new tissue takes over the function of damaged cells. Date Last Reviewed: 10/24/2017 [employer]. [address] [place] [address]. All righ ts reserved. This information is [...] preferred in most situations. Date Last Reviewed: 07/04/201519991432-6936 [employer]. [address] [place] [address]. All righ ts reserved. This information is [...] | | | | | | 4TH [facility], | | | | | | [place] [address] | | | | | | [phone] | | | | | | | [...] Physical Therapy, | Referral | e | ([facility]) Gait disorder | | | External - [...] acupuncture treatments, massage | | | therapy, btim-wgy-ifqfdta heat patches, relaxation therapy, water | | [...] back pain COMPARISON STUDY: None FINDINGS: 5 uls-ern-qrqufug | | | lumbar vertebral bodies. Kilmichael left lower lumbar scoliosis. There is | [...] | | VWHISTORY:persistent low back painCOMPARISON STUDY:NoneFINDINGS:5 rqi-opn-kkwqned lumbar | | vertebral bodies.Kilmichael left lower lumbar scoliosis.There is postsurgical change [...] Gabriel on 07/09/2018 5:06 PM | |5 dni-jwm-prtqtoo lumbar vertebral bodies. | |Kilmichael left lower lumbar scoliosis. | |There is [...] is noted at C3 through | | U4Rtqwrxnyzu facet and uncovertebral hypertrophyNo prevertebral soft tissue [...]
--- OUTSIDE RECORDS SUMMARY | ~2019-08-18 | XMS | Encounter Summary ---
Demographics + + + | Address | [address] | | | [place] [address] | + + + | Home Phone | | + + + | Preferred Language | Unknown | + + + | Marital Status | Single | + + + | Zoroastrian Affiliation [...] Team Providers + +------+ + | Care Gi Technician Name | Role | Phone | [...] | | | [address] | [facility] | | | | | Loop Mailcode: [address] | [place], [place] | | | | | Outpatient Clinic | [address] | | | | | Building [place], | [phone] | | | | | [place] [address] | | | | | | [phone] | | | +--------+ + + + [...]
--- OUTSIDE RECORDS SUMMARY | ~2019-08-18 | XMS | Encounter Summary ---
Demographics + + + | Address | [address] | | | [place] [address] | + + + | Home Phone | | + + + | Preferred Language | Unknown | + + + | Marital Status | | + + + | Yazidi Affiliation | Unknown | + + + | Race | Unknown | + + + | Ethnic Group | Unknown | + + + Author + + + | Author | [facility] | | | and [place] | + + + | Organization | [facility] | | [...] Team Providers + +------+ + | Care Pulper Name | Role | Phone | + [...] [address] | | | | | [place] [address] | | | | | | [phone] | | | +--------+ + + + [...] | | | | | | [place] [address] | | | | | | [phone] | | | | | | | | +--------+---------+ + + + documented as of this encounter Visit Diagnoses Not on filedocumented in this encounter"
--- OUTSIDE RECORDS SUMMARY | ~2019-08-18 | XMS | Encounter Summary ---
Demographics + + + | Address | [address] | | | [place] [address] | + + + | Home Phone [...] Team Providers + +------+ + | Care Headwaiter/Headwaitress Name | Role | Phone | + [...] | 2019 | | [facility] | [facility] | | | | | MEDICAL CLINIC [address] | | | | | | 4TH [facility], | | | | | | [place] [address] | | | | | | [phone] | | | +--------+ + + + [...] | | | | | | 4TH [facility] [place], | | | | | | [place] [address] | | | | | | [phone] | | | | | | | | +--------+---------+ + + + documented as of this encounter Visit Diagnoses Not on filedocumented in this encounter"
--- OUTSIDE RECORDS SUMMARY | ~2019-08-18 | XMS | Encounter Summary ---
Demographics + + + | Address | [address] | | | [place] [address] | + + + | Home Phone | | + + + | Preferred Language | Unknown | + + + | Marital Status | | + + + | Christian Affiliation | Unknown | + + + | Race | Unknown | + + + | Ethnic Group | Unknown | + + + Author + + + | Author | [facility] | | | and [place] | + + + | Organization | [facility] | | | [...] Team Providers + +------+ + | Care Poultry Grader Name | Role | Phone | + [...] [address] | | | | | [place] [address] | | | | | | [phone] | | | +--------+ + + + [...] | | | | | | [facility] | | | | | | [place] [address] | | | | | | [phone] | | | | | | | | +--------+---------+ + + + documented as of this encounter Visit Diagnoses Not on filedocumented in this encounter"
--- OUTSIDE RECORDS SUMMARY | ~2019-08-18 | XMS | Encounter Summary ---
Demographics + + + | Address | [address] | | | [place] [address] | + + + | Home Phone | | + + + | Preferred Language | Unknown | + + + | Marital Status | Single | + + + | Rastafarian Affiliation | Unknown | + + + | Race | White | + + + | Ethnic Group | Not or | + + + Author + + + | Author | [facility] | + + + | Organization | [facility] | + + + | Address | Unknown | + + + | Phone | Unavailable | + + + Support + + +---------+ + | Name | Relationship | Address | Phone | + + +---------+ + | Gloria Haynes | ECON | Unknown | | + + +---------+ + Care Team Providers + +------+ + | Care Commercial Roofing Estimator Name | Role | Phone | + [...] [id number] | | | | | | [place], [place] | | | | | | [address] | | | | | | [phone] | | | +--------+ + + + [...]
--- OUTSIDE RECORDS SUMMARY | ~2019-08-18 | XMS | Encounter Summary ---
Demographics + + + | Address | [address] | | | [place] [address] | + + + | Home Phone | | + + + | Preferred Language | Unknown | + + + | Marital Status | Single | + + + | Oriental Orthodox Affiliation | Unknown | + + + | Race | White | + + + | Ethnic Group | Not or | + + + Author + + + | Author | [facility] | + + + | Organization | [facility] | + + + | Address | Unknown | + + + | Phone | Unavailable | + + + Support + + +---------+ + | Name | Relationship | Address | Phone | + + +---------+ + | Gloria Haynes | ECON | Unknown | | + + +---------+ + Care Team Providers + +------+ + | Care Verifier Operator Name | Role | Phone | + +------+ + PCP | Unavailable | + +------+ + Encounter Details +--------+ + + + + | Date | Type | Department | Care Team | Description | +--------+ + + + + | 06/06/ | Results | Neurology at | Jory Segovia MD | | | 2006 | Only | [facility] & | [address] | | | | | Healing [address] | | | | | Lemuel Maciel Mailcode: | [place], [place] | | | | | [address] | [address] | | | | | Health and Healing, | [phone] | | | | | | | | | | | Floor [place], [place] | | | | | | [address] | | | | | | [phone] | | | +--------+ + + + [...] | + + + + + | [facility] DEPARTMENT OF | [address] | [place] [address] | | | PATHOLOGY | [address] | | | + + + + + | [facility] DEPARTMENT OF | [address] | [place] [address] | | | PATHOLOGY | [address] [...] | + + + + + | [facility] DEPARTMENT OF | [address] | [place] [address] | | | PATHOLOGY | [address] | | | + + + + + | [facility] | [address] | [place] [address] | | | PATHOLOGY | [address] [...] | + + + + + | [facility] DEPARTMENT OF | [address] | [place] [address] | | | PATHOLOGY | [address] | | | + + + + + | [facility] DEPARTMENT | [address] | [place] [address] | | | PATHOLOGY | [address] [...] | + + + + + | [facility] | [address] [facility] | [place] [address] | | | PATHOLOGY | [address] | | | + + + + + | [facility] | [address] [place] [address] | [place] [address] | | | PATHOLOGY | [address] [...] DEPARTMENT OF | [address] | [place] [address] | | | PATHOLOGY | [address] | | | + + + + + | [facility] DEPARTMENT OF | [address] | [place] [address] | | | PATHOLOGY | [address] [...] | + + + + + | [facility] | [address] | [place] [address] | | | PATHOLOGY | [address] | | | + + + + + | [facility] | [address] | [place] [address] | | | PATHOLOGY | [address] | | | + + + + + documented in this encounter Visit Diagnoses Not on filedocumented in this encounter"
--- OUTSIDE RECORDS SUMMARY | ~2019-08-18 | XMS | Encounter Summary ---
Demographics + + + | Address | [address] | | | [place] [address] | + + + | Home Phone [...] Team Providers + +------+ + | Care Cutter Head Sharpener Name | Role | Phone | + [...] [address] | | | | | [place] [address] | | | | | | [phone] | | | +--------+ + + + [...] | | | | | | [place] [address] | | | | | | [phone] | | | | | | | | +--------+---------+ + + + documented as of this encounter Visit Diagnoses Not on filedocumented in this encounter"
--- OUTSIDE RECORDS SUMMARY | ~2019-08-18 | XMS | Encounter Summary ---
Demographics + + + | Address | [address] | | | [place] [address] | + + + | Home Phone [...] Team Providers + +------+ + | Care Major Gifts Officer Name | Role | Phone | + [...] Provide Resources | | 2019 | | [facility] | D, [address] | (W assistance with | | | | CLINIC [address] | [place] | resources) | | | | DR [address], | [place] [address] | | | | | [place] [address] | [phone] | | | | | [phone] | | | +--------+ + + + [...] | | | | | | [place] [address] | | | | | | [phone] | | | | | | | | +--------+---------+ + + + documented as of this encounter Visit Diagnoses Not on filedocumented in this encounter"
--- OUTSIDE RECORDS SUMMARY | ~2019-08-18 | XMS | Encounter Summary ---
Demographics + + + | Address | [address] | | | [place] [address] | + + + | Home Phone | | + + + | Preferred Language | Unknown | + + + | Marital Status | | + + + | Jew Affiliation | Unknown | + + + | Race | Unknown | + + + | Ethnic Group | Unknown | + + + Author + + + | Author | [facility] | | | and [place] | + + + | Organization | [facility] | | | [...] Team Providers + +------+ + | Care Shearer Printed Circuit Boards Name | Role | Phone | + [...] | DR [address], | [place], [place] [address] | | | | | [place] [address] | [phone] | | | | | [phone] | | | +--------+ + + + [...] | | | | | | [place] [address] | | | | | | [phone] | | | | | | | | +--------+---------+ + + + documented as of this encounter Visit Diagnoses Not on filedocumented in this encounter"
--- OUTSIDE RECORDS SUMMARY | ~2019-08-18 | XMS | Encounter Summary ---
Demographics + + + | Address | [address] | | | [place] [address] | + + + | Home Phone | | + + + | Preferred Language | Unknown | + + + | Marital Status | Single | + + + | Sabianism Affiliation | Unknown | + + + | Race | White | + + + | Ethnic Group | Not or | + + + Author + + + | Author | [facility] | + + + | Organization | [facility] | + + + | Address | Unknown | + + + | Phone | Unavailable | + + + Support + + +---------+ + | Name | Relationship | Address | Phone | + + +---------+ + | Gloria Haynes | ECON | Unknown | | + + +---------+ + Care Team Providers + +------+ + | Care Medical Staff Manager Name | Role | Phone | + +------+ + | Jory Segovia MD | PCP | | + +------+ + Encounter Details +--------+ + + + + | Date | Type | Department | Care Team | Description | +--------+ + + + + | 10/22/ | Telephone | Neurology at | Annie Heard, | | | 2017 | | [facility] & | | | | | | Healing [address] | | | | | | [place] Maciel Mailcode: | | | | | | [facility] | | | | | | Health and Healing, | | | | | | | | | | | | [place], [place] | | | | | | [address] | | | | | | [phone] | | | +--------+ + + + [...]
--- OUTSIDE RECORDS SUMMARY | ~2019-08-18 | XMS | Encounter Summary ---
Demographics + + + | Address | [address] | | | [place] [address] | + + + | Home Phone [...] Team Providers + +------+ + | Care Product Control And Logistics Analyst Name | Role | Phone | + +------+ + | Екатерина Christianson NP | PCP | | + +------+ + Encounter Details +--------+ + + + + | Date | Type | Department | Care Team | Description | +--------+ + + + + | 12/26/ | [facility] Amanda BERMUDEZ | Mac Bnod MD | Chronic low back | | 2019 | Encounter | HOSPITAL XRAY [address] | [address] | pain without | | | | [place] | [place], [place] | sciatica, | | | | [place], [place] | [address] | unspecified back | | | | [address] | | pain laterality; | | | | [phone] | Radiologist, Cc Wgr | Osteoarthritis of [...] | | | | | | [place] [address] | | | | | | [phone] | | | | | | | [...]
--- OUTSIDE RECORDS SUMMARY | ~2019-08-18 | XMS | Encounter Summary ---
Demographics + + + | Address | [address] | | | [place] [address] | + + + | Home Phone | | + + + | Preferred Language | Unknown | + + + | Marital Status | | + + + | Gnosticist Affiliation | Unknown | + + + | Race | Unknown | + + + | Ethnic Group | Unknown | + + + Author + + + | Author | [facility] | | | and [place] | + + + | Organization | [facility] | | | and [...] Team Providers + +------+ + | Care Liquid Sugar Melter Name | Role | Phone | + +------+ + | Екатерина Christianson NP | PCP | | + +------+ + Encounter Details +--------+ + + + + | Date | Type | Department | Care Team | Description | +--------+ + + + + | 12/26/ | [facility] Amanda BERMUDEZ | Mac Bond MD | Chronic low back | | 2019 | Encounter | HOSPITAL XRAY 900 | [address] | pain without | | | | [place] | [place], [place] | sciatica, | | | | [place], [place] | [address] | unspecified back | | | | [address] | | pain laterality; | | | | [phone] | Radiologist, Cc Wgr | Osteoarthritis of [...] | | | | | | [place] [address] | | | | | | [phone] | | | | | | | [...]
--- OUTSIDE RECORDS SUMMARY | ~2019-08-18 | XMS | Clinical Summary ---
Demographics + + + | Address | [address] | | | [place] [address] | + + + | Home Phone | | + + + | Preferred Language | Unknown | + + + | Marital Status | Single | + + + | Church Affiliation [...] Providers + +------+ + | Care Senior Construction Manager Name | Role | Phone | + +------+ + | Jory Segovia MD | PCP | | + +------+ + Source Comments RESHMA is fully live on both [facility] and [facility] Allergies Not on File Medications Not [...] | ITY | | for | | [place], | | | | OUTSOU | | all | | [place] [address] | | | | RCE | | [...] Person | Self | [birth year] | | [address] | | | al/Fam | | 1951 | [phone] | [place], [place] | | | graciela | | | 6 (Home) | [address] | + +--------+ +--------+ + + | [id number] | Indust | Self | [birth year] | | [id number] Kaleb | | | rial | | 1876 | [phone] | [facility] . | | | | | | 2 (Home) | [address] [place], [place] | | | | | | | [address] | + +--------+ +--------+ + + | Nitesh Haynes | [place] | Self | [birth year] | | [address] | | | [place] | | 1951 | [phone] | [place], [place] | | | red | | | 6 ([place]) | [address] | + +--------+ +--------+ + +"
--- OUTSIDE RECORDS SUMMARY | ~2019-08-18 | XMS | Encounter Summary ---
Demographics + + + | Address | [address] | | | [place] [address] | + + + | Home Phone | | + + + | Preferred Language | Unknown | + + + | Marital Status | Single | + + + | Orthodoxy Affiliation [...] Team Providers + +------+ + | Care Closing Coordinator Name | Role | Phone | [...] [id number] | | | | | | [place], [place] | | | | | | [address] | | | | | | [phone] | | | +--------+ + + + [...]
--- OUTSIDE RECORDS SUMMARY | ~2019-08-18 | XMS | Encounter Summary ---
Demographics + + + | Address | [address] | | | [place] [address] | + + + | Home Phone [...] Team Providers + +------+ + | Care Automation Sales Manager Name | Role | Phone | + +------+ + | Екатерина Christianson NP | PCP | | + +------+ + Encounter Details +--------+ + + + + | Date | Type | Department | Care Team | Description | +--------+ + + + + | 07/09/ | [facility] Amanda BERMUDEZ | Mac Bond MD | Chronic bilateral | | 2018 | Encounter | HOSPITAL XRAY 900 | [address] | low back pain | | | | [address] | [place], [place] | without sciatica | | | | [place], [place] | [address] | | | | | [address] | | | | | | [phone] | | | +--------+ + + + [...] | | | | | | [place] [address] | | | | | | [phone] | | | | | | | [...] back pain COMPARISON STUDY: None FINDINGS: 5 rsq-qrv-yojqebw | | | lumbar vertebral bodies. [place] left lower lumbar scoliosis. There is | [...] | | VWHISTORY:persistent low back painCOMPARISON STUDY:NoneFINDINGS:5 iau-bgg-gfzopsz lumbar | | vertebral bodies.[place] left lower lumbar scoliosis.There is postsurgical change [...] | spine.Atherosclerosis.Dictated by: Manuelito Connoram | |5 ovq-gqt-llhapfh lumbar vertebral bodies. | |[place] left lower lumbar scoliosis. | |There is [...]
--- OUTSIDE RECORDS SUMMARY | ~2019-08-18 | XMS | Encounter Summary ---
Demographics + + + | Address | [address] | | | [place] [address] | + + + | Home Phone [...] Providers + +------+ + | Care It Infrastructure Architect Name | Role | Phone | + [...] 2018 | | HOSPITAL NEUROLOGY | [facility], MEDICAL CERTIFICATION SPECIALIST [address] | | | | | CLIN[address] | [address] [facility], | | | | | [address] [place], | [place] [address] | | | | | [place] [address] | [phone] | | | | | [phone] | | | +--------+ + + + [...] | | | | | | [place] [address] | | | | | | [phone] | | | | | | | | +--------+---------+ + + + documented as of this encounter Visit Diagnoses + + | Diagnosis | + + | Chronic bilateral low back pain without sciatica - Primary | + + documented in this encounter"
--- OUTSIDE RECORDS SUMMARY | ~2019-08-18 | XMS | Encounter Summary ---
Demographics + + + | Address | [address] | | | [place] [address] | + + + | Home Phone [...] Team Providers + +------+ + | Care Correctional Captain Name | Role | Phone | + [...] [address] | | | | | [place] [address] | | | | | | [phone] | | | +--------+ + + + [...] | | | | | | [place] [address] | | | | | | [phone] | | | | | | | | +--------+---------+ + + + documented as of this encounter Visit Diagnoses Not on filedocumented in this encounter"
--- OUTSIDE RECORDS SUMMARY | ~2019-08-18 | XMS | Encounter Summary ---
Demographics + + + | Address | [address] | | | [place] [address] | + + + | Home Phone | | + + + | Preferred Language | Unknown | + + + | Marital Status | | + + + | Pentecostalism Affiliation | Unknown | + + + | Race | Unknown | + + + | Ethnic Group | Unknown | + + + Author + + + | Author | [facility] | | | and [place] | + + + | Organization | [facility] | | [...] Team Providers + +------+ + | Care Candy Spreader Name | Role | Phone | + [...] [address] | | | | | [place] [address] | | | | | | [phone] | | | +--------+ + + + [...] | | | | | | [place] [address] | | | | | | [phone] | | | | | | | | +--------+---------+ + + + documented as of this encounter Visit Diagnoses Not on filedocumented in this encounter"
--- OUTSIDE RECORDS SUMMARY | ~2019-08-18 | XMS | Encounter Summary ---
Demographics + + + | Address | [address] | | | [place] [address] | + + + | Home Phone [...] Team Providers + +------+ + | Care Recruiter Name | Role | Phone | + [...] | Pain | | 2019 | | [facility] | HOME HELP AIDE | | | | | CLINIC [address] | | | | | | DR [address] [place], | | | | | | [place] [address] | | | | | | [phone] | | | +--------+--------+ + + + [...] | | | | | | [place] [address] | | | | | | [phone] | | | | | | | | +--------+---------+ + + + documented as of this encounter Visit Diagnoses + + | Diagnosis | + + | Chronic low back pain without sciatica, unspecified back pain laterality - Primary | + + documented in this encounter"
--- OUTSIDE RECORDS SUMMARY | ~2019-08-18 | XMS | Encounter Summary ---
Demographics + + + | Address | [address] | | | [place] [address] | + + + | Home Phone [...] Team Providers + +------+ + | Care Tester Armature Or Fields Name | Role | Phone | + [...] | DR [address] [place], | [address] | unspecified back | | | | [place] [address] | | pain laterality | | | | [phone] | | (Primary Dx) | +--------+ + [...] | | | | | | [place] [address] | | | | | | [phone] | | | | | | | [...]
--- OUTSIDE RECORDS SUMMARY | ~2019-08-18 | XMS | Encounter Summary ---
Demographics + + + | Address | [address] | | | [place] [address] | + + + | Home Phone [...] Team Providers + +------+ + | Care Crossing Guard Name | Role | Phone [...] Appointment Question | | 2019 | | [facility] | | | | | | CLINIC [address] | | | | | | DR [place] [place], | | | | | | [place] [address] | | | | | | [phone] | | | +--------+ + + + [...] | | | | | [address] [place], | | | | | | [place] [address] | | | | | | [phone] | | | | | | | | +--------+---------+ + + + documented as of this encounter Visit Diagnoses Not on filedocumented in this encounter"
--- OUTSIDE RECORDS SUMMARY | ~2019-08-18 | XMS | Encounter Summary ---
Demographics + + + | Address | [address] | | | [place] [address] | + + + | Home Phone [...] Team Providers + +------+ + | Care Fulling Mill Operator Name | Role | Phone | [...] | | | | | disorder | [place] [place] | | | | | | Chronic | [place], [place] | [address] VU | | | | | bilateral | [address] | [place], [place] | | | | | low back | Phone: | [address] | | | | | pain without | [phone] | Phone: | | | | | sciatica | Fax: | [phone] | | | | | Neck pain, | [phone] | Fax: | | | | | bilateral | | [phone] | +--------+ + + + + + [...] | Required | | legs | Jonathan, SPEECH PATHOLOGY SUPERVISOR | [address] | | | | | syndrome | [address] | | | | | Procedures | [place] | [place], [place] | | | | | Evaluate & | Edgard Vu | [address] Phone: | | | | | Treat | [employer], [place] | [phone] | | | | | | [address] | Fax: | | | | | | Phone: | [phone] | | | | | | [phone] | | +--------+ + + + + + Encounter Details +--------+---------+ + + + | Date | Type | Department | Care Team | Description | +--------+---------+ + + + | 07/09/ | Office | [place] [facility] | Mac Bond MD | Parkinson disease | | 2018 | Visit | HOSPITAL NEUROLOGY | [address] | ([facility] Gait | | | | CLINIC [address] | [place], [place] | disorder; Chronic | | | | DR [address] [place], | [address] | bilateral low back | | | | [place] [address] | | pain without | | | | [phone] | | sciatica; Neck pain, | | [...] be different from the original. Patient Instructions [facility] Neurology Clinic Dr. Mac Bond, [...] Vws XR Lumbar Spine 4 + [facility] Physical Therapy, External - AMB Referral Treatment Option- massage, Acupuncture, Over the counter heat patches (icy hot, thermacare, salonpas) , over the counter creams (aspercream, bengay cream, emu oi l), Relaxation therapy, Water therapy, Cortisone shots, Toradol Injections Suggest reading newspapers. magazines, perform word find exercises such as cross word puzz le, and scrabble, other puzzle games like SudAmorelieu, [employer]ng. Play computer/mobile applications such as EGEN and MIND GAMES Vit E and Vit B complexes (1, 6, and 12) Toradol 60 mg IM for intractable neck an d low back pain, pain scale 6-7/10 Any Questions please call ELIAS Canales or Dr. Bond at [facility] Neurology Clinic General Neck and Back [...] are taking other medicines. You may use gnoo-xhu-ddyvyef medicine to control pain, unless another pain [...] by your healthcare provider Date Last Reviewed: 02/24/201619990496-6956 [employer]. [address] [place] [address]. All righ ts reserved. This information is [...] use ice several times a day. ?Medicines Oyrn-tnx-vyxodwc pain relievers can includeacetaminophen and anti-inflammatory medicines, [...] a heating p ad. Date Last Reviewed: 04/26/[id number] [employer] [place], [place] [address]. All righ ts reserved. This information is [...] and knives if it s hard to lithographic plate maker apprentice utensils. Spill-proof cups can help with drinking. [...] voice-activated soft mcwilliams for computers. Use foam health practice manager on pens and pencils. These can make them easier to hold. Sleeping Manypeople with Parkinson have trouble sleeping. They may also move in their sleep and st rike their partners. Tell your healthcare provider if you re having sleep problems or recu rrent nightmares. Medicinecan often help you sleep better. Check with your healthcare prov ider before using cber-hat-osdpuuw medicines to help you sleep. Getting out [...] or begin having falls. Date Last Reviewed: 10/24/201719991068-4166 [employer]. [address] [place] [address], [place] [address]. All righ ts reserved. This information is [...] The diagnosis is based on your symptoms, [facility] history, and a physical exam. You mayalso [...] Parkinson disease. Date Last Reviewed: 09/26/2017 [employer]. [address] [place] [address]. All righ ts reserved. This information is [...] other procedures you may have heard abo ms. One experimental new surgery is restorative surgery. During this surgery, new brain tiss ue, gene therapy, or stem cells are transplanted into the brain. There, the new tissue takes over the function of damaged cells. Date Last Reviewed: 10/24/2017 [employer]. [address] [place] [address]. All righ ts reserved. This information is [...] preferred in most situations. Date Last Reviewed: 07/04/201519990737-3987 [employer]. [address] [place] [address]. All righ ts reserved. This information is [...] | | | | | | [address] [facility], | | | | | | [place] [address] | | | | | | [phone] | | | | | | | [...] | ([facility]) Gait disorder | | | External - [...] acupuncture treatments, massage | | | therapy, ames-but-dnimthl heat patches, relaxation therapy, water | | [...] back pain COMPARISON STUDY: None FINDINGS: 5 ami-dsm-dhcnssi | | | lumbar vertebral bodies. [place] left lower lumbar scoliosis. There is | [...] | | VWHISTORY:persistent low back painCOMPARISON STUDY:NoneFINDINGS:5 biu-cjr-zqhvlja lumbar | | vertebral bodies.[place] left lower lumbar scoliosis.There is postsurgical change [...] Gabriel on 07/09/2018 5:06 PM | |5 zes-mwi-scbraby lumbar vertebral bodies. | |[place] left lower lumbar scoliosis. | |There is [...] | Procedure Note | + + | Loius, Rad Results In - 07/09/2018 5:00 PM PST EXAMINATION:XR CERVICAL SPINE 4 OR 5 | | VWSHISTORY:persistent neck painCOMPARISON STUDY:NoneFINDINGS:Cervical vertebral bodies | | demonstrate mild retrolisthesis of C3 on C4.Normal cervical lordosis.Disc heights are | | decreased from C3 through C7End plate degenerative change is noted at C3 through | | D5Zhiblvufje facet and uncovertebral hypertrophyNo prevertebral soft tissue [...]
--- OUTSIDE RECORDS SUMMARY | ~2019-08-18 | XMS | Encounter Summary ---
Demographics + + + | Address | [address] | | | [place] [address] | + + + | Home Phone [...] Team Providers + +------+ + | Care Blood Bank Worker Name | Role | Phone | [...] 2019 | | HOSPITAL NEUROLOGY | [facility], DEBT MANAGEMENT COUNSELOR [address] | work ) | | | | CLINIC [address] | [address] [facility] [place], | | | | | [address] [place], | [place] [address] | | | | | [place] [address] | [phone] | | | | | [phone] | | | +--------+ + + + [...] | | | | | | [place] [address] | | | | | | [phone] | | | | | | | | +--------+---------+ + + + documented as of this encounter Visit Diagnoses Not on filedocumented in this encounter"
--- OUTSIDE RECORDS SUMMARY | ~2019-08-18 | XMS | Encounter Summary ---
Demographics + + + | Address | [address] | | | [place] [address] | + + + | Home Phone | | + + + | Preferred Language | Unknown | + + + | Marital Status | Single | + + + | Holiness Affiliation | Unknown | + + + | Race | White | + + + | Ethnic Group | Not or | + + + Author + + + | Author | [facility] | + + + | Organization | [facility] | + + + | Address | Unknown | + + + | Phone | Unavailable | + + + Support + + +---------+ + | Name | Relationship | Address | Phone | + + +---------+ + | Gloria Haynes | ECON | Unknown | | + + +---------+ + Care Team Providers + +------+ + | Care Real Estate Acquisition Analyst Name | Role | Phone | [...] [id number] | | | | | | [place], [place] | | | | | | [address] | | | | | | [phone] | | | +--------+ + + + [...]
--- OUTSIDE RECORDS SUMMARY | ~2019-08-18 | XMS | Encounter Summary ---
Demographics + + + | Address | [address] | | | [place] [address] | + + + | Home Phone [...] Team Providers + +------+ + | Care International Sourcing Manager Name | Role | Phone | [...] 2018 | | HOSPITAL NEUROLOGY | [facility], VOIP ENGINEER [address] | | | | | [address] | [address] [facility], | | | | | [address] [place], | [place] [address] | | | | | [place] [address] | [phone] | | | | | [phone] | | | +--------+ + + + [...] | | | | | | [place] [address] | | | | | | [phone] | | | | | | | | +--------+---------+ + + + documented as of this encounter Visit Diagnoses + + | Diagnosis | + + | Chronic bilateral low back pain without sciatica - Primary | + + documented in this encounter"
--- OUTSIDE RECORDS SUMMARY | ~2019-08-18 | XMS | Encounter Summary ---
Demographics + + + | Address | [address] | | | [place] [address] | + + + | Home Phone [...] Providers + +------+ + | Care Computer Aide Name | Role | Phone | + [...] Provide Resources | | 2019 | | [facility] | D, [address] | (CHW assistance with | | | | CLINIC [address] | SHAHLA HONG | dme) | | | | DR [address], | [place], [place] [address] | | | | | [place] [address] | [phone] | | | | | [phone] | | | +--------+ + + + [...] | | | | | | [place] [address] | | | | | | [phone] | | | | | | | | +--------+---------+ + + + documented as of this encounter Visit Diagnoses Not on filedocumented in this encounter"
--- OUTSIDE RECORDS SUMMARY | ~2019-08-18 | XMS | Encounter Summary ---
Demographics + + + | Address | [address] | | | [place] [address] | + + + | Home Phone [...] Team Providers + +------+ + | Care Decorating Machine Operator Name | Role | Phone [...] [address] | | | | | [place] [address] | | | | | | [phone] | | | +--------+ + + + [...] | | | | | | [place] [address] | | | | | | [phone] | | | | | | | | +--------+---------+ + + + documented as of this encounter Visit Diagnoses Not on filedocumented in this encounter"
--- OUTSIDE RECORDS SUMMARY | ~2019-08-18 | XMS | Encounter Summary ---
Demographics + + + | Address | [address] | | | [place] [address] | + + + | Home Phone [...] Team Providers + +------+ + | Care Dairy Scientist Name | Role | Phone | [...] [address] | | | | | [place] [address] | | | | | | [phone] | | | +--------+ + + + [...] | | | | | | [place] [address] | | | | | | [phone] | | | | | | | | +--------+---------+ + + + documented as of this encounter Visit Diagnoses Not on filedocumented in this encounter"
--- OUTSIDE RECORDS SUMMARY | ~2019-08-18 | XMS | Encounter Summary ---
Demographics + + + | Address | [address] | | | [place] [address] | + + + | Home Phone [...] Team Providers + +------+ + | Care Build Technician Name | Role | Phone | [...] [address] | | | | | [place] [address] | | | | | | [phone] | | | +--------+ + + + [...] | | | | | | [place] [address] | | | | | | [phone] | | | | | | | | +--------+---------+ + + + documented as of this encounter Visit Diagnoses Not on filedocumented in this encounter"
--- OUTSIDE RECORDS SUMMARY | ~2019-08-18 | XMS | Encounter Summary ---
Demographics + + + | Address | [address] | | | [place] [address] | + + + | Home Phone [...] Team Providers + +------+ + | Care Technical Clerk Name | Role | Phone | [...] 2019 | | HOSPITAL NEUROLOGY | [facility], GROUP TESTER [address] | work ) | | | | CLIN[address] | [address] [facility] [place], | | | | | [address] [place] | [place] [address] | | | | | [place] [address] | [phone] | | | | | [phone] | | | +--------+ + + + [...] | | | | | | [place] [address] | | | | | | [phone] | | | | | | | | +--------+---------+ + + + documented as of this encounter Visit Diagnoses Not on filedocumented in this encounter"
--- OUTSIDE RECORDS SUMMARY | ~2019-08-18 | XMS | Encounter Summary ---
Demographics + + + | Address | [address] | | | [place] [address] | + + + | Home Phone [...] Team Providers + +------+ + | Care Rotary Dump Operator Name | Role | Phone | [...] | | Required | | disease | ASSISTANT CENTER MANAGER [address] | | | | | | ([facility]) | ST [address] | | | | | | | [place], [place] | | | | | | | [address] | | | | | | | Phone: | | | | | | | [phone] | | | | | | | Fax: | | | | | | | [phone] | | + + + + + [...] | | Required | | disease | ASSISTANT CENTER MANAGER [address] | PHYSICAL | | | | | ([facility]) | ST [address] | THERAPY [address] | | | | | Frequent | [place], [place] | [place] | | | | | falls | [address] | [address] | | | | | | Phone: | [facility], [place] | | | | | | [phone] | [address] | | | | | | Fax: | Phone: | | | | | | [phone] | [phone] | | | | | | | Fax: | | | | | | | [phone] | +--------+ + + + + + [...] | Required | | legs | Jonathan, ANIMAL RESEARCHER | [address] | | | | | syndrome | [address] | [address] | | | | | Procedures | [place] | [place], [place] | | | | | Evaluate & | [address] | [address] Phone: | | | | | Treat | [facility] [place] | [phone] | | | | | | [address] | Fax: | | | | | | Phone: | [phone] | | | | | | [phone] | | +--------+ + + + + + Encounter Details +--------+---------+ + + + | Date | Type | Department | Care Team | Description | +--------+---------+ + + + | 03/11/ | Office | [place] [facility] | Mary, | Parkinson disease | | 2019 | Visit | HOSPITAL NEUROLOGY | Sinai, ASSISTANT CENTER MANAGER [address] | ([facility]) (Primary Dx); | | | | CLINIC [address] | [address] [facility], | Frequent falls; | | | | [address] [place], | [place] [address] | Chronic bilateral | | | | [place] [address] | [phone] | low back pain | | | | [phone] | | without sciatica; | | | [...] are taking other medicines. You may use howe-wab-qlniaan medicine as directed on the bottle to [...] groin or genital area Date Last Reviewed: 02/24/201619997140-[address] [employer] [place] [address], [place] [address]. All [facility] ts reserved. This information is not intended [...] and knives if it s hard to information tech utensils. Spill-proof cups can help with drinking. [...] voice-activated soft mcwilliams for computers. Use foam water filter cleaner on pens and pencils. These can make them easier to hold. Sleeping Manypeople with Parkinson have trouble sleeping. They may also move in their sleep and st rike their partners. Tell your healthcare provider if you re having sleep problems or recu rrent nightmares. Medicinecan often help you sleep better. Check with your healthcare prov ider before using mhht-pdk-cerkvfg medicines to help you sleep. Getting out [...] or begin having falls. Date Last Reviewed: 10/24/201719999801-[address] [employer] [place] [address]. All righ ts reserved. This information is [...] of your body. Also, your symptoms may ticket dispenser changer time. And you may have different [...] may also feel depressed. Date Last Reviewed: 09/26/201719994746-6651 [employer]. [address] [place] [address], [place] [address]. All righ ts reserved. This information is [...] frozen. To turn, walk in a half [facility]. george instead of trying to stop and turn [...] yourself onto the chair. Date Last Reviewed: 10/24/201719992589-9213 [employer]. [address] [place] [address]. All righ ts reserved. This information is [...] way to get help. Date Last Reviewed: 11/24/201719994889-6248 [employer]. [address] [place] [address], [place] [address]. All righ ts reserved. This information is [...] ows about your wishes. Durable power of attorney recruiter This document transfers financial and legal power [...] secure about the future. Date Last Reviewed: 11/24/201719994988-1448 [employer]. [address] [place] [address], [place] [address]. All righ ts reserved. This information is not intended as a substitute for professional medical care. Always follow your healthcare professional's instructions. documented in this encounter Progress Notes Sinai Hernandez FNP - 03/11/2019 2:30 PM PDT Patient: Nitesh Haynes Medical Record: [id number] Date of Services: 03/11/2019 Referring Doctor: Екатерина Christianson NP Chief Complaint: Parkinson's disease, chronic low back pain History of Present Illness: The patient presents to the Neurology Clinic today for follow u p. The patient has a history of Parkinson's disease for approximately 19-20 years. He had a D BS surgery at [facility] in 2008 with revision in 2010. [...] He did follow up with Neurology/Neurosurgery at [facility]. He reports that his DBS is functioning well. No changes were needed. The patient has a history of chronic low back pain. The patient reports that his symptoms have slowly worsened over the past 10 years. He has had 2 previous lumbar spine surgeries, the last one in [address] Mcmullen in [place], [place]. The patient has tried treatment wi [...] are intact. There is no dysmetria on uytlvh-uh-bfql and bukc-cvqn-dgew. Romberg is absent. + Tremors noted with [...] ICD-9-CM 1. Parkinson disease (HCC) G20 332.0 [facility] Physical Therapy, External - AMB Refer [facility] Occupational Therapy, External - AMB Referral entacapone (COMTAN) 200 mg tablet carbidopa-levodopa (SINEMET) 25-100 mg per tablet amantadine (SYMMETREL) 100 MG TABS DISCONTINUED: entacapone (COMTAN) 200 mg tablet DISCONTINUED: carbidopa-levodopa (SINEMET) 25-100 mg per tablet 2. Frequent falls R29.6 V15.88 [facility] Physical Therapy, External - [facility] Referral 3. Chronic bilateral low [...] gait training and frequent falls. Referral to [facility] Therapy placed today. I have also advised him to use his walker at all times for ambulation to help prevent his falls. [facility] also has continued to follow to [...] | | | | | | [address] [facility], | | | | | | [place] [address] | | | | | | [phone] | | | | | | | [...] | | History of Present Illness: Nitesh Hanyes is a 68 y.o. | | | [...] | such as acupuncture treatments, massage therapy, qnaj-dlu-lzjnomx | | | heat patches, relaxation therapy, [...]
--- OUTSIDE RECORDS SUMMARY | ~2019-08-18 | XMS | Encounter Summary ---
Demographics + + + | Address | [address] | | | [place] [address] | + + + | Home Phone [...] Team Providers + +------+ + | Care Accountant Property Name | Role | Phone | + [...] Provide Resources | | 2019 | | [facility] | D, [address] | (CHW assistance with | | | | CLINIC [address] | [place]LA [address]ONG | dme) | | | | DR [address], | [place], [place] [address] | | | | | [place] [address] | [phone] | | | | | [phone] | | | +--------+ + + + [...] | | | | | | [place] [address] | | | | | | [phone] | | | | | | | | +--------+---------+ + + + documented as of this encounter Visit Diagnoses Not on filedocumented in this encounter"
--- OUTSIDE RECORDS SUMMARY | ~2019-08-18 | XMS | Clinical Summary ---
Demographics + + + | Address | [address] | | | [place] [address] | + + + | Home Phone [...] Team Providers + +------+ + | Care Artillery Maintenance Supervisor Name | Role | Phone | + +------+ + | Jory Segovia MD | PCP | | + +------+ + Source Comments RESHMA is fully live on both [facility] and [facility] InPatient.[facility] Allergies Not on File Medications Not on [...] | ITY | | for | | [place], | | | | OUTSOU | | all | | [place] [address] | | | | RCE | | [...] Person | Self | [birth year] | | [address] | | | al/Fam | | 1951 | [phone] | [place], [place] | | | graciela | | | 6 (Home) | [address] | + +--------+ +--------+ + + | [id number] | Indust | Self | [birth year] | | [id number] Kaleb | | | rial | | 1876 | [phone] | [facility] . | | | | | | 2 (Home) | [address] [place], [place] | | | | | | | [address] | + +--------+ +--------+ + + | Nitesh Haynes | [place] | Self | [birth year] | | [address] | | | [place] | | 1951 | [phone] | [place], [place] | | | red | | | 6 ([place]) | [address] | + +--------+ +--------+ + +"
--- OUTSIDE RECORDS SUMMARY | ~2019-08-18 | XMS | Encounter Summary ---
Demographics + + + | Address | [address] | | | [place] [address] | + + + | Home Phone [...] + + | Author | [facility] | | | and [place] | + + + | Organization | [facility] | | | [...] Team Providers + +------+ + | Care Gasket Winder Name | Role | Phone | + [...] | | Required | | disease | CASE MANAGEMENT ASSOCIATE [address] | [address] | | | | | (HCC) Neck | [address] | [address] | | | | | pain, | [place], [place] | [address] | | | | | bilateral | [address] | [place], [place] | | | | | Chronic | Phone: | [address] Phone: | | | | | bilateral | [phone] | [phone] | | | | | low back | Fax: | Fax: | | | | | pain with | [phone] | [phone] | | | | | right-sided | [...] | Visit | HOSPITAL NEUROLOGY | [facility], CASE MANAGEMENT ASSOCIATE [address] | ([facility]) (Primary Dx); | | | | CLINIC [address] | [address] [place], | Chronic bilateral | | | | [address] [place], | [place] [address] | low back pain | | | | [place] [address] | [phone] | without sciatica; | | | | [phone] | | Gait disorder; Neck | | | | | Dulce Berkowitz | pain, bilateral | | | | | D, [address] | | | | | | DRIVE [address] | | | | | | [place] [address] | | | | | | [phone] | | | | | | | [...] pain Pathways: Medical Home, Medication Assessment and Inspector Wire Rope" Chart Notes/ Visit Details: During the follow [...] are getting worse. He recently went to [place] to h ave his neruological stimulator looked [...] care. 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 Nitesh has asked to establish with a new PCP, preferable one in [place] at [facility]. I will call the offices there [...] | | | | | [address] [place], | | | | | | [place] [address] | | | | | | [phone] | | | | | | | [...]
--- OUTSIDE RECORDS SUMMARY | ~2019-08-18 | XMS | Encounter Summary ---
Demographics + + + | Address | [address] | | | [place] [address] | + + + | Home Phone [...] Team Providers + +------+ + | Care Assembler Utility Buildings Name | Role | Phone | + [...] | without | [address], | [place] [address] | | | | | sciatica, | [address] | Phone: | | | | | unspecified | [place], [place] | [phone] | | | | | back pain | [address] | Fax: | | | | | laterality | Phone: | [phone] | | | | | Procedures | [phone] | | | | | | CT Lumbar | Fax: | | | | | | Spine wo | [phone] | | | | | | Contrast [...] unspecified back | | | | [place] [address] | | pain laterality | | | | [phone] | | (Primary Dx) | +--------+ + [...] | | | | | | [facility] | | | | | | [place] [address] | | | | | | [phone] | | | | | | | [...]
--- OUTSIDE RECORDS SUMMARY | ~2019-08-18 | XMS | Encounter Summary ---
Demographics + + + | Address | [address] | | | [place] [address] | + + + | Home Phone [...] Team Providers + +------+ + | Care Branch Mechanic Name | Role | Phone | [...] | | [place], [place] | [place] [address] | unspecified acute | | 2018 | | [address] | [phone] | renal failure type | | | | [phone] | | ([facility]); | | | | | Fidel Muir, | Hypermagnesemia; | | | | | [address] | Acute cystitis with | | | | | [place] [address] | hematuria | | | | | [phone] | | | | | | | | | | | | Gina Main, | | | | | | [address] [place] | | | | | | [place] [address] | | | | | | [phone] | | | | | | | [...] He is transferring in stable condition to [facility] this afternoon. Incidentally-an ECHO was performed [...] in place. Dictated by: Nato Turner Disposition: [facility] facility Follow-Up Plans: [address] [place] [id number] Electronically signed by: Fidel Muir MD 06/19/2019 12:57 CC [facility] Time spent discharging this patient: 30 minutes documented in this encounter Discharge Instructions AttachmentsThe following attachments cannot be sent through Care Everywhere.Kidney Injury, Acute, Discharge Instructions for (Vietnamese)documented in this encounter Medications at Time of [...] | | | | | ([facility]) | | | | | | [...] medication list provided for disc harge to assisted facility. Electronically signed by: Gumrao Hernández, Mary 06/19/2019 13:40 hilo, Adele Romero [...] strength, and directions [x] Pharmacy list names: [place], [facility] ([place]) Spoke with patient that could recall some of his medications. Removed gabapentin from vickie ents medication list as patient has not received any since a 90 day fill was mailed in November 2018. Medication review performed and electronically signed by Carolann Diane PharmD 9 11:50 Fidel Pugh MD - 06/17/2019 11:07 AM PDT . MEDICAL HOSPITALIST TEAM PROGRESS NOTE Name:Nitesh [facility] Day # 1 Reason for admission and continued stay: Nitesh Hyanes is a 68 y.o. male hospitalized for [...] | 2019 | Visit | | [facility] [address] | | | | | | [address] [facility], | | | | | | [place] [address] | | | | | | [phone] | | | | | | | [...] + + | [place] [facility] | [address] | [place] [address] | [phone] | | HOSPITAL LABORATORY | | | [...] | mL/min/1.73m2 | [facility] | | | [facility] | | [facility] | | | [...] + + | [place] [facility] | [address] | [place] [address] | [phone] | | HOSPITAL LABORATORY | | | [...] + + | [place] [facility] | [address] | [place] [address] | [phone] | | HOSPITAL LABORATORY | | | [...] | mL/min/1.73m2 | [facility] | | | [facility] | | [facility] | | | [...] + + | [place] [facility] | [address] | [place] [address] | [phone] | | HOSPITAL LABORATORY | | | [...] + + | [place] [facility] | [address] | [place] [address] | [phone] | | HOSPITAL LABORATORY | | | [...] + + | [place] [facility] | [address] | [place] [address] | [phone] | | HOSPITAL LABORATORY | | | [...] + + | [place] [facility] | [address] | [place] [address] | [phone] | | HOSPITAL LABORATORY | | | [...] + + | [place] [facility] | [address] | [place] [address] | [phone] | | HOSPITAL LABORATORY | | | [...] | mL/min/1.73m2 | [facility] | | | [facility] | | [facility] | | | [...] + + | [facility] [facility] | [address] | [place] [address] | [phone] | | HOSPITAL LABORATORY | | | [...] | cutoff point for the diagnosis of GA is 0.8 ng/mL for the Troponin I | | | method. | | + + + + + + + + | Performing | Address | City/State/Zipcode | Phone Number | | Organization | | | | + + + + + | [facility] | [address] | [place] [address] | [phone] | | HOSPITAL LABORATORY | | | [...] | cutoff point for the diagnosis of GA is 0.8 ng/mL for the Troponin I | | | method. | | + + + + + + + + | Performing | Address | City/State/Zipcode | Phone Number | | Organization | | | | + + + + + | [facility] | [address] | [place] [address] | [phone] | | HOSPITAL LABORATORY | | | [...] + + | [place] [facility] | [address] | [place] [address] | [phone] | | HOSPITAL LABORATORY | | | [...] + + | [place] [facility] | [address] | [place] [address] | [phone] | | HOSPITAL LABORATORY | | | [...] At | + + + | Current [facility] clinical laboratory antibiogram data can be found on the | [place] [facility] | | [facility] intranet at | HOSPITAL | | [email or web address] or on | LABORATORY | | the [facility] website at [email or web address] | | + + + + + + + + | Performing | Address | City/State/Zipcode | Phone Number | | Organization | | | | + + + + + | [facility] [facility] | [address] | [place] [address] | [phone] | | HOSPITAL LABORATORY | | | [...] - 1.030 | [place] | | | [place] | | | [facility] | | | [...] + + | [place] [facility] | [address] | [place] [address] | [phone] | | HOSPITAL LABORATORY | | | [...] | | 438 msQTC Interval: 476 msQRS [place]: -3 degT Wave [place]: 54 deg- | | | ABNORMAL ECG -Sinus rhythmNonspecific intraventricular conduction | | | delayMinimal ST elevation, anterior leadsNo previous ECG available for | | | comparison | | |QRS [place]: -3 deg | | |T Wave [place]: 54 deg | | |- ABNORMAL ECG [...] + + | [facility] [facility] | [address] | [place] [address] | [phone] | | HOSPITAL LABORATORY | | | [...] + + | [place] [facility] | [address] | [place] [address] | [phone] | | HOSPITAL LABORATORY | | | [...] + + | [place] [facility] | [address] | [place] | [phone] | | HOSPITAL LABORATORY | | | [...] + + | [place] [facility] | [address] | [place] [address] | [phone] | | HOSPITAL LABORATORY | | | [...] + + | [place] [facility] | [address] | [place] [address] | [phone] | | HOSPITAL LABORATORY | | | [...] | cutoff point for the diagnosis of GA is 0.8 ng/mL for the Troponin I | | | method. | | + + + + + + + + | Performing | Address | City/State/Zipcode | Phone Number | | Organization | | | | + + + + + | [facility] [facility] | [address] | [place] [address] | [phone] | | HOSPITAL LABORATORY | | | [...] | mL/min/1.73m2 | [facility] | | | [facility] | RATE,ESTIMATED | | HOSPITAL | | | | mL/min/1.72l9Dtju than | | LABORATORY | | | [...] + + | [place] [facility] | [address] | [place] [address] | [phone] | | HOSPITAL LABORATORY | | | [...] 337 | 150 - 450 K/uL | [place] | | | Count | | | [...] + + | [facility] [facility] | [address] | [place] [address] | [phone] | | HOSPITAL LABORATORY | | | [...]
--- OUTSIDE RECORDS SUMMARY | ~2019-08-18 | XMS | Encounter Summary ---
Demographics + + + | Address | [address] | | | [place] [address] | + + + | Home Phone | | + + + | Preferred Language | Unknown | + + + | Marital Status | Single | + + + | Adventist Affiliation | Unknown | + + + | Race | White | + + + | Ethnic Group | Not or | + + + Author + + + | Author | [facility] | + + + | Organization | [facility] | + + + | Address | Unknown | + + + | Phone | Unavailable | + + + Support + + +---------+ + | Name | Relationship | Address | Phone | + + +---------+ + | Gloria Haynes | ECON | Unknown | | + + +---------+ + Care Team Providers + +------+ + | Care Coining Press Operator Name | Role | Phone | [...] [id number] | | | | | | [place], [place] | | | | | | [address] | | | | | | [phone] | | | +--------+ + + + [...]
--- OUTSIDE RECORDS SUMMARY | ~2019-08-18 | XMS | Encounter Summary ---
Demographics + + + | Address | [address] | | | [place] [address] | + + + | Home Phone [...] Team Providers + +------+ + | Care Gas Station Cashier Name | Role | Phone | + [...] [id number] | | | | | [place] [address] | | | | | | [phone] | | | +--------+ + + + [...] | | | | | | [place] [address] | | | | | | [phone] | | | | | | | | +--------+---------+ + + + documented as of this encounter Visit Diagnoses Not on filedocumented in this encounter"
--- OUTSIDE RECORDS SUMMARY | ~2019-08-18 | XMS | Encounter Summary ---
Demographics + + + | Address | [address] | | | [place] [address] | + + + | Home Phone [...] Team Providers + +------+ + | Care Equipment Services Associate Name | Role | Phone | + [...] | visit | HOSPITAL NEUROLOGY | Sinai, PRESS MAINTAINER [address] | low back pain | | | | CLINIC [address] | [address] [place], | without sciatica | | | | [address] [place], | [place] [address] | (Primary Dx) | | | | [place] [address] | [phone] | | | | | [phone] | | | +--------+ + + + [...] | | | | [address] [facility] [place], | | | | | | [place] [address] | | | | | | [phone] | | | | | | | | +--------+---------+ + + + documented as of this encounter Procedures + +--------+ + + + | Procedure Name | Priori | Date/Time | Associated Diagnosis | Comments | | | ty | | | | + +--------+ + + + | ND INJECT TRIGGER | Routin | 08/13/2018 | [...]
--- OUTSIDE RECORDS SUMMARY | ~2019-08-18 | XMS | Encounter Summary ---
Demographics + + + | Address | [address] | | | [place] [address] | + + + | Home Phone | | + + + | Preferred Language | Unknown | + + + | Marital Status | | + + + | Yarsanism Affiliation | Unknown | + + + | Race | Unknown | + + + | Ethnic Group | Unknown | + + + Author + + + | Author | [facility] | | | and [place] | + + + | Organization | [facility] | | | [...] Providers + +------+ + | Care Engineering Mgr Name | Role | Phone | + [...] Provide Resources | | 2019 | | [facility] | [facility] | | | | | MEDICAL CLINIC [address] | | | | | | [address]TH [facility], | | | | | | [place] [address] | | | | | | [phone] | | | +--------+ + + + [...] | | | | [address] [facility] [place], | | | | | | [place] [address] | | | | | | [phone] | | | | | | | | +--------+---------+ + + + documented as of this encounter Visit Diagnoses Not on filedocumented in this encounter"
--- OUTSIDE RECORDS SUMMARY | ~2019-08-18 | XMS | Encounter Summary ---
Demographics + + + | Address | [address] | | | [place] [address] | + + + | Home Phone | | + + + | Preferred Language | Unknown | + + + | Marital Status | Single | + + + | Orthodox Affiliation | Unknown | + + + | Race | White | + + + | Ethnic Group | Not or | + + + Author + + + | Author | [facility] | + + + | Organization | [facility] | + + + | Address | Unknown | + + + | Phone | Unavailable | + + + Support + + +---------+ + | Name | Relationship | Address | Phone | + + +---------+ + | Gloria Haynes | ECON | Unknown | | + + +---------+ + Care Team Providers + +------+ + | Care Customer Care Associate Name | Role | Phone | [...] | | | | disease | on [place] | [facility] | | | | | (HCC) | V A MEDICAL | Rd | | | | | Procedures | CENTER | Mailcode: | | | | | MRI BRAIN WO | [address] | [address] | | | | | CONTRAST | [facility] | [address] | | | | | | [address] | Research | | | | | | [facility] | | | | | | [place] [address] | [place], [place] | | | | | | Phone: | [address] | | | | | | [phone] | Phone: | | | | | | Fax: | [phone] | | | | | | [phone] | Fax: | | | | | | | [phone] | +--------+--------+ + + + + Encounter Details +--------+ + + + + | Date | Type | Department | Care Team | Description | +--------+ + + + + | 10/03/ | Hospital | Diagnostic Imaging | | | | 2010 | Encounter | Services at [facility] | | | | | | [address] | | | | | | [place] Mailcode: | | | | | | [address] | | | | | | [facility] | | | | | | [place], [place] | | | | | | [address] | | | | | | [phone] | | | +--------+ + + + [...]
--- OUTSIDE RECORDS SUMMARY | ~2019-08-18 | XMS | Encounter Summary ---
Demographics + + + | Address | [address] | | | [place] [address] | + + + | Home Phone | | + + + | Preferred Language | Unknown | + + + | Marital Status | | + + + | Caodaism Affiliation | Unknown | + + + | Race | Unknown | + + + | Ethnic Group | Unknown | + + + Author + + + | Author | [facility] | | | and [place] | + + + | Organization | [facility] | | [...] Team Providers + +------+ + | Care Dietetics Professor Name | Role | Phone | [...] | | Required | | disease | SPLITTING MACHINE OPERATOR HELPER [address] | | | | | | ([facility]) | [address] | | | | | | | [place], [place] | | | | | | | [address] | | | | | | | Phone: | | | | | | | [phone] | | | | | | | Fax: | | | | | | | [phone] | | + + + + + [...] | | Required | | disease | SPLITTING MACHINE OPERATOR HELPER [address] | PHYSICAL | | | | | ([facility]) | ST [address] | THERAPY [address] | | | | | Frequent | [place], [place] | [place] | | | | | falls | [address] | [address] | | | | | | Phone: | [facility], [place] | | | | | | [phone] | [address] | | | | | | Fax: | Phone: | | | | | | [phone] | [phone] | | | | | | | Fax: | | | | | | | [phone] | +--------+ + + + + + [...] | Required | | legs | Jonathan, DIE ATTACHING MACHINE TENDER | [address] | | | | | syndrome | [address] | | | | | Procedures | [place] | [place], [place] | | | | | Evaluate & | [address] | [address] Phone: | | | | | Treat | [facility], [place] | [phone] | | | | | | [address] | Fax: | | | | | | Phone: | [phone] | | | | | | [phone] | | +--------+ + + + + + Encounter Details +--------+---------+ + + + | Date | Type | Department | Care Team | Description | +--------+---------+ + + + | 03/11/ | Office | [place] [facility] | Mary, | Parkinson disease | | 2019 | Visit | HOSPITAL NEUROLOGY | Sinai, SPLITTING MACHINE OPERATOR HELPER [address] | ([facility]) (Primary Dx); | | | | CLINIC [address] | [address] [facility], | Frequent falls; | | | | [address] [place], | [place] [address] | Chronic bilateral | | | | [place] [address] | [phone] | low back pain | | | | [phone] | | without sciatica; | | | [...] are taking other medicines. You may use frli-zsm-zhifmmb medicine as directed on the bottle to [...] groin or genital area Date Last Reviewed: 02/24/201619990735-6226 [employer] [place] [address], [place] [address]. All [facility] ts reserved. This information is not [...] and knives if it s hard to business professor utensils. Spill-proof cups can help with drinking. [...] voice-activated soft mcwilliams for computers. Use foam javascript ui developer on pens and pencils. These can make them easier to hold. Sleeping Manypeople with Parkinson have trouble sleeping. They may also move in their sleep and st rike their partners. Tell your healthcare provider if you re having sleep problems or recu rrent nightmares. Medicinecan often help you sleep better. Check with your healthcare prov ider before using wbwy-cfa-volhuwm medicines to help you sleep. Getting out [...] or begin having falls. Date Last Reviewed: 10/24/201719999313-4021 [employer] [place] [address]. All righ ts reserved. This information is [...] of your body. Also, your symptoms may record changer tester time. And you may have different symptoms [...] may also feel depressed. Date Last Reviewed: 09/26/201719994178-6294 [employer] [address] [place] [address], [place] [address]. All righ ts reserved. This information is [...] frozen. To turn, walk in a half chefornak instead of trying to stop and turn [...] yourself onto the chair. Date Last Reviewed: 10/24/201719991071-4903 [employer] [address] [place] [address]. All righ ts reserved. This information is [...] way to get help. Date Last Reviewed: 11/24/201719995735-0949 [employer] [address] [place] [address], [place] [address]. All righ ts reserved. This information is [...] ows about your wishes. Durable power of admitted attorneys This document transfers financial and legal power [...] secure about the future. Date Last Reviewed: 11/24/201719990994-3219 [employer] [address] [place] [address], [place] [address]. All righ ts reserved. This information is not intended as a substitute for professional medical care. Always follow your healthcare professional's instructions. documented in this encounter Progress Notes Sinai Hernandez FNP - 03/11/2019 2:30 PM PDT Patient: Nitesh Haynes Medical Record: [id number] Date of Services: 03/11/2019 Referring Doctor: Екатерина Christianson NP Chief Complaint: Parkinson's disease, chronic low back pain History of Present Illness: The patient presents to the Neurology Clinic today for follow u p. The patient has a history of Parkinson's disease for approximately 19-20 years. He had a D BS surgery at [facility] in 2008 with revision in 2010. The [...] did follow up with Neurology/Neurosurgery at [facility]. He reports that his DBS is functioning well. No changes were needed. The patient has a history of chronic low back pain. The patient reports that his symptoms have slowly worsened over the past 10 years. He has had 2 previous lumbar spine surgeries, the last one in [address] Mcmullen in [place], [place]. The patient has tried treatment wi [...] are intact. There is no dysmetria on vwexum-lz-ebnw and mdkk-vxtk-iziz. Romberg is absent. + Tremors noted with [...] ICD-9-CM 1. Parkinson disease (HCC) G20 332.0 [facility] Physical Therapy, External - AMB Refer [facility] Occupational Therapy, External - AMB Referral entacapone (COMTAN) 200 mg tablet carbidopa-levodopa (SINEMET) 25-100 mg per tablet amantadine (SYMMETREL) 100 MG TABS DISCONTINUED: entacapone (COMTAN) 200 mg tablet DISCONTINUED: carbidopa-levodopa (SINEMET) 25-100 mg per tablet 2. Frequent falls R29.6 V15.88 [facility] Physical Therapy, External - [facility] Referral 3. Chronic bilateral low [...] gait training and frequent falls. Referral to [facility] Therapy placed today. I have also advised him to use his walker at all times for ambulation to help prevent his falls. [facility] also has continued to follow to [...] | | | | | | [address]TH [facility], | | | | | | [place] [address] | | | | | | [phone] | | | | | | | [...] | ([facility]) Frequent | | | External - AMB | | | falls | | | Referral | | | | | + + +--------+ + + | Occupational | Outpatient | Routin | Parkinson disease | Ordered: 03/11/2019 | | Therapy, External - | Referral | e | ([facility]) | | | AMB Referral | | [...] | such as acupuncture treatments, massage therapy, audk-zak-yqtdlhd | | | heat patches, relaxation therapy, [...]
--- OUTSIDE RECORDS SUMMARY | ~2019-08-18 | XMS | Encounter Summary ---
Demographics + + + | Address | [address] | | | [place] [address] | + + + | Home Phone | | + + + | Preferred Language | Unknown | + + + | Marital Status | Single | + + + | Hindu Affiliation | Unknown | + + + | Race | White | + + + | Ethnic Group | Not or | + + + Author + + + | Author | [facility] | + + + | Organization | [facility] | + + + | Address | Unknown | + + + | Phone | Unavailable | + + + Support + + +---------+ + | Name | Relationship | Address | Phone | + + +---------+ + | Gloria Haynes | ECON | Unknown | | + + +---------+ + Care Team Providers + +------+ + | Care It Infrastructure Project Manager Name | Role | Phone | [...] [id number] | | | | | | [place], [place] | | | | | | [address] | | | | | | [phone] | | | +--------+ + + + [...]
--- OUTSIDE RECORDS SUMMARY | ~2019-08-18 | XMS | Encounter Summary ---
Demographics + + + | Address | [address] | | | [place] [address] | + + + | Home Phone [...] + | Author | [facility] | | | and [place] | + + + | Organization | [facility] | | | [...] Team Providers + +------+ + | Care Defensive Driving Instructor Name | Role | Phone | [...] | | | | | | [place] [address] | | | | | | [phone] | | | +--------+ + + + [...] | | | | | | [address]TH [facility] [place], | | | | | | [place] [address] | | | | | | [phone] | | | | | | | | +--------+---------+ + + + documented as of this encounter Visit Diagnoses Not on filedocumented in this encounter"
--- OUTSIDE RECORDS SUMMARY | ~2019-08-18 | XMS | Encounter Summary ---
Demographics + + + | Address | [address] | | | [place] [address] | + + + | Home Phone | | + + + | Preferred Language | Unknown | + + + | Marital Status | | + + + | Jainism Affiliation | Unknown | + + + | Race | Unknown | + + + | Ethnic Group | Unknown | + + + Author + + + | Author | [facility] | | | and [place] | + + + | Organization | [facility] | | | [...] Team Providers + +------+ + | Care Gourmet Coffee Attendant Name | Role | Phone | [...] | Pain | | 2019 | | [facility] | PORTFOLIO MANAGER | | | | | CLINIC [address] | | | | | | DR [place] [place], | | | | | | [place] [address] | | | | | | [phone] | | | +--------+--------+ + + + [...] | | | | | | [place] [address] | | | | | | [phone] | | | | | | | | +--------+---------+ + + + documented as of this encounter Visit Diagnoses + + | Diagnosis | + + | Chronic low back pain without sciatica, unspecified back pain laterality - Primary | + + documented in this encounter"
[~2019-08-18 13:16] MED LIST: AMANTADINE100 M1 PO; CIPRO500 MG PO; COMTAN200 MG PO; SINEMET 25-1001 EACH PO; VITAMIN B-625 MG PO
[2019-08-18] MEDS ORDERED: 8 HOUR650 MG PO (14:33)
--- NOTE | 2019-08-18 20:20 | NUR ---
PATIENTS ADMISSION COMPLETED. PATIENTS ATTEND CHANGE. PATIENT IS NON VERBAL AND DOES NOTE RESPOND TO QUESTIONING. PLACED SEIZURE PADS IN PLACE. IV INFUSING PER ORDER. BED ALARM ON FOR SAFETY. [facility] [place].
--- NOTE | 2019-08-18 20:40 | NUR ---
EVENING ASSESSMENT COMPLETE. PT WITH EYES CLOSED, DOES NOT RESPOND TO QUESTIONS OR FOLLOW COMMANDS. PT UPPER AND LOWER EXTREMITIES RIGID AND JERKY. SEIZURE PADS PLACED ON THE BED FOR SAFETY. REDNESS NOTED ON COCCYX, ALLEVYN PLACED. HEEL PROTECTORS TO ELBOWS AND FEET. IVF INFUSING. BED ALARM ON FOR SAFETY.
--- NOTE | 2019-08-18 22:45 | NUR ---
PT RESTING IN BED WITH EYES CLOSED, RR EVEN AND UNLABORED. SEIZURE PADS IN PLACE. BED ALARM ON.
--- NOTE | 2019-08-18 23:42 | EKG ---
[facility] [address] [facility] [place], [place] [address] Signed Normal sinus rhythm Normal ECG No previous ECGs available Confirmed by TAMIA VIERA MD ([id number]) on 08/18/2019 11:42:19 PM Electronically Signed By: TAMIA VIERA MD 08/18/19 2342 PATIENT NAME: ELIZA OLIVO Electrocardiogram DATE OF : 48 PHYSICIAN: TAMIA VIERA MD REPORT #: [id number] REPORT IS CONFIDENTIAL AND NOT TO BE RELEASED WITHOUT AUTHORIZATION
--- NOTE | 2019-08-19 00:08 | NUR ---
PT REPOSITIONED IN BED WITH PILLOWS. INCONTINENT OF URINE AND STOOL, SHANTE CARE DONE. PT A LITTLE MORE RESPONSIVE. DOES NOT OPEN EYES BUT WAS MUMBLING WHEN ASKED QUESTIONS. PILLS CRUSHED AND GIVEN IN APPLE SAUCE, NO SWALLOWING ISSUES NOTED. JELLO AND WATER GIVEN WELL. HOB ELEVATED.
--- NOTE | 2019-08-19 00:10 | NUR ---
2-3 PA CHANGED PATIENT'S INCONTINENT ATTENDS. PRIMARY RN KAILYN, DISTRICT ATTORNEY ANDRINA AND THIS POUNCING MACHINE OPERATOR. BED ALARM ON.
--- NOTE | 2019-08-19 03:10 | NUR ---
PT REPOSITIONED IN BED. VS AND I&O COMPLETE. ATTENDS DRY. HEEL PROTECTORS IN PLACE.
--- NOTE | 2019-08-19 05:22 | NUR ---
PT SLEPT WELL. PT DOES NOT RESPOND TO QUESTIONS AND IS UNABLE TO FOLLOW COMMANDS. RIGID, JERKY MOVEMENTS. SEIZURE PADS ON THE BED FOR SAFETY. DANNY CL LIQUID DIET, NO SWALLOWING ISSUES NOTED. ALLEVYN ON COCCYX. HP. IVF. BED ALARM.
--- NOTE | 2019-08-19 05:59 | NUR ---
PATIENTS VITALS TAKEN AND RECORDED. PATIENTS ATTEND CHANGED. PATIENT WAS INCONTINENT OF STOOL AND URINE. PATIENT STARTLED AND OPENED HIS EYES. KAILYN RN SAID HI TO PATIENT. PATIENT SAID "HI". PATIENT ASKED IF HE WAS COLD PATIENT STATED "YES I AM". PATIENT ASKED HOW HE WAS DOING. PATIENT STATED "FINE". PATIENT ASKED IF HE WOULD LIKE A DRINK. PATIENT STATED "YES". PATIENT WAS ABLE TO DRINK WATER OUT OF A STRAW. PATIENTS INTAKE AND OUPUT RECORDED. PATIENTS CALL LIGHT WITHIN REACH. BED ALARM ON FOR SAFETY.
--- NOTE | 2019-08-19 08:15 | NUR ---
PATIENT SITTING UP IN BED. RN IN ROOM. PATIENT FED. ATTEND CHANGED. TWO PERSON ASSITING. CALL LIGHT WITHIN REACH. NO OTHER NEEDS AT THIS TIME
--- NOTE | 2019-08-19 08:25 | NUR ---
MORNING ASSESSMENT DONE. PATIENT SITTING UP IN BED TO BE HELPED WITH CLEAR LIQUID BREAKFAST. ATTEMPT TO HAVE PATIENT TAKE WHOLE PILLS WITH APPLESAUCE, DIFFICULTY FOLLOW DIRECTIONS TO SWALLOW PILLS, PLAN TO CRUSH MEDICATION IN THE FUTURE. IV ABX INFUSING FOR 30 MINUTES. PATIENT APPEARS OTHERWISE COMFORTABLE, ABLE TO OPEN EYES WHEN ASKED, FOLLOW COMMANDS WHEN ASKED. DRY ATTENDS IN PLACE.
--- NOTE | 2019-08-19 10:08 | NUR ---
CALLED [facility] TO LET THEM KNOW THAT DR VIERA IS GOING TO DISCHARGE PATIENT HOME TODAY BEFORE NOON. I TALKED TO RHINA AND SHE SAID THAT WAS FINE. SHE DID SAY THAT WE WOULD HAVE TO SET UP A WHEELCHAIR VAN.
--- NOTE | 2019-08-19 10:11 | NUR ---
PATIENT RESTING IN BED. VITAL SIGNS AND I&O DONE. ICE WATER GIVEN. CALL LIGHT WITHIN REACH. NO OTHER NEEDS AT THIS TIME
--- NOTE | 2019-08-19 11:37 | NUR ---
PATIENT FED SOFT SCRAMBLED EGGS, TOLERATED WELL. PATIENT TO RETURN TO [facility] TODAY.
--- NOTE | 2019-08-19 11:52 | NUR ---
REPORT CALLED TO [facility]. PATIENT IN WHEELCHAIR WITH 2 PERSON ASSIST. PATIENT TO TAKE WHEELCHAIR VAN TO [facility].
[2019-08-25] MEDS ORDERED: CIPRO500 MG PO (03:36)
== END 2019-08-19 12:06 ==
LOC: ED 13:16 → MS 13:18
PROVIDERS: ADMIT Internal Medicine
DX: E87.0 Hyperosmolality and hypernatremia (principal); N39.0 Urinary tract infection, site not specified; G20 Parkinson's disease; Z66 Do not resuscitate; Z79.899 Other long term (current) drug therapy; Z88.2 Allergy status to sulfonamides; Z88.1 Allergy status to other antibiotic agents
CPT/HCPCS: 36415; 51701; 70450; 71045; 80048; 80053; 81001; 84484; 85025; 87077; 87088; 87186; 93005; 93010; 96366; 99285-25; G0378; G0480; J0696; J1650; J7030

== ENCOUNTER → 2019-08-25 | Emergency (ER) | payer MEDICARE ==
[~2019-08-25] VITALS: Ht 182.9 cm; Wt 50.9 kg
[~2019-08-25] MED LIST changes: +8 HOUR650 MG PO
--- OUTSIDE RECORDS SUMMARY | ~2019-08-25 | XMS | Encounter Summary ---
Demographics + + + | Address | [address] | | | [place] [address] | + + + | Home Phone | | + + + | Preferred Language | Unknown | + + + | Marital Status | Single | + + + | Congregation Affiliation | Unknown | + + + | Race | White | + + + | Ethnic Group | Not or | + + + Author + + + | Author | [facility] | + + + | Organization | [facility] | + + + | Address | Unknown | + + + | Phone | Unavailable | + + + Support + + +---------+ + | Name | Relationship | Address | Phone | + + +---------+ + | Gloria Haynes | ECON | Unknown | | + + +---------+ + Care Team Providers + +------+ + | Care Structural Manager Name | Role | Phone | + +------+ + | Jory Segovia MD | PCP | | + +------+ + Reason for Visit Diagnostic Testing (Routine) +--------+--------+ + + + + | Status | Reason | Specialty | Diagnoses / | Referred By | Referred To | | | | | Procedures | Contact | Contact | +--------+--------+ + + + + | Closed | | Radiology | Diagnoses | Veterans, | [facility] | | | | | Parkinson | Administrati | [address] | | | | | disease | on [place] | [facility] | | | | | (HCC) | V A MEDICAL | Rd | | | | | Procedures | CENTER | Mailcode: | | | | | MRI BRAIN WO | [address] | [address] | | | | | CONTRAST | [facility] | [place] | | | | | [address] | Research | | | | | | [facility] | | | | | | [place] [address] | [place], [place] | | | | | | Phone: | [address] | | | | | | [phone] | Phone: | | | | | | Fax: | [phone] | | | | | | [phone] | Fax: | | | | | | | [phone] | +--------+--------+ + + + + Encounter Details +--------+ + + + + | Date | Type | Department | Care Team | Description | +--------+ + + + + | 10/03/ | Hospital | Diagnostic Imaging | | | | 2010 | Encounter | Services at [facility] | | | | | | [address] | | | | | | [place] Mailcode: | | | | | | [address] | | | | | | [facility] | | | | | | [place], [place] | | | | | | [address] | | | | | | [phone] | | | +--------+ + + + + Social History + +-------+ +--------+------+ | Tobacco Use | Types | Packs/Day | Years | Date | | | | | Used | | + +-------+ +--------+------+ | Never Assessed | | | | | + +-------+ +--------+------+ + + + | Sex Assigned at [...] as of this encounter Plan of Treatment + +---------+--------+ + + | Name | Type | Priori | Associated Diagnoses | Date/Time | | | | ty | | | + +---------+--------+ + + | MRI BRAIN WO | Imaging | Routin | Parkinson disease | 10/03/2010 5:32 PM | | CONTRAST | | e | (HCC) | PST | + +---------+--------+ + + documented as of this encounter Procedures + +--------+ + + + | Procedure Name | Priori | Date/Time | Associated Diagnosis | Comments | | | ty | | | | + +--------+ + + + | ORDERS OTHER | | 08/31/2010 | | Results for this | | | | 12:00 AM | | procedure are in the | | | | PST | | results section. | + +--------+ + + + documented in this encounter Results ORDERS OTHER (08/31/2010 12:00 AM PST) + + + | Narrative | Performed At | + + + | | | + + + + + | Procedure Note | + + | Mark Mccray - 11/08/2010 1:45 PM PDT | | | + + documented in this encounter Visit Diagnoses + + | Diagnosis | + + | Parkinson disease (HCC) Paralysis agitans | + + documented in this encounter"
--- OUTSIDE RECORDS SUMMARY | ~2019-08-25 | XMS | Encounter Summary ---
Demographics + + + | Address | [address] | | | [place] [address] | + + + | Home Phone | | + + + | Preferred Language | Unknown | + + + | Marital Status | | + + + | Islam Affiliation | Unknown | + + + | Race | Unknown | + + + | Ethnic Group | Unknown | + + + Author + + + | Author | [facility] | | | and [place] | + + + | Organization | [facility] | | | and [...] Team Providers + +------+ + | Care System Engineer Name | Role | Phone | + +------+ + | Екатерина Christianson NP | PCP | | + +------+ + Reason for Visit + + + | Reason | Comments | + + + | Provide Resources | LARSW assistance with dme | + + + Encounter Details +--------+ + + + + | Date | Type | Department | Care Team | Description | +--------+ + + + + | 03/18/ | Telephone | [place] [facility] | Dulce Berkowitz | Provide Resources | | 2019 | | [facility] | D, [address] | (CHW assistance with | | | | CLINIC [address] | [address] | dme) | | | | DR [place], | [place], [place] [address] | | | | | [place] [address] | [phone] | | | | | [phone] | | | +--------+ + + + [...] | Neurology | Mary, | | | 2019 | Visit | | [address] | | | | | | [address] [place], | | | | | | [place] [address] | | | | | | [phone] | | | | | | | | +--------+---------+ + + + documented as of this encounter Visit Diagnoses Not on filedocumented in this encounter"
--- OUTSIDE RECORDS SUMMARY | ~2019-08-25 | XMS | Encounter Summary ---
Demographics + + + | Address | [address] | | | [place] [address] | + + + | Home Phone | | + + + | Preferred Language | Unknown | + + + | Marital Status | | + + + | Taoist Affiliation | Unknown | + + + | Race | Unknown | + + + | Ethnic Group | Unknown | + + + Author + + + | Author | [facility] | | | and [place] | + + + | Organization | [facility] | | | [...] Team Providers + +------+ + | Care Wallboard Worker Name | Role | Phone | + +------+ + | Екатерина Christianson NP | PCP | | + +------+ + Reason for Visit + + + | Reason | Comments | + + + | Provide Resources | CHW assistance with resources | + + + Encounter Details +--------+ + + + + | Date | Type | Department | Care Team | Description | +--------+ + + + + | 03/02/ | Telephone | [place] [facility] | Dulce Berkowitz | Provide Resources | | 2019 | | [facility] | [address], [address] | (W assistance with | | | | CLINIC [address] | [place] | resources) | | | | DR [address], | [place] [address] | | | | | [place] [address] | [phone] | | | | | [phone] | | | +--------+ + + + [...] | | | | | | [address] [place], | | | | | | [place] [address] | | | | | | [phone] | | | | | | | | +--------+---------+ + + + documented as of this encounter Visit Diagnoses Not on filedocumented in this encounter"
--- OUTSIDE RECORDS SUMMARY | ~2019-08-25 | XMS | Encounter Summary ---
Demographics + + + | Address | [address] | | | [place] [address] | + + + | Home Phone | | + + + | Preferred Language | Unknown | + + + | Marital Status | | + + + | Zoroastrian Affiliation | Unknown | + + + | Race | Unknown | + + + | Ethnic Group | Unknown | + + + Author + + + | Author | [facility] | | | and [place] | + + + | Organization | [facility] | | | and [...] Team Providers + +------+ + | Care Director Workforce Management Name | Role | Phone | + [...] | +--------+ + + + + | 07/10/ | Telephone | [facility] | Mac Bond MD | Results, Imaging | | 2018 | | HOSPITAL NEUROLOGY | [address] | | | | | CLIN[address] | [place] | | | | | [address] [place], | [address] | | | | | [place] [address] | | | | | | [phone] | | | +--------+ + + + [...] | | | | | | [place] [address] | | | | | | [phone] | | | | | | | | +--------+---------+ + + + documented as of this encounter Visit Diagnoses Not on filedocumented in this encounter"
--- OUTSIDE RECORDS SUMMARY | ~2019-08-25 | XMS | Encounter Summary ---
Demographics + + + | Address | [address] | | | [place] [address] | + + + | Home Phone | | + + + | Preferred Language | Unknown | + + + | Marital Status | Single | + + + | Sikhism Affiliation | Unknown | + + + | Race | White | + + + | Ethnic Group | Not or | + + + Author + + + | Author | [facility] | + + + | Organization | [facility] | + + + | Address | Unknown | + + + | Phone | Unavailable | + + + Support + + +---------+ + | Name | Relationship | Address | Phone | + + +---------+ + | Gloria Hayens | ECON | Unknown | | + + +---------+ + Care Team Providers + +------+ + | Care Ironworker Wire Fence Erector Name | Role | Phone | + +------+ + PCP | Unavailable | + +------+ + Encounter Details +--------+ + + + + | Date | Type | Department | Care Team | Description | +--------+ + + + + | 06/06/ | Results | Neurology at | Jory Segovia MD | | | 2006 | Only | [facility] & | [address] | | | | | Healing [address] | | | | | Lemuel Maciel Mailcode: | [place], [place] | | | | | [address] | [address] | | | | | Health and Healing, | [phone] | | | | | | | | | | | Floor [place], [place] | | | | | | [address] | | | | | | [phone] | | | +--------+ + + + [...] Not on filedocumented as of this encounter Procedures + +--------+ + + + | Procedure Name | Priori | Date/Time | Associated Diagnosis | Comments | | | ty | | | | + +--------+ + + + | CSF INFO PANEL | Urgent | 06/13/2007 | | Results for this | | | | 9:25 AM | | procedure are in the | | | | PDT | | results section. | + +--------+ + + + | BODY FLUID INFO | Urgent | 06/13/2007 | | Results for this | | PANEL | | 9:25 AM | | procedure are in the | | | | PDT | | results section. | + +--------+ + + + | GLUCOSE, CSF | Urgent | 06/13/2007 | | Results for this | | | | 9:25 AM | | procedure are in the | | | | PDT | | results section. | + +--------+ + + + | CELL COUNT ONLY, CSF | Urgent | 06/13/2007 | | Results for this | | | | 9:25 AM | | procedure are in the | | | | PDT | | results section. | + +--------+ + + + | PROTEIN, CSF | Urgent | 06/13/2007 | | Results for this | | | | 9:25 AM | | procedure are in the | | | | PDT | | results section. | + +--------+ + + + | CBC ONLY | Routin | 06/06/2007 | | Results for this | | | e | 12:00 PM | | procedure are in the | | | | PDT | | results section. | + +--------+ + + + documented in this encounter Results PROTEIN, CSF (06/13/2007 9:25 AM PDT) + +--------+ + + + | Component | Value | Ref Range | Performed | Pathologist | | | | | At | Signature | + +--------+ + + + | TOTAL | 53 (H) | 15 - 45 mg/dL | [facility] | | | PROTEIN CSF | | | DEPARTMENT | | | | | | OF | | | | | | PATHOLOGY | | + +--------+ + + + + + | Specimen | + + | | + + + + + + + | Performing | Address | City/State/Zipcode | Phone Number | | Organization | | | | + + + + + | [facility] DEPARTMENT OF | [address] | [place] [address] | | | PATHOLOGY | [address] | | | + + + + + | [facility] DEPARTMENT OF | [address] | [place] [address] | | | PATHOLOGY | [address] | | | + + + + + CSF INFO PANEL (06/13/2007 9:25 AM PDT) + + + + + + | Component | Value | Ref Range | Performed | Pathologist | | | | | At | Signature | + + + + + + | CSF | Clear | Clear | [facility] | | | APPEARANCE | | | DEPARTMENT | | | | | | OF | | | | | | PATHOLOGY | | + + + + + + | CSF COLOR | Colorless | Colorless | [facility] | | | | | | DEPARTMENT | | | | | | OF | | | | | | PATHOLOGY | | + + + + + + | CSF TUBE | Tube 1 | | [facility] | | | NUMBER | | | DEPARTMENT | | | | | | OF | | | | | | PATHOLOGY | | + + + + + + + + | Specimen | + + | | + + + + + + + | Performing | Address | City/State/Zipcode | Phone Number | | Organization | | | | + + + + + | [facility] DEPARTMENT OF | [address] | [place] [address] | | | PATHOLOGY | [address] | | | + + + + + | [facility] | [address] | [place] [address] | | | PATHOLOGY | [address] | | | + + + + + GLUCOSE, CSF (06/13/2007 9:25 AM PDT) + +-------+ + + + | Component | Value | Ref Range | Performed | Pathologist | | | | | At | Signature | + +-------+ + + + | GLUCOSE CSF | 68 | 40 - 70 mg/dL | [facility] | | | | | | DEPARTMENT | | | | | | OF | | | | | | PATHOLOGY | | + +-------+ + + + + + | Specimen | + + | | + + + + + + + | Performing | Address | City/State/Zipcode | Phone Number | | Organization | | | | + + + + + | [facility] DEPARTMENT OF | [address] | [place] [address] | | | PATHOLOGY | [address] | | | + + + + + | [facility] DEPARTMENT | [address] | [place] [address] | | | PATHOLOGY | [address] | | | + + + + + CELL COUNT ONLY, CSF (06/13/2007 9:25 AM PDT) + +-------+ + + + | Component | Value | Ref Range | Performed | Pathologist | | | | | At | Signature | + +-------+ + + + | CSF WBC | 3 | <6 /cu mm | [facility] | | | | | | DEPARTMENT | | | | | | OF | | | | | | PATHOLOGY | | + +-------+ + + + | CSF RBC | < 1 | /cu mm | [facility] | | | | | | DEPARTMENT | | | | | | OF | | | | | | PATHOLOGY | | + +-------+ + + + + + | Specimen | + + | | + + + + + + + | Performing | Address | City/State/Zipcode | Phone Number | | Organization | | | | + + + + + | [facility] | [address] | [place] [address] | | | PATHOLOGY | [address] | | | + + + + + | [facility] | [address] [place] [address] | [place] [address] | | | PATHOLOGY | [address] | | | + + + + + BODY FLUID INFO PANEL (06/13/2007 9:25 AM PDT) + +-------+ + + + | Component | Value | Ref Range | Performed | Pathologist | | | | | At | Signature | + +-------+ + + + | TYPE OF | CSF | | [facility] | | | FLUID | | | DEPARTMENT | | | | | | OF | | | | | | PATHOLOGY | | + +-------+ + + + + + | Specimen | + + | | + + + + + + + | Performing | Address | City/State/Zipcode | Phone Number | | Organization | | | | + + + + + | [facility] DEPARTMENT OF | [address] | [place] [address] | | | PATHOLOGY | [address] | | | + + + + + | [facility] DEPARTMENT OF | [address] | [place] [address] | | | PATHOLOGY | [address] | | | + + + + + CBC ONLY WITH PLATELET (06/06/2007 12:00 PM PDT) + + + + + + | Component | Value | Ref Range | Performed | Pathologist | | | | | At | Signature | + + + + + + | WHITE CELL | 6.0 | 4.4 - 11.0 K/cu | [facility] | | | COUNT | | mm | DEPARTMENT | | | | | | OF | | | | | | PATHOLOGY | | + + + + + + | RED CELL | 4.47 (L) | 4.50 - 5.90 | [facility] | | | COUNT | | M/cu mm | DEPARTMENT | | | | | | OF | | | | | | PATHOLOGY | | + + + + + + | HEMOGLOBIN | 14.2 | 13.5 - 17.5 | [facility] | | | | | g/dL | DEPARTMENT | | | | | | OF | | | | | | PATHOLOGY | | + + + + + + | HEMATOCRIT | 41.7 | 41.0 - 53.0 % | [facility] | | | | | | DEPARTMENT | | | | | | OF | | | | | | PATHOLOGY | | + + + + + + | MCV | 93.3 | 80.0 - 96.0 fL | [facility] | | | | | | DEPARTMENT | | | | | | OF | | | | | | PATHOLOGY | | + + + + + + | MCHC | 34.1 | 33.4 - 35.5 | [facility] | | | | | g/dL | DEPARTMENT | | | | | | OF | | | | | | PATHOLOGY | | + + + + + + | RDW | 14.0 | 11.5 - 15.0 % | [facility] | | | | | | DEPARTMENT | | | | | | OF | | | | | | PATHOLOGY | | + + + + + + | PLATELET | 347 | 150 - 400 K/cu | [facility] | | | COUNT | | mm | DEPARTMENT | | | | | | OF | | | | | | PATHOLOGY | | + + + + + + + + | Specimen | + + | | + + + + + + + | Performing | Address | City/State/Zipcode | Phone Number | | Organization | | | | + + + + + | [facility] | [address] | [place] [address] | | | PATHOLOGY | [address] | | | + + + + + | [facility] | [address] | [place] [address] | | | PATHOLOGY | [address] | | | + + + + + documented in this encounter Visit Diagnoses Not on filedocumented in this encounter"
--- OUTSIDE RECORDS SUMMARY | ~2019-08-25 | XMS | Encounter Summary ---
Demographics + + + | Address | [address] | | | [place] [address] | + + + | Home Phone | | + + + | Preferred Language | Unknown | + + + | Marital Status | | + + + | Cheondoism Affiliation | Unknown | + + + | Race | Unknown | + + + | Ethnic Group | Unknown | + + + Author + + + | Author | [facility] | | | and [place] | + + + | Organization | [facility] | | [...] Team Providers + +------+ + | Care Service Car Operator Name | Role | Phone | + +------+ + | Екатерина Christianson NP | PCP | | + +------+ + Reason for Visit +--------+ + | Reason | Comments | +--------+ + | Pain | | +--------+ + Encounter Details +--------+--------+ + + + | Date | Type | Department | Care Team | Description | +--------+--------+ + + + | 12/23/ | Min FOOTELee BURGEROMER | Octavio Mariaa, | Pain | | 2019 | | [facility] | MANAGER OF INFORMATION | | | | | CLINIC [address] | | | | | | [address] [place], | | | | | | [place] [address] | | | | | | [phone] | | | +--------+--------+ + + + Social History + +-------+ [...] | | | | | | [place] [address] | | | | | | [phone] | | | | | | | | +--------+---------+ + + + documented as of this encounter Visit Diagnoses + + | Diagnosis | + + | Chronic low back pain without sciatica, unspecified back pain laterality - Primary | + + documented in this encounter"
--- OUTSIDE RECORDS SUMMARY | ~2019-08-25 | XMS | Encounter Summary ---
Demographics + + + | Address | [address] | | | [place] [address] | + + + | Home Phone | | + + + | Preferred Language | Unknown | + + + | Marital Status | Single | + + + | Gnosticism Affiliation | Unknown | + + + | Race | White | + + + | Ethnic Group | Not or | + + + Author + + + | Author | [facility] | + + + | Organization | [facility] | + + + | Address | Unknown | + + + | Phone | Unavailable | + + + Support + + +---------+ + | Name | Relationship | Address | Phone | + + +---------+ + | Gloria Haynes | ECON | Unknown | | + + +---------+ + Care Team Providers + +------+ + | Care Record Maker Name | Role | Phone | + +------+ + | Jory Segovia MD | PCP | | + +------+ + Encounter Details +--------+ + + + + | Date | Type | Department | Care Team | Description | +--------+ + + + + | 08/10/ | Document-Sc | Neurosurgery at | Ayush Moe MD | | | 2014 | anned | [facility] [address] | [address] [place] | | | | | Janell Mailcode: CH8N | [place], [place] | | | | | [facility] | [address] | | | | | and Healing, | [phone] | | | | | | | | | | | Floor [place], [place] | | | | | | [address] | | | | | | [phone] | | | +--------+ + + + [...]
--- OUTSIDE RECORDS SUMMARY | ~2019-08-25 | XMS | Encounter Summary ---
Demographics + + + | Address | [address] | | | [place] [address] | + + + | Home Phone | | + + + | Preferred Language | Unknown | + + + | Marital Status | | + + + | Scientologist Affiliation | Unknown | + + + | Race | Unknown | + + + | Ethnic Group | Unknown | + + + Author + + + | Author | [facility] | | | and [place] | + + + | Organization | [facility] | | | [...] Team Providers + +------+ + | Care Vocational Guidance Counselor Name | Role | Phone | + +------+ + | Екатерина Christianson NP | PCP | | + +------+ + Encounter Details +--------+ + + + + | Date | Type | Department | Care Team | Description | +--------+ + + + + | 07/14/ | Orders Only | [facility] | Mac Bond MD | Chronic low back | | 2018 | | HOSPITAL NEUROLOGY | [address] | pain without | | | | CLINIC [address] | [place], [place] | sciatica, | | | | DR [address] [place], | [address] | unspecified back | | | | [place] [address] | | pain laterality | | | | [phone] | | (Primary Dx) | +--------+ + + + + Social [...] | | | | | | [place] [address] | | | | | | [phone] | | | | | | | | +--------+---------+ + + + + + +--------+ + + | Name | Type | Priori | Associated Diagnoses | Order Schedule | | | | ty | | | + + +--------+ + + | Trigger Point | Procedures | Routin | Chronic low back | Ordered: 07/14/2018 | | Injection Procedure | | e | pain without | | | | | | sciatica, | | | | | | unspecified back | | | | | | pain laterality | | + + +--------+ + + documented as of this encounter Visit Diagnoses + + | Diagnosis | + + | Chronic low back pain without sciatica, unspecified back pain laterality - Primary | + + documented in this encounter"
--- OUTSIDE RECORDS SUMMARY | ~2019-08-25 | XMS | Encounter Summary ---
Demographics + + + | Address | [address] | | | [place] [address] | + + + | Home Phone | | + + + | Preferred Language | Unknown | + + + | Marital Status | | + + + | Latter-Day Affiliation | Unknown | + + + | Race | Unknown | + + + | Ethnic Group | Unknown | + + + Author + + + | Author | [facility] | | | and [place] | + + + | Organization | [facility] | | | [...] Team Providers + +------+ + | Care Vp Public Relations Name | Role | Phone | + +------+ + | Екатерина Christianson NP | PCP | | + +------+ + Encounter Details +--------+ + + + + | Date | Type | Department | Care Team | Description | +--------+ + + + + | 12/12/ | Orders Only | [facility] | Mac Bond MD | Chronic low back | | 2019 | | HOSPITAL NEUROLOGY | [address] | pain without | | | | CLINIC [address] | [place], [place] | sciatica, | | | | [address] [place], | [address] | unspecified back | | | | [place] [address] | | pain laterality | | | | [phone] | | (Primary Dx); | | | | | | Osteoarthritis of | | | | | | spine with | | | | | | radiculopathy, | | | | | | lumbar region | +--------+ + + + + Social [...] | | | | | | [facility], | | | | | | [place] [address] | | | | | | [phone] | | | | | | | | +--------+---------+ + + + documented as of this encounter Results FL POP Lumbar Transforaminal (01/05/2019 1:42 PM PDT) + + | Specimen | + + | | + + + + + | Impressions | Performed At | + + + | IMPRESSION: Successful fluoroscopically guided bilateral L4 | [facility] | | transforaminal epidural steroid injection.. Dictated by: Manuelito | | Amanda Gabriel | | | 2:31 PM | | + + + + + + | Narrative | Performed At | + + + | EXAMINATION: FL EPIDURAL STEROID INJECTION LUMBAR TRANSFORAMINAL | [facility] | | HISTORY: persistent low back pain COMPARISON STUDY: November 05 | | | 2017 FLUOROSCOPY TIME: Time:2 minutes 28 seconds Number of | | | images:12 PROCEDURE: The nature of the procedure, including risks | | | and benefits were explained and a written consent was obtained from | | | the patient. Following usual sterile preparation and under | | | intermittent fluoroscopic guidance, a 22-gauge spinal needle was | | | introduced into the bilateral L4 epidural space through a | | | transforaminal approach. Confirmation of precise needle placement | | | was made with injection of nonionic contrast which flowed into the | | | epidural space. Following confirmation of needle placement, 40 mg of | | | Depo-Medrol steroid followed by 3 mL of 0.25% bupivacaine was | | | injected without difficulty. The patient tolerated the procedure well | | | with no immediate complications | | + + + + + | Procedure Note | + + | Nakul Myers Results In - 01/05/2019 2:35 PM PDT EXAMINATION:FL EPIDURAL STEROID | | INJECTION LUMBAR TRANSFORAMINALHISTORY:persistent low back painCOMPARISON STUDY:OctoberFLUOROSCOPY TIME:Time:2 minutes 28 secondsNumber of images:12PROCEDURE:The | | nature of the procedure, including risks and benefits were explained and a written | | consent was obtained from the patient. Following usual sterile preparation and under | | intermittent fluoroscopic guidance, a 22-gauge spinal needle was introduced into the | | bilateral L4 epidural space through a transforaminal approach. Confirmation of precise | | needle placement was made with injection of nonionic contrast which flowed into the | | epidural space. Following confirmation of needle placement, 40 mg of Depo-Medrol steroid | | followed by 3 mL of 0.25% bupivacaine was injected without difficulty. The patient | | tolerated the procedure well with no immediate complicationsIMPRESSION: | | IMPRESSION:Successful fluoroscopically guided bilateral L4 transforaminal epidural | | steroid injection..Dictated by: Manuelito Kirbyectronically Signed by: Manuelito Gabriel | | on 01/05/2019 2:31 PM | |The nature of the procedure, including risks and benefits were explained and a written cons ent was obtained from the patient. Following usual sterile preparation and under intermitt ent fluoroscopic guidance, a | |22-gauge spinal needle was introduced into | | the bilateral L4 epidural space through a transforaminal approach. Confirmation of preci se needle placement was made with injection of nonionic contrast which flowed into the epidu ral space. Following confirmation of needle placement, 40 mg of | |Depo-Medrol steroid followed by 3 mL of 0.25% bupivacaine was injected without difficulty. The patient tolerated the procedure well with no immediate complications | | | |IMPRESSION: | |IMPRESSION: | |Successful fluoroscopically guided bilateral L4 transforaminal epidural steroid injection.. | | | |Dictated by: Manuelito Gabriel [...] laterality - Primary | + + | Osteoarthritis of spine with radiculopathy, lumbar region | + + documented in this encounter"
--- OUTSIDE RECORDS SUMMARY | ~2019-08-25 | XMS | Encounter Summary ---
Demographics + + + | Address | [address] | | | [place] [address] | + + + | Home Phone | | + + + | Preferred Language | Unknown | + + + | Marital Status | | + + + | Evangelical Affiliation | Unknown | + + + | Race | Unknown | + + + | Ethnic Group | Unknown | + + + Author + + + | Author | [facility] | | | and [place] | + + + | Organization | [facility] | | | [...] Team Providers + +------+ + | Care Quebracho Tanner Name | Role | Phone | + +------+ + | Екатерина Christianson NP | PCP | | + +------+ + Reason for Visit + + + | Reason | Comments | + + + | Patient Concerns | | + + + Encounter Details +--------+ + + + + | Date | Type | Department | Care Team | Description | +--------+ + + + + | 06/15/ | Telephone | [facility] | Mac Bond MD | Patient Concerns | | 2019 | | HOSPITAL NEUROLOGY | [address] | | | | | CLINIC [address] | [place] | | | | | [address] [place], | [address] | | | | | [place] [address] | | | | | | [phone] | | | +--------+ + + + [...] | | | | | | [place] [address] | | | | | | [phone] | | | | | | | | +--------+---------+ + + + documented as of this encounter Visit Diagnoses Not on filedocumented in this encounter"
--- OUTSIDE RECORDS SUMMARY | ~2019-08-25 | XMS | Encounter Summary ---
Demographics + + + | Address | [address] | | | [place] [address] | + + + | Home Phone | | + + + | Preferred Language | Unknown | + + + | Marital Status | | + + + | Shinto Affiliation | Unknown | + + + | Race | Unknown | + + + | Ethnic Group | Unknown | + + + Author + + + | Author | [facility] | | | and [place] | + + + | Organization | [facility] | | | [...] Team Providers + +------+ + | Care Special Warfare Combatant Crewman Name | Role | Phone | + [...] Provide Resources | | 2019 | | [facility] | W | ([facility] helping to | | | | [facility] | | establish with new | | | | [facility], | | PCP. ) | | | | [place] [address] | | | | | | [phone] | | | +--------+ + + + [...] | | | | | | [place] [address] | | | | | | [phone] | | | | | | | | +--------+---------+ + + + documented as of this encounter Visit Diagnoses Not on filedocumented in this encounter"
--- OUTSIDE RECORDS SUMMARY | ~2019-08-25 | XMS | Encounter Summary ---
Demographics + + + | Address | [address] | | | [place] [address] | + + + | Home Phone | | + + + | Preferred Language | Unknown | + + + | Marital Status | | + + + | Restorationist Affiliation | Unknown | + + + | Race | Unknown | + + + | Ethnic Group | Unknown | + + + Author + + + | Author | [facility] | | | and [place] | + + + | Organization | [facility] | | | and [...] Team Providers + +------+ + | Care Event Crew Technician Name | Role | Phone | [...] | | [place], [place] | [place] [address] | unspecified acute | | 2018 | | [address] | [phone] | renal failure type | | | | [phone] | | ([facility]); | | | | | Fidel Muir, | Hypermagnesemia; | | | | | [address] | Acute cystitis with | | | | | [place] [address] | hematuria | | | | | [phone] | | | | | | | | | | | | Gina Main, | | | | | | [address] [place] | | | | | | [place] [address] | | | | | | [phone] | | | | | | | [...] He is transferring in stable condition to [facility] this afternoon. Incidentally-an ECHO was performed however [...] in place. Dictated by: Nato Turner Disposition: assisted facility Follow-Up Plans: [address] [place] [id number] Electronically signed by: Fidel Muir MD 06/19/2019 12:57 CC [facility] Time spent discharging this patient: 30 minutes documented in this encounter Discharge Instructions AttachmentsThe following attachments cannot be sent through Care Everywhere.Kidney Injury, Acute, Discharge Instructions for (Bengali)documented in this encounter Medications at Time of [...] | | | | | | | ([facility]) | | | | | | + [...] medication list provided for disc harge to nursing home facility. Electronically signed by: Gumaro Hernández, Mary [...] strength, and directions [x] Pharmacy list names: [place], [facility] ([place]) Spoke with patient that could recall some [...] | 2019 | Visit | | [facility] [address] | | | | | | [address] [facility], | | | | | | [place] [address] | | | | | | [phone] | | | | | | | [...] + + | [place] [facility] | [address] | [place] [address] | [phone] | | [facility] | | | [...] | mL/min/1.73m2 | [facility] | | | [...] + + | [place] [facility] | [address] | [place] [address] | [phone] | | H[facility]PITAL [facility] | | | [...] + + | [place] [facility] | [address] | [place] [address] | [phone] | | [facility]PITAL [facility] | | | [...] | mL/min/1.73m2 | [facility] | | | [...] + + | [place] [facility] | [address] | [place] [address] | [phone] | | H[facility]PITAL [facility] | | | [...] + + | [place] [facility] | [address] | [place] [address] | [phone] | | H[facility]PITAL [facility] | | | [...] + + | [place] [facility] | [address] | [place] [address] | [phone] | | H[facility]PITAL [facility] | | | [...] + + | [place] [facility] | [address] | [place] [address] | [phone] | | H[facility]PITAL [facility] | | | [...] + + | [place] [facility] | [address] | [place] [address] | [phone] | | H[facility]PITAL [facility] | | | [...] | mL/min/1.73m2 | [facility] | | | [...] + + | [place] [facility] | [address] | [place] [address] | [phone] | | H[facility]PITAL [facility] | | | [...] | cutoff point for the diagnosis of SC is 0.8 ng/mL for the Troponin I | | | method. | | + + + + + + + + | Performing | Address | City/State/Zipcode | Phone Number | | Organization | | | | + + + + + | [place] [facility] | [address] | [place] [address] | [phone] | | H[facility]PITAL [facility] | | | [...] | cutoff point for the diagnosis of SC is 0.8 ng/mL for the Troponin I | | | method. | | + + + + + + + + | Performing | Address | City/State/Zipcode | Phone Number | | Organization | | | | + + + + + | [place] [facility] | [address] | [place] [address] | [phone] | | H[facility]PITAL [facility] | | | [...] + + | [place] [facility] | [address] | [place] [address] | [phone] | | H[facility]ITAL [facility] | | | [...] + + | [place] [facility] | [address] | [place] [address] | [phone] | | HOSPITAL [facility] | | | | + + + + + Culture, Urine (06/16/2019 4:19 PM PDT) + + + + + + | Component | Value | Ref Range | Performed | Pathologist | | | | | At | Signature | + + + + + + | Culture | <10,000 CFU/ml | | [place] | | | | Corynebacterium | | [...] At | + + + | Current [facility] clinical laboratory antibiogram data can be found on the | [place] [facility] | | [facility] intranet at | HOSPITAL | | [email or web address] or on | LABORATORY | | the [facility] website at [email or web address] | | + + + + + + + + | Performing | Address | City/State/Zipcode | Phone Number | | Organization | | | | + + + + + | [place] [facility] | [address] | [place] [address] | [phone] | | HOSPITAL [facility] | | | [...] - 1.030 | [place] | | | [place] | | | [facility] | | | [...] + + | [place] [facility] | [address] | [place] [address] | [phone] | | H[facility]PITAL [facility] | | | [...] | | 438 msQTC Interval: 476 msQRS [place]: -3 degT Wave [place]: 54 deg- | | | ABNORMAL ECG -Sinus rhythmNonspecific intraventricular conduction | | | delayMinimal ST elevation, anterior leadsNo previous ECG available for | | | comparison | | |QRS [place]: -3 deg | | |T Wave [place]: 54 deg | | |- ABNORMAL ECG [...] + + | [place] [facility] | [address] | [place] [address] | [phone] | | HOSPITAL [facility] | | | [...] + + | [place] [facility] | [address] | [place] [address] | [phone] | | HOSPITAL [facility] | | | [...] + + | [place] [facility] | [address] | [place] | [phone] | | HOSPITAL [facility] | | | [...] + + | [place] [facility] | [address] | [place] [address] | [phone] | | HOSPITAL [facility] | | | [...] + + | [facility] [facility] | [address] | [place] [address] | [phone] | | HOSPITAL [facility] | | | [...] | cutoff point for the diagnosis of SC is 0.8 ng/mL for the Troponin I | | | method. | | + + + + + + + + | Performing | Address | City/State/Zipcode | Phone Number | | Organization | | | | + + + + + | [place] [facility] | [address] | [place] [address] | [phone] | | HOSPITAL [facility] | | | [...] | mL/min/1.73m2 | [facility] | | | [facility] | RATE,ESTIMATED | | [facility] | | | | mL/min/1.78x6Xzfm than | | LABORATORY | | | [...] + + | [place] [facility] | [address] | [place] [address] | [phone] | | HOSPITAL [facility] | | | [...] + + | [place] [facility] | [address] | [place] [address] | [phone] | | HOSPITAL [facility] | | | [...]
--- OUTSIDE RECORDS SUMMARY | ~2019-08-25 | XMS | Encounter Summary ---
Demographics + + + | Address | [address] | | | [place] [address] | + + + | Home Phone | | + + + | Preferred Language | Unknown | + + + | Marital Status | | + + + | Sabianism Affiliation | Unknown | + + + | Race | Unknown | + + + | Ethnic Group | Unknown | + + + Author + + + | Author | [facility] | | | and [place] | + + + | Organization | [facility] | | | [...] Team Providers + +------+ + | Care Security Door Installer Name | Role | Phone | [...] [address] | | | | | [place] [address] | | | | | | [phone] | | | +--------+ + + + [...] | | | | | | [place] [address] | | | | | | [phone] | | | | | | | | +--------+---------+ + + + documented as of this encounter Visit Diagnoses Not on filedocumented in this encounter"
--- OUTSIDE RECORDS SUMMARY | ~2019-08-25 | XMS | Clinical Summary ---
Demographics + + + | Address | [address] | | | [place] [address] | + + + | Home Phone | | + + + | Preferred Language | Unknown | + + + | Marital Status | | + + + | Mormon Affiliation | Unknown | + + + | Race | Unknown | + + + | Ethnic Group | Unknown | + + + Author + + + | Author | [facility] | | | and [place] | + + + | Organization | [facility] | | [...] Team Providers + +------+ + | Care Plant Utilities Engineer Name | Role | Phone | + +------+ + | Екатерина Christianson NP | PCP | | + +------+ + Allergies + + + + + + | Active Allergy | Reactions | Severity | Noted | Comments | | | | | Date | | + + + + + + | Sulfamethoxazole-Tri | Other (See Comments) | High | 10/25/20 | Renal failure | | methoprim | | | 19 | | + + + + + + Medications + + + +---------+------+------+-------+ | Medication | Sig | Dispensed | Refills | Star | End | Statu | | | | | | t | Date | s | | | | | | Date | | | + + + +---------+------+------+-------+ | Pyridoxine HCl | | | 0 | 08/0 | | Activ | | (VITAMIN B-6) 25 MG | | | | 09/14 | | e | | tablet | | | | 18 | | | + + + +---------+------+------+-------+ | entacapone | Take 1 tablet by | 120 | 11 | 02/23 | | Activ | | (COMTAN) 200 mg | mouth 4 times daily. | tablet | | 720 | | e | | tabletIndications: | | | | 19 | | | | Parkinson disease | | | | | | | | (HCC) | | | | | | | + + + +---------+------+------+-------+ | carbidopa-levodopa | Take 1 tab PO at | 720 | 11 | 02/23 | | Activ | | (SINEMET) 25-100 mg | 0800, 1000, 1200, | tablet | | 20 | | e | | per | 1400, 1600, 1800, | | | 19 | | | | tabletIndications: | 2000 and 2300. Max | | | | | | | Parkinson disease | of 8 tabs per day. | | | | | | | (HCC) | | | | | | | + + + +---------+------+------+-------+ | amantadine | Take 1 tablet by | 120 | 11 | 02/23 | | Activ | | (SYMMETREL) 100 MG | mouth 4 times daily. | tablet | | 720 | | e | | TABSIndications: | | | | 19 | | | | Parkinson disease | | | | | | | | (HCC) | | | | | | | + + + +---------+------+------+-------+ | acetaminophen | Take 650 mg by mouth | | 0 | | | Activ | | (TYLENOL) 325 mg | every 4 hours as | | | | | e | | tablet | needed for Pain. | | | | | | + + + +---------+------+------+-------+ | bisacodyl | Place 10 mg rectally | | 0 | | | Activ | | (DULCOLAX) 10 mg | Daily. | | | | | e | | suppository | | | | | | | + + + +---------+------+------+-------+ Active Problems + + + | Problem | Noted Date | + + + | UTI (urinary tract infection) | 06/16/2019 | + + + | Heart murmur | 06/16/2019 | + + + | Dysuria | 05/19/2019 | + + + + + | Overview: Last Assessment & Plan: Pyruia 1+ and hematuria 1+, | | without bacteruria but he does have a slight temperature.- Urine | | sent for culture.- Differential includes UTI vs. BPH vs. | | obstruction vs bladder spasm due to Parkinson's disease. - | | Bactrim DS BID x 10 days while we await culture.- Encouraged | | patient to follow up with provider / establish with PCP here in | | clinic. 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 | + + + + + | Neck pain, bilateral | 07/09/2018 | + + + + + | Overview: 07/09/18 XR Cervical: Extensive degenerative | | changes of the cervical spine. Bilateral foraminal narrowing. | + + Encounters +--------+ + + + + | Date | Type | Specialty | Care Team | Description | +--------+ + + + + | 08/21/ | Telephone | Neurology | Opal Alexandre, | Referral | | 2018 | | | MD | | +--------+ + + + + | 08/20/ | Telephone | Neurology | Physician Tomasa | Error | | 2018 | | | | | +--------+ + + + + | 07/28/ | Office | Neurology | Mac Bond MD | S/P deep brain | | 2018 | Visit | | | stimulator placement | | | | | | (Primary Dx); | | | | | | Parkinson disease | | | | | | (HCC); Gait disorder | +--------+ + + + + | 06/22/ | Telephone | Neurology | Ally Douglass RN | Appointment Question | 2018 | | | | | +--------+ + + + + | 06/16/ | Hospital | | Travis Pringle | Generalized weakness | | 2018 - | Encounter | | DO Oscar | (Primary Dx); Acute | | | | | [place], | renal failure, | | 06/19/ | | | Gina Rivera MD | unspecified acute | 2018 | | | | renal failure type | | | | | | ([facility]); | | | | | | Hypermagnesemia; | | | | | | Acute cystitis with | | | | | | hematuria | +--------+ + + + + | 06/16/ | Telephone | Neurology | Ally Douglass RN | Triage (frequent | 2018 | | | | falls) | +--------+ + + + + | 06/15/ | Telephone | Neurology | Mac Bond MD | Patient Concerns | | 2019 | | | | | +--------+ + + + + from Last 3 Months Family History + + +------+ + | Medical History | Relation | Name | Comments | + + +------+ + | Other (see comment) | Mother | | | + + +------+ + | Breast cancer | Sister | | | + + +------+ + + +------+ + + | Relation | Name | Status | Comments | + +------+ + + | Brother | | Alive | | + +------+ + + | Father | | | | + +------+ + + | Mother | | | | + +------+ + + | Sister | | Alive | | + +------+ + + Social History + +-------+ +--------+ [...] | + + Last Filed Vital Signs + + + [...] | | + + + + + Plan of Treatment +--------+---------+ + + + | Date | Type | Specialty | Care Team | Description | +--------+---------+ + + + | 01/20/ | Office | Neurology | Mary, | | | 2020 | Visit | | [address] | | | | | | [address] [facility] [place], | | | | | | [place] [address] | | | | | | [phone] | | | | | | | | +--------+---------+ + + + + + + + + | Health Maintenance | Due Date | Last Done | Comments | + + + + + | Hepatitis C | | | | | Screening | 0 | | | + + + + + | Vaccine: | | | | | Dtap/Tdap/Td (1 - | 1 | | | | Tdap) | | | | + + + + + | Colorectal Cancer | | | | | Screening | 0 | | | | (Colonoscopy) | | | | + + + + + | Vaccine: Zoster (1 | | | | | of 2) | 0 | | | + + + + + | AAA Screening | | | | | | 5 | | | + + + + + | Vaccine: | | | | | Pneumococcal 65+ (1 | 5 | | | | of 2 - PCV13) | | | | + + + + + | Adult Annual | | | | | Wellness Visit | 8 | | | + + + + + | Vaccine: Influenza | | | | | (#1) | 9 | | | + + + + + Procedures + +--------+ + + + | [...] section. | + +--------+ + + + from Last 3 Months Results ECG - EXTERNAL SCAN (06/23/2019 12:00 AM PDT)Only the most recent of 2 results within the period is included. + + + | Narrative | Performed At | + + + | Ordered by an | | | unspecified provider. | | + + + CBC with Differential (06/19/2019 5:32 AM PDT)Only the most recent of 3 results within the time period is included. + + + + + + | [...] + + | [place] [facility] | [address] | [place] [address] | [phone] | | HOSPITAL LAB[facility] | | | | + + + + + Basic Metabolic Panel (06/19/2019 5:32 AM PDT)Only the most recent of 3 results within the time period is included. + + + + + + | [...] | mL/min/1.73m2 | [facility] | | | [facility] | [facility] | | | [...] + + | [place] [facility] | [address] | [place] [address] | [phone] | | HOSPITAL LAB[facility]ATORY | | | [...] + + | [place] [facility] | [address] | [place] [address] | [phone] | | HOSPITAL LAB[facility]ORY | | | [...] + + | [place] [facility] | [address] | [place] [address] | [phone] | | HOSPITAL [facility]ORY | | | [...] + + | [place] [facility] | [address] | [place] [address] | [phone] | | HOSPITAL [facility] | | | | + + + + + Magnesium (06/17/2019 5:10 AM PDT)Only the most recent of 2 results within the time period is included. + +-------+ + + + | Component [...] + + | [place] [facility] | [address] | [place] [address] | [phone] | | HOSPITAL LAB[facility]ORY | | | | + + + + + Troponin I (06/17/2019 3:00 AM PDT)Only the most recent of 3 results within the time perio d is included. + +-------+ + + + | Component [...] | cutoff point for the diagnosis of MN is 0.8 ng/mL for the Troponin I | | | method. | | + + + + + + + + | Performing | Address | City/State/Zipcode | Phone Number | | Organization | | | | + + + + + | [place] [facility] | [address] | [place] [address] | [phone] | | HOSPITAL LAB[facility]ORY | | | [...] + + | [place] [facility] | [address] | [place] [address] | [phone] | | HOSPITAL LAB[facility]ORY | | | [...] + + | [place] [facility] | [address] | [place] [address] | [phone] | | HOSPITAL LAB[facility]ATORY | | | [...] - 1.030 | [place] | | | [place] | | | [facility] | | | [...] + + | [place] [facility] | [address] | [place] [address] | [phone] | | HOSPITAL LAB[facility]ATORY | | | [...] At | + + + | Current [facility] clinical laboratory antibiogram data can be found on the | [place] [facility] | | [facility] intranet at | HOSPITAL | | [email or web address] or on | LABORATORY | | the [facility] website at [email or web address] | | + + + + + + + + | Performing | Address | City/State/Zipcode | Phone Number | | Organization | | | | + + + + + | [place] [facility] | [address] | [place] [address] | [phone] | | HOSPITAL [facility] | | | [...] | | 438 msQTC Interval: 476 msQRS [place]: -3 degT Wave [place]: 54 deg- | | | ABNORMAL ECG -Sinus rhythmNonspecific intraventricular conduction | | | delayMinimal ST elevation, anterior leadsNo previous ECG available for | | | comparison | | |QRS [place]: -3 deg | | |T Wave [place]: 54 deg | | |- ABNORMAL ECG [...] | | | + +---------+ + + TSH, Reflex Free T4 (06/16/2019 [...] + + | [place] [facility] | [address] | [place] [address] | [phone] | | HOSPITAL LAB[facility] | | | | + + + + + T4, Free (06/16/2019 3:20 PM [...] + + | [place] [facility] | [address] | [place] [address] | [phone] | | HOSPITAL LAB[facility]ORY | | | [...] + + | [facility] [facility] | [address] | [place] [address] | [phone] | | HOSPITAL [facility] | | | [...] + + | [place] [facility] | [address] | [place] [address] | [phone] | | HOSPITAL LAB[facility] | | | [...] | mL/min/1.73m2 | [facility] | | | [facility] | RATE,ESTIMATED | | [facility] | | | | mL/min/1.83j8Xght than | | LABORATORY | | | [...] + + | [place] [facility] | [address] | [place] [address] | [phone] | | HOSPITAL LAB[facility]ORY | | | | + + + + + from Last 3 Months Insurance + +--------+ +--------+ +---------+--------+ | Payer | Benefi | Subscriber | Effect | Phone | Address | Type | | | t Plan | ID | ashley | | | | | | / | | Dates | | | | | | Group | | | | | | + +--------+ +--------+ +---------+--------+ | MEDICARE | MEDICA | [id number] | 04/26/20 | [phone] | | Medica | | | RE | | 09-Pre | 5 | | re | | | PART A | | sent | | | | | | AND B | | | | | | + +--------+ +--------+ +---------+--------+ | [employer] [place] | [id number] | 12/26/19 | | | Indemn | | | CHOICE | | 18-Pre | | | ity | | | PC3 | | sent | | | | + +--------+ +--------+ +---------+--------+ + +--------+ +--------+ + + | Guarantor Name | Accoun | Relation to | Date | Phone | Billing Address | | | t Type | Patient | of | | | | | | | | | | + +--------+ +--------+ + + | Nitesh Haynes | Person | Self | [birth year] | [address] | | | al/Fam | | 1951 | [phone] | [place], [place] | | | graciela | | | [address] (Home) | [address] | + +--------+ +--------+ + + Advance Directives + + + + + | Type | Date Recorded | Patient | Explanation | | | | Housing Property Manager | | + + + + + | Power of | | | | | Studio Designer | | | | + + + + + | Advance | 06/16/2019 | | | | Directive | 3:02 PM | | | + + + + + + + + + + | Code Status | Date | Date | Comments | | | Activated | Inactivated | | + + + + + | DNR (No | 06/17/2019 | 06/19/2019 | | | Code) | 11:14 AM | 5:27 PM | | + + + + + + + +---+ | Orders discussed with: | Patient | | + + +---+ | Resources consulted for | POLST | | | continuity: | | | + + +---+ | RN or MD to pronounce: | RN may | | | | pronounce | | + + +---+ + + + +---+ | | | | | + + + +---+ | Full Code | 06/16/2019 | 06/17/2019 | | | | 7:49 PM | 11:14 AM | | + + + +---+"
--- OUTSIDE RECORDS SUMMARY | ~2019-08-25 | XMS | Encounter Summary ---
Demographics + + + | Address | [address] | | | [place] [address] | + + + | Home Phone | | + + + | Preferred Language | Unknown | + + + | Marital Status | | + + + | Jain Affiliation | Unknown | + + + | Race | Unknown | + + + | Ethnic Group | Unknown | + + + Author + + + | Author | [facility] | | | and [place] | + + + | Organization | [facility] | | [...] Team Providers + +------+ + | Care Milk Runner Name | Role | Phone | + [...] Provide Resources | | 2019 | | [facility] | D, [address] | (W assistance with | | | | CLINIC [address] | [place] | resources) | | | | DR [address] [place], | [place] [address] | | | | | [place] [address] | [phone] | | | | | [phone] | | | +--------+ + + + [...] | | | | | | [place] [address] | | | | | | [phone] | | | | | | | | +--------+---------+ + + + documented as of this encounter Visit Diagnoses Not on filedocumented in this encounter"
--- OUTSIDE RECORDS SUMMARY | ~2019-08-25 | XMS | Encounter Summary ---
Demographics + + + | Address | [address] | | | [place] [address] | + + + | Home Phone [...] Team Providers + +------+ + | Care Flatwork Feeder Name | Role | Phone | + [...] | | | DR [address] [place], | [address] | unspecified back | | | | [place] [address] | | pain laterality | | | | [phone] | | (Primary Dx); | | | [...] | | | | | | [facility], | | | | | | [place] [address] | | | | | | [phone] | | | | | | | [...]
--- OUTSIDE RECORDS SUMMARY | ~2019-08-25 | XMS | Encounter Summary ---
Demographics + + + | Address | [address] | | | [place] [address] | + + + | Home Phone | | + + + | Preferred Language | Unknown | + + + | Marital Status | | + + + | Mandaeism Affiliation | Unknown | + + + [...] Team Providers + +------+ + | Care Records Management Engineer Name | Role | Phone | [...] [facility] | Alin Garcia L, | Appointment ([facility] | | 2019 | | [facility] | [facility] | providing | | | | [facility] | | information about | | | | [facility], | | medical appointment) | | | | [place] [address] | | | | | | [phone] | | | +--------+ + + + [...] | | | | | | [place] [address] | | | | | | [phone] | | | | | | | | +--------+---------+ + + + documented as of this encounter Visit Diagnoses Not on filedocumented in this encounter"
--- OUTSIDE RECORDS SUMMARY | ~2019-08-25 | XMS | Encounter Summary ---
Demographics + + + | Address | [address] | | | [place] [address] | + + + | Home Phone | | + + + | Preferred Language | Unknown | + + + | Marital Status | | + + + | Scientology Affiliation | Unknown | + + + | Race | Unknown | + + + | Ethnic Group | Unknown | + + + Author + + + | Author | [facility] | | | and [place] | + + + | Organization | [facility] | | | [...] Team Providers + +------+ + | Care French Drawer Name | Role | Phone | + [...] [address] | | | | | [place] [address] | | | | | | [phone] | | | +--------+ + + + [...] | | | | | | [place] [address] | | | | | | [phone] | | | | | | | | +--------+---------+ + + + documented as of this encounter Visit Diagnoses Not on filedocumented in this encounter"
--- OUTSIDE RECORDS SUMMARY | ~2019-08-25 | XMS | Encounter Summary ---
Demographics + + + | Address | [address] | | | [place] [address] | + + + | Home Phone | | + + + | Preferred Language | Unknown | + + + | Marital Status | | + + + | Advent Affiliation | Unknown | + + + | Race | Unknown | + + + | Ethnic Group | Unknown | + + + Author + + + | Author | [facility] | | | and [place] | + + + | Organization | [facility] | | | and [place] | + + + | Address | Unknown | + + + | Phone | Unavailable | + + + Support + + +---------+ + | Name | Relationship | Address | Phone | + + +---------+ + | Blanqiuta Patel ECON | Unknown | | + + +---------+ + Care Team Providers + +------+ + | Care Sales Inspector Name | Role | Phone | + [...] Appointment (Confirm | | 2019 | | [facility] | D, [address] | appointment for | | | | CLIN[address] | [place] | home visit with GIANNA | | | | [address] [place], | [place] [address] | and to get | | | | [place] [address] | [phone] | directions) | | | | [phone] | | | +--------+ + + + [...] | | | | | | [place] [address] | | | | | | [phone] | | | | | | | | +--------+---------+ + + + documented as of this encounter Visit Diagnoses Not on filedocumented in this encounter"
--- OUTSIDE RECORDS SUMMARY | ~2019-08-25 | XMS | Encounter Summary ---
Demographics + + + | Address | [address] | | | [place] [address] | + + + | Home Phone | | + + + | Preferred Language | Unknown | + + + | Marital Status | Single | + + + | Episcopal Affiliation | Unknown | + + + | Race | White | + + + | Ethnic Group | Not or | + + + Author + + + | Author | [facility] | + + + | Organization | [facility] | + + + | Address | Unknown | + + + | Phone | Unavailable | + + + Support + + +---------+ + | Name | Relationship | Address | Phone | + + +---------+ + | Gloria Haynes | ECON | Unknown | | + + +---------+ + Care Team Providers + +------+ + | Care Police Service Technician Name | Role | Phone | [...] [id number] | | | | | | [place], [place] | | | | | | [address] | | | | | | [phone] | | | +--------+ + + + [...]
--- OUTSIDE RECORDS SUMMARY | ~2019-08-25 | XMS | Encounter Summary ---
Demographics + + + | Address | [address] | | | [place] [address] | + + + | Home Phone | | + + + | Preferred Language | Unknown | + + + | Marital Status | | + + + | Voodoo Affiliation | Unknown | + + + | Race | Unknown | + + + | Ethnic Group | Unknown | + + + Author + + + | Author | [facility] | | | and [place] | + + + | Organization | [facility] | | | and [...] Team Providers + +------+ + | Care Partner Management Consultant Name | Role | Phone | + +------+ + | Екатерина Christianson NP | PCP | | + +------+ + Reason for Visit + + + | Reason | Comments | + + + | Back Pain | | + + + Encounter Details +--------+ + + + + | Date | Type | Department | Care Team | Description | +--------+ + + + + | 07/14/ | Telephone | [facility] | Mac Bond MD | Back Pain | | 2018 | | HOSPITAL NE[facility]OLOGY | [address] | | | | | CLIN[address] | [place] | | | | | [address] [place], | [address] | | | | | [place] [address] | | | | | | [phone] | | | +--------+ + + + [...] | | | | | | [facility], | | | | | | [place] [address] | | | | | | [phone] | | | | | | | | +--------+---------+ + + + documented as of this encounter Visit Diagnoses Not on filedocumented in this encounter"
--- OUTSIDE RECORDS SUMMARY | ~2019-08-25 | XMS | Encounter Summary ---
Demographics + + + | Address | [address] | | | [place] [address] | + + + | Home Phone [...] Team Providers + +------+ + | Care Head Piece Assembler Name | Role | Phone | [...] | +--------+ + + + + | 11/10/ | Telephone | [facility] | Mac Bond MD | Results, Imaging | | 2019 | | HOSPITAL NEUROLOGY | [address] | | | | | CLIN[address] | [place] | | | | | DR [address] [place], | [address] | | | | | [place] [address] | | | | | | [phone] | | | +--------+ + + + [...] | | | | | | [place] [address] | | | | | | [phone] | | | | | | | | +--------+---------+ + + + documented as of this encounter Visit Diagnoses Not on filedocumented in this encounter"
--- OUTSIDE RECORDS SUMMARY | ~2019-08-25 | XMS | Encounter Summary ---
Demographics + + + | Address | [address] | | | [place] [address] | + + + | Home Phone | | + + + | Preferred Language | Unknown | + + + | Marital Status | | + + + | Spiritism Affiliation | Unknown | + + + | Race | Unknown | + + + | Ethnic Group | Unknown | + + + Author + + + | Author | [facility] | | | and [place] | + + + | Organization | [facility] | | | [...] Team Providers + +------+ + | Care Assistant Professor Of Communication Name | Role | Phone | + +------+ + | Екатерина Christianson NP | PCP | | + +------+ + Encounter Details +--------+ + + + + | Date | Type | Department | Care Team | Description | +--------+ + + + + | 07/09/ | [facility] | Mac Bond MD | Chronic bilateral | | 2018 | Encounter | HOSPITAL XRAY [address] | [address] | low back pain | | | | [address] | [place], [place] | without sciatica | | | | [place], [place] | [address] | | | | | [address] | | | | | | [phone] | | | +--------+ + + + [...] | | | | | | 4TH [facility], | | | | | | [place] [address] | | | | | | [phone] | | | | | | | | +--------+---------+ + + + documented as of this encounter Procedures + +--------+ + + + | Procedure Name | Priori | Date/Time | Associated Diagnosis | Comments | | | ty | | | | + +--------+ + + + | XR LUMBAR SPINE 4 + | Routin | 07/09/2018 | Chronic bilateral | Results for this | | VW | e | 3:20 PM | low back pain | procedure are in the | | | | PST | without sciatica | results section. | + +--------+ + + + documented in this encounter Results XR Lumbar Spine 4 + Vw (07/09/2018 [...] back pain COMPARISON STUDY: None FINDINGS: 5 hvj-hvg-jjcmjkc | | | lumbar vertebral bodies. [place] left lower lumbar scoliosis. There is | [...] | | VWHISTORY:persistent low back painCOMPARISON STUDY:NoneFINDINGS:5 wkj-sjh-vmascls lumbar | | vertebral bodies.[place] left lower lumbar scoliosis.There is postsurgical change [...] of the | | spine.Atherosclerosis.Dictated by: Manuelito Connoram | |5 bul-ntl-gttisdn lumbar vertebral bodies. | |[place] left lower lumbar scoliosis. | |There is [...] sciatica | + + documented in this encounter"
--- OUTSIDE RECORDS SUMMARY | ~2019-08-25 | XMS | Encounter Summary ---
Demographics + + + | Address | [address] | | | [place] [address] | + + + | Home Phone | | + + + | Preferred Language | Unknown | + + + | Marital Status | | + + + | Religion Affiliation | Unknown | + + + | Race | Unknown | + + + | Ethnic Group | Unknown | + + + Author + + + | Author | [facility] | | | and [place] | + + + | Organization | [facility] | | [...] Team Providers + +------+ + | Care Rig Site Engineer Name | Role | Phone | + +------+ + | Екатерина Christianson NP | PCP | | + +------+ + Reason for Visit + + + | Reason | Comments | + + + | Provide Resources | | + + + Encounter Details +--------+ + + + + | Date | Type | Department | Care Team | Description | +--------+ + + + + | 05/01/ | Telephone | [facility] | Alin Garcia, | Provide Resources | | 2019 | | [facility] | [facility] | | | | | MEDICAL CLINIC [address] | | | | | | [address]TH [facility], | | | | | | [place] [address] | | | | | | [phone] | | | +--------+ + + + [...] | | | | [address]TH [facility] [place], | | | | | | [place] [address] | | | | | | [phone] | | | | | | | | +--------+---------+ + + + documented as of this encounter Visit Diagnoses Not on filedocumented in this encounter"
--- OUTSIDE RECORDS SUMMARY | ~2019-08-25 | XMS | Encounter Summary ---
Demographics + + + | Address | [address] | | | [place] [address] | + + + | Home Phone | | + + + | Preferred Language | Unknown | + + + | Marital Status | | + + + | Judaism Affiliation | Unknown | + + + | Race | Unknown | + + + | Ethnic Group | Unknown | + + + Author + + + | Author | [facility] | | | and [place] | + + + | Organization | [facility] | | | and [...] Team Providers + +------+ + | Care Selling Specialist Name | Role | Phone | [...] [address] | | | | | [place] [address] | | | | | | [phone] | | | +--------+ + + + [...] | | | | | | [place] [address] | | | | | | [phone] | | | | | | | | +--------+---------+ + + + documented as of this encounter Visit Diagnoses Not on filedocumented in this encounter"
--- OUTSIDE RECORDS SUMMARY | ~2019-08-25 | XMS | Clinical Summary ---
Demographics + + + | Address | [address] | | | [place] [address] | + + + | Home Phone | | + + + | Preferred Language | Unknown | + + + | Marital Status | | + + + | Scientology Affiliation | Unknown | + + + | Race | Unknown | + + + | Ethnic Group | Unknown | + + + Author + + + | Author | [facility] | | | and [place] | + + + | Organization | [facility] | | | [...] Team Providers + +------+ + | Care Shoe Sticks Repairer Name | Role | Phone | + [...] | | | | | | [facility]TH [facility] [place], | | | | | | [place] [address] | | | | | | [phone] | | | | | | | [...] + + | [facility] | [address] | [place] [address] | [phone] | | HOSPITAL LABORATORY | | | [...] | mL/min/1.73m2 | [facility] | | | [facility] | | | [facility] | | | [...] + + | [facility] [facility] | [address] | [place] [address] | [phone] | | HOSPITAL LABORATORY | | | [...] + + | [facility] | [address] | [place] [address] | [phone] | | HOSPITAL LABORATORY | | | [...] + + | [facility] | [address] | [place] [address] | [phone] | | HOSPITAL LABORATORY | | | [...] (L) | 39.0 - 51.9 % | [facility] | | | | | | [facility] [...] + + | [facility] | [address] | [place] [address] | [phone] | | HOSPITAL LABORATORY | | | [...] + + | [facility] | [address] | [place] [address] | [phone] | | HOSPITAL LABORATORY | | | [...] | cutoff point for the diagnosis of [place] is 0.8 ng/mL for the Troponin I | | | method. | | + + + + + + + + | Performing | Address | City/State/Zipcode | Phone Number | | Organization | | | | + + + + + | [facility] | [address] | [place] [address] | [phone] | | HOSPITAL LABORATORY | | | [...] + + | [facility] | [address] | [place] [address] | [phone] | | HOSPITAL LABORATORY | | | [...] + + | [facility] | [address] | [place] [address] | [phone] | | HOSPITAL LABORATORY | | | [...] - 1.030 | [place] | | | [place] | | | [facility] | | | [...] + + | [facility] | [address] | [place] [address] | [phone] | | HOSPITAL LABORATORY | | | [...] At | + + + | Current [facility] clinical laboratory antibiogram data can be found on the | [facility] | | [facility] intranet at | HOSPITAL | | [email or web address] or on | LABORATORY | | the [facility] website at [email or web address] | | + + + + + + + + | Performing | Address | City/State/Zipcode | Phone Number | | Organization | | | | + + + + + | [facility] | [address] | [place] [address] | [phone] | | HOSPITAL LABORATORY | | | [...] | | 438 msQTC Interval: 476 msQRS [place]: -3 degT Wave [place]: 54 deg- | | | ABNORMAL ECG -Sinus rhythmNonspecific intraventricular conduction | | | delayMinimal ST elevation, anterior leadsNo previous ECG available for | | | comparison | | |QRS [place]: -3 deg | | |T Wave [place]: 54 deg | | |- ABNORMAL ECG [...] + + | [facility] | [address] | [place] [address] | [phone] | | HOSPITAL LABORATORY | | | [...] + + | [facility] | [address] | [place] [address] | [phone] | | HOSPITAL LABORATORY | | | [...] + + | [facility] | [address] | [place] [address] | [phone] | | HOSPITAL LABORATORY | | | [...] + + | [facility] | [address] | [place] [address] | [phone] | | HOSPITAL LABORATORY | | | [...] | mL/min/1.73m2 | [facility] | | | [facility] | RATE,ESTIMATED | | HOSPITAL | | | | mL/min/1.22q9Gvsx than | | LABORATORY | | | [...] + + | [facility] | [address] | [place] [address] | [phone] | | HOSPITAL LABORATORY | | | [...] +--------+ +---------+--------+ | MEDICARE | MEDICA | [id number] | 04/26/20 | [phone] | | Medica | | | RE | | 09-Pre | 5 | | re | | | PART A | | sent | | | | | | AND B | | | | | | + +--------+ +--------+ +---------+--------+ | [employer] | [place] | [id number] | 12/26/19 | | | Indemn | [...] Person | Self | [birth year] | [address] | | | al/Fam | | 1951 | [phone] | [place], [place] | | | graciela | | | 8 (Home) | [address] | + +--------+ +--------+ + + Advance Directives + + + + + | Type | Date Recorded | Patient | Explanation | | | | Sample Paster | | + + + + + | Power of | | | | | Credit Collections Specialist | | | | + + + [...]
--- OUTSIDE RECORDS SUMMARY | ~2019-08-25 | XMS | Clinical Summary ---
Demographics + + + | Address | [address] | | | [place] [address] | + + + | Home Phone | | + + + | Preferred Language | Unknown | + + + | Marital Status | Single | + + + | Sabianist Affiliation [...] Team Providers + +------+ + | Care Otr Driver Name | Role | Phone | + +------+ + | Jory Segovia MD | PCP | | + +------+ + Source Comments RESHMA is fully live on both [facility] Ambulatory and [facility] InPatient.[facility] Allergies Not on File Medications Not on [...] | ITY | | for | | [place], | | | | OUTSOU | | all | | [place] [address] | | | | RCE | | [...] Person | Self | [birth year] | | [address] | | | al/Fam | | 1951 | [phone] | [place], [place] | | | graciela | | | 6 (Home) | [address] | + +--------+ +--------+ + + | [id number] | Indust | Self | [birth year] | | [id number] Kaleb | | | rial | | 1876 | [phone] | [facility] . | | | | | | 2 (Home) | [address] [place], [place] | | | | | | | [address] | + +--------+ +--------+ + + | Nitesh Haynes | [place] | Self | [birth year] | | [address] | | | [place] | | 1951 | [phone] | [place], [place] | | | red | | | 6 ([place]) | [address] | + +--------+ +--------+ + +"
--- OUTSIDE RECORDS SUMMARY | ~2019-08-25 | XMS | Encounter Summary ---
Demographics + + + | Address | [address] | | | [place] [address] | + + + | Home Phone | | + + + | Preferred Language | Unknown | + + + | Marital Status | | + + + | Anglican Affiliation [...] Team Providers + +------+ + | Care Packerhead Machine Operator Name | Role | Phone [...] [address] | | | | | [place] [address] | | | | | | [phone] | | | +--------+ + + + [...] | | | | | | [place] [address] | | | | | | [phone] | | | | | | | | +--------+---------+ + + + documented as of this encounter Visit Diagnoses Not on filedocumented in this encounter"
--- OUTSIDE RECORDS SUMMARY | ~2019-08-25 | XMS | Encounter Summary ---
Demographics + + + | Address | [address] | | | [place] [address] | + + + | Home Phone | | + + + | Preferred Language | Unknown | + + + | Marital Status | | + + + | Jewish Affiliation | Unknown | + + + [...] Team Providers + +------+ + | Care Plunger Machine Operator Name | Role | Phone [...] | | | | | | [place] [address] | | | | | | [phone] | | | +--------+ + + + [...] | | | | [facility]TH [facility] [place], | | | | | | [place] [address] | | | | | | [phone] | | | | | | | | +--------+---------+ + + + documented as of this encounter Visit Diagnoses Not on filedocumented in this encounter"
--- OUTSIDE RECORDS SUMMARY | ~2019-08-25 | XMS | Encounter Summary ---
Demographics + + + | Address | [address] | | | [place] [address] | + + + | Home Phone | | + + + | Preferred Language | Unknown | + + + | Marital Status | | + + + | Orthodox Affiliation | Unknown | + + + | Race | Unknown | + + + | Ethnic Group | Unknown | + + + Author + + + | Author | [facility] | | | and [place] | + + + | Organization | [facility] | | | [...] Team Providers + +------+ + | Care Cloth Grader Supervisor Name | Role | Phone | [...] [address] | | | | | [place] [address] | | | | | | [phone] | | | +--------+ + + + [...] | | | | | | [place] [address] | | | | | | [phone] | | | | | | | | +--------+---------+ + + + documented as of this encounter Visit Diagnoses Not on filedocumented in this encounter"
--- OUTSIDE RECORDS SUMMARY | ~2019-08-25 | XMS | Encounter Summary ---
Demographics + + + | Address | [address] | | | [place] [address] | + + + | Home Phone | | + + + | Preferred Language | Unknown | + + + | Marital Status | | + + + | Yarsanism Affiliation | Unknown | + + + | Race | Unknown | + + + | Ethnic Group | Unknown | + + + Author + + + | Author | [facility] | | | and [place] | + + + | Organization | [facility] | | [...] Team Providers + +------+ + | Care Pre Billing Specialist Name | Role | Phone | [...] Provide Resources | | 2019 | | [facility] | W | (CHW helping to | | | | MEDICAL CLINIC [address] | | establish with new | | | | [facility]TH [facility], | | PCP. ) | | | | [place] [address] | | | | | | [phone] | | | +--------+ + + + [...] | | | | | | [place] [address] | | | | | | [phone] | | | | | | | | +--------+---------+ + + + documented as of this encounter Visit Diagnoses Not on filedocumented in this encounter"
--- OUTSIDE RECORDS SUMMARY | ~2019-08-25 | XMS | Encounter Summary ---
Demographics + + + | Address | [address] | | | [place] [address] | + + + | Home Phone | | + + + | Preferred Language | Unknown | + + + | Marital Status | | + + + | Episcopalian Affiliation | Unknown | + + + | Race | Unknown | + + + | Ethnic Group | Unknown | + + + Author + + + | Author | [facility] | | | and [place] | + + + | Organization | [facility] | | [...] Team Providers + +------+ + | Care Heat And Frost Insulator Name | Role | Phone | + +------+ + | Екатерина Christianson NP | PCP | | + +------+ + Reason for Visit +--------+ + | Reason | Comments | +--------+ + | Error | | +--------+ + Encounter Details +--------+ + + + + | Date | Type | Department | Care Team | Description | +--------+ + + + + | 08/20/ | Telephone | [facility] | No, Physician | Error | | 2019 | | NEUROLOGY [address] | | | | | | [address] | | | | | | [place], [place] | | | | | | [address] | | | | | | [phone] | | | +--------+ + + + [...] + + documented as of this encounter Functional Status + + + [...] | | | | | | 4TH [facility], | | | | | | [place] [address] | | | | | | [phone] | | | | | | | | +--------+---------+ + + + documented as of this encounter Visit Diagnoses Not on filedocumented in this encounter"
--- OUTSIDE RECORDS SUMMARY | ~2019-08-25 | XMS | Encounter Summary ---
Demographics + + + | Address | [address] | | | [place] [address] | + + + | Home Phone | | + + + | Preferred Language | Unknown | + + + | Marital Status | | + + + | Alevism Affiliation | Unknown | + + + | Race | Unknown | + + + | Ethnic Group | Unknown | + + + Author + + + | Author | [facility] | | | and [place] | + + + | Organization | [facility] | | | [...] Team Providers + +------+ + | Care Desktop Support Consultant Name | Role | Phone | [...] [facility] | Alin Garcia L, | Appointment ([facility] | | 2019 | | [facility] | [facility] | providing | | | | MEDICAL CLINIC [address] | | information about | | | | [facility], | | medical appointment) | | | | [place] [address] | | | | | | [phone] | | | +--------+ + + + [...] | | | | | | [place] [address] | | | | | | [phone] | | | | | | | | +--------+---------+ + + + documented as of this encounter Visit Diagnoses Not on filedocumented in this encounter"
--- OUTSIDE RECORDS SUMMARY | ~2019-08-25 | XMS | Encounter Summary ---
Demographics + + + | Address | [address] | | | [place] [address] | + + + | Home Phone | | + + + | Preferred Language | Unknown | + + + | Marital Status | Single | + + + | Druze Affiliation | Unknown | + + + | Race | White | + + + | Ethnic Group | Not or | + + + Author + + + | Author | [facility] | + + + | Organization | [facility] | + + + | Address | Unknown | + + + | Phone | Unavailable | + + + Support + + +---------+ + | Name | Relationship | Address | Phone | + + +---------+ + | Gloria Haynes | ECON | Unknown | | + + +---------+ + Care Team Providers + +------+ + | Care Salon Receptionist Name | Role | Phone | + [...] | | | [address] | [facility] | | | | | Loop Mail[address]: [address] | [place], [place] | | | | | Outpatient Clinic | [address] | | | | | Building [place], | [phone] | | | | | [place] [address] | | | | | | [phone] | | | +--------+ + + + [...]
--- OUTSIDE RECORDS SUMMARY | ~2019-08-25 | XMS | Encounter Summary ---
Demographics + + + | Address | [address] | | | [place] [address] | + + + | Home Phone | | + + + | Preferred Language | Unknown | + + + | Marital Status | | + + + | Gnosticist Affiliation | Unknown | + + + [...] Team Providers + +------+ + | Care Breeding Technician Name | Role | Phone | [...] [address] | | | | | [place] [address] | | | | | | [phone] | | | +--------+ + + + [...] | | | | | | [place] [address] | | | | | | [phone] | | | | | | | | +--------+---------+ + + + documented as of this encounter Visit Diagnoses Not on filedocumented in this encounter"
--- OUTSIDE RECORDS SUMMARY | ~2019-08-25 | XMS | Encounter Summary ---
Demographics + + + | Address | [address] | | | [place] [address] | + + + | Home Phone | | + + + | Preferred Language | Unknown | + + + | Marital Status | | + + + | Samaritan Affiliation | Unknown | + + + [...] Team Providers + +------+ + | Care Preflight Inspector Name | Role | Phone | [...] | | Required | | disease | EXAMINATION PROCTOR [address] | | | | | | ([facility]) | [address] | | | | | | | [place], [place] | | | | | | | [address] | | | | | | | Phone: | | | | | | | [phone] | | | | | | | Fax: | | | | | | | [phone] | | + + + + + [...] | | Required | | disease | EXAMINATION PROCTOR [address] | PHYSICAL | | | | | ([facility]) | [address] | THERAPY [address] | | | | | Frequent | [place], [place] | [place] | | | | | falls | [address] | [address] VU | | | | | | Phone: | [facility], [place] | | | | | | [phone] | [address] | | | | | | Fax: | Phone: | | | | | | [phone] | [phone] | | | | | | | Fax: | | | | | | | [phone] | +--------+ + + + + + [...] | Required | | legs | Jonathan, SALES VENDOR | [address] | | | | | syndrome | [address] | [address] | | | | | Procedures | [place] | [place], [place] | | | | | Evaluate & | [address] | [address] Phone: | | | | | Treat | [facility], [place] | [phone] | | | | | | [address] | Fax: | | | | | | Phone: | [phone] | | | | | | [phone] | | +--------+ + + + + + Encounter Details +--------+---------+ + + + | Date | Type | Department | Care Team | Description | +--------+---------+ + + + | 03/11/ | Office | [place] [facility] | Mary, | Parkinson disease | | 2019 | Visit | HOSPITAL NEUROLOGY | Sinai, EXAMINATION PROCTOR [address] | ([facility]) (Primary Dx); | | | | CLINIC [address] | [address] [place], | Frequent falls; | | | | [address] [place], | [place] [address] | Chronic bilateral | | | | [place] [address] | [phone] | low back pain | | | | [phone] | | without sciatica; | | | [...] are taking other medicines. You may use tsjg-onc-incgxhe medicine as directed on the bottle to [...] groin or genital area Date Last Reviewed: 02/24/201619990204-[address] [employer] [place] [address], [place] [address]. All [facility] ts reserved. This information is not intended [...] and knives if it s hard to chair car attendant utensils. Spill-proof cups can help with drinking. [...] voice-activated soft mcwilliams for computers. Use foam electric sealing machine operator on pens and pencils. These can make them easier to hold. Sleeping Manypeople with Parkinson have trouble sleeping. They may also move in their sleep and st rike their partners. Tell your healthcare provider if you re having sleep problems or recu rrent nightmares. Medicinecan often help you sleep better. Check with your healthcare prov ider before using wang-rgy-bgpntef medicines to help you sleep. Getting out [...] or begin having falls. Date Last Reviewed: 10/24/201719991536-[address] [employer] [place] [address]. All righ ts reserved. This information is [...] of your body. Also, your symptoms may mold changer time. And you may have different symptoms [...] may also feel depressed. Date Last Reviewed: 09/26/201719990285-8320 [employer]. [address] [place] [address], [place] [address]. All righ ts reserved. This information is [...] frozen. To turn, walk in a half sauk-suiattle instead of trying to stop and turn [...] yourself onto the chair. Date Last Reviewed: 10/24/201719999678-1718 [employer]. [address] [place] [address]. All righ ts reserved. This information is [...] way to get help. Date Last Reviewed: 11/24/201719991599-7399 [employer]. [address] [place] [address], [place] [address]. All righ ts reserved. This information is [...] ows about your wishes. Durable power of real estate attorney This document transfers financial and legal [...] secure about the future. Date Last Reviewed: 11/24/201719995525-4491 [employer]. [address] [place] [address], [place] [address]. All righ ts reserved. This information is not intended as a substitute for professional medical care. Always follow your healthcare professional's instructions. documented in this encounter Progress Notes Sinai Hernandez FNP - 03/11/2019 2:30 PM PDT Patient: Nitesh Haynes Medical Record: [id number] Date of Services: 03/11/2019 Referring Doctor: Екатерина Christianson NP Chief Complaint: Parkinson's disease, chronic low back pain History of Present Illness: The patient presents to the Neurology Clinic today for follow u p. The patient has a history of Parkinson's disease for approximately 19-20 years. He had a D BS surgery at [facility] in 2008 with revision in 2010. The [...] He did follow up with Neurology/Neurosurgery at [facility]. He reports that his DBS is functioning well. No changes were needed. The patient has a history of chronic low back pain. The patient reports that his symptoms have slowly worsened over the past 10 years. He has had 2 previous lumbar spine surgeries, the last one in [address] Mcmullen in [place], [place]. The patient has tried treatment wi [...] are intact. There is no dysmetria on smimfj-hc-hgzq and gjat-vspz-spsv. Romberg is absent. + Tremors noted with [...] ICD-9-CM 1. Parkinson disease (HCC) G20 332.0 [facility], External - AMB Refer [facility] Occupational Therapy, External - AMB Referral entacapone (COMTAN) 200 mg tablet carbidopa-levodopa (SINEMET) 25-100 mg per tablet amantadine (SYMMETREL) 100 MG TABS DISCONTINUED: entacapone (COMTAN) 200 mg tablet DISCONTINUED: carbidopa-levodopa (SINEMET) 25-100 mg per tablet 2. Frequent falls R29.6 V15.88 [facility], External - [facility] Referral 3. Chronic bilateral low back pain [...] gait training and frequent falls. Referral to [facility] Therapy placed today. I have also advised him to use his walker at all times for ambulation to help prevent his falls. [facility] also has continued to follow to help [...] | | | | | | [place] [address] | | | | | | [phone] | | | | | | | [...] Physical Therapy, | Referral | e | ([facility]) Frequent | | | External - AMB | | | falls | | | Referral | | | | | + + +--------+ + + | Occupational | Outpatient | Routin | Parkinson disease | Ordered: 03/11/2019 | | Therapy, External - | Referral | e | ([facility]) | | | AMB Referral [...] | such as acupuncture treatments, massage therapy, rnxv-otn-tsnyhdh | | | heat patches, relaxation therapy, [...]
--- OUTSIDE RECORDS SUMMARY | ~2019-08-25 | XMS | Encounter Summary ---
Demographics + + + | Address | [address] | | | [place] [address] | + + + | Home Phone [...] Author + + + | Author | [facility] | + + + | Organization | [facility] | + + + | Address | Unknown | + + + | Phone | Unavailable | + + + Support + + +---------+ + | Name | Relationship | Address | Phone | + + +---------+ + | Gloria Haynes | ECON | Unknown | | + + +---------+ + Care Team Providers + +------+ + | Care Corrections Cadet Name | Role | Phone | + +------+ + | Jory Segovia MD | PCP | | + +------+ + Encounter Details +--------+ + + + + | Date | Type | Department | Care Team | Description | +--------+ + + + + | 08/10/ | Document-Sc | Neurosurgery at | Ayush Moe MD | | | 2014 | anned | [facility] [address] | [address] | | | | | Janell Mailcode: CH8N | [place], [place] | | | | | [facility] | [address] | | | | | and Healing, | [phone] | | | | | | | | | | | Floor [place], [place] | | | | | | [address] | | | | | | [phone] | | | +--------+ + + + [...]
--- OUTSIDE RECORDS SUMMARY | ~2019-08-25 | XMS | Encounter Summary ---
Demographics + + + | Address | [address] | | | [place] [address] | + + + | Home Phone [...] Team Providers + +------+ + | Care Beadworker Name | Role | Phone | + +------+ + | Екатерина Christianson NP | PCP | | + +------+ + Reason for Visit + + + | Reason | Comments | + + + | Medication Question | | + + + Encounter Details +--------+ + + + + | Date | Type | Department | Care Team | Description | +--------+ + + + + | 07/09/ | Telephone | [facility] [facility] | Mac Bond MD | Medication Question | | 2018 | | HOSPITAL WOUND AND | [address] [place] | | | | | OSTOMY [address] | [place] | | | | | DR [place], | [address] | | | | | [place] [address] | | | | | | [phone] | | | +--------+ + + + [...] | | | | | | [place] [address] | | | | | | [phone] | | | | | | | | +--------+---------+ + + + documented as of this encounter Visit Diagnoses Not on filedocumented in this encounter"
--- OUTSIDE RECORDS SUMMARY | ~2019-08-25 | XMS | Encounter Summary ---
Demographics + + + | Address | [address] | | | [place] [address] | + + + | Home Phone | | + + + | Preferred Language | Unknown | + + + | Marital Status | Single | + + + | Restoration Affiliation | Unknown | + + + | Race | White | + + + | Ethnic Group | Not or | + + + Author + + + | Author | [facility] | + + + | Organization | [facility] | + + + | Address | Unknown | + + + | Phone | Unavailable | + + + Support + + +---------+ + | Name | Relationship | Address | Phone | + + +---------+ + | Gloria Haynes | ECON | Unknown | | + + +---------+ + Care Team Providers + +------+ + | Care Filler Shaker Name | Role | Phone | + +------+ + | Jory Segovia MD | PCP | | + +------+ + Encounter Details +--------+ + + + + | Date | Type | Department | Care Team | Description | +--------+ + + + + | 10/22/ | Telephone | Neurology at | Annie Heard, | | | 2017 | | [facility] & | | | | | | Healing [address] | | | | | | [address] Mailcode: | | | | | | [facility] | | | | | | Health and Healing, | | | | | | | | | | | | [place], [place] | | | | | | [address] | | | | | | [phone] | | | +--------+ + + + [...]
--- OUTSIDE RECORDS SUMMARY | ~2019-08-25 | XMS | Encounter Summary ---
Demographics + + + | Address | [address] | | | [place] [address] | + + + | Home Phone [...] Team Providers + +------+ + | Care Cook Pressure Name | Role | Phone | + [...] [address] | | | | | [place] [address] | | | | | | [phone] | | | +--------+ + + + [...] | | | | | | [place] [address] | | | | | | [phone] | | | | | | | | +--------+---------+ + + + documented as of this encounter Visit Diagnoses Not on filedocumented in this encounter"
--- OUTSIDE RECORDS SUMMARY | ~2019-08-25 | XMS | Encounter Summary ---
Demographics + + + | Address | [address] | | | [place] [address] | + + + | Home Phone [...] Providers + +------+ + | Care Vp Patient Name | Role | Phone | + [...] | | | | back pain | MD [address] | [address] [place], | | | | | without | [address], | [place] [address] | | | | | sciatica, | [address] | Phone: | | | | | unspecified | [place], [place] | [phone] | | | | | back pain | [address] | Fax: | | | | | laterality | Phone: | [phone] | | | | | Procedures | [phone] | | | | | | CT Lumbar | Fax: | | | | | | Spine wo | [phone] | | | | | | Contrast | | | +--------+--------+ + + + + Reason for Visit Diagnostic/Screening (Routine) +--------+--------+ + + + + [...] | | | | back pain | MD [address] | [place], | | | | | without | [address], | [place] [address] | | | | | sciatica, | [address] | Phone: | | | | | unspecified | [place], [place] | [phone] | | | | | back pain | [address] | Fax: | | | | | laterality | Phone: | [phone] | | | | | Procedures | [phone] | | | | | | CT Lumbar | Fax: | | | | | | Spine wo | [phone] | | | | | | Contrast | | | +--------+--------+ + + + + Encounter Details +--------+ + + + + | Date | Type | Department | Care Team | Description | +--------+ + + + + | 11/05/ | Hospital | [place] [facility] | Mac Bond MD | Chronic low back | | 2019 | Encounter | HOSPITAL [address] | [address] [place] | pain without | | | | [address] | [place], [place] | sciatica, | | | | [place], [place] | [address] | unspecified back | | | | [address] | | pain laterality | | | | [phone] | | | +--------+ + + + [...] | | 2019 | Visit | | Sinai, FRONT END SOFTWARE ENGINEER [address] | | | | | [address] [place], | | | | | | [place] [address] | | | | | | [phone] | | | | | | | | +--------+---------+ + + + documented as of this encounter Procedures + +--------+ + + + | Procedure Name | Priori | Date/Time | Associated Diagnosis | Comments | | | ty | | | | + +--------+ + + + | CT LUMBAR SPINE WO | Routin | 11/05/2018 | Chronic low back | Results for this | | CONTRAST | e | 10:33 AM | pain without | procedure are in the | | | | PDT | sciatica, | results section. | | | | | unspecified back | | | | | | pain laterality | | + +--------+ + + + documented in this encounter Results CT Lumbar Spine wo [...] unspecified back pain laterality | + + documented in this encounter"
--- OUTSIDE RECORDS SUMMARY | ~2019-08-25 | XMS | Encounter Summary ---
Demographics + + + | Address | [address] | | | [place] [address] | + + + | Home Phone | | + + + | Preferred Language | Unknown | + + + | Marital Status | | + + + | Mosque Affiliation | Unknown | + + + [...] Team Providers + +------+ + | Care Count Team Clerk Name | Role | Phone | + [...] 2018 | | HOSPITAL NEUROLOGY | Sinai, COMPOUNDER [employer] [address] | | | | | CLINIC [address] | [address] [facility], | | | | | [address] [place], | [place] [address] | | | | | [place] [address] | [phone] | | | | | [phone] | | | +--------+ + + + [...] | | | | | | [place] [address] | | | | | | [phone] | | | | | | | | +--------+---------+ + + + documented as of this encounter Visit Diagnoses + + | Diagnosis | + + | Chronic bilateral low back pain without sciatica - Primary | + + documented in this encounter"
--- OUTSIDE RECORDS SUMMARY | ~2019-08-25 | XMS | Encounter Summary ---
Demographics + + + | Address | [address] | | | [place] [address] | + + + | Home Phone | | + + + | Preferred Language | Unknown | + + + | Marital Status | | + + + | Sabianism Affiliation | Unknown | + + + | Race | Unknown | + + + | Ethnic Group | Unknown | + + + Author + + + | Author | [facility] | | | and [place] | + + + | Organization | [facility] [...] Team Providers + +------+ + | Care Crew Caller Name | Role | Phone | + [...] [address] | | | | | [place] [address] | | | | | | [phone] | | | +--------+ + + + [...] | | | | | | [place] [address] | | | | | | [phone] | | | | | | | | +--------+---------+ + + + documented as of this encounter Visit Diagnoses Not on filedocumented in this encounter"
--- OUTSIDE RECORDS SUMMARY | ~2019-08-25 | XMS | Encounter Summary ---
Demographics + + + | Address | [address] | | | [place] [address] | + + + | Home Phone | | + + + | Preferred Language | Unknown | + + + | Marital Status | | + + + | Episcopalian Affiliation | Unknown | + + + | Race | Unknown | + + + | Ethnic Group | Unknown | + + + Author + + + | Author | [facility] | | | and [place] | + + + | Organization | [facility] | | | [...] Team Providers + +------+ + | Care Interactive Media Marketing Strategist Name | Role | Phone | + [...] [address] | | | | | [place] [address] | | | | | | [phone] | | | +--------+ + + + [...] | | | | | | [place] [address] | | | | | | [phone] | | | | | | | | +--------+---------+ + + + documented as of this encounter Visit Diagnoses Not on filedocumented in this encounter"
--- OUTSIDE RECORDS SUMMARY | ~2019-08-25 | XMS | Encounter Summary ---
Demographics + + + | Address | [address] | | | [place] [address] | + + + | Home Phone [...] Team Providers + +------+ + | Care Mental Hygiene Consultant Name | Role | Phone | + +------+ + | Екатерина Christianson NP | PCP | | + +------+ + Encounter Details +--------+ + + + + | Date | Type | Department | Care Team | Description | +--------+ + + + + | 12/26/ | [facility] | Mac Bond MD | Chronic low back | | 2019 | Encounter | HOSPITAL XRAY 900 | [address] | pain without | | | | [address] | [place], [place] | sciatica, | | | | [place], [place] | [address] | unspecified back | | | | [address] | | pain laterality; | | | | [phone] | Radiologist, Cc Wgr | Osteoarthritis of [...] | | | | | | [address] [facility], | | | | | | [place] [address] | | | | | | [phone] | | | | | | | [...]
--- OUTSIDE RECORDS SUMMARY | ~2019-08-25 | XMS | Encounter Summary ---
Demographics + + + | Address | [address] | | | [place] [address] | + + + | Home Phone [...] Team Providers + +------+ + | Care Computed Tomography Technologist Name | Role | Phone | + [...] [address] | | | | | [place] [address] | | | | | | [phone] | | | +--------+ + + + [...] | | | | | | [place] [address] | | | | | | [phone] | | | | | | | | +--------+---------+ + + + documented as of this encounter Visit Diagnoses Not on filedocumented in this encounter"
--- OUTSIDE RECORDS SUMMARY | ~2019-08-25 | XMS | Encounter Summary ---
Demographics + + + | Address | [address] | | | [place] [address] | + + + | Home Phone [...] Team Providers + +------+ + | Care Rail Signal Mechanic Name | Role | Phone | [...] | | disease | [address] | | | | | ([facility]) | [address], | | | | | | | [place] [place] | [place], [place] | | | | | | [place], [place] | [address] | | | | | | [address] | Phone: | | | | | | Phone: | [phone] | | | | | | [phone] | Fax: | | | | | | Fax: | [phone] | | | | | | [phone] | | + + + + + + + Evaluate & Treat (Routine) +--------+ + + + + + | Status | Reason | Specialty | Diagnoses / | Referred By | Referred To | | | | | Procedures | Contact | Contact | +--------+ + + + + + | Denied | Specialty | Neurology | Diagnoses | Bond, | Napoleonnatvega, | | | Services | | S/P deep | Mac Phillips, | MD Opal | | | Required | | brain | MD [address] | [address] | | | | | stimulator | [address], | DRIVE [address] | | | | | placement | [address] | | | | | | [place] [address] | [place] | | | | | | [address] | [address] | | | | | | Phone: | Phone: | | | | | | [phone] | [phone] | | | | | | Fax: | Fax: | | | | | | [phone] | [phone] | +--------+ + + + + + [...] Authorized | | Neurology | Diagnoses | [facility] | Varun, | | | | | Parkinson's | [facility] | Mac Phillips MD | | | | | disease | CENTER [address] | [address] | | | | | (HCC) | [address] | [address] | | | | | Repeated | [facility] | [facility], [place] | | | | | [address]ott [address] | [address] | [address] Phone: | | | | | back pain | [place], | [phone] | | | | | | [place] | Fax: | | | | | | [address] | [phone] | | | | | | Phone: | | | | | | | [phone] | | | | | | | Fax: | | | | | | | [phone] | | + +--------+ + + + [...] | | | DR [place], | [address] | Parkinson disease | | | | [place] [address] | | ([facility]); Gait disorder | | | | [phone] | | | +--------+---------+ + + + [...] be different from the original. Patient Instructions [facility] Neurology Clinic Dr. Mac Bond, Neurologist [...] le, and scrabble, other puzzle games like [employer], [employer]. Play computer/mobile applications such as [employer] and [employer] Continue Sinemet and Comtan and Amantadine Advised exercise daily Discussed with air control electronics operator Mateusz Any Questions please call ELIAS Canales or Dr. Bond at [facility] Neurology Clinic Understanding Parkinson Disease Parkinson [...] The diagnosis is based on your symptoms, [facility] history, and a physical exam. You [...] people with Parkinson disease. Date Last Reviewed: 09/26/201719994967-9993 [employer]. [address] [place] [address], [place] [id number]. All righ ts reserved. This information is [...] and knives if it s hard to presentation designer utensils. Spill-proof cups can help with drinking. [...] voice-activated soft mcwilliams for computers. Use foam support architect on pens and pencils. These can make them easier to hold. Sleeping Manypeople with Parkinson have trouble sleeping. They may also move in their sleep and st rike their partners. Tell your healthcare provider if you re having sleep problems or recu rrent nightmares. Medicinecan often help you sleep better. Check with your healthcare prov ider before using tldt-qea-utlhtbn medicines to help you sleep. Getting out [...] or begin having falls. Date Last Reviewed: 10/24/201719993091-7907 [employer]. [address] [place] [address]. All righ ts reserved. This information is [...] urinary symptoms, and others. Date Last Reviewed: 09/26/201719995522-[address] [employer] [place], [place] [address]. All righ ts reserved. This information is [...] are taking other medicines. You may use sgcd-wov-vfulyik medicine to control pain, unless another pain [...] by your healthcare provider Date Last Reviewed: 02/24/201619997337-3870 [employer]. [address] [place] [address], [place] [address]. All righ ts reserved. This information is [...] teens without first discussing it with your [facility]'s healthcare provider. Ice Ice reduces [...] use ice several times a day. Medicines Bipd-qkh-slcihzl pain relieversincludeacetaminophen and anti-inflammatory medicines, wh ich [...] a heating p ad. Date Last Reviewed: 01/24/201819995220-4233 [employer]. [address] [place] [address]. All righ ts reserved. This information is not intended as a substitute for professional medical care. Always follow your healthcare professional's instructions. documented in this encounter Progress Notes Mac Bond MD - 07/28/2019 3:00 PM PST Patient: Nitesh Haynes Medical Record: [id number] Date of Services: 07/28/2019 Referring Doctor: Екатерина [...] in 2013 and has had no evaluation sin e that time. The DBS was performed in [facility]. Patient will be referred to [facility] for fur ther evaluation and opinion. In addition history of chronic low back pain though stable this time with previous lumbar spine surgeries. Presently, patient has tolerable symptoms and gave other treatment options in event that he symptoms recur such as acupuncture treatments, massage therapy, relaxation therapy, snys-dma-eekoahs creams and patches, and cortisone shots. Review [...] and oriented to time, place, and person. [facility] is fluent. Memory, attention, comprehension, and general [...] le, and scrabble, other puzzle games like Sudoku, Mahjong. Play computer/mobile applications such as [employer] and [employer] Continue Sinemet and Comtan and Amantadine Advised exercise daily Discussed with air control electronics operator Mateusz Any Questions please call ELIAS Canales or Dr. Bond at [facility] Neurology Clinic Mac Bond MD07/28/20194:01 PM Electronically signed NOTE: Part of this report was transcribed using voice recognition software. Every effort was made to ensure accuracy. However, inadvertent computerize program eligibility specialist errors may be present documented in this enc ounter Plan of Treatment +--------+---------+ + + + | Date | Type | Specialty | Care Team | Description | +--------+---------+ + + + | 01/20/ | Office | Neurology | Mary, | | | 2019 | Visit | | BRYCE [address] | | | | | | [address] [facility] [place], | | | | | | [place] [address] | | | | | | [phone] | | | | | | | [...] Physical Therapy | Referral | e | ([facility]) | 08/04/2019, Expires: | | | [...]
--- OUTSIDE RECORDS SUMMARY | ~2019-08-25 | XMS | Encounter Summary ---
Demographics + + + | Address | [address] | | | [place] [address] | + + + | Home Phone [...] Team Providers + +------+ + | Care Laborer Filter Plant Name | Role | Phone | + [...] | | Required | | disease | [address] | [address] | | | | | (HCC) Neck | [address] | [address] | | | | | pain, | [place], [place] | [address] [place] | | | | | bilateral | [id number] | [place], [place] | | | | | Chronic | Phone: | [address] Phone: | | | | | bilateral | [phone] | [phone] | | | | | low back | Fax: | Fax: | | | | | pain with | [phone] | [phone] | | | | | right-sided | [...] | | Required | | disease | [address] | PHYSICAL | | | | | (HCC) | ST [address] | TH[address]AP[address] | | | | | Frequent | [place], [place] | [address] | | | | | falls | [address] | [address] | | | | | | Phone: | [facility], [place] | | | | | | [phone] | [address] | | | | | | Fax: | Phone: | | | | | | [phone] | [phone] | | | | | | | Fax: | | | | | | | [phone] | +--------+ + + + + + [...] | | | | | Procedures | [place] | [facility] | | | | | Evaluate & | [address] | [address] Phone: | | | | | Treat | [place], [place] | [phone] | | | | | | [address] | Fax: | | | | | | Phone: | [phone] | | | | | | [phone] | | +--------+ + + + + + Encounter Details +--------+---------+ + + + | Date | Type | Department | Care Team | Description | +--------+---------+ + + + | 11/26/ | Office | [place] [facility] | Mary, | Chronic bilateral | | 2019 | Visit | HOSPITAL NEUROLOGY | [facility], [address] | low back pain with | | | | CLIN[address] | [address] [place], | right-sided sciatica | | | | [place], | [place] [address] | (Primary Dx); | | | | [place] [address] | [phone] | Parkinson disease | | | | [phone] | | ([facility]); Neck pain, [...] press against a nerve. Date Last Reviewed: 10/24/201719999142-5411 [employer]. [address] [place] [address], [place] [address]. All righ ts reserved. This information is [...] are taking other medicines. You may use bxlk-sqy-xphipyv medicine as directed on the bottle to [...] groin or genital area Date Last Reviewed: 02/24/201619991006-0293 [employer]. [address] [place] [address]. All righ ts reserved. This information is [...] frozen. To turn, walk in a half [place] instead of trying to stop and turn [...] yourself onto the chair. Date Last Reviewed: 10/24/201719997243-8438 [employer]. [address] [place] [address]. All righ ts reserved. This information is [...] of your body. Also, your symptoms may gear changer time. And you may have different [...] may also feel depressed. Date Last Reviewed: 09/26/201719993399-9360 [employer]. [address] [place] [address]. All righ ts reserved. This information is [...] way to get help. Date Last Reviewed: 11/24/201719990088-0112 [employer] [place] [address], [place] [address]. All righ ts reserved. This information is not intended as a substitute for professional medical care. Always follow your healthcare professional's instructions. documented in this encounter Progress Notes [facility] Hernandez FNP - 11/26/2018 3:15 PM PDT Patient: Nitesh Haynes Medical Record: [id number] Date of Services: 11/26/2018 Referring Doctor: Екатерина Christianson NP Chief Complaint: Parkinson's disease, chronic low back pain History of Present Illness: The patient presents to the Neurology Clinic today for follow u p accompanied by his , Gloria. The patient has a history of Parkinson's disease for approximately 19 years. He had a DBS surgery at [facility] in 2008 with revision in 2010. The [...] up scheduled with his neurology team at [facility] later this month. The patient has a history of chronic low back pain. The patient reports that his symptoms have slowly worsened over the past 10 years. He has had 2 previous lumbar spine surgeries, the last one in [address] Mcmullen in [place], [place]. The patient has tried treatment wi [...] e; Refill: 0 - AMB Referral to [facility] Community Health Worker Parkinson disease (HCC) [...] to Physical Therapy - AMB Referral to [facility] Community Health Worker Neck pain, bilateral Overview: 07/09/18 XR Cervical: Extensive degenerative changes of the cervical spine.Bilateral f oraminal narrowing. Orders: - AMB Referral to [facility] Community Health Worker Frequent falls - Ambulatory referral to Physical Therapy - AMB Referral to [facility] Community Health Worker Chronic bilateral low [...] are intact. There is no dysmetria on hbwtcj-qv-tlgs and pfea-dbib-lfvr. Romberg is absent. + Tremors noted with [...] mg capsule G89.29 724.3 * [place] B[facility]udez [facility] Community Health Worker 338.29 2. Parkinson disease (HCC) G20 332.0 amantadine (SYMMETREL) 100 MG TABS carbidopa-levodopa (SINEMET) 25-100 mg per tablet entacapone (COMTAN) 200 mg tablet [facility] Physical Therapy, External - AMB Referral * [place] Bermudez [facility] Community Health Worker DISCONTINUED: entacapone (COMTAN) 200 mg tablet 3. Neck pain, bilateral M54.2 723.1 * [place] Bermudez [facility] Community Health Worker 4. Frequent falls R29.6 V15.88 [facility] Therapy, External - AMB Referral * [place] Bermudez [facility] Community Health Worker Plan: Parkinson's disease: [...] | | | | | | [address] [place], | | | | | | [place] [address] | | | | | | [phone] | | | | | | | [...] Parkinson disease | Ordered: 11/26/2018 | | [facility] | Referral | e | ([facility] [...]
--- OUTSIDE RECORDS SUMMARY | ~2019-08-25 | XMS | Encounter Summary ---
Demographics + + + | Address | [address] | | | [place] [address] | + + + | Home Phone | | + + + | Preferred Language | Unknown | + + + | Marital Status | | + + + | Mormonism Affiliation | Unknown | + + + | Race | Unknown | + + + | Ethnic Group | Unknown | + + + Author + + + | Author | [facility] | | | and [place] | + + + | Organization | [facility] | | | [...] Team Providers + +------+ + | Care Vapor Coater Name | Role | Phone | + [...] | | | | | Procedures | [place] | [facility] | | | | | Evaluate & | [address] | [address] Phone: | | | | | Treat | [place], [place] | [phone] | | | | | | [address] | Fax: | | | | | | Phone: | [phone] | | | | | | [phone] | | +--------+ + + + + + Encounter Details +--------+ + + + + | Date | Type | Department | Care Team | Description | +--------+ + + + + | 04/07/ | Procedure | [place] [facility] | Mary, | Chronic bilateral | | 2019 | visit | HOSPITAL NEUROLOGY | [facility], 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
--- OUTSIDE RECORDS SUMMARY | ~2019-08-25 | XMS | Encounter Summary ---
Demographics + + + | Address | [address] | | | [place] [address] | + + + | Home Phone | | + + + | Preferred Language | Unknown | + + + | Marital Status | | + + + | Samaritan Affiliation | Unknown | + + + | Race | Unknown | + + + | Ethnic Group | Unknown | + + + Author + + + | Author | [facility] | | | and [place] | + + + | Organization | [facility] | | | [...] Team Providers + +------+ + | Care Nursery Supervisor Name | Role | Phone | [...] [address] | | | | | [place] [address] | | | | | | [phone] | | | +--------+ + + + [...] | | | | | | [place] [address] | | | | | | [phone] | | | | | | | | +--------+---------+ + + + documented as of this encounter Visit Diagnoses Not on filedocumented in this encounter"
--- OUTSIDE RECORDS SUMMARY | ~2019-08-25 | XMS | Encounter Summary ---
Demographics + + + | Address | [address] | | | [place] [address] | + + + | Home Phone | | + + + | Preferred Language | Unknown | + + + | Marital Status | | + + + | Christianity Affiliation | Unknown | + + + | Race | Unknown | + + + | Ethnic Group | Unknown | + + + Author + + + | Author | [facility] | | | and [place] | + + + | Organization | [facility] | | [...] Team Providers + +------+ + | Care Selvage Machine Operator Name | Role | Phone [...] | | | | | bilateral | [address] | [place], [place] | | | | | low back | Phone: | [address] | | | | | pain without | [phone] | Phone: | | | | | sciatica | Fax: | [phone] | | | | | Neck pain, | [phone] | Fax: | | | | | bilateral | | [phone] | +--------+ + + + + + [...] | Required | | legs | Jonathan, SET O TYPE OPERATOR | [address] | | | | | syndrome | [address] | | | | | Procedures | Miner | [place], [place] | | | | | Evaluate & | [address] | [address] Phone: | | | | | Treat | [place], [place] | [phone] | | | | | | [address] | Fax: | | | | | | Phone: | [phone] | | | | | | [phone] | | +--------+ + + + + + Encounter Details +--------+---------+ + + + | Date | Type | Department | Care Team | Description | +--------+---------+ + + + | 07/09/ | Office | [facility] [facility] | Mac Bond MD | Parkinson disease | | 2018 | Visit | HOSPITAL NEUROLOGY | [address] | ([facility]); Gait | | | | CLINIC [address] | [place], [place] | disorder; Chronic | | | | [address] [place], | [address] | bilateral low back | | | | [place] [address] | | pain without | | | | [phone] | | sciatica; Neck pain, | | [...] be different from the original. Patient Instructions [facility] Neurology Clinic Dr. Mac Bond, Neurologist [...] Vws XR Lumbar Spine 4 + [facility] Physical Therapy, External - AMB Referral Treatment Option- massage, Acupuncture, Over the counter heat patches (icy hot, thermacare, salonpas) , over the counter creams (aspercream, bengay cream, emu oi l), Relaxation therapy, Water therapy, Cortisone shots, Toradol Injections Suggest reading newspapers. magazines, perform word find exercises such as cross word puzz le, and scrabble, other puzzle games like [employer]u, [employer]. Play computer/mobile applications such as [employer] and M[employer] GAMES Vit E and Vit B complexes (1, 6, and 12) Toradol 60 mg IM for intractable neck an d low back pain, pain scale 6-7/10 Any Questions please call ELIAS Canales or Dr. Bond at [facility] Neurology Clinic General Neck and Back [...] are taking other medicines. You may use puzi-olv-monlaot medicine to control pain, unless another pain [...] by your healthcare provider Date Last Reviewed: 02/24/201619995664-2703 [employer]. [address] [place] [address]. All righ ts reserved. This information is [...] use ice several times a day. ?Medicines Qtxh-nef-tislerl pain relievers can includeacetaminophen and anti-inflammatory medicines, [...] a heating p ad. Date Last Reviewed: 04/26/201519996617-[address] [employer] [place], [place] [address]. All righ ts reserved. This information is [...] and knives if it s hard to front end manager utensils. Spill-proof cups can help with drinking. [...] voice-activated soft mcwilliams for computers. Use foam commercial lines assistant on pens and pencils. These can make them easier to hold. Sleeping Manypeople with Parkinson have trouble sleeping. They may also move in their sleep and st rike their partners. Tell your healthcare provider if you re having sleep problems or recu rrent nightmares. Medicinecan often help you sleep better. Check with your healthcare prov ider before using dvnq-tpm-djxtyax medicines to help you sleep. Getting out [...] or begin having falls. Date Last Reviewed: 10/24/201719992668-8618 [employer]. [address] [place] [address], [place] [address]. All righ ts reserved. This information is [...] The diagnosis is based on your symptoms, [facility] history, and a physical exam. You mayalso [...] Parkinson disease. Date Last Reviewed: 09/26/2017 [employer]. [address] [place] [address]. All righ ts reserved. This information is [...] other procedures you may have heard abo oh. One experimental new surgery is restorative surgery. During this surgery, new brain tiss ue, gene therapy, or stem cells are transplanted into the brain. There, the new tissue takes over the function of damaged cells. Date Last Reviewed: 10/24/2017 [employer]. [address] [place] [address]. All righ ts reserved. This information is [...] preferred in most situations. Date Last Reviewed: 07/04/201519990829-7647 [employer]. [address] [place] [address]. All righ ts reserved. This information is [...] | | | | | | [address]TH [facility], | | | | | | [place] [address] | | | | | | [phone] | | | | | | | [...] Therapy, | Referral | e | ([facility]) Gait disorder | | | External - [...] acupuncture treatments, massage | | | therapy, seif-izh-iydlzuh heat patches, relaxation therapy, water | | [...] back pain COMPARISON STUDY: None FINDINGS: 5 xto-got-xzfheao | | | lumbar vertebral bodies. [place] left lower lumbar scoliosis. There is | [...] | | VWHISTORY:persistent low back painCOMPARISON STUDY:NoneFINDINGS:5 qob-nlw-pynjjqr lumbar | | vertebral bodies.[place] left lower lumbar scoliosis.There is postsurgical change [...] Gabriel on 07/09/2018 5:06 PM | |5 zza-lhw-orwqgru lumbar vertebral bodies. | |[place] left lower lumbar scoliosis. | |There is [...] is noted at C3 through | | S7Hlwijckdbd facet and uncovertebral hypertrophyNo prevertebral soft tissue [...]
--- OUTSIDE RECORDS SUMMARY | ~2019-08-25 | XMS | Encounter Summary ---
Demographics + + + | Address | [address] | | | [place] [address] | + + + | Home Phone | | + + + | Preferred Language | Unknown | + + + | Marital Status | Single | + + + | Mormon Affiliation | Unknown | + + + | Race | White | + + + | Ethnic Group | Not or | + + + Author + + + | Author | [facility] | + + + | Organization | [facility] | + + + | Address | Unknown | + + + | Phone | Unavailable | + + + Support + + +---------+ + | Name | Relationship | Address | Phone | + + +---------+ + | Gloria Haynes | ECON | Unknown | | + + +---------+ + Care Team Providers + +------+ + | Care Senior Managing Director Name | Role | Phone | + [...] [id number] | | | | | | [place], [place] | | | | | | [address] | | | | | | [phone] | | | +--------+ + + + [...]
--- OUTSIDE RECORDS SUMMARY | ~2019-08-25 | XMS | Encounter Summary ---
Demographics + + + | Address | [address] | | | [place] [address] | + + + | Home Phone | | + + + | Preferred Language | Unknown | + + + | Marital Status | | + + + | Oriental Orthodox Affiliation | Unknown | + + + | Race | Unknown | + + + | Ethnic Group | Unknown | + + + Author + + + | Author | [facility] | | | and [place] | + + + | Organization | [facility] | | | and [...] Team Providers + +------+ + | Care Skating Carhop Name | Role | Phone | + [...] | | | | | | [place] [address] | | | | | | [phone] | | | +--------+ + + + [...] | | | | | | [address] [facility] [place], | | | | | | [place] [address] | | | | | | [phone] | | | | | | | | +--------+---------+ + + + documented as of this encounter Visit Diagnoses Not on filedocumented in this encounter"
--- OUTSIDE RECORDS SUMMARY | ~2019-08-25 | XMS | Encounter Summary ---
Demographics + + + | Address | [address] | | | [place] [address] | + + + | Home Phone | | + + + | Preferred Language | Unknown | + + + | Marital Status | | + + + | Anglican Affiliation | Unknown | + + + | Race | Unknown | + + + | Ethnic Group | Unknown | + + + Author + + + | Author | [facility] | | | and [place] | + + + | Organization | [facility] | | | [...] Team Providers + +------+ + | Care Larriman Name | Role | Phone | + [...] [address] | | | | | [place] [address] | | | | | | [phone] | | | +--------+ + + + [...] | | | | | | [place] [address] | | | | | | [phone] | | | | | | | | +--------+---------+ + + + documented as of this encounter Visit Diagnoses Not on filedocumented in this encounter"
--- OUTSIDE RECORDS SUMMARY | ~2019-08-25 | XMS | Encounter Summary ---
Demographics + + + | Address | [address] | | | [place] [address] | + + + | Home Phone | | + + + | Preferred Language | Unknown | + + + | Marital Status | | + + + | Congregation Affiliation | Unknown | + + + | Race | Unknown | + + + | Ethnic Group | Unknown | + + + Author + + + | Author | [facility] | | | and [place] | + + + | Organization | [facility] | | | [...] Team Providers + +------+ + | Care Farm Adviser Name | Role | Phone | + [...] | | [place], [place] | [place] [address] | unspecified acute | | 2018 | | [address] | [phone] | renal failure type | | | | [phone] | | ([facility]); | | | | | Fidel Muir, | Hypermagnesemia; | | | | | [address] | Acute cystitis with | | | | | [place] [address] | hematuria | | | | | [phone] | | | | | | | | | | | | Gina Main, | | | | | | [address] [place] | | | | | | [place] [address] | | | | | | [phone] | | | | | | | [...] Nato Turner Disposition: assisted facility Follow-Up Plans: [address] [place] [id number] Electronically signed by: Fidel Muir MD 06/19/2019 12:57 [facility] Time spent discharging this patient: 30 minutes documented in this encounter Discharge Instructions AttachmentsThe following attachments cannot be sent through Care Everywhere.Kidney Injury, Acute, Discharge Instructions for (Irish)documented in this encounter Medications at Time of [...] | | | | | | | ([facility]) | | | | | [...] medication list provided for disc harge to shelter facility. Electronically signed by: Gumaro Hernández, Mary [...] and directions [x] Pharmacy list names: [place], [facility] ([place]) Spoke with patient that could recall some [...] 2019 | Visit | | [facility] [address] | | | | | | [address]TH [facility], | | | | | | [place] [address] | | | | | | [phone] | | | | | | | [...] + + | [facility] [facility] | [address] | [place] [address] | [phone] | | HOSPITAL LABORATORY | | | [...] | mL/min/1.73m2 | [facility] | | | [facility] | | | [facility] | | | [...] + + | [place] [facility] | [address] | [place] [address] | [phone] | | HOSPITAL LABORATORY | | | [...] + + | [place] [facility] | [address] | [place] [address] | [phone] | | HOSPITAL LAB[facility]ATORY | | | [...] | mL/min/1.73m2 | [facility] | | | [facility] | | | [facility] | | | [...] + + | [facility] | [address] | [place] [address] | [phone] | | HOSPITAL LAB[facility]ATORY | | | [...] + + | [facility] [facility] | [address] | [place] [address] | [phone] | | HOSPITAL LAB[facility]ATORY | | | [...] + + | [place] [facility] | [address] | [place] [address] | [phone] | | HOSPITAL LAB[facility]ATORY | | | [...] + + | [place] [facility] | [address] | [place] [address] | [phone] | | HOSPITAL LAB[facility]ATORY | | | [...] + + | [place] [facility] | [address] | [place] [address] | [phone] | | HOSPITAL LAB[facility]ORY | | | [...] | mL/min/1.73m2 | [facility] | | | [facility] | | | [facility] | | | [...] + + | [facility] | [address] | [place] [address] | [phone] | | HOSPITAL LAB[facility]ATORY | | | [...] | cutoff point for the diagnosis of PR is 0.8 ng/mL for the Troponin I | | | method. | | + + + + + + + + | Performing | Address | City/State/Zipcode | Phone Number | | Organization | | | | + + + + + | [facility] [facility] | [address] | [place] [address] | [phone] | | HOSPITAL LAB[facility]ATORY | | | [...] | cutoff point for the diagnosis of PR is 0.8 ng/mL for the Troponin I | | | method. | | + + + + + + + + | Performing | Address | City/State/Zipcode | Phone Number | | Organization | | | | + + + + + | [place] [facility] | [address] | [place] [address] | [phone] | | HOSPITAL LAB[facility]ATORY | | | [...] + + | [place] [facility] | [address] | [place] [address] | [phone] | | HOSPITAL LAB[facility]ATORY | | | [...] + + | [place] [facility] | [address] | [place] [address] | [phone] | | HOSPITAL LABORATORY | | | [...] At | + + + | Current [facility] clinical laboratory antibiogram data can be found on the | [place] [facility] | | [facility] intranet at | HOSPITAL | | [email or web address] or on | LABORATORY | | the [facility] website at [email or web address] | | + + + + + + + + | Performing | Address | City/State/Zipcode | Phone Number | | Organization | | | | + + + + + | [facility] [facility] | [address] | [place] [address] | [phone] | | HOSPITAL LABORATORY | | | [...] - 1.030 | [place] | | | [place] | | | [facility] | | | [...] + + + + + | [place] [facility] | [address] | [place] [address] | [phone] | | HOSPITAL LAB[facility]ATORY | | | [...] | | 438 msQTC Interval: 476 msQRS [place]: -3 degT Wave [place]: 54 deg- | | | ABNORMAL ECG -Sinus rhythmNonspecific intraventricular conduction | | | delayMinimal ST elevation, anterior leadsNo previous ECG available for | | | comparison | | |QRS [place]: -3 deg | | |T Wave [place]: 54 deg | | |- ABNORMAL ECG [...] + + | [facility] | [address] | [place] [address] | [phone] | | HOSPITAL LAB[facility]ATORY | | | [...] + + | [place] [facility] | [address] | [place] [address] | [phone] | | HOSPITAL LAB[facility]ATORY | | | [...] + + | [place] [facility] | [address] | [place] | [phone] | | HOSPITAL LAB[facility]ATORY | | | [...] + + | [facility] [facility] | [address] | [place] [address] | [phone] | | HOSPITAL LAB[facility]ATORY | | | [...] + + | [facility] | [address] | [place] [address] | [phone] | | HOSPITAL LAB[facility]ATORY | | | [...] | cutoff point for the diagnosis of PR is 0.8 ng/mL for the Troponin I | | | method. | | + + + + + + + + | Performing | Address | City/State/Zipcode | Phone Number | | Organization | | | | + + + + + | [facility] | [address] | [place] [address] | [phone] | | HOSPITAL LABORATORY | | | [...] | mL/min/1.73m2 | [facility] | | | [facility] | RATE,ESTIMATED | | HOSPITAL | | | | mL/min/1.23s1Cahy than | | LABORATORY | | | [...] + + | [place] [facility] | [address] | [place] [address] | [phone] | | HOSPITAL LABORATORY | | | [...] + + | [facility] [facility] | [address] | [place] [address] | [phone] | | HOSPITAL LABORATORY | | | [...]
--- OUTSIDE RECORDS SUMMARY | ~2019-08-25 | XMS | Encounter Summary ---
Demographics + + + | Address | [address] | | | [place] [address] | + + + | Home Phone [...] Providers + +------+ + | Care Cook Dessert Name | Role | Phone | + [...] [place] | | | | | [address] [place], | [address] | | | | | [place] [address] | | | | | | [phone] | | | +--------+ + + + [...] | | | | | | [place] [address] | | | | | | [phone] | | | | | | | | +--------+---------+ + + + documented as of this encounter Visit Diagnoses Not on filedocumented in this encounter"
--- OUTSIDE RECORDS SUMMARY | ~2019-08-25 | XMS | Encounter Summary ---
Demographics + + + | Address | [address] | | | [place] [address] | + + + | Home Phone | | + + + | Preferred Language | Unknown | + + + | Marital Status | | + + + | Nondenominational Affiliation | Unknown | + + + | Race | Unknown | + + + | Ethnic Group | Unknown | + + + Author + + + | Author | [facility] | | | and [place] | + + + | Organization | [facility] | | | and [...] Team Providers + +------+ + | Care Balloon Seller Name | Role | Phone | + [...] [address] | | | | | [place] [address] | | | | | | [phone] | | | +--------+ + + + [...] | | | | | | [place] [address] | | | | | | [phone] | | | | | | | | +--------+---------+ + + + documented as of this encounter Visit Diagnoses Not on filedocumented in this encounter"
--- OUTSIDE RECORDS SUMMARY | ~2019-08-25 | XMS | Encounter Summary ---
Demographics + + + | Address | [address] | | | [place] [address] | + + + | Home Phone [...] Team Providers + +------+ + | Care Car Racer Name | Role | Phone | + [...] | | Required | | disease | APPRENTICE PAINTER HAND [address] | | | | | | ([facility]) | [address] | | | | | | | [place], [place] | | | | | | | [address] | | | | | | | Phone: | | | | | | | [phone] | | | | | | | Fax: | | | | | | | [phone] | | + + + + + [...] | | Required | | disease | APPRENTICE PAINTER HAND [address] | PHYSICAL | | | | | ([facility]) | [address] | THERAPY [address] | | | | | Frequent | [place], [place] | [place] | | | | | falls | [address] | [address] | | | | | | Phone: | [facility], [place] | | | | | | [phone] | [address] | | | | | | Fax: | Phone: | | | | | | [phone] | [phone] | | | | | | | Fax: | | | | | | | [phone] | +--------+ + + + + + [...] | Required | | legs | Jonathan, PUBLIC WORKS COMMISSIONER | [address] | | | | | syndrome | [address] | [address] | | | | | Procedures | [place] | [place], [place] | | | | | Evaluate & | [address] | [address] Phone: | | | | | Treat | [facility] [place], [place] | [phone] | | | | | | [address] | Fax: | | | | | | Phone: | [phone] | | | | | | [phone] | | +--------+ + + + + + Encounter Details +--------+---------+ + + + | Date | Type | Department | Care Team | Description | +--------+---------+ + + + | 03/11/ | Office | [place] [facility] | Mary, | Parkinson disease | | 2019 | Visit | HOSPITAL NEUROLOGY | Sinai, APPRENTICE PAINTER HAND [address] | ([facility]) (Primary Dx); | | | | CLINIC [address] | [address]TH [facility], | Frequent falls; | | | | [place], | [place] [address] | Chronic bilateral | | | | [place] [address] | [phone] | low back pain | | | | [phone] | | without sciatica; | | | [...] are taking other medicines. You may use zopg-gpd-ipxuxqw medicine as directed on the bottle to [...] groin or genital area Date Last Reviewed: 02/24/201619996733-7410 [employer]. [address] [place] [address], [place] [address]. All [facility] ts reserved. This information is not intended [...] and knives if it s hard to gas meter installer helper utensils. Spill-proof cups can help with drinking. [...] soft mcwilliams for computers. Use foam commercial solar sales consultant on pens and pencils. These can make them easier to hold. Sleeping Manypeople with Parkinson have trouble sleeping. They may also move in their sleep and st rike their partners. Tell your healthcare provider if you re having sleep problems or recu rrent nightmares. Medicinecan often help you sleep better. Check with your healthcare prov ider before using gnrk-xcs-gywssjr medicines to help you sleep. Getting out [...] or begin having falls. Date Last Reviewed: 10/24/201719995000-9199 [employer]. [address] [place] [address]. All righ ts reserved. This information is [...] your body. Also, your symptoms may change analyst time. And you may have different symptoms [...] may also feel depressed. Date Last Reviewed: 09/26/201719995662-9825 [employer]. [address] [place] [address], [place] [address]. All righ ts reserved. This information is [...] frozen. To turn, walk in a half atqasuk instead of trying to stop and turn [...] yourself onto the chair. Date Last Reviewed: 10/24/201719992473-3137 [employer]. [address] [place] [address]. All righ ts reserved. This information is [...] way to get help. Date Last Reviewed: 11/24/201719997523-8032 [employer]. [address] [place] [address], [place] [address]. All righ ts reserved. This information is [...] ows about your wishes. Durable power of employment attorney This document transfers financial and legal [...] secure about the future. Date Last Reviewed: 11/24/201719993640-5211 [employer]. [address] [place] [address], [place] [address]. All righ ts reserved. This information is not intended as a substitute for professional medical care. Always follow your healthcare professional's instructions. documented in this encounter Progress Notes Sinai Hernandez FNP - 03/11/2019 2:30 PM PDT Patient: Nitesh Haynes Medical Record: [id number] Date of Services: 03/11/2019 Referring Doctor: Екатерина Christianson NP Chief Complaint: Parkinson's disease, chronic low back pain History of Present Illness: The patient presents to the Neurology Clinic today for follow u p. The patient has a history of Parkinson's disease for approximately 19-20 years. He had a D BS surgery at [facility] in 2008 with revision in 2010. The [...] He did follow up with Neurology/Neurosurgery at [facility]. He reports that his DBS is functioning well. No changes were needed. The patient has a history of chronic low back pain. The patient reports that his symptoms have slowly worsened over the past 10 years. He has had 2 previous lumbar spine surgeries, the last one in [address] Mcmullen in [place], [place]. The patient has tried treatment wi [...] are intact. There is no dysmetria on rkszks-wc-riak and fmnh-khbl-dpla. Romberg is absent. + Tremors noted with [...] ICD-9-CM 1. Parkinson disease (HCC) G20 332.0 [facility] Physical Therapy, External - AMB Refer [facility] Occupational Therapy, External - AMB Referral entacapone (COMTAN) 200 mg tablet carbidopa-levodopa (SINEMET) 25-100 mg per tablet amantadine (SYMMETREL) 100 MG TABS DISCONTINUED: entacapone (COMTAN) 200 mg tablet DISCONTINUED: carbidopa-levodopa (SINEMET) 25-100 mg per tablet 2. Frequent falls R29.6 V15.88 [facility] Physical Therapy, External - [facility] Referral 3. Chronic bilateral low back pain [...] gait training and frequent falls. Referral to [facility] placed today. I have also advised him to use his walker at all times for ambulation to help prevent his falls. [facility] also has continued to follow to [...] | | | | | | [place] [address] | | | | | | [phone] | | | | | | | [...] External - | Referral | e | ([facility]) | | | AMB Referral | | [...] | such as acupuncture treatments, massage therapy, rcrl-ysl-baxvrla | | | heat patches, relaxation therapy, [...]
--- OUTSIDE RECORDS SUMMARY | ~2019-08-25 | XMS | Encounter Summary ---
Demographics + + + | Address | [address] | | | [place] [address] | + + + | Home Phone | | + + + | Preferred Language | Unknown | + + + | Marital Status | Single | + + + | Sikh Affiliation | Unknown | + + + | Race | White | + + + | Ethnic Group | Not or | + + + Author + + + | Author | [facility] | + + + | Organization | [facility] | + + + | Address | Unknown | + + + | Phone | Unavailable | + + + Support + + +---------+ + | Name | Relationship | Address | Phone | + + +---------+ + | Gloria Haynes | ECON | Unknown | | + + +---------+ + Care Team Providers + +------+ + | Care Excel Expert Name | Role | Phone | + +------+ + PCP | Unavailable | + +------+ + Encounter Details +--------+ + + + + | Date | Type | Department | Care Team | Description | +--------+ + + + + | 06/06/ | Results | Neurology at | Jory Segovia MD | | | 2006 | Only | [facility] & | [address] | | | | | Healing [address] | | | | | Lemuel Maciel Mailcode: | [place], [place] | | | | | [address] | [address] | | | | | Health and Healing, | [phone] | | | | | | | | | | | Floor [place], [place] | | | | | | [address] | | | | | | [phone] | | | +--------+ + + + [...] | + + + + + | [facility] DEPARTMENT OF | [address] | [place] [address] | | | PATHOLOGY | [address] | | | + + + + + | [facility] DEPARTMENT OF | [address] | [place] [address] | | | PATHOLOGY | [address] [...] | + + + + + | [facility] DEPARTMENT OF | [address] [facility] | [place] [address] | | | PATHOLOGY | [address] | | | + + + + + | [facility] | [address] [facility] [address] | [place] [address] | | | PATHOLOGY | [address] [...] | + + + + + | [facility] DEPARTMENT OF | [address] | [place] [address] | | | PATHOLOGY | [address] | | | + + + + + | [facility] DEPARTMENT | [address] | [place] [address] | | | PATHOLOGY | [address] [...] | + + + + + | [facility] | [address] [facility] [facility] | [place] [address] | | | PATHOLOGY | [address] | | | + + + + + | [facility] | [address] [place] [address] | [place] [address] | | | PATHOLOGY | [address] [...] DEPARTMENT OF | [address] | [place] [address] | | | PATHOLOGY | [address] | | | + + + + + | [facility] DEPARTMENT OF | [address] | [place] [address] | | | PATHOLOGY | [address] [...] | + + + + + | [facility] | [address] | [place] [address] | | | PATHOLOGY | [address] | | | + + + + + | [facility] | [address] | [place] [address] | | | PATHOLOGY | [address] | | | + + + + + documented in this encounter Visit Diagnoses Not on filedocumented in this encounter"
--- OUTSIDE RECORDS SUMMARY | ~2019-08-25 | XMS | Encounter Summary ---
Demographics + + + | Address | [address] | | | [place] [address] | + + + | Home Phone | | + + + | Preferred Language | Unknown | + + + | Marital Status | Single | + + + | Jainism Affiliation | Unknown | + + + [...] Team Providers + +------+ + | Care Radio Artist Name | Role | Phone | + [...] | | | [address] | [facility] | | | | | Loop Mailcode: [address] | [place], [place] | | | | | Outpatient Clinic | [address] | | | | | Building [place], | [phone] | | | | | [place] [address] | | | | | | [phone] | | | +--------+ + + + [...]
--- OUTSIDE RECORDS SUMMARY | ~2019-08-25 | XMS | Encounter Summary ---
Demographics + + + | Address | [address] | | | [place] [address] | + + + | Home Phone | | + + + | Preferred Language | Unknown | + + + | Marital Status | | + + + | Sikhism Affiliation | Unknown | + + + | Race | Unknown | + + + | Ethnic Group | Unknown | + + + Author + + + | Author | [facility] | | | and [place] | + + + | Organization | [facility] | [...] Team Providers + +------+ + | Care Hide Puller Name | Role | Phone | + [...] | | | | | bilateral | [address] | [place], [place] | | | | | low back | Phone: | [address] | | | | | pain without | [phone] | Phone: | | | | | sciatica | Fax: | [phone] | | | | | Neck pain, | [phone] | Fax: | | | | | bilateral | | [phone] | +--------+ + + + + + [...] | Required | | legs | Jonathan, BREAKFAST ATTENDANT | [address] | | | | | syndrome | [address] | | | | | Procedures | [place] | [place], [place] | | | | | Evaluate & | Edgard Vu | [address] Phone: | | | | | Treat | [place], [place] | [phone] | | | | | | [address] | Fax: | | | | | | Phone: | [phone] | | | | | | [phone] | | +--------+ + + + + + Encounter Details +--------+---------+ + + + | Date | Type | Department | Care Team | Description | +--------+---------+ + + + | 07/09/ | Office | [facility] | Mac Bond MD | Parkinson disease | | 2018 | Visit | HOSPITAL NEUROLOGY | [address] | ([facility]); Gait | | | | CLINIC [address] | [place], [place] | disorder; Chronic | | | | DR [address] [place], | [address] | bilateral low back | | | | [place] [address] | | pain without | | | | [phone] | | sciatica; Neck pain, | | [...] be different from the original. Patient Instructions [facility] Dr. Mac Bond, Neurologist Date:07/09/2018 [...] Vws XR Lumbar Spine 4 + Vw [facility] Physical Therapy, External - AMB Referral Treatment Option- massage, Acupuncture, Over the counter heat patches (icy hot, thermacare, salonpas) , over the counter creams (aspercream, bengay cream, emu oi l), Relaxation therapy, Water therapy, Cortisone shots, Toradol Injections Suggest reading newspapers. magazines, perform word find exercises such as cross word puzz le, and scrabble, other puzzle games like SudBeyond the Boxu, MahHyginexng. Play computer/mobile applications such as [employer]toLogic and MIND GAMES Vit E and Vit B complexes (1, 6, and 12) Toradol 60 mg IM for intractable neck an d low back pain, pain scale 6-7/10 Any Questions please call ELIAS Canales or Dr. Bond at [facility] Neu[facility] General Neck and Back Pain [...] are taking other medicines. You may use hghs-mms-nebjwyo medicine to control pain, unless another pain [...] by your healthcare provider Date Last Reviewed: 02/24/201619999722-6472 [employer]. [address] [place] [address]. All righ ts reserved. This information is [...] use ice several times a day. ?Medicines Fmqn-ubb-sokurje pain relievers can includeacetaminophen and anti-inflammatory medicines, [...] a heating p ad. Date Last Reviewed: 04/26/201519995326-[address] [employer] [place], [place] [address]. All righ ts reserved. This information is [...] and knives if it s hard to taste tester utensils. Spill-proof cups can help with drinking. [...] voice-activated soft mcwilliams for computers. Use foam registered safety engineer on pens and pencils. These can make them easier to hold. Sleeping Manypeople with Parkinson have trouble sleeping. They may also move in their sleep and st rike their partners. Tell your healthcare provider if you re having sleep problems or recu rrent nightmares. Medicinecan often help you sleep better. Check with your healthcare prov ider before using vlpj-hmf-hyacdbx medicines to help you sleep. Getting out [...] or begin having falls. Date Last Reviewed: 10/24/201719999163-9005 [employer]. [address] [place] [address], [place] [address]. All righ ts reserved. This information is [...] diagnosis is based on your symptoms, [facility] history, and a physical exam. You [...] Parkinson disease. Date Last Reviewed: 09/26/2017 [employer]. [address] [place] [address]. All righ ts reserved. This information is [...] other procedures you may have heard abo co. One experimental new surgery is restorative surgery. During this surgery, new brain tiss ue, gene therapy, or stem cells are transplanted into the brain. There, the new tissue takes over the function of damaged cells. Date Last Reviewed: 10/24/2017 [employer]. [address] [place] [address]. All righ ts reserved. This information is [...] preferred in most situations. Date Last Reviewed: 07/04/201519999093-7898 [employer]. [address] [place] [address]. All righ ts reserved. This information is [...] | | | | | | 4TH [facility], | | | | | | [place] [address] | | | | | | [phone] | | | | | | | [...] | ([facility]) Gait disorder | | | External - [...] acupuncture treatments, massage | | | therapy, gfor-gyf-ipuipee heat patches, relaxation therapy, water | | [...] back pain COMPARISON STUDY: None FINDINGS: 5 wln-ela-mwdnpos | | | lumbar vertebral bodies. [place] left lower lumbar scoliosis. There is | [...] | | VWHISTORY:persistent low back painCOMPARISON STUDY:NoneFINDINGS:5 oth-esa-mytboks lumbar | | vertebral bodies.[place] left lower lumbar scoliosis.There is postsurgical change [...] Gabriel on 07/09/2018 5:06 PM | |5 bzx-lxi-qhkaqxm lumbar vertebral bodies. | |[place] left lower lumbar scoliosis. | |There is [...] is noted at C3 through | | M5Gmuricteaw facet and uncovertebral hypertrophyNo prevertebral soft tissue [...]
--- OUTSIDE RECORDS SUMMARY | ~2019-08-25 | XMS | Encounter Summary ---
Demographics + + + | Address | [address] | | | [place] [address] | + + + | Home Phone [...] Team Providers + +------+ + | Care Tapping Machine Operator Automatic Name | Role | Phone | + [...] [address] | | | | | [place] [address] | | | | | | [phone] | | | +--------+ + + + [...] | | | | | | [place] [address] | | | | | | [phone] | | | | | | | | +--------+---------+ + + + documented as of this encounter Visit Diagnoses Not on filedocumented in this encounter"
--- OUTSIDE RECORDS SUMMARY | ~2019-08-25 | XMS | Encounter Summary ---
Demographics + + + | Address | [address] | | | [place] [address] | + + + | Home Phone [...] Team Providers + +------+ + | Care Central Station Operator Name | Role | Phone | [...] | | Required | | disease | [address] | [address] | | | | | (HCC) Neck | [address] | | | | | pain, | [place], [place] | [address] | | | | | bilateral | [address] | [place], [place] | | | | | Chronic | Phone: | [address] Phone: | | | | | bilateral | [phone] | [phone] | | | | | low back | Fax: | Fax: | | | | | pain with | [phone] | [phone] | | | | | right-sided | [...] + + | 12/08/ | Off-Site | [facility] | Mary, | Parkinson disease | | 2019 | Visit | HOSPITAL NEUROLOGY | Sinai, [address] | ([facility]) (Primary Dx); | | | | CLINIC [address] | [address] [place], | Chronic bilateral | | | | DR [address] [place], | [place] [address] | low back pain | | | | [place] [address] | [phone] | without sciatica; | | | | [phone] | | Gait disorder; Neck | | | | | Dulce Berkowitz | pain, bilateral | | | | | D, [address] | | | | | | [address] | | | | | | [place] [address] | | | | | | [phone] | | | | | | | [...] ck pain, bilateral Pathways: Medication Assessment and Credit Products Officer" Chart Notes/ Visit Details: An Initial [...] new medication. Gerardo has an appointment in [place] soon to look at the stimulator that [...] chair and bed. CHW will speak with [address] to see if insurances will cover those items with a prescription f rom a provider. CHW will follow up with Gerardo and Gloria as resources are discovered. Follow up home visit set for March 09, 2019 @ 0100. GIANNA Croft documented in thi s encounter Plan of Treatment +--------+---------+ + + + | Date | Type | Specialty | Care Team | Description | +--------+---------+ + + + | 01/20/ | Office | Neurology | Mary, | | | 2020 | Visit | | [address] | | | | | | 4TH [facility], | | | | | | [place] [address] | | | | | | [phone] | | | | | | | [...]
--- OUTSIDE RECORDS SUMMARY | ~2019-08-25 | XMS | Encounter Summary ---
Demographics + + + | Address | [address] | | | [place] [address] | + + + | Home Phone | | + + + | Preferred Language | Unknown | + + + | Marital Status | | + + + | Mandaen Affiliation | Unknown | + + + | Race | Unknown | + + + | Ethnic Group | Unknown | + + + Author + + + | Author | [facility] | | | and [place] | + + + | Organization | [facility] | | [...] Team Providers + +------+ + | Care Stitchdown Toe Former Name | Role | Phone | + [...] | | | | [place], [place] | [address] | | | | | [address] | | | | | | [phone] | | | +--------+ + + + [...] | | | | 4TH [facility], | | | | | | [place] [address] | | | | | | [phone] | | | | | | | [...] is noted at C3 through | | F5Bnaivxkbsl facet and uncovertebral hypertrophyNo prevertebral soft tissue [...] + + | Performing | Address | City/State/[facility] | Phone Number | | Organization | | | | + +---------+ + + | [facility] | | | | + +---------+ + + documented in this encounter Visit Diagnoses + + | Diagnosis | + + | Neck pain, bilateral Cervicalgia | + + documented in this encounter"
--- OUTSIDE RECORDS SUMMARY | ~2019-08-25 | XMS | Encounter Summary ---
Demographics + + + | Address | [address] | | | [place] [address] | + + + | Home Phone | | + + + | Preferred Language | Unknown | + + + | Marital Status | | + + + | Confucianist Affiliation | Unknown | + + + | Race | Unknown | + + + | Ethnic Group | Unknown | + + + Author + + + | Author | [facility] | | | and [place] | + + + | Organization | [facility] | | [...] Team Providers + +------+ + | Care Software Writer Name | Role | Phone | + [...] | DR [address] [place], | [address] | unspecified back | | | | [place] [address] | | pain laterality | | | | [phone] | | (Primary Dx); | | | [...] | | | | | | [place] [address] | | | | | | [phone] | | | | | | | [...] + + | [facility] | [address] | [place] [address] | [phone] | | HOSPITAL LABORATORY | | | | + + + + + documented in this encounter Visit Diagnoses + + | Diagnosis | + + | Chronic low back pain without sciatica, unspecified back pain laterality - Primary | + + | Encounter for therapeutic procedure | + + documented in this encounter"
--- OUTSIDE RECORDS SUMMARY | ~2019-08-25 | XMS | Encounter Summary ---
Demographics + + + | Address | [address] | | | [place] [address] | + + + | Home Phone | | + + + | Preferred Language | Unknown | + + + | Marital Status | | + + + | Restorationism Affiliation | Unknown | + + + [...] Team Providers + +------+ + | Care Inside Sales Account Executive Name | Role | Phone | + [...] + + | 08/20/ | Telephone | [facility] | No, Physician | Error | | 2019 | | NEUROLOGY [address] | | | | | | [address] | | | | | | [place], [place] | | | | | | [address] | | | | | | [phone] | | | +--------+ + + + [...] | | | | | | 4TH [facility], | | | | | | [place] [address] | | | | | | [phone] | | | | | | | | +--------+---------+ + + + documented as of this encounter Visit Diagnoses Not on filedocumented in this encounter"
--- OUTSIDE RECORDS SUMMARY | ~2019-08-25 | XMS | Encounter Summary ---
Demographics + + + | Address | [address] | | | [place] [address] | + + + | Home Phone | | + + + | Preferred Language | Unknown | + + + | Marital Status | | + + + | Hinduism Affiliation | Unknown | + + + | Race | Unknown | + + + | Ethnic Group | Unknown | + + + Author + + + | Author | [facility] | | | and [place] | + + + | Organization | [facility] | | | [...] + +------+ + | Care Field Sales Specialist Name | Role | Phone | [...] [address] | | | | | [place] [address] | | | | | | [phone] | | | +--------+ + + + [...] | | | | | | [place] [address] | | | | | | [phone] | | | | | | | | +--------+---------+ + + + documented as of this encounter Visit Diagnoses Not on filedocumented in this encounter"
--- OUTSIDE RECORDS SUMMARY | ~2019-08-25 | XMS | Encounter Summary ---
Demographics + + + | Address | [address] | | | [place] [address] | + + + | Home Phone [...] Team Providers + +------+ + | Care Cam Milling Machine Operator Name | Role | Phone [...] | | | | [place], [place] | [address] | | | | | [address] | | | | | | [phone] | | | +--------+ + + + [...] | | | | | | [facility] [facility], | | | | | | [place] [address] | | | | | | [phone] | | | | | | | [...] is noted at C3 through | | [id number] facet and uncovertebral hypertrophyNo prevertebral soft tissue [...] + + | Performing | Address | City[facility]State[facility] | Phone Number | | Organization | | | | + +---------+ + + | [facility] | | | | + +---------+ + + documented in this encounter Visit Diagnoses + + | Diagnosis | + + | Neck pain, bilateral Cervicalgia | + + documented in this encounter"
--- OUTSIDE RECORDS SUMMARY | ~2019-08-25 | XMS | Encounter Summary ---
Demographics + + + | Address | [address] | | | [place] [address] | + + + | Home Phone | | + + + | Preferred Language | Unknown | + + + | Marital Status | | + + + | Christian Affiliation | Unknown | + + + | Race | Unknown | + + + | Ethnic Group | Unknown | + + + Author + + + | Author | [facility] | | | and [place] | + + + | Organization | [facility] | | | [...] Team Providers + +------+ + | Care Exterminator Helper Name | Role | Phone | + +------+ + | Екатерина Christianson NP | PCP | | + +------+ + Reason for Visit + + + | Reason | Comments | + + + | Referral | | + + + Encounter Details +--------+ + + + + | Date | Type | Department | Care Team | Description | +--------+ + + + + | 08/21/ | Telephone | [facility] | Opal Alexandre, | Referral | | 2019 | | NEUROLOGY 1100 | MD [address] | | | | | [address] | DRIVE [facility] D | | | | | [place], [place] | [place] [address] | | | | | [address] | [phone] | | | | | [phone] | | | +--------+ + + + [...] | | | | | | [place] [address] | | | | | | [phone] | | | | | | | | +--------+---------+ + + + documented as of this encounter Visit Diagnoses Not on filedocumented in this encounter"
--- OUTSIDE RECORDS SUMMARY | ~2019-08-25 | XMS | Encounter Summary ---
Demographics + + + | Address | [address] | | | [place] [address] | + + + | Home Phone | | + + + | Preferred Language | Unknown | + + + | Marital Status | | + + + | Confucianism Affiliation | Unknown | + + + [...] Team Providers + +------+ + | Care Cardiology Clinical Consultant Name | Role | Phone | [...] | | | | [place], [place] | [address] | | | | | [address] | | | | | | [phone] | Laxmi Draper Wgr | | +--------+ [...] | | | | | | | ([facility]) | | | | | [...] | | | | | | | ([facility]) | | | | | [...] | | | | | [address] [facility], | | | | | | [place] [address] | | | | | | [phone] | | | | | | | [...]
--- OUTSIDE RECORDS SUMMARY | ~2019-08-25 | XMS | Encounter Summary ---
Demographics + + + | Address | [address] | | | [place] [address] | + + + | Home Phone | | + + + | Preferred Language | Unknown | + + + | Marital Status | Single | + + + | Restorationism Affiliation | Unknown | + + + | Race | White | + + + | Ethnic Group | Not or | + + + Author + + + | Author | [facility] | + + + | Organization | [facility] | + + + | Address | Unknown | + + + | Phone | Unavailable | + + + Support + + +---------+ + | Name | Relationship | Address | Phone | + + +---------+ + | Gloria Haynes | ECON | Unknown | | + + +---------+ + Care Team Providers + +------+ + | Care Registered Nurse Bone Marrow Transplant Name | Role | Phone | + [...] [id number] | | | | | | [place], [place] | | | | | | [address] | | | | | | [phone] | | | +--------+ + + + [...]
--- OUTSIDE RECORDS SUMMARY | ~2019-08-25 | XMS | Encounter Summary ---
Demographics + + + | Address | [address] | | | [place] [address] | + + + | Home Phone [...] Team Providers + +------+ + | Care Nutritionalist Name | Role | Phone | + [...] Provide Resources | | 2019 | | [facility] | D, [address] | (CHW assistance with | | | | CLINIC [address] | [place] [address]ONG | dme) | | | | DR [address], | [place], [place] [address] | | | | | [place] [address] | [phone] | | | | | [phone] | | | +--------+ + + + [...] | | | | | | [place] [address] | | | | | | [phone] | | | | | | | | +--------+---------+ + + + documented as of this encounter Visit Diagnoses Not on filedocumented in this encounter"
--- OUTSIDE RECORDS SUMMARY | ~2019-08-25 | XMS | Encounter Summary ---
Demographics + + + | Address | [address] | | | [place] [address] | + + + | Home Phone [...] Team Providers + +------+ + | Care Last Picker Name | Role | Phone | + [...] 2019 | | HOSPITAL NEUROLOGY | Sinai, RUSSIAN HISTORY PROFESSOR [address] | work ) | | | | CLINIC [address] | [address] [facility] [place], | | | | | [address] [place], | [place] [address] | | | | | [place] [address] | [phone] | | | | | [phone] | | | +--------+ + + + [...] | | | | | | [place] [address] | | | | | | [phone] | | | | | | | | +--------+---------+ + + + documented as of this encounter Visit Diagnoses Not on filedocumented in this encounter"
--- OUTSIDE RECORDS SUMMARY | ~2019-08-25 | XMS | Encounter Summary ---
Demographics + + + | Address | [address] | | | [place] [address] | + + + | Home Phone | | + + + | Preferred Language | Unknown | + + + | Marital Status | | + + + | Orthodoxy Affiliation | Unknown | + + + | Race | Unknown | + + + | Ethnic Group | Unknown | + + + Author + + + | Author | [facility] | | | and [place] | + + + | Organization | [facility] | | [...] Team Providers + +------+ + | Care Catch Basin Cleaner Name | Role | Phone | + [...] | without | [address], | [place] [address] | | | | | sciatica, | [place] [address] [place] | Phone: | | | | | unspecified | [place], [place] | [phone] | | | | | back pain | [address] | Fax: | | | | | laterality | Phone: | [phone] | | | | | Procedures | [phone] | | | | | | CT Lumbar | Fax: | | | | | | Spine wo | [phone] | | | | | | Contrast [...] unspecified back | | | | [place] [address] | | pain laterality | | | | [phone] | | (Primary Dx) | +--------+ + [...] | | | | [facility], | | | | | | [place] [address] | | | | | | [phone] | | | | | | | [...]
--- OUTSIDE RECORDS SUMMARY | ~2019-08-25 | XMS | Encounter Summary ---
Demographics + + + | Address | [address] | | | [place] [address] | + + + | Home Phone [...] Team Providers + +------+ + | Care Medical Technologist Prn Name | Role | Phone | + [...] [id number] | | | | | [place] [address] | | | | | | [phone] | | | +--------+ + + + [...] | | | | | | [place] [address] | | | | | | [phone] | | | | | | | | +--------+---------+ + + + documented as of this encounter Visit Diagnoses Not on filedocumented in this encounter"
--- OUTSIDE RECORDS SUMMARY | ~2019-08-25 | XMS | Encounter Summary ---
Demographics + + + | Address | [address] | | | [place] [address] | + + + | Home Phone [...] Team Providers + +------+ + | Care Scientific Advisor Name | Role | Phone | [...] | without | [address], | [place] [address] | | | | | sciatica, | [address] [place] | Phone: | | | | | unspecified | [place], [place] | [phone] | | | | | back pain | [address] | Fax: | | | | | laterality | Phone: | [phone] | | | | | Procedures | [phone] | | | | | | CT Lumbar | Fax: | | | | | | Spine wo | [phone] | | | | | | Contrast [...] | without | [address], | [place] [address] | | | | | sciatica, | [place] [address] [place] | Phone: | | | | | unspecified | [place], [place] | [phone] | | | | | back pain | [address] | Fax: | | | | | laterality | Phone: | [phone] | | | | | Procedures | [phone] | | | | | | CT Lumbar | Fax: | | | | | | Spine wo | [phone] | | | | | | Contrast [...] | | | | [place], [place] | [address] | unspecified back | | | | [address] | | pain laterality | | | | [phone] | | | +--------+ + + + [...] | 2019 | Visit | | Sinai, DRESS FINISHER [address] | | | | | | [address] [place], | | | | | | [place] [address] | | | | | | [phone] | | | | | | | [...]
--- OUTSIDE RECORDS SUMMARY | ~2019-08-25 | XMS | Encounter Summary ---
Demographics + + + | Address | [address] | | | [place] [address] | + + + | Home Phone [...] Providers + +------+ + | Care Senior Technical Support Analyst Name | Role | Phone | [...] [id number] | | | | | [place] [address] | | | | | | [phone] | | | +--------+ + + + [...] | | | | | | [place] [address] | | | | | | [phone] | | | | | | | | +--------+---------+ + + + documented as of this encounter Visit Diagnoses Not on filedocumented in this encounter"
--- OUTSIDE RECORDS SUMMARY | ~2019-08-25 | XMS | Encounter Summary ---
Demographics + + + | Address | [address] | | | [place] [address] | + + + | Home Phone [...] Providers + +------+ + | Care Blueprint Machine Operator Name | Role | Phone [...] | Pain | | 2019 | | [facility] | WASTE COTTON CLEANER | | | | | CLINIC [address] | | | | | | DR [address], | | | | | | [place] [address] | | | | | | [phone] | | | +--------+--------+ + + + [...] | | | | | | [place] [address] | | | | | | [phone] | | | | | | | | +--------+---------+ + + + documented as of this encounter Visit Diagnoses + + | Diagnosis | + + | Chronic low back pain without sciatica, unspecified back pain laterality - Primary | + + documented in this encounter"
--- OUTSIDE RECORDS SUMMARY | ~2019-08-25 | XMS | Encounter Summary ---
Demographics + + + | Address | [address] | | | [place] [address] | + + + | Home Phone [...] Team Providers + +------+ + | Care Para Educator Name | Role | Phone | + [...] [address] | | | | | [place] [address] | | | | | | [phone] | | | +--------+ + + + [...] | | | | | | [place] [address] | | | | | | [phone] | | | | | | | | +--------+---------+ + + + documented as of this encounter Visit Diagnoses Not on filedocumented in this encounter"
--- OUTSIDE RECORDS SUMMARY | ~2019-08-25 | XMS | Encounter Summary ---
Demographics + + + | Address | [address] | | | [place] [address] | + + + | Home Phone | | + + + | Preferred Language | Unknown | + + + | Marital Status | | + + + | Hinduism Affiliation | Unknown | + + + | Race | Unknown | + + + | Ethnic Group | Unknown | + + + Author + + + | Author | [facility] | | | and [place] | + + + | Organization | [facility] | | | and [place] | + + + | Address | Unknown | + + + | Phone | Unavailable | + + + Support + + +---------+ + | Name | Relationship | Address | Phone | + + +---------+ + | Blanquita oJse | ECON | Unknown | | + + +---------+ + Care Team Providers + +------+ + | Care Student Life Coordinator Name | Role | Phone | + [...] Appointment Question | | 2019 | | [facility] | | | | | | CLINIC [address] | | | | | | [address] [place], | | | | | | [place] [address] | | | | | | [phone] | | | +--------+ + + + [...] | | | | | [address] [facility] [place], | | | | | | [place] [address] | | | | | | [phone] | | | | | | | | +--------+---------+ + + + documented as of this encounter Visit Diagnoses Not on filedocumented in this encounter"
--- OUTSIDE RECORDS SUMMARY | ~2019-08-25 | XMS | Encounter Summary ---
Demographics + + + | Address | [address] | | | [place] [address] | + + + | Home Phone [...] Team Providers + +------+ + | Care Business Mail Entry Clerk Name | Role | Phone | [...] | | | | | Procedures | Gordon | [facility] | | | | | Evaluate & | [address] | [address] Phone: | | | | | Treat | [place], [place] | [phone] | | | | | | [address] | Fax: | | | | | | Phone: | [phone] | | | | | | [phone] | | +--------+ + + + + + Encounter Details +--------+ + + + + | Date | Type | Department | Care Team | Description | +--------+ + + + + | 04/07/ | Procedure | [place] [facility] | Mary, | Chronic bilateral | | 2019 | visit | HOSPITAL NEUROLOGY | Sinai, TRANSVERSE ABDOMINAL MUSCLE SURGEON [address] | low back pain | | | | CLIN[address] | [address] [place], | without sciatica | | | | [place] | [place] [address] | (Primary Dx); Right | | | | [place] [address] | [phone] | hip pain; Fall, | | | | [phone] | | initial encounter | +--------+ + [...] | | | | | | [address]TH [facility], | | | | | | [place] [address] | | | | | | [phone] | | | | | | | [...] | + +--------+ + + + | PA INJECT TRIGGER | Routin | 04/07/2019 | [...]
--- OUTSIDE RECORDS SUMMARY | ~2019-08-25 | XMS | Clinical Summary ---
Demographics + + + | Address | [address] | | | [place] [address] | + + + | Home Phone | | + + + | Preferred Language | Unknown | + + + | Marital Status | Single | + + + | Shinto Affiliation [...] Team Providers + +------+ + | Care Tool Crib Clerk Name | Role | Phone | + +------+ + | Jory Segovia MD | PCP | | + +------+ + Source Comments RESHMA is fully live on both [facility] Ambulatory and [facility] InPatient.[facility] Allergies Not on File Medications Not on [...] | ITY | | for | | [place], | | | | OUTSOU | | all | | [place] [address] | | | | RCE | | [...] Person | Self | [birth year] | | [address] | | | al/Fam | | 1951 | [phone] | [place], [place] | | | graciela | | | 6 (Home) | [address] | + +--------+ +--------+ + + | [id number] | Indust | Self | [birth year] | | [id number] Kaleb | | | rial | | 1876 | [phone] | [facility] . | | | | | | 2 (Home) | [address] [place], [place] | | | | | | | [address] | + +--------+ +--------+ + + | Nitesh Haynes | [place] | Self | [birth year] | | [address] | | | [place] | | 1951 | [phone] | [place], [place] | | | red | | | 6 ([place]) | [address] | + +--------+ +--------+ + +"
--- OUTSIDE RECORDS SUMMARY | ~2019-08-25 | XMS | Encounter Summary ---
Demographics + + + | Address | [address] | | | [place] [address] | + + + | Home Phone [...] Team Providers + +------+ + | Care Kiln Cleaner Name | Role | Phone | [...] | visit | HOSPITAL NEUROLOGY | Sinai, SUBSTATION DESIGNER [address] | low back pain | | | | CLINIC [address] | [address] [facility] [place], | without sciatica | | | | [place], | [place] [address] | (Primary Dx) | | | | [place] [address] | [phone] | | | | | [phone] | | | +--------+ + + + [...] | | | | | | [place] [address] | | | | | | [phone] | | | | | | | | +--------+---------+ + + + documented as of this encounter Procedures + +--------+ + + + | Procedure Name | Priori | Date/Time | Associated Diagnosis | Comments | | | ty | | | | + +--------+ + + + | [place] INJECT TRIGGER | Routin | 08/13/2018 | [...]
--- OUTSIDE RECORDS SUMMARY | ~2019-08-25 | XMS | Encounter Summary ---
Demographics + + + | Address | [address] | | | [place] [address] | + + + | Home Phone [...] Team Providers + +------+ + | Care Therapeutic Support Staff Name | Role | Phone | + [...] | DR [address] [place], | [address] | unspecified back | | | | [place] [address] | | pain laterality | | | | [phone] | | (Primary Dx) | +--------+ + [...] | | | | | | [place] [address] | | | | | | [phone] | | | | | | | [...]
--- OUTSIDE RECORDS SUMMARY | ~2019-08-25 | XMS | Encounter Summary ---
Demographics + + + | Address | [address] | | | [place] [address] | + + + | Home Phone [...] + + | Author | [facility] | + + + | Organization | [facility] | + + + | Address | Unknown | + + + | Phone | Unavailable | + + + Support + + +---------+ + | Name | Relationship | Address | Phone | + + +---------+ + | Gloria Haynes | ECON | Unknown | | + + +---------+ + Care Team Providers + +------+ + | Care Felt Cementer Name | Role | Phone | + +------+ + | Jory Segovia MD | PCP | | + +------+ + Encounter Details +--------+ + + + + | Date | Type | Department | Care Team | Description | +--------+ + + + + | 10/22/ | Telephone | Neurology at | Annie Heard, | | | 2017 | | [facility] & | | | | | | [facility] [address] | | | | | | Lemuel Maciel Mailcode: | | | | | | [facility] | | | | | | Health and Healing, | | | | | | | | | | | | [place], [place] | | | | | | [address] | | | | | | [phone] | | | +--------+ + + + [...]
--- OUTSIDE RECORDS SUMMARY | ~2019-08-25 | XMS | Encounter Summary ---
Demographics + + + | Address | [address] | | | [place] [address] | + + + | Home Phone [...] Team Providers + +------+ + | Care Wrapper Layer Name | Role | Phone | + [...] 2018 | | HOSPITAL NEUROLOGY | Sinai, NEUROLOGICAL PHYSIOTHERAPIST [address] | | | | | CLIN[address] | [address] [facility], | | | | | [address] [place] [place], | [place] [address] | | | | | [place] [address] | [phone] | | | | | [phone] | | | +--------+ + + + [...] | | | | | | [place] [address] | | | | | | [phone] | | | | | | | | +--------+---------+ + + + documented as of this encounter Visit Diagnoses + + | Diagnosis | + + | Chronic bilateral low back pain without sciatica - Primary | + + documented in this encounter"
--- OUTSIDE RECORDS SUMMARY | ~2019-08-25 | XMS | Encounter Summary ---
Demographics + + + | Address | [address] | | | [place] [address] | + + + | Home Phone [...] Team Providers + +------+ + | Care Multi Punch Operator Name | Role | Phone | + +------+ + | Екатерина Christianson NP | PCP | | + +------+ + Encounter Details +--------+ + + + + | Date | Type | Department | Care Team | Description | +--------+ + + + + | 12/26/ | [facility] | Mac Bond MD | Chronic low back | | 2019 | Encounter | HOSPITAL XRAY 900 | [address] | pain without | | | | [place] [place] | [place], [place] | sciatica, | | | | [place], [place] | [address] | unspecified back | | | | [address] | | pain laterality; | | | | [phone] | Radiologist, Cc Wgr | Osteoarthritis of [...] | | | | | [address] [facility], | | | | | | [place] [address] | | | | | | [phone] | | | | | | | [...]
--- OUTSIDE RECORDS SUMMARY | ~2019-08-25 | XMS | Encounter Summary ---
Demographics + + + | Address | [address] | | | [place] [address] | + + + | Home Phone [...] + + | Author | [facility] | | | and [place] | + + + | Organization | [facility] [...] Team Providers + +------+ + | Care Art Sales Consultant Name | Role | Phone [...] 2019 | | HOSPITAL NEUROLOGY | Sinai, HOSPITALITY RECRUITER [address] | work ) | | | | CLINIC [address] | [address] [facility] [place], | | | | | [address] [place] [place], | [place] [address] | | | | | [place] [address] | [phone] | | | | | [phone] | | | +--------+ + + + [...] | | | | | | [place] [address] | | | | | | [phone] | | | | | | | | +--------+---------+ + + + documented as of this encounter Visit Diagnoses Not on filedocumented in this encounter"
--- OUTSIDE RECORDS SUMMARY | ~2019-08-25 | XMS | Encounter Summary ---
Demographics + + + | Address | [address] | | | [place] [address] | + + + | Home Phone [...] Team Providers + +------+ + | Care Nursing Information Systems Coordinator Name | Role | Phone | [...] ESTHER [address] | | | | | ([facility]LY [facility]) | [place] [address], | | | | | | | [address] | [place], [place] | | | | | | [place], [place] | [address] | | | | | | [address] | Phone: | | | | | | Phone: | [phone] | | | | | | [phone] | Fax: | | | | | | Fax: | [phone] | | | | | | [phone] | | + + + + + [...] [place] | | | | | | [address] | [address] | | | | | | Phone: | Phone: | | | | | | [phone] | [phone] | | | | | | Fax: | Fax: | | | | | | [phone] | [phone] | +--------+ + + + + + [...] Authorized | | Neurology | Diagnoses | [place] | Varun, | | | | | Parkinson's | [facility] | Mac Phillips MD | | | | | disease | CENTER [address] | [address] | | | | | (HCC) | SW | [place] [address] | | | | | Repeated | [place] | [facility], [place] | | | | | [place] | [address] | [address] Phone: | | | | | back pain | [place], | [phone] | | | | | | [place] | Fax: | | | | | | [address] | [phone] | | | | | | Phone: | | | | | | | [phone] | | | | | | | Fax: | | | | | | | [phone] | | + +--------+ + + + [...] | | | DR SUMANTH LION, | [address] | Parkinson disease | | | | [place] [address] | | ([facility]LY [facility]); Gait disorder | | | | [phone] | | | +--------+---------+ + + + [...] be different from the original. Patient Instructions [facility] Neurology Clinic Dr. Mac Bond, Neurologist Date:07/28/2019 [...] le, and scrabble, other puzzle games like Let's Jock, [employer]nerg[employer]. Play computer/mobile applications such as Info and MIND GAMES Continue Sinemet and Comtan and Amantadine Advised exercise daily Discussed with pit hand Mateusz Any Questions please call ELIAS Canales or Dr. Bond at [facility] Neurology Clinic Understanding Parkinson Disease Parkinson disease [...] The diagnosis is based on your symptoms, [facility] history, and a physical exam. You [...] people with Parkinson disease. Date Last Reviewed: 09/26/201719994875-54[address] [employer] [place] [address], [place] [id number]. All righ ts reserved. This information is [...] and knives if it s hard to chin strap sewer utensils. Spill-proof cups can help with drinking. [...] voice-activated soft mcwilliams for computers. Use foam structural steel worker on pens and pencils. These can make them easier to hold. Sleeping Manypeople with Parkinson have trouble sleeping. They may also move in their sleep and st rike their partners. Tell your healthcare provider if you re having sleep problems or recu rrent nightmares. Medicinecan often help you sleep better. Check with your healthcare prov ider before using wuqi-xnn-pcsvhce medicines to help you sleep. Getting out [...] or begin having falls. Date Last Reviewed: 10/24/201719996022-[address] [employer] [place] [address]. All righ ts reserved. This information is [...] urinary symptoms, and others. Date Last Reviewed: 09/26/201719993452-4735 [employer]. [address] [place], [place] [id number]. All righ ts reserved. This information is [...] are taking other medicines. You may use kiqu-axr-hyjmxqd medicine to control pain, unless another pain [...] by your healthcare provider Date Last Reviewed: 02/24/201619995558-9063 [employer]. [address] [place] [address], [place] [address]. All righ ts reserved. This information is [...] teens without first discussing it with your [facility]'s healthcare provider. Ice Ice reduces muscle [...] use ice several times a day. Medicines Bvqa-rno-tsfjilg pain relieversincludeacetaminophen and anti-inflammatory medicines, wh ich [...] a heating p ad. Date Last Reviewed: 01/24/201819995885-7543 [employer]. [address] [place] [address]. All righ ts reserved. This information is not intended as a substitute for professional medical care. Always follow your healthcare professional's instructions. documented in this encounter Progress Notes Mac Bond MD - 07/28/2019 3:00 PM PST Patient: Nitesh Haynes Medical Record: [id number] Date of Services: 07/28/2019 Referring Doctor: Екатерина [...] that time. The DBS was performed in [facility]. Patient will be referred to [facility] for fur ther evaluation and opinion. In addition history of chronic low back pain though stable this time with previous lumbar spine surgeries. Presently, patient has tolerable symptoms and gave other treatment options in event that he symptoms recur such as acupuncture treatments, massage therapy, relaxation therapy, yroc-nbq-lhjgacz creams and patches, and cortisone shots. Review [...] and oriented to time, place, and person. [facility] is fluent. Memory, attention, comprehension, and [...] Sudoku, Mahjong. Play computer/mobile applications such as Info and MIND GAMES Continue Sinemet and Comtan and Amantadine Advised exercise daily Discussed with pit hand Mateusz Any Questions please call ELIAS Canales or Dr. Bond at [facility] Neurology Clinic Mac Bond MD07/28/20194:01 PM Electronically signed NOTE: Part of this report was transcribed using voice recognition software. Every effort was made to ensure accuracy. However, inadvertent computerize tooth grinder errors may be present documented in this [...] | | | | | | [place] [address] | | | | | | [phone] | | | | | | | [...] Physical Therapy | Referral | e | ([facility]) | 08/04/2019, Expires: | | | | [...]
--- OUTSIDE RECORDS SUMMARY | ~2019-08-25 | XMS | Encounter Summary ---
Demographics + + + | Address | [address] | | | [place] [address] | + + + | Home Phone [...] Team Providers + +------+ + | Care Simulation Technician Name | Role | Phone | [...] | | Required | | disease | OPERATION SPECIALIST [address] | [address] | | | | | (HCC) Neck | [address] | [address] | | | | | pain, | [place], [place] | [place] | | | | | bilateral | [address] | [place], [place] | | | | | Chronic | Phone: | [address] Phone: | | | | | bilateral | [phone] | [phone] | | | | | low back | Fax: | Fax: | | | | | pain with | [phone] | [phone] | | | | | right-sided | [...] | Visit | HOSPITAL NEUROLOGY | [facility]inai, OPERATION SPECIALIST [address] | ([facility]) (Primary Dx); | | | | CLINIC [address] | [address] [place], | Chronic bilateral | | | | DR [place], | [place] [address] | low back pain | | | | [place] [address] | [phone] | without sciatica; | | | | [phone] | | Gait disorder; Neck | | | | | Dulce Berkowitz | pain, bilateral | | | | | D, [address] | | | | | | DRIVE [address] | | | | | | [place] [address] | | | | | | [phone] | | | | | | | [...] as of this encounter Progress Notes Dulce Berkwoitz CHW - 03/09/2019 1:30 PM PDTNeurology Clinic Community Health Worker Note Type of Visit: Home Visit" Start Time: 1330 Stop Time: 1400 Number of Units Approved: 8 Number of Units Used To Date: 3 Associated Diagnosis: Parkinson disease, Chronic bilateral low back pain without sciatica, Gait disorder, Neck pain Pathways: Medical Home, Medication Assessment and Wastewater Design Engineer" Chart Notes/ Visit Details: During the follow [...] are getting worse. He recently went to [place] to h ave his neruological stimulator looked [...] care. 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 Nitesh has asked to establish with a new PCP, preferable one in [place] at [facility]. I will call the offices there [...] | | | | | [address] [place], | | | | | | [place] [address] | | | | | | [phone] | | | | | | | [...]
--- OUTSIDE RECORDS SUMMARY | ~2019-08-25 | XMS | Encounter Summary ---
Demographics + + + | Address | [address] | | | [place] [address] | + + + | Home Phone [...] Team Providers + +------+ + | Care Corporate Accountant Name | Role | Phone | + [...] Appointment (Confirm | | 2019 | | [facility] NEUR[facility]Y | D, [address] | appointment for | | | | CLINIC [address] | [address] | home visit with GIANNA | | | | DR SUMANTH LION, | [place] [address] | and to get | | | | [place] [address] | [phone] | directions) | | | | [phone] | | | +--------+ + + + [...] | | | | | | [place] [address] | | | | | | [phone] | | | | | | | | +--------+---------+ + + + documented as of this encounter Visit Diagnoses Not on filedocumented in this encounter"
--- OUTSIDE RECORDS SUMMARY | ~2019-08-25 | XMS | Encounter Summary ---
Demographics + + + | Address | [address] | | | [place] [address] | + + + | Home Phone [...] Author + + + | Author | [facility] | + + + | Organization | [facility] | + + + | Address | Unknown | + + + | Phone | Unavailable | + + + Support + + +---------+ + | Name | Relationship | Address | Phone | + + +---------+ + | Gloria Haynes | ECON | Unknown | | + + +---------+ + Care Team Providers + +------+ + | Care Public Service Officer Name | Role | Phone | [...] | | | | disease | on [place] | [facility] | | | | | (HCC) | [facility] | Rd | | | | | Procedures | CENTER | Mailcode: | | | | | MRI BRAIN WO | [address] | [address] | | | | | CONTRAST | [place] | [place] | | | | | | [address] | Research | | | | | | [facility] | | | | | | [place] [address] | [place], [place] | | | | | | Phone: | [address] | | | | | | [phone] | Phone: | | | | | | Fax: | [phone] | | | | | | [phone] | Fax: | | | | | | | [phone] | +--------+--------+ + + + + Encounter Details +--------+ + + + + | Date | Type | Department | Care Team | Description | +--------+ + + + + | 09/12/ | Outside | Diagnostic Imaging | Veterans, | | | 2010 | Referral | Services at [facility] | Administration | | | | Order | [address] | [facility] | | | | | Jazlyn Rene Mailcode: | [place] [address] [facility] | | | | | [address] [place] | [facility] | | | | | Research Center | [place], [place] | | | | | [place], [place] | [id number] | | | | | [address] | | | | | | [phone] | | | +--------+ + + + [...] | | CONTRAST | | e | ([facility]) | 09/12/2010, Expires: | | | | | | 10/13/2011 | + +---------+--------+ + + documented as of this encounter Visit Diagnoses + + | Diagnosis | + + | Parkinson disease ([facility]) - Primary Paralysis agitans | + + documented in this encounter"
--- OUTSIDE RECORDS SUMMARY | ~2019-08-25 | XMS | Encounter Summary ---
Demographics + + + | Address | [address] | | | [place] [address] | + + + | Home Phone [...] Team Providers + +------+ + | Care Pickers Material Handlers Name | Role | Phone | + [...] [address] | | | | | [place] [address] | | | | | | [phone] | | | +--------+ + + + [...] | | | | | | [place] [address] | | | | | | [phone] | | | | | | | | +--------+---------+ + + + documented as of this encounter Visit Diagnoses Not on filedocumented in this encounter"
--- OUTSIDE RECORDS SUMMARY | ~2019-08-25 | XMS | Encounter Summary ---
Demographics + + + | Address | [address] | | | [place] [address] | + + + | Home Phone [...] Team Providers + +------+ + | Care Health Plan Specialist Name | Role | Phone | [...] | visit | HOSPITAL NEUROLOGY | Sinai, MATERIALS MGMT TECH [address] | low back pain | | | | CLINIC [address] | [address] [place], | without sciatica | | | | [place], | [place] [address] | (Primary Dx) | | | | [place] [address] | [phone] | | | | | [phone] | | | +--------+ + + + [...] | | | | | | [address]TH [facility], | | | | | | [place] [address] | | | | | | [phone] | | | | | | | | +--------+---------+ + + + documented as of this encounter Procedures + +--------+ + + + | Procedure Name | Priori | Date/Time | Associated Diagnosis | Comments | | | ty | | | | + +--------+ + + + | NC INJECT TRIGGER | Routin | 08/13/2018 | [...]
--- OUTSIDE RECORDS SUMMARY | ~2019-08-25 | XMS | Encounter Summary ---
Demographics + + + | Address | [address] | | | [place] [address] | + + + | Home Phone [...] Team Providers + +------+ + | Care Twister Operator Name | Role | Phone | [...] Appointment Question | | 2019 | | [facility] | | | | | | CLINIC [address] | | | | | | DR [address]TH [place], | | | | | | [place] [address] | | | | | | [phone] | | | +--------+ + + + [...] | | | | | [address] [place], | | | | | | [place] [address] | | | | | | [phone] | | | | | | | | +--------+---------+ + + + documented as of this encounter Visit Diagnoses Not on filedocumented in this encounter"
--- OUTSIDE RECORDS SUMMARY | ~2019-08-25 | XMS | Encounter Summary ---
Demographics + + + | Address | [address] | | | [place] [address] | + + + | Home Phone | | + + + | Preferred Language | Unknown | + + + | Marital Status | | + + + | Mu-Ism Affiliation [...] Team Providers + +------+ + | Care Slot Operations Director Name | Role | Phone | [...] + + | 08/21/ | Telephone | [facility] | Opal Alexandre, | Referral | | 2019 | | NEUROLOGY [address] | MD [address] | | | | | [address] | DRIVE [facility] [address] | | | | | [place], [place] | [place] [address] | | | | | [address] | [phone] | | | | | [phone] | | | +--------+ + + + [...] | | | | | | [place] [address] | | | | | | [phone] | | | | | | | | +--------+---------+ + + + documented as of this encounter Visit Diagnoses Not on filedocumented in this encounter"
--- OUTSIDE RECORDS SUMMARY | ~2019-08-25 | XMS | Encounter Summary ---
Demographics + + + | Address | [address] | | | [place] [address] | + + + | Home Phone [...] Team Providers + +------+ + | Care Carpet Measurer Name | Role | Phone | + [...] | DR [address]BE A [place], | [address] | unspecified back | | | | [place] [address] | | pain laterality | | | | [phone] | | (Primary Dx); | | | [...] | 2019 | Visit | | [address] | | | | | | [address] [place], | | | | | | [place] [address] | | | | | | [phone] | | | | | | | [...] + + | [place] [facility] | [address] | [place] [address] | [phone] | | HOSPITAL LABORATORY | | | | + + + + + documented in this encounter Visit Diagnoses + + | Diagnosis | + + | Chronic low back pain without sciatica, unspecified back pain laterality - Primary | + + | Encounter for therapeutic procedure | + + documented in this encounter"
--- OUTSIDE RECORDS SUMMARY | ~2019-08-25 | XMS | Encounter Summary ---
Demographics + + + | Address | [address] | | | [place] [address] | + + + | Home Phone [...] Team Providers + +------+ + | Care Community Relations Officer Name | Role | Phone | + +------+ + | Екатерина Christianson NP | PCP | | + +------+ + Encounter Details +--------+ + + + + | Date | Type | Department | Care Team | Description | +--------+ + + + + | 07/09/ | [facility] Amanda BERMUDEZ | Mac Bond MD | Chronic bilateral | | 2018 | Encounter | HOSPITAL XRAY [address] | [address] | low back pain | | | | [address] | [place], [place] | without sciatica | | | | [place], [place] | [address] | | | | | [address] | | | | | | [phone] | | | +--------+ + + + [...] | | | | | | 4TH [facility], | | | | | | [place] [address] | | | | | | [phone] | | | | | | | [...] back pain COMPARISON STUDY: None FINDINGS: 5 uvx-loi-khtepug | | | lumbar vertebral bodies. Clarence left lower lumbar scoliosis. There is | [...] | | VWHISTORY:persistent low back painCOMPARISON STUDY:NoneFINDINGS:5 zyc-nba-xpcowaj lumbar | | vertebral bodies.Clarence left lower lumbar scoliosis.There is postsurgical change [...] | spine.Atherosclerosis.Dictated by: Manuelito Connoram | |5 wmc-vww-kifnusy lumbar vertebral bodies. | |Clarence left lower lumbar scoliosis. | |There is [...]
--- OUTSIDE RECORDS SUMMARY | ~2019-08-25 | XMS | Encounter Summary ---
Demographics + + + | Address | [address] | | | [place] [address] | + + + | Home Phone | | + + + | Preferred Language | Unknown | + + + | Marital Status | | + + + | Adventism Affiliation | Unknown | + + + | Race | Unknown | + + + | Ethnic Group | Unknown | + + + Author + + + | Author | [facility] | | | and [place] | + + + | Organization | [facility] | | | [...] Team Providers + +------+ + | Care Reproduction Technician Name | Role | Phone | [...] [address] | | | | | [place] [address] | | | | | | [phone] | | | +--------+ + + + [...] | | | | | | [place] [address] | | | | | | [phone] | | | | | | | | +--------+---------+ + + + documented as of this encounter Visit Diagnoses Not on filedocumented in this encounter"
--- OUTSIDE RECORDS SUMMARY | ~2019-08-25 | XMS | Encounter Summary ---
Demographics + + + | Address | [address] | | | [place] [address] | + + + | Home Phone [...] Team Providers + +------+ + | Care Aviation Tactical Readiness Officer Name | Role | Phone | [...] | | Required | | disease | TRAFFIC ASSISTANT [address] | [address] | | | | | (HCC) Neck | [address] | [address] | | | | | pain, | [place], [place] | [address] [address] [place] | | | | | bilateral | [address] | [place], [place] | | | | | Chronic | Phone: | [address] Phone: | | | | | bilateral | [phone] | [phone] | | | | | low back | Fax: | Fax: | | | | | pain with | [phone] | [phone] | | | | | right-sided | [...] | Visit | HOSPITAL NEUROLOGY | Sinai, TRAFFIC ASSISTANT [address] | ([facility]) (Primary Dx); | | | | CLINIC [address] | [address] [place], | Chronic bilateral | | | | DR [place], | [place] [address] | low back pain | | | | [place] [address] | [phone] | without sciatica; | | | | [phone] | | Gait disorder; Neck | | | | | Dulce Berkowitz | pain, bilateral | | | | | D, [address] | | | | | | [address] | | | | | | [place] [address] | | | | | | [phone] | | | | | | | [...] ck pain, bilateral Pathways: Medication Assessment and Crystallizer Operator" Chart Notes/ Visit Details: An Initial Interview [...] new medication. Gerardo has an appointment in [place] soon to look at the stimulator that [...] chair and bed. CHW will speak with [employer]PRTUNITY to see if insurances will cover those items with a prescription f rom a provider. CHW will follow up with Gerardo and Gloria as resources are discovered. Follow up home visit set for March 09, 2019 @ 4558. GIANNA Croft documented in thi s encounter [...] | | | | | | [place] [address] | | | | | | [phone] | | | | | | | [...]
--- OUTSIDE RECORDS SUMMARY | ~2019-08-25 | XMS | Encounter Summary ---
Demographics + + + | Address | [address] | | | [place] [address] | + + + | Home Phone [...] + + + | Author | [facility] | + + + | Organization | [facility] | + + + | Address | Unknown | + + + | Phone | Unavailable | + + + Support + + +---------+ + | Name | Relationship | Address | Phone | + + +---------+ + | Gloria Haynes | ECON | Unknown | | + + +---------+ + Care Team Providers + +------+ + | Care Suction Dredge Dumping Supervisor Name | Role | Phone | [...] | | | | disease | on [address] | [facility] | | | | | (HCC) | V A MEDICAL | Rd | | | | | Procedures | CENTER | Mailcode: | | | | | MRI BRAIN WO | [address] | [address] | | | | | CONTRAST | [facility] | [place] | | | | | | [address] | Research | | | | | | [facility] | | | | | | [place] [address] | [place], [place] | | | | | | Phone: | [address] | | | | | | [phone] | Phone: | | | | | | Fax: | [phone] | | | | | | [phone] | Fax: | | | | | | | [phone] | +--------+--------+ + + + + Encounter Details +--------+ + + + + | Date | Type | Department | Care Team | Description | +--------+ + + + + | 10/03/ | Hospital | Diagnostic Imaging | | | | 2010 | Encounter | Services at [facility] | | | | | | [address] | | | | | | Jazlyn Rene Mailcode: | | | | | | [address] [place] | | | | | | [facility] | | | | | | [place], [place] | | | | | | [address] | | | | | | [phone] | | | +--------+ + + + [...]
--- OUTSIDE RECORDS SUMMARY | ~2019-08-25 | XMS | Encounter Summary ---
Demographics + + + | Address | [address] | | | [place] [address] | + + + | Home Phone | | + + + | Preferred Language | Unknown | + + + | Marital Status | Single | + + + | Caodaism Affiliation [...] Team Providers + +------+ + | Care Traffic Workforce Representative Name | Role | Phone | + [...] [id number] | | | | | | [place], [place] | | | | | | [address] | | | | | | [phone] | | | +--------+ + + + [...]
--- OUTSIDE RECORDS SUMMARY | ~2019-08-25 | XMS | Encounter Summary ---
Demographics + + + | Address | [address] | | | [place] [address] | + + + | Home Phone | | + + + | Preferred Language | Unknown | + + + | Marital Status | | + + + | Methodist Affiliation | Unknown | + + + | Race | Unknown | + + + | Ethnic Group | Unknown | + + + Author + + + | Author | [facility] | | | and [place] | + + + | Organization | [facility] | | | [...] Team Providers + +------+ + | Care Pharmacy Informaticist Name | Role | Phone | + [...] | | Required | | disease | [address] | [address] | | | | | (HCC) Neck | [address] | [address] | | | | | pain, | [place], [place] | [address] | | | | | bilateral | [address] | [place], [place] | | | | | Chronic | Phone: | [address] Phone: | | | | | bilateral | [phone] | [phone] | | | | | low back | Fax: | Fax: | | | | | pain with | [phone] | [phone] | | | | | right-sided | [...] | | Required | | disease | [address] | PHYSICAL | | | | | (HCC) | [address] | [address] | | | | | Frequent | [place], [place] | [address] | | | | | falls | [address] | [address] | | | | | | Phone: | [facility], [place] | | | | | | [phone] | [address] | | | | | | Fax: | Phone: | | | | | | [phone] | [phone] | | | | | | | Fax: | | | | | | | [phone] | +--------+ + + + + + [...] | | | | | Procedures | [place] | [facility] | | | | | Evaluate & | [address] | [address] Phone: | | | | | Treat | [place], [place] | [phone] | | | | | | [address] | Fax: | | | | | | Phone: | [phone] | | | | | | [phone] | | +--------+ + + + + + Encounter Details +--------+---------+ + + + | Date | Type | Department | Care Team | Description | +--------+---------+ + + + | 11/26/ | Office | [place] [facility] | Mary, | Chronic bilateral | | 2019 | Visit | HOSPITAL NEUROLOGY | [facility], [address] | low back pain with | | | | CLIN[address] [place], | right-sided sciatica | | | | [place] | [place] [address] | (Primary Dx); | | | | [place] [address] | [phone] | Parkinson disease | | | | [phone] | | ([facility]); Neck pain, | | | | | [...] press against a nerve. Date Last Reviewed: 10/24/201719991119-1078 [employer]. [address] [place] [address], [place] [address]. All righ ts reserved. This information is [...] are taking other medicines. You may use luxw-nrx-pktjydl medicine as directed on the bottle to [...] groin or genital area Date Last Reviewed: 02/24/201619999600-0067 [employer] [place] [address]. All righ ts reserved. This information is [...] frozen. To turn, walk in a half menominee instead of trying to stop and turn [...] yourself onto the chair. Date Last Reviewed: 10/24/201719998792-6169 [email or web address]. [address] [place] [address]. All righ ts reserved. This information is [...] of your body. Also, your symptoms may loom changer time. And you may have different [...] may also feel depressed. Date Last Reviewed: 09/26/201719993406-6307 [employer] [address] [place] [address]. All righ ts reserved. This information is [...] way to get help. Date Last Reviewed: 11/24/201719994971-6379 [email or web address]. [address] [place] [address], [place] [address]. All righ ts reserved. This information is not intended as a substitute for professional medical care. Always follow your healthcare professional's instructions. documented in this encounter Progress Notes S[facility] Hernandez FNP - 11/26/2018 3:15 PM PDT Patient: Nitesh Haynes Medical Record: [id number] Date of Services: 11/26/2018 Referring Doctor: Екатерина Christianson NP Chief Complaint: Parkinson's disease, chronic low back pain History of Present Illness: The patient presents to the Neurology Clinic today for follow u p accompanied by his , Glorai. The patient has a history of Parkinson's disease for approximately 19 years. He had a DBS surgery at [facility] in 2008 with revision in 2010. The [...] up scheduled with his neurology team at [facility] later this month. The patient has a history of chronic low back pain. The patient reports that his symptoms have slowly worsened over the past 10 years. He has had 2 previous lumbar spine surgeries, the last one in [address] Mcmullen in [place], [place]. The patient has tried treatment wi [...] e; Refill: 0 - AMB Referral to [facility] Parkinson disease (HCC) - Carbidopa-Levodopa; Take 1 tab PO at 0800, 1000, 1200, 1400, 1600, 1800, 2000 and 230 0. Max of 8 tabs per day. Dispense: 720 tablet; Refill: 3 - Entacapone; Take 1 tablet by mouth 5 times daily for 14 days. Dispense: 70 tablet; R efill: 0 - Ambulatory referral to Physical Therapy - AMB Referral to [facility] Neck pain, bilateral Overview: 07/09/18 XR Cervical: Extensive degenerative changes of the cervical spine.Bilateral f oraminal narrowing. Orders: - AMB Referral to [facility] Frequent falls - Ambulatory referral to Physical Therapy - AMB Referral to [facility] Chronic bilateral low back [...] are intact. There is no dysmetria on razwlr-pe-ffvu and vqul-qpmn-vgbr. Romberg is absent. + Tremors noted with [...] mg capsule G89.29 724.3 * Efrain Bermudez [facility] 338.29 2. Parkinson disease (HCC) G20 332.0 amantadine (SYMMETREL) 100 MG TABS carbidopa-levodopa (SINEMET) 25-100 mg per tablet entacapone (COMTAN) 200 mg tablet [facility] Physical Therapy, External - AMB Referral * Efrain Bermudez [facility] DISCONTINUED: entacapone (COMTAN) 200 mg tablet 3. Neck pain, bilateral M54.2 723.1 * Efrain Bermudez [facility] 4. Frequent falls R29.6 V15.88 [facility] Therapy, External - AMB Referral * Efrain Bermudez [facility] Plan: Parkinson's disease: We [...] | | | | | | [address] [place], | | | | | | [place] [address] | | | | | | [phone] | | | | | | | [...] Physical Therapy, | Referral | e | ([facility]) Frequent | | | External - AMB | | | falls | | | Referral | | | | | + + +--------+ + + | * Efrain Bermudez CC | Outpatient | Routin | Parkinson disease | Ordered: 11/26/2018 | | [facility] | Referral | e | ([facility]) Neck pain, | | | Worker | [...]
--- OUTSIDE RECORDS SUMMARY | ~2019-08-25 | XMS | Encounter Summary ---
Demographics + + + | Address | [address] | | | [place] [address] | + + + | Home Phone | | + + + | Preferred Language | Unknown | + + + | Marital Status | Single | + + + | Yarsani Affiliation | Unknown | + + + | Race | White | + + + | Ethnic Group | Not or | + + + Author + + + | Author | [facility] | + + + | Organization | [facility] | + + + | Address | Unknown | + + + | Phone | Unavailable | + + + Support + + +---------+ + | Name | Relationship | Address | Phone | + + +---------+ + | Gloria Haynes | ECON | Unknown | | + + +---------+ + Care Team Providers + +------+ + | Care Manufacturing Lead Name | Role | Phone | [...] [id number] | | | | | | [place], [place] | | | | | | [address] | | | | | | [phone] | | | +--------+ + + + [...]
--- OUTSIDE RECORDS SUMMARY | ~2019-08-25 | XMS | Encounter Summary ---
Demographics + + + | Address | [address] | | | [place] [address] | + + + | Home Phone | | + + + | Preferred Language | Unknown | + + + | Marital Status | Single | + + + | Hinduism Affiliation [...] Team Providers + +------+ + | Care Legal Specialist Name | Role | Phone | [...] [id number] | | | | | | [place], [place] | | | | | | [address] | | | | | | [phone] | | | +--------+ + + + [...]
--- OUTSIDE RECORDS SUMMARY | ~2019-08-25 | XMS | Encounter Summary ---
Demographics + + + | Address | [address] | | | [place] [address] | + + + | Home Phone [...] Team Providers + +------+ + | Care Portal Developer Name | Role | Phone | [...] | | Required | | disease | [facility] [address] | [address] | | | | | (HCC) Neck | [address] | [address] | | | | | pain, | [place], [place] | [address] | | | | | bilateral | [address] | [place], [place] | | | | | Chronic | Phone: | [address] Phone: | | | | | bilateral | [phone] | [phone] | | | | | low back | Fax: | Fax: | | | | | pain with | [phone] | [phone] | | | | | right-sided | [...] | Visit | HOSPITAL NEUROLOGY | [facility], [address] [address] | ([facility]) (Primary Dx); | | | | CLIN[address] | [address] [place], | Chronic bilateral | | | | [address] [place] [place] | [place] [address] | low back pain | | | | [place] [address] | [phone] | without sciatica; | | | | [phone] | | Gait disorder; Neck | | | | | Dulce Berkowitz | pain, bilateral | | | | | D, [address] | | | | | | [address] | | | | | | [place] [address] | | | | | | [phone] | | | | | | | [...] pain Pathways: Medical Home, Medication Assessment and Booster Pump Oiler" Chart Notes/ Visit Details: During the follow [...] are getting worse. He recently went to [place] to h ave his neruological stimulator looked [...] care. 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 Nitesh has asked to establish with a new PCP, preferable one in [place] at [facility]. I will call the offices there [...] | | | | | [address] [place], | | | | | | [place] [address] | | | | | | [phone] | | | | | | | [...]
--- OUTSIDE RECORDS SUMMARY | ~2019-08-25 | XMS | Encounter Summary ---
Demographics + + + | Address | [address] | | | [place] [address] | + + + | Home Phone [...] Team Providers + +------+ + | Care Slag Dumper Name | Role | Phone | + [...] Provide Resources | | 2019 | | [facility] | [facility] | | | | | MEDICAL CLIN[facility] [address] | | | | | | [address] [facility], | | | | | | [place] [address] | | | | | | [phone] | | | +--------+ + + + [...] | | | | [address] [facility] [place], | | | | | | [place] [address] | | | | | | [phone] | | | | | | | | +--------+---------+ + + + documented as of this encounter Visit Diagnoses Not on filedocumented in this encounter"
--- OUTSIDE RECORDS SUMMARY | ~2019-08-25 | XMS | Encounter Summary ---
Demographics + + + | Address | [address] | | | [place] [address] | + + + | Home Phone [...] Team Providers + +------+ + | Care Investigator Operator Name | Role | Phone | [...] | | | | [place], [place] | [address] | | | | | [address] | | | | | | [phone] | Laxmi Draper Wgr | | +--------+ [...] | | | | | | [address] [facility], | | | | | | [place] [address] | | | | | | [phone] | | | | | | | [...]
--- OUTSIDE RECORDS SUMMARY | ~2019-08-25 | XMS | Encounter Summary ---
Demographics + + + | Address | [address] | | | [place] [address] | + + + | Home Phone [...] Team Providers + +------+ + | Care Solid Waste Disposal Manager Name | Role | Phone | [...] | without | [address], | [place] [address] | | | | | sciatica, | [address] | Phone: | | | | | unspecified | [place], [place] | [phone] | | | | | back pain | [address] | Fax: | | | | | laterality | Phone: | [phone] | | | | | Procedures | [phone] | | | | | | CT Lumbar | Fax: | | | | | | Spine wo | [phone] | | | | | | Contrast [...] unspecified back | | | | [place] [address] | | pain laterality | | | | [phone] | | (Primary Dx) | +--------+ + [...] | | | | | | [address] [facility] | | | | | | [place] [address] | | | | | | [phone] | | | | | | | [...]
--- OUTSIDE RECORDS SUMMARY | ~2019-08-25 | XMS | Encounter Summary ---
Demographics + + + | Address | [address] | | | [place] [address] | + + + | Home Phone | | + + + | Preferred Language | Unknown | + + + | Marital Status | Single | + + + | Yarsanism Affiliation [...] Team Providers + +------+ + | Care Painter Hand Name | Role | Phone | [...] | | | | disease | on KEALIA | [facility] | | | | | (HCC) | [facility] | Rd | | | | | Procedures | CENTER | Mailcode: | | | | | MRI BRAIN WO | [address] | | | | | CONTRAST | [facility] | [place] | | | | | [address] | Research | | | | | | [facility] | | | | | | [place] [address] | [place], [place] | | | | | | Phone: | [address] | | | | | | [phone] | Phone: | | | | | | Fax: | [phone] | | | | | | [phone] | Fax: | | | | | | | [phone] | +--------+--------+ + + + + Encounter Details +--------+ + + + + | Date | Type | Department | Care Team | Description | +--------+ + + + + | 09/12/ | Outside | Diagnostic Imaging | Veterans, | | | 2010 | Referral | Services at [facility] | Administration | | | | Order | [address] | [facility] | | | | | Jazlyn Rene Mailcode: | CONGRESS [address] [facility] | | | | | [address] [place] | [facility] | | | | | Research Center | [place], [place] | | | | | [place], [place] | [id number] | | | | | [address] | | | | | | [phone] | | | +--------+ + + + [...] | | CONTRAST | | e | ([facility]) | 09/12/2010, Expires: | | | | | | 10/13/2011 | + +---------+--------+ + + documented as of this encounter Visit Diagnoses + + | Diagnosis | + + | Parkinson disease ([facility]) - Primary Paralysis agitans | + + documented in this encounter"
--- NOTE | 2019-08-26 06:22 | EKG ---
[facility] [address] [place], [place] [address] Signed Normal sinus rhythm When compared with ECG of 18-AUG-2019 13:50, Confirmed by EDNA ROSENBERG MD ([id number]) on 08/26/2019 6:22:05 AM Electronically Signed By: EDNA ROSENBERG MD 08/26/19621 PATIENT NAME: ELIZA OLIVO Electrocardiogram DATE OF : 48 PHYSICIAN: EDNA ROSENBERG MD REPORT #: [id number] REPORT IS CONFIDENTIAL AND NOT TO BE RELEASED WITHOUT AUTHORIZATION
== END ==
LOC: ED 02:47
DX: R07.9 Chest pain, unspecified (principal); G20 Parkinson's disease; Z87.891 Personal history of nicotine dependence; Z88.2 Allergy status to sulfonamides; Z88.1 Allergy status to other antibiotic agents; Z79.899 Other long term (current) drug therapy
CPT/HCPCS: 71045; 80053; 83735; 84484; 85025; 93005; 93010; 96374; 96375; 96376; 99285-25; J2270; J2405